=== PATIENT | male | born 1940 | race Caucasian/White ===

== ENCOUNTER 2018-01-21 10:01 | Emergency (ER) | payer MEDICARE, BC, SELFPAY ==
[2018-01-21 10:08] VITALS: BP 155/83; PULSE 79; RESP 18; TEMP 36.8
[2018-01-21 10:26] VITALS: O2SAT 96
--- NOTE | 2018-01-21 10:30 | ED.GENADUL_ITS ---
Discharge Plan Disposition Patient Disposition: HOME Condition: Stable Discharge Details Chief Complaint: Orthopedic Clinical Impression: Chronic wound of extremity Primary Care Provider: Erik Carrasquillo ED Provider: Alize Hernández Home Meds and New Rx's Prescriptions: New cephalexin [Keflex] 500 mg capsule 500 mg PO QID Qty: 39 RF: 0 Continue dutasteride-tamsulosin [Marian] 1 EACH capsule, ER multiphase 24 hr 1 ea PO DAILY Qty: 90 RF: 3 multivitamin [Daily Multi-Vitamin] 1 EACH tablet 1 ea PO DAILY RF: 0 aspirin 325 MG tablet 325 mg PO DAILY RF: 0 pravastatin 20 MG tablet 20 mg PO HS Qty: 90 RF: 3 omeprazole 20 MG capsule,delayed release(DR/EC) 40 mg PO DAILY RF: 0 albuterol sulfate [ProAir HFA] 1 PUFF HFA aerosol inhaler 2 puff Inhalation PRN (Reason: Wheezing) RF: 0 diltiazem HCl [Cardizem] 120 MG tablet 240 mg PO DAILY RF: 0 Discharge Instructions Instructions: Cephalexin (By mouth), Cellulitis (ED) Additional Instructions: Please return immediately to the emergency department if you develop any new or worsening symptoms or if you become otherwise concerned. It is extremely important that you make an appointment to be seen by your primary care doctor within the next 1-2 weeks in follow-up this visit. Referrals: Erik Carrasquillo [Primary Care Provider] - Medical Decision Making Geoff Camacho is a 77 y/o man with h/o COPD presenting to the emergency department with would to the right hand one month ago that has developed into a milldy tender nodule, with redness over the past few days. On exam mildly tender nodule with central ulceration with granulation tissue, no drainage, mild erythema radial aspect of nodule. Exam/hx not consistent with abscess, anthrax, tularemia, other atypical skin infection, disseminated infection, sepsis. Concern for likely granuloma, possible cellulitic component. Plan for antibiotics given erythema and recent puncture at home with needle. Patient reports last tetanus shot was over 10 years ago, will administer Boostrix. Lengthy discussion with regarding return to emergency department precautions and importance of outpatient follow-up with his PCP in 1-2 weeks for follow-up and wound check. Patient is amenable to the plan. Medical Records Medical records reviewed: Yes I reviewed the patient's medical records. HPI General Mode of arrival: ambulatory . Date/Time Provider Initiated Documentation: 01/21/18 10:11 . Limitations to Documentation: no limitations . Information obtained by: patient . HPI Narrative: Geoff Camacho is a 77 y/o man with history of COPD presenting to the emergency department with painful bump to the right hand. Patient reports that approximate 1 month ago he hit the top of his right hand on the underneath of the table, sustaining a cut to the top of his right hand. Patient reports that the wound healed poorly, and became a raised bump. He reports that in the past week it seems to be becoming somewhat more red. He reports that he was waiting for the bump to develop head that would pop, but it never has. He reports that he stuck a needle into the center of it to see if it would drain, and it did not. She reports that it is mildly tender when he touches it, but otherwise does not hurt. He reports that he hit the top of his left hand on the underneath of a table and sustained a cut also around a month ago, and he does have a small bump on the top of his left hand as well since the time of the injury that has not been red or painful. Patient reports that he has chronic left-sided shoulder pain for which she receives injections from his primary care doctor approximately every year, and feels that he is again due for steroid injection of the shoulder. Shoulder pain is unchanged from its chronic baseline. No other pain, no fevers, no other rash, no nausea/vomiting/ diarrhea, no shortness of breath, no cough. Patient reports that he had a dog that recently but has no other pets and does not work with livestock. No travel since onset of symptoms. Patient is retired, no unusual occupational exposures. Related Data Home Medications Medication Instructions Recorded Confirmed albuterol sulfate [ProAir HFA] 2 puff INHALATION PRN 07/01/12 07/06/13 omeprazole 40 mg PO DAILY 07/01/12 10/17/16 diltiazem HCl [Cardizem] 240 mg PO DAILY 07/06/13 10/17/16 dutasteride-tamsulosin [Marian] 1 ea PO DAILY #90 cap 12/26/13 aspirin 325 mg PO DAILY tab-cap 10/23/16 multivitamin [Daily Multi-Vitamin] 1 ea PO DAILY 10/23/16 pravastatin 20 mg PO HS #90 tab-cap 10/23/16 cephalexin [Keflex] 500 mg PO QID #39 cap 01/21/18 Previous Rx's Medication Instructions Recorded cephalexin [Keflex] 500 mg PO QID #39 cap 01/21/18 Allergies Allergy/AdvReac Type Severity Reaction Status Date / Time No Known Allergies Allergy Unverified 11/21/16 12:11 General Stated Complaint: Orthopedic JOSH: 4 Review of Systems Review of Systems Constitutional: denies fevers Eyes: denies eye pain ENT: denies facial pain, dental pain, sore throat Cardiovascular: denies chest pain, edema Respiratory: denies SOB, cough GI: denies abdominal pain, vomiting, diarrhea : denies flank pain MSK: denies back pain, neck pain, myalgias, reports chronic shoulder pain Skin: reports rash as per HPI Neuro: denies headaches, lightheadedness, weakness PFSH Medical History COPD (chronic obstructive pulmonary disease) (Chronic) Social History Smoking/Tobacco Use Status: Never Exam Narrative Exam Narrative: Constitutional: well and qff-[id number]-[id number], pleasant, conversing normally HENT: head atraumatic, normocephalic normal inspection, mucous membranes moist Eyes: conjunctiva normal, sclera normal, pupils 3mm b/l Neck: no stridor, normal ROM, trachea midline Chest: normal inspection Resp: normal work of breathing, LCTAB Cardio: normal rate, normal rhythm, no murmur appreciated Back: normal inspection, no rash Skin: warm, dry, normal color, no rash. <1 cm raised nodule with central granulation tissue to dorsal right hand with mild erythema radial aspect of nodule. not fluctuant, no drainage, no edema. <1cm barely palpable nodule dorsal left hand with overlying skin intact, no overlying skin changes. Neuro: alert, not altered, grossly non-focal, normal tone Ext: no edema Psych: normal mood, normal affect, normal behavior Course Vital Signs Temperature 36.8 C 01/21/18 10:08 Pulse 79 01/21/18 10:08 Respiratory Rate 18 01/21/18 10:08 Blood Pressure 155/83 H 01/21/18 10:08 Temperature 36.8 C 01/21/18 10:08 Temperature Source Tympanic 01/21/18 10:08 Pulse 79 01/21/18 10:08 Respiratory Rate 18 01/21/18 10:08 Respiratory Effort 01/21/18 10:10 Blood Pressure 155/83 H 01/21/18 10:08 Blood Pressure Position Supine 01/21/18 10:08 Pulse Oximetry 96 01/21/18 10:26 Oxygen Delivery Method Room Air 01/21/18 10:26 Oxygen Flow Rate 0 01/21/18 10:26 Pain Level 0 01/21/18 10:08
[2018-01-21] MEDS: Cephalexin 500 MG CAP PO (10:39)
[2018-01-21 11:00] VITALS: BP 110/60; PULSE 80; RESP 18; TEMP 36.8; O2SAT 99
== END 2018-01-21 11:01 | disposition home or self-care (01) ==
PROVIDERS: Emergency Provider Student in an Organized Health Care Education/Training Program; PCP Internal Medicine
DX: L98.491 Non-pressure chronic ulcer of skin of other sites limited to breakdown of skin (principal); J44.9 Chronic obstructive pulmonary disease, unspecified
CPT/HCPCS: 90471; 99284

== ENCOUNTER 2018-02-25 09:10 | Outpatient (CLI) | payer MEDICARE, BC, SELFPAY ==
--- NOTE | 2018-02-25 09:04 | DI.RAD_ITS ---
SYMPTOM/DIAGNOSIS: LEFT SHOULDER PAIN LEFT SHOULDER: No fracture or dislocation is seen. There are degenerative changes of the AC joint. There is mild spurring at the margin of the glenoid. The glenohumeral joint space is well maintained. The humeral head is normally positioned. IMPRESSION: Moderate degenerative changes of the A-C joint. Mild degenerative changes of the glenohumeral joint.
== END 2018-02-25 09:30 ==
PROVIDERS: PCP Internal Medicine; Referring Provider Internal Medicine; Visit Provider Student in an Organized Health Care Education/Training Program
DX: M25.512 Pain in left shoulder (principal); M19.012 Primary osteoarthritis, left shoulder; J44.9 Chronic obstructive pulmonary disease, unspecified
CPT/HCPCS: 20610; 99204; 99214; 73030; J1040

== ENCOUNTER 2018-03-28 11:48 | Outpatient (REF) | payer MEDICARE, BC, SELFPAY ==
[2018-03-28 19:52] LABS: ALT 27 U/L (12-78); Anion Gap 6.8 mmol/L (3-11); BUN 15 mg/dL (7-18); CO2 30.2 mmol/L (21.0-32.0); CREATININE 1.02 mg/dL (0.70-1.30); Calcium 8.8 mg/dL (8.5-10.1); Chloride 106 mmol/L (98-107); Glucose 117 mg/dL (70-100); LDL CHOLESTEROL 107 mg/dL (<100); Potassium 4.1 mmol/L (3.5-5.1); Sodium 143 mmol/L (136-145)
== END 2018-03-28 12:08 ==
LOC: NCHCN 11:48
PROVIDERS: PCP Internal Medicine; Visit Provider Internal Medicine
DX: E78.5 Hyperlipidemia, unspecified (principal); R60.9 Edema, unspecified
CPT/HCPCS: 80048; 83721; 84460

== ENCOUNTER 2018-08-28 09:22 | Outpatient (CLI) | payer MEDICARE, BC, SELFPAY ==
--- NOTE | 2018-08-28 09:20 | DI.RAD_ITS ---
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 In addition, moderate degenerative changes involving the second metacarpal phalangeal joint is demonstrated with milder degenerative abnormalities involving the interphalangeal joints. 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
== END 2018-08-28 09:42 ==
PROVIDERS: PCP Internal Medicine; Referring Provider Internal Medicine; Visit Provider Student in an Organized Health Care Education/Training Program
DX: M79.641 Pain in right hand (principal); M79.642 Pain in left hand; M18.0 Bilateral primary osteoarthritis of first carpometacarpal joints; M19.041 Primary osteoarthritis, right hand; M19.042 Primary osteoarthritis, left hand
CPT/HCPCS: 99212; 99213; 73130

== ENCOUNTER → 2018-09-30 09:31 | Outpatient (BNVA) | payer MEDICARE, BC, SELFPAY | PROVIDERS: PCP Internal Medicine; Referring Provider Internal Medicine; Visit Provider Student in an Organized Health Care Education/Training Program | DX: S43.004A Unspecified dislocation of right shoulder joint, initial encounter (principal); S46.011A Strain of muscle(s) and tendon(s) of the rotator cuff of right shoulder, initial encounter; W10.8XXA Fall (on) (from) other stairs and steps, initial encounter; J44.9 Chronic obstructive pulmonary disease, unspecified | CPT/HCPCS: 99214 ==

== ENCOUNTER 2018-10-07 01:15 | Outpatient (CLI) | payer MEDICARE, BC, SELFPAY ==
--- NOTE | 2018-10-07 14:55 | DI.MRI_ITS ---
SYMPTOM/DIAGNOSIS: RT SHOULDER DISLOCATION, S49.90XA, INJURY, S/P FALL, WEAKNESS, DECREASED RANGE OF MOTION RIGHT SHOULDER MRI: The patient reportedly has a history of recent shoulder dislocation. There is a shoulder joint effusion with some debris. There is an apparent mildly displaced fracture of the humeral head, predominantly involving the greater tuberosity. Rotator cuff is thinned but not grossly disrupted. The glenoid labrum is effaced posteriorly and inferiorly and may be torn posteriorly. No definite anterior tear is seen. No bony Bankart lesion identified. Marked degenerative changes of the AC joint with very prominent hypertrophic changes and cystic changes of the distal clavicle noted. Biceps tendon appears grossly normally positioned and no biceps tear is seen. CONCLUSION: Marked degenerative changes, nondisplaced fracture greater tuberosity of the humerus, question labral injury. No gross rotator cuff tear is seen but rotator cuff is markedly thinned, presumably on a chronic basis.
== END 2018-10-07 01:35 ==
PROVIDERS: PCP Internal Medicine; Visit Provider Student in an Organized Health Care Education/Training Program
DX: S43.004D Unspecified dislocation of right shoulder joint, subsequent encounter (principal); M25.811 Other specified joint disorders, right shoulder; M19.011 Primary osteoarthritis, right shoulder; M25.411 Effusion, right shoulder; S42.254A Nondisplaced fracture of greater tuberosity of right humerus, initial encounter for closed fracture
CPT/HCPCS: 73221

== ENCOUNTER → 2018-10-11 10:46 | Outpatient (BNVA) | payer MEDICARE, BC, SELFPAY | PROVIDERS: Referring Provider Internal Medicine; Visit Provider Student in an Organized Health Care Education/Training Program | DX: S42.294A Other nondisplaced fracture of upper end of right humerus, initial encounter for closed fracture (principal); W19.XXXA Unspecified fall, initial encounter | CPT/HCPCS: 99213 ==

== ENCOUNTER → 2018-11-08 10:51 | Outpatient (BNVA) | payer MEDICARE, BC, SELFPAY | PROVIDERS: Visit Provider Student in an Organized Health Care Education/Training Program | DX: S43.004A Unspecified dislocation of right shoulder joint, initial encounter (principal); X58.XXXA Exposure to other specified factors, initial encounter | CPT/HCPCS: 99213 ==

== ENCOUNTER → 2018-12-13 10:23 | Outpatient (BNVA) | payer MEDICARE, BC, SELFPAY | PROVIDERS: Visit Provider Student in an Organized Health Care Education/Training Program | DX: S43.004A Unspecified dislocation of right shoulder joint, initial encounter (principal); S46.011A Strain of muscle(s) and tendon(s) of the rotator cuff of right shoulder, initial encounter; X58.XXXA Exposure to other specified factors, initial encounter | CPT/HCPCS: 99212; 99213 ==

== ENCOUNTER → 2019-01-20 10:26 | Outpatient (BNVA) | payer MEDICARE, BC, SELFPAY | PROVIDERS: Referring Provider Internal Medicine; Visit Provider Student in an Organized Health Care Education/Training Program | DX: S43.004A Unspecified dislocation of right shoulder joint, initial encounter (principal); X58.XXXA Exposure to other specified factors, initial encounter | CPT/HCPCS: 99213 ==

== ENCOUNTER 2019-04-11 15:21 | Outpatient (REF) | payer MEDICARE, BC, SELFPAY ==
[2019-04-11 19:41] LABS: ALT 22 U/L (16-63); Anion Gap 8.1 mmol/L (3-11); BUN 22 mg/dL (7-18); CO2 27.9 mmol/L (21.0-32.0); CREATININE 0.93 mg/dL (0.70-1.30); Chloride 106 mmol/L (98-107); Glucose 94 mg/dL (74-106); LDL CHOLESTEROL 101 mg/dL (<100); Potassium 4.4 mmol/L (3.5-5.1); Sodium 142 mmol/L (136-145)
== END 2019-04-11 15:41 ==
LOC: NCHCN 15:21
PROVIDERS: PCP Internal Medicine; Visit Provider Internal Medicine
DX: E78.5 Hyperlipidemia, unspecified (principal); M17.9 Osteoarthritis of knee, unspecified
CPT/HCPCS: 80048; 83721; 84460

== ENCOUNTER 2019-10-20 10:01 | Emergency (ER) | payer MEDICARE, BC, SELFPAY ==
[2019-10-20 10:08] VITALS: BP 159/77; PULSE 88; RESP 18; TEMP 36.6; O2SAT 94
--- NOTE | 2019-10-20 10:28 | W.ED.GENAD ---
Discharge Plan Disposition Patient Disposition: HOME Condition: Stable Discharge Details Chief Complaint: Orthopedic Clinical Impression: Knee pain Primary Care Provider: Erik Carrasquillo ED Provider: Juan Stout Home Meds and New Rx's Prescriptions: Continued dutasteride-tamsulosin [Marian] 1 EACH capsule, ER multiphase 24 hr 1 ea PO DAILY Qty: 90 RF: 3 multivitamin [Daily Multi-Vitamin] 1 EACH tablet 1 ea PO DAILY RF: 0 pravastatin 20 MG tablet 20 mg PO HS Qty: 90 RF: 3 omeprazole 20 MG capsule,delayed release(DR/EC) 40 mg PO DAILY RF: 0 albuterol sulfate [ProAir HFA] 1 PUFF HFA aerosol inhaler 2 puff Inhalation PRN (Reason: Wheezing) RF: 0 diltiazem HCl [Cardizem] 120 MG tablet 240 mg PO DAILY RF: 0 aspirin [Aspir-81] 81 mg Tablet,Delayed Release (Dr/Ec) 81 mg PO DAILY RF: 0 Discharge Instructions Instructions: Knee Pain (ED) Additional Instructions: Unfortunately we cannot obtain nonemergent MRIs out of the ER routinely. As we discussed in the ER, x-ray likely a little value. Continue using ocij-cuz-iahdejh medication as directed, wearing your brace, using a cane, advancing activity as tolerated. Rest, elevate, cool compresses every 2 hours for 20 minutes. Please watch for new or worsening symptoms and return to the ER for any concerns. I would reach out to either your primary care provider and/or orthopedic doctor you have seen in the past later today or tomorrow for reevaluation in the next week or so. If symptoms persist, outpatient MRI and/or physical therapy likely indicated Medical Decision Making 79-year-old gentleman who reports knee pain after getting out of the chair yesterday and feeling a pop. Already using a cane and wearing a brace. He has been taking xarn-grr-[id number] medication with moderate relief. We discussed our options, he does not feel as though an x-ray is indicated as he does not believe that he has a bony abnormality. He would like an MRI. He appears well, nontoxic, neuro, vascular, tendon intact. I explained to the patient that we would not be routinely ordering a MRI from the ER for a nonemergent process. My recommendations would be to continue conservative therapy and reach out to his primary care provider or previous orthopedic provider for further evaluation. If conservative therapy cure versus discomfort are likely no further intervention needed. If he continues to have discomfort then outpatient physical therapy and/or MRI may be required. Patient is comfortable with this plan and has no additional questions or concerns. Medical Records Medical records reviewed: Yes I reviewed the patient's medical records. HPI General Mode of arrival: ambulatory. Date/Time Provider Initiated Documentation: 10/20/19 10:01. Limitations to Documentation: no limitations. Information obtained by: patient. HPI Narrative: This is a 79-year-old gentleman with a history of COPD, hyperlipidemia, GERD, presenting to the ER for left knee pain. He reports that yesterday he was attempting to get out of a chair and felt a popping sensation on the lateral aspect of his knee. Initially the pain was severe and he was unable to walk very well unless he had his knee completely straight. He reports at rest now he has no pain whatsoever but with attempting to move his knee or bear weight he has mild to moderate pain. He denies any other injury. He does not fall to the ground. Denies pain or swelling in his calf. Denies pain in his hip or ankle. He has no numbness tingling or weakness. Patient already is wearing a knee brace and has a cane. He has been taking pfjg-nfe-[id number] medication with moderate relief Related Data Home Medications Medication Instructions Recorded Confirmed albuterol sulfate [ProAir HFA] 2 puff INHALATION PRN 07/01/12 01/20/19 omeprazole 40 mg PO DAILY 07/01/12 10/20/19 diltiazem HCl [Cardizem] 240 mg PO DAILY 07/06/13 10/20/19 dutasteride-tamsulosin [Marian] 1 ea PO DAILY #90 cap 12/26/13 10/20/19 multivitamin [Daily Multi-Vitamin] 1 ea PO DAILY 10/23/16 10/20/19 pravastatin 20 mg PO HS #90 tab-cap 10/23/16 10/20/19 aspirin [Aspir-81] 81 mg PO DAILY 10/20/19 10/20/19 Allergies Allergy/AdvReac Type Severity Reaction Status Date / Time No Known Allergies Allergy Unverified 10/20/19 10:13 General Stated Complaint: Orthopedic JOSH: 4 Review of Systems Constitutional Constitutional: Denies fever(s) and Denies weakness Cardiovascular Cardiovascular: Denies chest pain and Denies dyspnea Respiratory Respiratory: Denies dyspnea Musculoskeletal Musculoskeletal: Reports arthralgias, Denies numbness and Denies tingling Integumentary/Breasts Skin/Breast: Denies rash Neurologic Neurologic: Denies numbness, Denies tingling and Denies weakness [facility] Medical History COPD (chronic obstructive pulmonary disease) (Chronic) Social History Smoking/Tobacco Use Status: Never Drug use: Never Current gender identity: male Do you feel safe at home: Yes Do you feel safe in your relationship?: Yes Exam Const General: cooperative, healthy appearing, comfortable and no acute distress Orientation: alert and awake HENMT Head: normal to inspection, normocephalic and atraumatic Mouth: moist mucous membranes Eyes Conjunctivae: conjunctivae normal Neck Neck: normal visual inspection, trachea midline and supple Resp Effort & Inspection: normal respiratory effort and able to speak in complete sentences Auscultation: clear to auscultation bilaterally Cardio Rate: regular rate Rhythm: regular rhythm Skin General skin exam: no rashes or lesions noted Neuro General: patient alert, patient awake, moves all extremities and no focal motor deficits Speech: speech normal Gait: normal gait (Using a cane) Sensory Exam: no sensory deficits noted Extrem General: normal to inspection, full ROM, capillary refill normal, no pedal edema and no calf tenderness Left lower extremity: normal to inspection, full ROM, normal capillary refill and knee Details: normal to inspection, normal ROM and knee ligament exam normal; no tenderness and no swelling Psych Appearance: grossly normal Mental Status: mental status grossly normal Course Vital Signs Vital signs: Vital Signs Temperature 36.6 C 10/20/19 10:08 Pulse 88 10/20/19 10:08 Respiratory Rate 18 10/20/19 10:08 Blood Pressure 159/77 H 10/20/19 10:08 Pulse Oximetry 94 L 10/20/19 10:08 Temperature 36.6 C 10/20/19 10:08 Pulse 88 10/20/19 10:08 Respiratory Rate 18 10/20/19 10:08 Respiratory Effort Non-Labored 10/20/19 10:12 Blood Pressure 159/77 H 10/20/19 10:08 Blood Pressure Position Sitting 10/20/19 10:08 Pulse Oximetry 94 L 10/20/19 10:08 Oxygen Delivery Method Room Air 10/20/19 10:08 Oxygen Flow Rate 0 10/20/19 10:08 Pain Level 7 10/20/19 10:15
== END 2019-10-20 10:34 | disposition home or self-care (01) ==
PROVIDERS: Emergency Provider Physician Assistant; PCP Internal Medicine
DX: M25.562 Pain in left knee (principal); J44.9 Chronic obstructive pulmonary disease, unspecified
CPT/HCPCS: 99282

== ENCOUNTER 2019-11-24 08:14 | Outpatient (CLI) | payer MEDICARE, BC, SELFPAY ==
--- NOTE | 2019-11-24 08:00 | DI.RAD_ITS ---
EXAM: XR KNEE LT 3V AP,LAT,CHRISTINE CLINICAL HISTORY: KNEE PAIN TECHNIQUE: COMPARISON: No exams were available for comparison FINDINGS: Three views were obtained. There is severe narrowing of the medial tibiofemoral cartilaginous joint space medial subluxation of the femur on the tibia. There are very prominent marginal osteophytes in volving all 3 joints of the knee. There are possible loose joint bodies posteriorly. IMPRESSION: Severe DJD predominantly involving medial tibiofemoral joint RADIATION DOSE DELIVERED: Total DLP
== END 2019-11-24 08:34 ==
PROVIDERS: PCP Internal Medicine; Referring Provider Internal Medicine; Visit Provider Student in an Organized Health Care Education/Training Program
DX: M17.12 Unilateral primary osteoarthritis, left knee (principal); M25.762 Osteophyte, left knee; M25.562 Pain in left knee; J44.9 Chronic obstructive pulmonary disease, unspecified
CPT/HCPCS: 73562; 99203; 99214

== ENCOUNTER 2019-12-09 14:35 | Outpatient (REF) | payer MEDICARE, BC, SELFPAY ==
[2019-12-09 19:27] LABS: ALT 21 U/L (16-63); Anion Gap 5.8 mmol/L (3-11); BUN 10 mg/dL (7-18); CO2 27.2 mmol/L (21.0-32.0); CREATININE 0.83 mg/dL (0.70-1.30); Calcium 8.5 mg/dL (8.5-10.1); Chloride 104 mmol/L (98-107); Glucose 99 mg/dL (74-106); LDL CHOLESTEROL 98 mg/dL (<100); Potassium 4.4 mmol/L (3.5-5.1); Sodium 137 mmol/L (136-145)
== END 2019-12-09 14:55 ==
LOC: NCHCN 14:35
PROVIDERS: PCP Internal Medicine; Visit Provider Internal Medicine
DX: E78.5 Hyperlipidemia, unspecified (principal)
CPT/HCPCS: 80048; 83721; 84460

== ENCOUNTER 2020-12-02 15:46 | Outpatient (REF) | payer MEDICARE, BC, SELFPAY ==
--- OUTSIDE RECORDS SUMMARY | 2020-12-02 15:49 | XMS_ITS | Continuity of Care Document ---
:1940 Author Organization [facility] Address [address] [place] [address] Care Team Providers Name Role Phone [place] Primary Care Physician Unavailable Allergies, Adverse Reactions, Alerts Allergen Type Severity Reaction Last Updated Verified Status ibuprofen Allergy Moderate vomiting September 24, 2018 Y Active Medications Active Medications Medication Dose Units Route Sig Qty Start Date Status Aspirin [Aspirin Low MG September 24 19 Active Dose] Diltiazem Hcl MG ORAL September 24, 2018 Acti ve Pravastatin MG September 24, 2018 Active Mometasone [Asmanex INHALATION September 24, 2018 Active Twisthaler] Dutasteride-Tamsulosin CAP ORAL September 24, 2018 Active Hydrocodone-Acetaminoph 1 TAB ORAL Q6H PRN For 7 September 25, 2018 Active en [Achille] pain Problem List Active Problems Medical Problem Onset Date Status Anterior dislocation of right shoulder A ctive Procedures Procedure Date Status Shoulder 2 vw Min RT September 24, 2018 completed Shoulder 1 vw RT September 24, 2018 completed Relevant Diagnostic Tests and/or Laboratory Data No known relevant diagnostic tests, laboratory data, and/or discharge summary. Chief Complaint and Reason for Visit Encounter Admit Date Chief Complaint Reason for Visit Departed Emergency September 24, 2018 5:30pm fall, weakness Hospital Discharge Instructions No known hospital discharge instructions. Hospital Discharge Medications Medication Dose Units Route Sig Qty Days Order Status Instru ctions Date Aspirin MG September 242018 Diltiazem Hcl MG ORAL September 242018 Pravastatin MG September 242018 Mometasone INHALATION September 242018 Dutasteride-Tams CAP ORAL September 24, e ulosin 2019 Hydrocodone-Acet 1 TAB ORAL Q6H PRN 7 September 25, Acti ve aminophen For pain 2019 Encounters Encounter Facility Location Admit/Visit Discharge/Departure Atte nding Date Date Provider Departed [facility] Emergency September 24, 2018 September 25, 2018 10:05a [facility] 5:30pm Functional Status Query Response Date Recorded Comment Living Situation Home September 25, 2018 10:04am Immunizations No known immunizations. Payers Payer Name Policy Type Covered Covered Relationship Subscriber Sub scriber Alliance Party Alliance Party Id Id JUSTYN LEGGETT Commercial ERICH [id number] Self/Same as ERICH SOLIS [id number] [facility] Patient EMPLOYEES MEDICARE Medicare ERICH [id number] Self/Same as ERICH SOLIS [id number] PART A AND B Primary WORTH 3 Patient COVERAGE SELF PAY Personal Plan of Care Instructions Shoulder Dislocation (DC) Social History No known social history. Vital Signs Vital Reading Result Reference Range Collection Date/ Time Height n/a Weight 84.368 kg September 24, 2018 5: 38pm Temperature 98.8 F 97.6 F-99.6 F September 24, 2018 5: 38pm Pulse 71 BPM 60-100 September 24, 2018 11 :00pm Respiration 16 RPM 12-24 September 24, 2018 11 :00pm Pulse Oximetry 95 % 95-100 September 24, 2018 11 :00pm Blood Pressure Systolic 118 100-140 September 24, 2018 11:00pm Blood Pressure Diastolic 67 50-85 August 11:00pm Body Mass Index n/a
[2020-12-02 18:57] LABS: ALT 26 U/L (16-63); Anion Gap 10.9 mmol/L (3-11); BUN 15 mg/dL (7-18); CO2 26.1 mmol/L (21.0-32.0); CREATININE 0.9 mg/dL (0.70-1.30); Calcium 8.8 mg/dL (8.5-10.1); Chloride 105 mmol/L (98-107); Glucose 91 mg/dL (74-106); LDL CHOLESTEROL 103 mg/dL (<100); Potassium 4.4 mmol/L (3.5-5.1); Sodium 142 mmol/L (136-145)
== END 2020-12-02 15:47 | disposition home or self-care (01) ==
LOC: NCHCN 15:46
PROVIDERS: PCP Internal Medicine; Visit Provider Internal Medicine
DX: D12.6 Benign neoplasm of colon, unspecified (principal); E78.5 Hyperlipidemia, unspecified; K21.9 Gastro-esophageal reflux disease without esophagitis; I47.1 Supraventricular tachycardia
CPT/HCPCS: 80048; 83721; 84460

== ENCOUNTER 2021-03-29 11:31 | Outpatient (REF) | payer MEDICARE, BC, SELFPAY ==
[2021-03-29 20:28] LABS: Bilirubin Negative (Negative); Blood Small (Negative); Clarity Cloudy (Clear); Glucose Negative (Negative); Ketones Negative (Negative); Leukocyte Esterase Large (Negative); Nitrite Negative (Negative); Specific Gravity 1.025 (1.005-1.025); Urobilinogen 0.2 EU/dL (Up TO 0.2)
[2021-03-29 20:42] LABS: Bacteria Packed HPF (Negative); Epithelial Cells Negative HPF (Negative); WBC >50 HPF (0-5)
[2021-03-29 20:43] LABS: C & S Indicated? C&S Done As Ordered
== END 2021-03-29 11:32 | disposition home or self-care (01) ==
LOC: NCHCN 11:31
PROVIDERS: PCP Internal Medicine; Visit Provider Nurse Practitioner Family
DX: R30.0 Dysuria (principal)
CPT/HCPCS: 87077; 81003; 81015; 87086; 87186

== ENCOUNTER 2021-09-23 12:47 | Emergency (ER) | payer MEDICARE, BC, SELFPAY ==
[2021-09-23 12:49] VITALS: BP 133/69; PULSE 84; RESP 16; TEMP 36.5; O2SAT 96
--- OUTSIDE RECORDS SUMMARY | 2021-09-23 12:52 | XMS_ITS | Encounter Summary ---
:1940 Author Organization [facility] [place] [address] Care Team Providers Name Role Phone Erik Carrasquillo MD Primary Care Provider Encounter Details Date Type Department Care Team Description 12/25/2019 Anesthesia Event Outpatient Surgery Loy Soares MD [facility] [place] [address] [place] [address] [phone] Anesthesia Record Procedure Summary Procedure Name Responsible Anesthesia Start Anesthesia Stop Time Anesthesiologist Time CATARACT EXTRACTION, EXTRACAPSULAR, WITH LENS INSERTION, COMPLEX (WRVU 11.08) (Right Eye) Events No events on file. No medications on file. Agents No agents on file. Blood No blood administrations on file. Lines, Drains, and Airways Type Details Placement Removal Incision 10/02/11; nostril (bilateral 10/02/11 0000 by Destiney Pate, sinus) RN Incision 12/25/19; 1309; eye 12/25/19 1309 by Najma Velazquez, PATTI documented in this encounter Social History Tobacco Use Types Packs/Day Years Used Date Former Smoker Cigars, Cigarettes 1 11 Quit: Smokeless Tobacco: Never Used Comments: pt reports smoking an occasion al cigar ~2 monthly Alcohol Use Standard Drinks/Week Comments Yes 0 (1 standard drink = 0.6 oz pure 1 glas s of wine and one can of beer alcohol) per month Alcohol Habits Answer Date Recorded How often do you have a drink Not asked containing alcohol? How many drinks containing alcohol do Not asked you have on a typical day when you are drinking? How often do you have six or more Not asked drinks on one occasion? Comment: 1 glass of wine and one can of 2 beer per month Sex Assigned at Date Recorded Not on file documented as of this encounter Plan of Treatment Not on filedocumented as of this encounter Visit Diagnoses Not on filedocumented in this encounter Care Teams Service Tester Relationship Specialty Start Date End Date Erik Carrasquillo MD PCP - General 02/22/[address] [place] [id number] documented as of this encounter
--- OUTSIDE RECORDS SUMMARY | 2021-09-23 12:52 | XMS_ITS | Encounter Summary ---
:1940 Author Organization [facility] [place] [address] Care Team Providers Name Role Phone Erik Carrasquillo MD Primary Care Provider Reason for Visit Audiology Exam (Routine) - Closed Specialty Diagnoses / Procedures Referred By Contact Refer red To Contact Audiology Diagnoses barton series Fitting Erik Carrasquillo MD McHugh, Maria Stella, MS Procedures HEARING AID FITTING [address] [place], [place] [address] [place] [address] Phone: Fax: Referral ID Status Reason Start Date Expiration Date Visits Requ ested Visits Authorized [id number] Closed 02/16/2020 02/15/2021 1 1 Encounter Details Date Type Department Care Team Description 02/16/2020 Office Visit Audiology at [facility] Luisa Warren Sensorineural hearing loss, bilateral; [facility] MS Leona Tinnitus, bilateral; [facility] MEDICAL Fitting and adjustment of he aring aid [place], [place] CENTER [address] AUDIOLOGY DEPT [phone] [place], [place] [address] Social History Tobacco Use Types Packs/Day Years [...] on file documented as of this encounter Progress Notes Luisa Warren, MS - 02/16/2020 10:15 AM EST 02/16/2020 AUDIOLOGY - Hearing Aid Fitting Binaural hearing aids were dispensed today to Geoff Camacho for management of his bilateral sensorineural hearing loss. He was accompanied by his . Verification of hearing aid fit was completed via [id number] (REM) using the Desired Sensation Level 5 (DSL 5a) prescriptive fitting method. The aided response approximated targets for speech. Loudness discomfort was denied at maximum power output levels. SREM and d-darlene measures were also completed for future comparison purposes. Pairing to [employer] was declined at this time. Mr. Camacho reported good initial physical comfort and sound quality. He was instructed on the aids' use, care, maintenance, warranty coverage, and 30-day trial period. A review of expectations and the hearing aid adjustment process was also discussed. He was able to insert and manipulate the instruments with relative ease. Mr. Camacho will be seen for a follow-up hearing aid check and orientation withinthe 30-day trial. Amanuel Warren, , [facility] Clinical Coordinator, [place] [address] (fax) AMPLIFICATION EQUIPMENT LIST: HEARING AID RIGHT LEFT Make/Model/Style Phonak Audeo P30R Phonak Audeo P30R Casing Color P1: sand beige P1: sand beige Serial Number [id number] Battery Size rechargeable rechargeable Invoice number/date [id number] 01/31/2020 [id number] 01/31/2020 Other Comments PROGRAM/SETTINGS Fitting Algorithm DSL 5a DSL 5a Verification Method REM, SREM, and d-darlene REM, SREM, and d-darlene SII (w/65 dBSLP) unaided/aided 54 // 70 66 // 76 Programs Autosense OS Autosense OS Other Comments R = BT ear Fixed bandwidth BARTON WARRANTY Original Fit Date 02/16/2020 02/16/2020 Current Status 04/29/2022 04/29/2022 EARMOLD (if BTE BARTON) Lab Earmold / Slim tube / ELVIRA / Dome specifics #2 length, M artist and repertoire manager, large open dome #2 length, M artist and repertoire manager, large open dome Impression Date Invoice number/date Other Comments ACCESSORIES Make/Model (color) Serial Number Warranty date Invoice number/date Settings Other Comments documented in this encounter Plan of Treatment Not on filedocumented as of this encounter Visit Diagnoses Diagnosis Sensorineural hearing loss, bilateral Tinnitus, bilateral Unspecified tinnitus Fitting and adjustment of hearing aid documented in this encounter Care Teams Trimming Press Operator Relationship Specialty Start Date End Date Erik Carrasquillo MD PCP - General 02/22/[address] [place] [id number] documented as of this encounter
--- OUTSIDE RECORDS SUMMARY | 2021-09-23 12:52 | XMS_ITS | Encounter Summary ---
:1940 Author Organization [facility] [place] [address] Care Team Providers Name Role Phone Erik Carrasquillo MD Primary Care Provider Reason for Visit Reason Comments Establish Care R Shouler fx DOI 09/24/18 Consultation (Routine) - Closed Specialty Diagnoses / Procedures Referred By Contact Refer red To Contact Orthopaedics Diagnoses right shoulder fx 2nd opinion Self [facility] Orthopaedics [address] [place], [place] [phone] Phone: Fax: Referral ID Status Reason Start Date Expiration Date Visits V isits Requested Authorized [id number] Closed Consult, 10/14/2018 10/14/2019 1 1 Test & Treat Encounter Details Date Type Department Care Team Description 11/06/2018 Office Visit Orthopaedics at [facility] Onofre Ramsay F, Recurrent shoulder [facility] dislocation, [place] [address] CENTER [phone] ORTHOPAEDIC SURGERY [place] [address] Social History Tobacco Use Types Packs/Day Years [...] on file documented as of this encounter Last Filed Vital Signs Vital Sign Reading Time Taken Comments Blood Pressure 132/67 11/06/2018 3:27 PM EDT Pulse 95 11/06/2018 3:27 PM EDT Temperature - - Respiratory Rate - - Oxygen Saturation - - Inhaled Oxygen Concentration - - Weight 86.4 kg (190 lb 8 oz) 11/06/2018 3:27 PM EDT Height 167.3 cm (5' 5.87) 11/06/2018 3:27 PM EDT Body Mass Index 30.87 11/06/2018 3:27 PM EDT documented in this encounter Progress Notes Jeni Charles MD - 11/06/2018 3:00 PM EDT Chief complaint: R shoulder pain Problem List Items Addressed This Visit None History of present illness: Geoff Camacho is a 78 y.o. year-old male who fell down 2 steps which hedid not appreciate while walking. He fell onto his right shoulder and sustained an anterior shoulderdislocation. He was evaluated in the emergency department where 4-5 reduction attempts were attempted At [facility] with recurrent instability as the shoulder recurrently dislocated. He was eventually able to be reduced and held located with a swath. He was initially placed in a sling however he weaned out of this over the first 3 to 4 days. He has been followed by Dr. Higinio Torres and has beenlimiting any overhead, behind the back, or side to side activities. He has not been doing any heavy l ifting. He has not been involved with formal physical therapy though he has been doing pendulum exercises and range of motion at the elbow independently. He does endorse some numbness over his lateral shoulder and axillary nerve distribution. He has not had any recurrent instability episodes and no previous instability episodes. Past medical history: Patient Active Problem List Diagnosis Date Noted ??? H/O SVT (supraventricular tachycardia) 02/25/2013 Priority: High ??? Cataract 02/01/2018 ??? Fuchs' corneal dystrophy 02/01/2018 ??? History of basal cell carcinoma 10/16/2017 ??? Basal cell carcinoma, forehead 09/27/2016 ??? AK (actinic keratosis) 09/27/2016 ??? Spinal stenosis of lumbar region 09/17/2012 ??? Chronic back pain greater than 3 months duration 08/28/2012 ??? Aortic insufficiency 08/28/2012 ??? Reflux 12/17/2011 ??? Nasal polyposis 12/17/2011 ??? Chronic sinusitis 12/17/2011 ??? Asthma 10/02/2011 ??? Sinusitis, chronic 10/02/2011 ??? GERD (gastroesophageal reflux disease) 10/02/2011 ??? Actinic keratosis 06/01/2011 Past Surgical History: Past Surgical History: Procedure Laterality Date ??? LIPOMA RESECTION ??? PRG UNLISTED MRI PROCEDURE 08/28/2012 MRI WITH ANESTHESIA performed by Emilia, Anesthesia-Johnna at [facility] ??? PRO COLONOSCOPY, REMV LESN, SNARE N/A 03/03/2015 COLONOSCOPY, POLYPECTOMY, REMOVAL LESION BY SNARE performed by Jeni Valdez MD at [facility] ENDOSCOPY ??? PRO NASAL SCOPE, BX/RMV POLYP/DEBRID 10/02/2011 NASAL, SINUS ENDOSCOPY, WITH BX, POLYPECTOMY performed by KURTIS GUZMAN at [facility] OR ??? PRO NASAL SCOPY, REMV TOTL ETHMOID 10/02/2011 NASAL, SINUS ENDOSCOPY, TOTAL ETHMOIDECTOMY-MARGARET performed by KURTIS GUZMAN at [facility] OR ??? PRO NASAL SCOPY, RMV TISS MAXILL SINUS 10/02/2011 NASAL, SINUS ENDOSCOPY, REMOVE TISSUE MAXILLARY SINUS, MARGARET performed by KURTIS GUZMAN at [facility] OR ??? PRO STEREOTACTIC CPTR ASSTD PX CRANIAL, EXTRADURAL 10/02/2011 STEREOTACTIC COMPUTER-ASSTD NAVIGATIONAL CRANIAL EXTRADURAL performed by KURTIS GUZMAN at [facility] OR ??? TESTICLE REMOVAL Medications: ??? aspirin 81 mg Tablet, Delayed Release (E.C.) ??? HYDROcodone-acetaminophen (NORCO) 5-325 mg Tablet ??? dilTIAZem (TIAZAC) 240 mg Capsule,Sustained Action 24 hr ??? ASMANEX TWISTHALER 220 mcg (120 doses) Aerosol Powdr Breath Activated ??? omeprazole (PRILOSEC) 20 mg Capsule, Delayed Release(E.C.) ??? pravastatin (PRAVACHOL) 20 mg Tablet ??? ASMANEX TWISTHALER 220 mcg (60 doses) Aerosol Powdr Breath Activated ??? Dutasteride-Tamsulosin (RIK) 0.5-0.4 mg CM24 ??? DAILY MULTI-VITAMIN ORAL ??? albuterol (PROVENTIL HFA;VENTOLIN HFA) 90 mcg/Actuation inhaler ??? propofol (DIPRIVAN) infusion Allergies: No Known Allergies Social history: Social History Tobacco Use ??? Smoking status: Former Smoker Packs/day: 1.00 Years: 11.00 Pack years: 11.00 Types: Cigars, Cigarettes Last attempt to quit: 03/15/1967 Years since quittin.6 ??? Smokeless tobacco: Never Used ??? Tobacco comment: pt reports smoking an occasional cigar ~2 monthly Substance Use Topics ??? Alcohol use: Yes Comment: 1 glass of wine and one can of beer per month Review of systems: Patient denies fever, chills, chest pain, shortness of breath, nausea, vomiting Vital signs: Most Recent Vitals: 11/06/18 1527 BP: 132/67 Pulse: 95 Physical Exam: Patient is in no apparent distress Examination of the right shoulder: Tenderness palpation along the anterior and posterior shoulder joint. Tenderness to palpation along the posterior greater tuberosity. He has limited range of motion secondary to pain and stiffness thathis right shoulder with active elevation to approximately 90 degrees with very little passive elevation past the secondary stiffness. He does have external rotation approximately 50 degrees which is symmetric to the contralateral side. He has internal rotation to the level of the lower lumbar spine.Hehas full strength external rotation and belly press. Empty cantesting was deferred at this time. He does have diminished sensation over the axillary nerve distribution however he has full sensation in a radial, ulnar, median distribution. Imaging: Personal review of the patient's imaging reveals: X-ray right shoulder: There is a dislocation x-ray demonstrating an anterior inferior dislocation ofthe humeral head in relation to the glenoid. There is also postreduction x-rays demonstrating a bonyBankart lesion with question greater tuberosity fracture which is nondisplaced. MRI right shoulder: Rotator cuff tendinopathy but rotator cuff tendon is intact. Again demonstrated the greater tuberosity fracture although incompletely evaluated is the anterior Bankart fracture. Posterior labral tear likely. X-ray right shoulder taken today: There is maintained reduction of the right shoulder with no displacement of the greater tuberosity fracture which on MRI appears to be more of an impaction fracture than avulsion fracture. Assessment/Plan: 78 y.o. year-old male who presents status post right shoulder dislocation with improving pain but stiffness in his right shoulder. At this point we discussed that it is time to start with physical therapy working on range of motion for the next 4 to 6 weeks and then he may begin strengthening at that point. He should not be lifting any heavy weights at this time until after he beginsstrengthening exercise with physical therapy. We did discuss his risk for redislocation which is likely significantly lower than a younger counterpart. He will continue to follow with Dr. Torres in the future who will place physical therapy orders. If he needs physical therapy orders he is always welcome to call here for these. This plan was discussed with the patient and they are in agreement. All of the patient's questions were answered. JENI CHARLES MD Attending Note See Dr. Charles's note for details. I saw and evaluated the patient and agree with the resident's findings and plans as written. The patient's diagnosis and treatment options were reviewed with the patient. 78 yo gentleman 6 weeks s/p 2 part fx/dislocation of glenohumeral joint with nondisplaced GT fx.Here for 2nd opinion. Has been out of sling for 1 month and not experiencing any pain. Radiographs showed maintenance of reduction of GT. A/P: Begin formal PT working on ROM passive and passive/assisted x 4 weeks then begin strengthening.Patient will f/u with primary orthopedic surgeon, Dr. Torres in the next several days. Onofre Ramsay MD Global Marketing Specialist Orthopaedic Surgery Dept. of Orthopaedic Surgery [facility] documented in this encounter Plan of Treatment Not on filedocumented as of this encounter Visit Diagnoses Diagnosis Recurrent shoulder dislocation, right documented in this encounter Care Teams Deputy Sheriff Relationship Specialty Start Date End Date Erik Carrasquillo MD PCP - General 02/22/[address] [place] [address] documented as of this encounter
--- OUTSIDE RECORDS SUMMARY | 2021-09-23 12:52 | XMS_ITS | Encounter Summary ---
:1940 Author Organization [facility] [place] [address] Care Team Providers Name Role Phone Erik Carrasquillo MD Primary Care Provider Reason for Visit Reason Comments Blurred Vision Encounter Details Date Type Department Care Team Description 09/01/2020 Office Visit Ophthalmology at [facility] C Maximo Dorman Cataract, unspecified catara ct type, unspecified laterality; [facility] MD Coni Pseudophakia OD complex (hooks/trypan); [facility] [place] [address] CENTER [phone] OPHTHALMOLOGY DEPT. [place], [place] [address] Social History Tobacco Use Types [...] on file documented as of this encounter Patient Instructions Patient InstructionsMaximo Dorman MD - 09/01/2020 12:45 PM EDT Medications: Use eye medications as instructed by Dr. Dorman during your appointment. For non eye medications not prescribed by the Ophthalmology (Eye) Clinic, please follow up with yourPCP (primary care provider) for instructions. Dilation: Your eyes may have been dilated during your visit. Patients response to dilation varies and the duration of dilation can range from 4 to 24 hours. Be careful with visually demanding tasks until these effects have worn off. Driving: Wait until your vision has returned to normal baseline after your eye visit before driving. Changes in vision or eyes: Please call the eye clinic, , for any significant changes in vision, new flashes or floaters or eye pain Eye safety is important: please use eye protection during any activities in which you could injury your eyes. documented in this encounter Progress Notes Maximo Dorman MD - 09/01/2020 12:45 PM EDT Encounter Diagnoses Name Primary? Cataract, unspecified cataract type, unspecified laterality ??? Pseudophakia OD complex (hooks/trypan) ??? Fuchs' corneal dystrophy Geoff Jose Alejandro Camacho is a 79 y.o. with the following ophthalmic problems: S/p CEIOL OD in Fuchs pt. Improved but not resolved corneal edema BCVA OD up to 20/40, long discussion of pros and cons of EK (DMEK v DSAEK) For now would like to tryglasses which he will confirm with optom OS Cataract/Fuchs, follow for now Plan: - as above - Follow up 4 months or as needed - Findings and concerns discussed with Geoff and he expressed understanding. -Upon Return IOP MR Cpachy OU documented in this encounter Plan of Treatment Not on filedocumented as of this encounter Procedures Procedure Name Priority Date/Time Associated Comments Diagnosis PACHYMETRY - OU - Routine 09/01/2020 1:53 PM Fuchs' corneal Re sults for this BOTH EYES EDT dystrophy procedure are i n the results section. documented in this encounter Results Pachymetry - OU - Both Eyes (09/01/2020 1:53 PM EDT) Anatomical Region Laterality Modality Other Specimen (Source) Anatomical Location Collection Method / Collectio n Time Received Time / Laterality Volume Narrative 09/01/2020 1:53 PM EDT Recent Pachymetry Date Noted Right Eye Left Eye 09/01/2020 690 [id number] 12/10/2019 553 540 01/03/2019 560 552 Maximo Dorman MD OPHTHALMOLOGY SERVICES ORDER ALE documented in this encounter Visit Diagnoses Diagnosis Cataract, unspecified cataract type, uns pecified laterality Pseudophakia OD complex (hooks/trypan) Lens replaced by other means Fuchs' corneal dystrophy Endothelial corneal dystrophy documented in this encounter Care Teams Attacher Relationship Specialty Start Date End Date Erik Carrasquillo MD PCP - General 02/22/[address] [place] [address] documented as of this encounter
--- OUTSIDE RECORDS SUMMARY | 2021-09-23 12:52 | XMS_ITS | Encounter Summary ---
:1940 Author Organization [facility] [place] [address] Care Team Providers Name Role Phone Erik Carrasquillo MD Primary Care Provider Encounter Details Date Type Department Care Team Description 11/06/2018 Hospital Encounter XRay at [facility] Onofre Ramsay, Right shoulder pain, [address] [place] unspecified [place], [place] [facility] chronicity [id number] [place] [phone] [place] [address] Social History Tobacco Use Types Packs/Day Years [...] on file documented as of this encounter Medications at Time of Discharge Medication Sig Dispensed Refills Start Date End Date aspirin 81 mg Tablet, Take 81 mg by mouth 0 Delayed Release (E.C.) daily. HYDROcodone-acetaminophe take 1 tablet by 0 09/25 n (NORCO) 5-325 mg mouth every 6 hours Tablet if needed for pain dilTIAZem (TIAZAC) 240 take 1 capsule by 0 2018 mg Capsule,Sustained mouth once daily Action 24 hr ASMANEX TWISTHALER 220 0 07/01/2017 mcg (120 doses) Aerosol Powdr Breath Activated pravastatin (PRAVACHOL) Take 20 mg by mouth 0 20 mg Tablet daily. ASMANEX TWISTHALER 220 0 06/21/2016 mcg (60 doses) Aerosol Powdr Breath Activated Dutasteride-Tamsulosin Take by mouth daily. 0 (RIK) 0.5-0.4 mg CM24 DAILY MULTI-VITAMIN ORAL Take by mouth daily. 0 Reported on 08/30/2016 albuterol (PROVENTIL Inhale 2 puffs into 0 HFA;VENTOLIN HFA) 90 the lungs every 4 mcg/Actuation inhaler hours as needed. Use with spacer omeprazole (PRILOSEC) 20 Take 20 mg by mouth 0 12/31/2020 mg Capsule, Delayed daily. Release(E.C.) documented as of this encounter Plan of Treatment Not on filedocumented as of this encounter Procedures Procedure Name Priority Date/Time Associated Diagnosis Comme nts XR SHOULDER RIGHT Routine 11/06/2018 2:50 PM Right shoulder pa in, Results for this EDT unspecified procedure are i n chronicity the results section. documented in this encounter Results XR Shoulder Right (Generic) (11/06/2018 2:50 PM EDT) Anatomical Region Laterality Modality Shoulder Right Digital Radiography Specimen (Source) Anatomical Location Collection Method / Collectio n Time Received Time / Laterality Volume Impressions 11/06/2018 5:05 PM EDT Nondisplaced greater tuberosity fracture. Previously seen dislocation has been red uced. Acromioclavicular joint arthropathy. Thank you for letting us participate in the care of this patient. For questions regarding this report, please contact e number below. ? Electronically signed by: Almas velazquez [facility] ([phone]), at 11/06/2018 5:05 PM Narrative 11/06/2018 5:05 PM EDT EXAMINATION: XR SHOULDER RIGHT (GENERIC) CLINICAL HISTORY: greater tuberosity fx of humerus TECHNIQUE: 4 views RIGHT shoulder COMPARISON: 09/24/2018 FINDINGS: The previously seen anterior inferior gl enohumeral dislocation has been reduced. Small bone fragments project above the h ead done AP and scapular Y views. There is deformity of the tuberosity consisten t with an impacted nondisplaced fracture. At the glenohumeral joint oumar inal osteophytes are present but there is no joint space narrowing. Severe acro mioclavicular joint arthropathy is present. Procedure Note Almas Hodges MD - 11/06/2018Forma tting of this note might be different from the original. EXAMINATION: XR SHOULDER RIGHT (GENERIC) CLINICAL HISTORY: greater tuberosity fx of humerus TECHNIQUE: 4 views RIGHT shoulder COMPARISON: 09/24/2018 FINDINGS: The previously seen anterior inferior gl enohumeral dislocation has been reduced. Small bone fragments project above the h ead done AP and scapular Y views. There is deformity of the tuberosity consisten t with an impacted nondisplaced fracture. At the glenohumeral joint oumar inal osteophytes are present but there is no joint space narrowing. Severe acro mioclavicular joint arthropathy is present. IMPRESSION Nondisplaced greater tuberosity fracture . Previously seen dislocation has been red uced. Acromioclavicular joint arthropathy. Thank you for letting us participate in the care of this patient. For questions regarding this report, please contact e number below. Electronically signed by: Almas velazquez [facility] ([phone]), at 11/06/2018 5:05 PM Onofre Ramsay MD IMG DX ORDERABLES documented in this encounter Visit Diagnoses Diagnosis Right shoulder pain, unspecified chronic ity documented in this encounter Care Teams Oil Extractor Relationship Specialty Start Date End Date Erik Carrasquillo MD PCP - General 02/22/[address] [place] [id number] documented as of this encounter
--- OUTSIDE RECORDS SUMMARY | 2021-09-23 12:52 | XMS_ITS | Encounter Summary ---
:1940 Author Organization [facility] [place] [address] Care Team Providers Name Role Phone Erik Carrasquillo MD Primary Care Provider Reason for Referral Diagnostic Test (Routine) - Closed Specialty Diagnoses / Procedures Referred By Contact Refer red To Contact Radiology Diagnoses Ascending aorta dilation Ulises Borrego PA [facility] Rad Ct Scan Procedures CT Angiogram Chest (Non-Coronary) w Contrast CT Angiogram Chest (Non-Coronary) [facility] Contrast [facility] [place] [address] [place] [address] Referral ID Status Reason Start Date Expiration Date Visits V isits Requested Authorized [id number] Closed Specialty 12/09/2018 12/09/2019 1 1 Service Requested Reason for Visit Diagnostic Test (Routine) - Closed Specialty Diagnoses / Procedures Referred By Contact Refer red To Contact Radiology Diagnoses Ascending aorta dilation Ulises Borrego PA [facility] Rad Ct Scan Procedures CT Angiogram Chest (Non-Coronary) w Contrast CT Angiogram Chest (Non-Coronary) [facility] Contrast [facility] [place] [address] [place] [address] Referral ID Status Reason Start Date Expiration Date Visits V isits Requested Authorized [id number] Closed Specialty 12/09/2018 12/09/2019 1 1 Service Requested Encounter Details Date Type Department Care Team Description 02/17/[address] Scan at [facility] Discipio, Ascending aorta [facility] Rolo Leone MD dilation Drive [facility] [address] CARDIOTHORACIC [phone] [place] [address] Social History Tobacco Use Types Packs/Day Years [...] Name Priority Date/Time Associated Diagnosis Comme nts CT ANGIOGRAM OF Routine 02/17/2019 2:00 PM Ascending aorta Res ults for this CHEST EST dilation procedure are i n (NON-CORONARY) W the results CONTRAST section. documented in this encounter Results CT Angiogram Chest (Non-Coronary) w Contrast (02/17/2019 2:00 PM EST) Anatomical Region Laterality Modality Chest Computed Tomography Specimen (Source) Anatomical Location Collection Method / Collectio n Time Received Time / Laterality Volume Impressions 02/17/2019 3:48 PM EST Stable ectasia of ascending aorta Thank you for letting us participate in the care of this patient. For questions regarding this report, please contact e number below. ? Narrative 02/17/2019 3:48 PM EST EXAMINATION: CT ANGIOGRAM CHEST (NON-CORONARY)W CONTRAST CLINICAL HISTORY: follow up for dilated ascending aorta TECHNIQUE: Helical CT angiogram of the c hest was performed following the intravenous administration of contrast. Administered 63.0 ml of OMNIPAQUE 350.00 mg/ml. 3D images were generated on an in dependent workstation. COMPARISON: 12/08/2016 FINDINGS: VASCULAR Heart: Mild ventriculomegaly cardiomegal y Aorta: Stable mild ectasia of ascending aorta, measuring 3.7 x 3.9 cm in diameter, as measured from center line r eformatted images. The aorta tapers at the level of the aortic arch. The intrat horacic descending aorta is of normal caliber. Great vessels: No stenosis or aneurysm. Celiac/SMA: No stenosis or aneurysm. NON-VASCULAR Lungs and large airways: Within normal l imits. Pleura: Within normal limits. Mediastinum and king: Within normal limi ts. Limited views of the upper abdomen: No s ignificant findings. Osseous structures: Within normal limits . Procedure Note Maximo Mccall MD - 02/17/2019Form atting of this note might be different from the original. EXAMINATION: CT ANGIOGRAM CHEST (NON-COR ONARY)W CONTRAST CLINICAL HISTORY: follow up for dilated ascending aorta TECHNIQUE: Helical CT angiogram of the c hest was performed following the intravenous administration of contrast. Administered 63.0 ml of OMNIPAQUE 350.00 mg/ml. 3D images were generated on an in dependent workstation. COMPARISON: 12/08/2016 FINDINGS: VASCULAR Heart: Mild ventriculomegaly cardiomegal y Aorta: Stable mild ectasia of ascending aorta, measuring 3.7 x 3.9 cm in diameter, as measured from center line r eformatted images. The aorta tapers at the level of the aortic arch. The intrat horacic descending aorta is of normal caliber. Great vessels: No stenosis or aneurysm. Celiac/SMA: No stenosis or aneurysm. NON-VASCULAR Lungs and large airways: Within normal l imits. Pleura: Within normal limits. Mediastinum and king: Within normal limi ts. Limited views of the upper abdomen: No s ignificant findings. Osseous structures: Within normal limits . IMPRESSION Stable ectasia of ascending aorta Thank you for letting us participate in the care of this patient. For questions regarding this report, please contact e number below. Rolo Bailey MD IMG CT ORDERABLES documented in this encounter Visit Diagnoses Diagnosis Ascending aorta dilation Thoracic aortic ectasia documented in this encounter Administered Medications Inactive Administered Medications - up to 3 most recent administrations Medication Order MAR Action Action Date Dose Rate Site iohexol (OMNIPAQUE) 350 mg/mL Given 02/17/2019 1:58 PM EST 63 mL s solution 0-200 mL 0-200 mL, Intravenous, ONCE PRN, 1 dose, Starting on Mon 19 at 1358, Until Sun02/17/19 at 1358, Per Protocol, Warning Vesicant/Irritant Medication , Radiology Contrast, Routine documented in this encounter Care Teams Pharmacometrician Relationship Specialty Start Date End Date Erik Carrasquillo MD PCP - General 02/22/[address] [place] [id number] documented as of this encounter
--- OUTSIDE RECORDS SUMMARY | 2021-09-23 12:52 | XMS_ITS | Encounter Summary ---
:1940 Author Organization [facility] [place] [address] Care Team Providers Name Role Phone Erik Carrasquillo MD Primary Care Provider Reason for Visit Reason Comments Post Op Encounter Details Date Type Department Care Team Description 01/20/2020 Office Visit Ophthalmology at [facility] Maximo Stock Pseudophakia OD complex (mari ks/trypan); [facility] MD Coni [place] [address] CENTER [phone] O[address] [place] [address] Social History Tobacco Use Types Packs/Day Years [...] Patient Instructions Patient InstructionsMaximo Dorman MD - 01/20/2020 10:45 AM EDT Medications: Use eye medications as instructed [...] encounter Progress Notes Maximo Dorman MD - 01/20/2020 10:45 AM EDT Assessment: Encounter Diagnoses Name Primary? Pseudophakia OD complex (hooks/trypan) ??? Fuchs' corneal dystrophy Geoff Camacho with Cataract surgery:~ 4 weeks ago in Fuchs patient with dense cataract requiring hooks and trypan Improved vision and reduced edema but central edema is still present Discussed that will follow for a few months to see if he will need a K transplant. He expressed understanding Plan: - Stop all post operative drops but continue with Jenae 128 - dude wrangler post op risks included retinal detachment and posterior capsular opacification reviewed. Follow up: - March or as needed. 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
--- OUTSIDE RECORDS SUMMARY | 2021-09-23 12:52 | XMS_ITS | Encounter Summary ---
:1939 Author Organization [facility] [address] Care Team Providers Name Role Phone Erik Carrasquillo MD Primary Care Provider Reason for Visit Reason Onset Date Comments Bumped Appointment 06/12/2019 Encounter Details Date Type Department Care Team Description 06/12/2019 Telephone Ophthalmology at [facility] Maximo Stock, Bumped Appointment [facility] [place] [address] [facility] [phone] OPHTHALMOLOGY [facility] [place], [place] [address] (Wo rk) Social History Tobacco Use Types Packs/Day Years [...] on file documented as of this encounter Miscellaneous Notes Telephone Encounter - Krystal Monet Byrne - 06/19/2019 8:53 AM EDT LMOAM x 2 to let patient know that his appt on 08/19/[address] Dorman has been cancelled. Please offer next available and put on waitlist. Letter Sent Telephone Encounter - Monet Rice - 06/12/2019 4:54 PM EDT LMOAM x 1 to let patient know that his appt on 08/19/[address] Dorman has been cancelled. Please offer next available and put on waitlist. documented in this encounter Plan of Treatment Not on filedocumented as of this encounter Visit Diagnoses Not on filedocumented in this encounter Care Teams Geothermal Powerplant Mechanic Relationship Specialty Start Date End Date Erik Carrasquillo MD PCP - General 02/22/[address] [place] [address] documented as of this encounter
--- OUTSIDE RECORDS SUMMARY | 2021-09-23 12:52 | XMS_ITS | Encounter Summary ---
:1939 Author Organization [facility] [place] [address] Care Team Providers Name Role Phone Erik Carrasquillo MD Primary Care Provider Encounter Details Date Type Department Care Team Description 03/01/2020 Office Visit Audiology at [facility] Luisa Warren Sensorineural hearing [facility] MS Leona loss, bilateral [address] [place], [place] CENTER [address] AUDIOLOGY DEPT [phone] [place], [place] [address] Social History Tobacco Use Types [...] as of this encounter Progress Notes Luisa Warren Leona, - 03/01/2020 9:30 AM EST 03/01/2020 AUDIOLOGY Geoff Camacho was seen today for a follow-up to the recent fitting of the hearing aids described inthe chart below. The aids are used for management of his bilateral sensorineural hearing loss. He was accompanied by his . Summary of Visit: ?? Although he is aware of aided improvement, he finds the sound to have too much high frequency emphasis. Sounds are too tinny and some sounds reach the point of almost making him cringe. ?? The degree and nature of his hearing loss was reviewed, along with realistic expectations and thereadjustment process. ?? Gain and MPO at 2104-6843 Hz was reduced by 2dB in both aids. He will let me know if concerns continue. Adjustment of Sound Recover may also be an option to experiment with, if needed. ?? He has occasionally been getting a squelching type sound from the right aid, but finds it improved when pulling the aid a bit from his ear. ?? Given the nature of his ear canal, it is suspected that the squelching may be a result of soundbeing directed to his canal wall, rather than to his TM. Proper placement of the aid, deeper into his ear, was reviewed and practiced. No squelching sounds were noted at the time of our visit. ?? The retention tail on the left aid was replaced, as it had incorrectly bent and was impacting proper placement of the aid in his ear. ?? Wind noise has been quite distracting to him. He questioned if there was anything to be done to solve this. ?? Although the option of different technology with Wind Block technology was discussed, given the rodriguez point difference, it would not be justified for him at this time, given the minimal times that wind has been an issue. ?? Per Mr. Camacho's request, we discussed the pros/cons of the [employer] crystal. ?? Mr. Camacho will be seen again in one year for audiologic evaluation and hearing aid check-up. He knows to contact the clinic sooner with any interim concerns. Amanuel Warren MS, [facility] Clinical Coordinator, [place] [address] [phone] (fax) AMPLIFICATION EQUIPMENT LIST: HEARING AID RIGHT LEFT Make/Model/Style Phonak Audeo P30R Phonak Audeo P30R Casing Color P1: sand beige P1: sand beige Serial Number [id number] Battery Size rechargeable rechargeable Invoice number/date [id number] 01/31/2020 [id number] 01/31/2020 Other Comments PROGRAM/SETTINGS Fitting Algorithm DSL [...] ELVIRA / Dome specifics #2 length, M business continuity planner, large open dome #2 length, M business continuity planner, large open dome Impression Date Invoice number/date Other Comments ACCESSORIES Make/Model (color) Serial Number Warranty date Invoice number/date Settings Other Comments documented in this encounter Plan of Treatment Not on filedocumented as of this encounter Visit Diagnoses Diagnosis Sensorineural hearing loss, bilateral documented in this encounter Care Teams Cigarette Packing Machine Operator Relationship Specialty Start Date End Date Erik Carrasquillo MD PCP - General 02/22/[address] [address] documented as of this encounter
--- OUTSIDE RECORDS SUMMARY | 2021-09-23 12:52 | XMS_ITS | Encounter Summary ---
:1939 Author Organization [facility] [place] [address] Care Team Providers Name Role Phone Erik Carrasquillo MD Primary Care Provider Reason for Visit Diagnostic Test (Routine) - Authorized Specialty Diagnoses / Procedures Referred By Contact Refer red To Contact Radiology Diagnoses Aortic dilatation Josselyn Bauer APRN [facility] Rad Ct Scan Procedures CT Angiogram Chest (Non-Coronary) w Contrast [facility] [place] [address] [place] [address] Referral ID Status Reason Start Expiration Visits Visits Date Date Requested Authorized [id number] Authorized Specialty 12/29/2020 06/28/2022 1 1 Service Requested Encounter Details Date Type Department Care Team Description 03/18/[address] Scan at [facility] Lizette, Canceled (D-ARRIVED [facility] ZORAIDA Arcos LATE/NOT SEEN) [facility] [address] CARDIAC SURGERY [phone] [place] [address] Social History Tobacco Use Types Packs/Day Years [...] Sig Dispensed Refills Start Date End Date clindamycin (CLEOCIN) clindamycin HCl 300 mg 0 300 mg Capsule capsule budesonide (PULMICORT Pulmicort Flexhaler 180 0 FLEXHALER) 180 mcg/actuation breath mcg/actuation Aerosol activated Powdr Breath Activated aspirin 81 mg Tablet, Take 81 mg by mouth 0 Delayed Release (E.C.) daily. HYDROcodone-acetaminophe take 1 tablet by mouth 0 09/25/2018 n (NORCO) 5-325 mg every 6 hours if needed Tablet for pain dilTIAZem (TIAZAC) 240 take 1 capsule by mouth 0 05/07/2018 mg Capsule,Sustained once daily Action 24 hr ASMANEX TWISTHALER [...] 08/30/2016 albuterol (PROVENTIL Inhale 2 puffs into the 0 HFA;VENTOLIN HFA) 90 lungs every 4 hours as mcg/Actuation inhaler needed. Use with spacer documented as of this encounter Plan of Treatment Not on filedocumented as of this encounter Visit Diagnoses Not on filedocumented in this encounter Care Teams Field Foreman Relationship Specialty Start Date End Date Erik Carrasquillo MD PCP - General 02/22/[address] [place] [id number] documented as of this encounter
--- OUTSIDE RECORDS SUMMARY | 2021-09-23 12:52 | XMS_ITS | Encounter Summary ---
:1939 Author Organization [facility] [place] [address] Care Team Providers Name Role Phone Erik Carrasquillo MD Primary Care Provider Encounter Details Date Type Department Care Team Description 02/17/2019 [facility] [place] Vasu [facility] [address] [place] CARDIOTHORACIC [address] SURGERY [phone] [place], [place] [address] Social History Tobacco Use Types [...] Sign Reading Time Taken Comments Blood Pressure 138/65 02/17/2019 3:11 PM EST Pulse 71 02/17/2019 3:11 PM EST Temperature - - Respiratory Rate - - Oxygen Saturation 96% 02/17/2019 3:11 PM EST Inhaled Oxygen Concentration - - Weight 88.6 kg (195 lb 6.4 oz) 02/17/2019 3:11 PM EST Height 172.7 cm (5' 8) 02/17/2019 3:11 PM EST Body Mass Index 29.71 02/17/2019 3:11 PM EST documented in this encounter Progress Notes Rolo Bailey MD - 02/17/2019 3:30 PM EST I am seeing Mr. Camacho in followup. HE has been doing fine. No chest pain or shortness of breath. CT scan shows an aorta less than 4.0 cm in diameter. Outpatient Medications Marked as Taking for the 02/17/19 encounter (Office Visit) with Rolo Bailey MD Medication Sig Dispense Refill ??? aspirin 81 mg Tablet, Delayed Release (E.C.) Take 81 mg by mouth daily. ??? HYDROcodone-acetaminophen (NORCO) 5-325 mg Tablet take 1 tablet by mouth every 6 hours if neededfor pain 0 ??? dilTIAZem (TIAZAC) 240 mg Capsule,Sustained Action 24 hr take 1 capsule by mouth once daily 0 ??? ASMANEX TWISTHALER 220 mcg (120 doses) Aerosol Powdr Breath Activated ??? omeprazole (PRILOSEC) 20 mg Capsule, Delayed Release(E.C.) Take 20 mg by mouth daily. ??? pravastatin (PRAVACHOL) 20 mg Tablet Take 20 mg by mouth daily. ??? ASMANEX TWISTHALER 220 mcg (60 doses) Aerosol Powdr Breath Activated ??? Dutasteride-Tamsulosin (RIK) 0.5-0.4 mg CM24 Take by mouth daily. ??? DAILY MULTI-VITAMIN ORAL Take by mouth daily. Reported on 08/30/2016 ??? albuterol (PROVENTIL HFA;VENTOLIN HFA) 90 mcg/Actuation inhaler Inhale 2 puffs into the lungs every 4 hours as needed. Use with spacer Current Facility-Administered Medications for the 02/17/19 encounter (Office Visit) with Rolo Bailey MD Medication Dose Route Frequency Provider Last Rate Last Dose ??? propofol (DIPRIVAN) infusion Continuous PRN Mayur Robles CRNA Stopped at 08/28/12 1610 Physical Exam: BP 138/65 Pulse 71 Ht 172.7 cm (5' 8) Wt 88.6 kg (195 lb 6.4 oz) SpO2 96% BMI 29.71 kg/m?? Lung; CTA CV: RRR, no murmur A/P: Stable ascending aorta, well below any threshold for surgery. IT is unlikely that this would develop into an aneurysm in his lifetime. Given his family history we will look one more time. I would plan to see him in two years with repeat CT scan of the chest. documented in this encounter Plan of Treatment Not on filedocumented as of this encounter Visit Diagnoses Diagnosis Ascending aorta dilatation Thoracic aortic ectasia documented in this encounter Care Teams Insulation Manager Relationship Specialty Start Date End Date Erik Carrasquillo MD PCP - General 02/22/[address] [place] [id number] documented as of this encounter
--- OUTSIDE RECORDS SUMMARY | 2021-09-23 12:52 | XMS_ITS | Encounter Summary ---
:1939 Author Organization [facility] [place] [address] Care Team Providers Name Role Phone Erik Carrasquillo MD Primary Care Provider Reason for Visit Reason Onset Date Comments Post Op Post Op 12/26/2019 Encounter Details Date Type Department Care Team Description 12/26/2019 Office Visit Ophthalmology at [facility] Maximo Stock Pseudophakia OD [facility] MD Coni [facility] (hooks/trypan) [place] [address] CENTER [phone] OPHTHALMOLOGY DEPT. [place], [place] [address] Social History Tobacco Use Types [...] Patient Instructions Patient InstructionsMaximo Dorman MD - 12/26/2019 2:30 PM EDT Instruction following eye surgery Section of Ophthalmology [facility] 1) AVOID EYE INJURIES: Following eye surgery your eye is more susceptible to injuries. Therefore, special attention has to be given to preventing an accidental injury - Do not rub the operative eye - Wear eye protection at all times - glasses or a shield during the day - Shield at night for the first 7 days after surgery. - Do not engage in any activities that could result in a blow to the eye. - Do not engage in any heavy physical activities that cause you to strain. 2) AVOID EYE CONTAMINATION: Following eye surgery your eye is more susceptible to ocular infections. - Wash hands before touching the eye. - Do not swim or bathe in contaminated water such as a pond or hot tub. - Wash hands after any contamination such as working in the garden. 3) CALL THE EYE CLINIC WITH ANY WORSENING PAIN, REDNESS, NEW FLASHES NEW FLOATERS OR DECREASING VISION: There is always a doctor systems security consultant at the eye clinic if you develop a problem as described above, especially in the first 14 days following surgery: 4) USE THE PRESCRIBED EYE DROPs AND BRING THEM TO YOUR FOLLOW UP APPOINTMENTS - Prednisolone acetate (Pred Forte) (pink or white cap) 1 drop operative eye 4 times a day (Shake before using) - Moxifloxacin (Vigamox) (ocampo cap) 1 drop operative eye 4 times a day (when you run out, it is OK tostop) - Ketorolac (Acular) (jarrett cap) 1 drop operative eye 4 times a day (this drop may burn or sting) 5) DRIVING: PLEASE BE CAUTIOUS WITH RETURNING TO DRIVING YOU RECOVER FROM EYE SURGERY documented in this encounter Progress Notes Maximo Dorman MD - 12/26/2019 2:30 PM EDT Assessment: Encounter Diagnosis Name Primary? Pseudophakia OD complex (hooks/trypan) Geoff Camacho is POD#1 cataract surgery in his right eye Doing well with a normal post operative appearance given complex surgery, hooks/trypan and Fuchs Time will be needed to assess if K edema will resolve Plan: - Prednisolone acetate 1% qid in operative eye - Moxifloxicin qid in operative eye - Ketorolac qid in operative eye - Post op precaution sheet reviewed and given to patient Follow up: - 1 week or as needed. Upon return IOP OU MR operative eye documented in this encounter Plan of Treatment Not on filedocumented as of this encounter Visit Diagnoses Diagnosis Pseudophakia OD complex (hooks/trypan) Lens replaced by other means documented in this encounter Care Teams Laborer Ammunition Assembly Relationship Specialty Start Date End Date Erik Carrasquillo MD PCP - General 02/22/[address] [place] [id number] documented as of this encounter
--- OUTSIDE RECORDS SUMMARY | 2021-09-23 12:52 | XMS_ITS | Encounter Summary ---
:1940 Author Organization [facility] [place] [address] Care Team Providers Name Role Phone Erik Carrasquillo MD Primary Care Provider Encounter Details Date Type Department Care Team Description 02/17/2019 Laboratory Appointment Lab 3L [facility] Ascending aorta [facility] [place] [id number] Social History Tobacco Use Types Packs/Day Years [...] Procedure Name Priority Date/Time Associated Diagnosis Comme [facility] VENIPUNCTURE Routine 02/17/2019 12:28 PM Ascending aorta Re sults for this EST dilation procedure are i n the results section. documented in this encounter Results Creatinine (02/17/2019 12:28 PM EST) P athologist Signature Creatinine 0.88 0.80 - AKI [place]AY 1.50 mg/dL [facility] Estimated GFR 82 >=60 [facility] mL/min/1.7 [facility] m[facility] Comment: The eGFR was calculated using the CKD-EP I equation. As with all creatinine based estimates of kidney function, eGFR values calculated with the CKD-EPI equation are not accurate in patients wi th acute kidney failure, extremes of body mass or the acutely ill. [email or web address] eGFR 95 >=60 mL/min/1.73 m?? [facility] Comment: The eGFR was calculated using the CKD-EP I equation. As with all creatinine based estimates of kidney function, eGFR values calculated with the CKD-EPI equation are not accurate in patients wi th acute kidney failure, extremes of body mass or the acutely ill. [email or web address] Specimen Anatomical Collection Method Collection Time Receive d Time (Source) Location / / Volume Laterality Blood specimen 02/17/2019 12:28 9 (specimen) PM EST 12:41 PM EST Resulting Agency Comment Spec In Lab Rolo Bailey MD CHEMISTRY ORDERABLES Performing Organization Address City/State/ZIP [place] [address] documented in this encounter Visit Diagnoses Diagnosis Ascending aorta dilation Thoracic aortic ectasia documented in this encounter Care Teams Watch Repair Person Relationship Specialty Start Date End Date Erik Carrasquillo MD PCP - General 02/22/[address] [place] [id number] documented as of this encounter
--- OUTSIDE RECORDS SUMMARY | 2021-09-23 12:52 | XMS_ITS | Encounter Summary ---
:1940 Author Organization [facility] [place] [address] Care Team Providers Name Role Phone Erik Carrasquillo MD Primary Care Provider Encounter Details Date Type Department Care Team Description 12/25/2019 Hospital Encounter Outpatient Surgery Benoit Dorman, [facility] [place] [address] [place] [address] [phone] (Wo rk) Social History Tobacco Use Types [...] Sign Reading Time Taken Comments Blood Pressure 128/65 12/25/2019 1:53 PM EDT Pulse 70 12/25/2019 1:53 PM EDT Temperature 36 ??C (96.8 ??F) 12/25/2019 1:53 PM EDT Respiratory Rate 14 12/25/2019 1:53 PM EDT Oxygen Saturation 96% 12/25/2019 1:53 PM EDT Inhaled Oxygen Concentration - - Weight 78.9 kg (174 lb) 12/25/2019 11:59 AM EDT Height 175.3 cm (5' 9) 12/25/2019 11:59 AM EDT Body Mass Index 25.7 12/25/2019 11:59 AM EDT documented in this encounter Discharge Instructions Discharge InstructionsNoEffie fairbanks RN - 12/25/2019 11:44 AM EDT Instructions for the first day following eye surgery Benoit Dorman MD Section of ophthalmology [facility] [phone] - Keep your eye patched, shielded, clean and dry overnight. The patch will be removed during your follow up visit with Dr. Dorman tomorrow. - The surgery center nurses should confirm time of your follow up appointment for tomorrow with Dr. Dorman. This appointment will be at the Eye Clinic in the main building at [facility]. - Mild discomfort is normal, but if you have any severe eye pain or bleeding call [phone] and ask to speak to the eye doctor television announcer. - Call your Primary Care Doctor or the Emergency Room for any non eye related medical issues. - Your eye will be red tomorrow - this is normal. - You will go home with drops but you will not start them until after your visit with Dr. Dorman tomorrow. Additional instructions about your eyedrops, care of the eye and timing of visual recovery will be provided at that appointment. You may have received medication before and/or during your procedure, which affect your judgement and reaction time therefore for the next 24 hours: You may be unsteady on your feet, be careful on stairs. Do not smoke if you are alone. Do not drink alcoholic beverages. Do not drive or operate any type of machinery. Do not make important legal decisions. documented in this encounter Medications at Time of Discharge [...] daily. Release(E.C.) documented as of this encounter Progress Notes Ana M Bah RN - 12/25/2019 2:04 PM EDT Sign out prior to sedation was done with Anali PERAZA and this RN, however computer rebooted prior to capturing information. Ana M Bah RN - 12/25/2019 1:39 PM EDT Date/Procedure: Meds Given Comments 12/24 Versed 2mg Tolerated well Fentanyl 50mcg Tolerated well Ana M Bah RN - 12/25/2019 1:13 PM EDT Discharge instructions and medications reviewed with patient and . All questions answered and written copy sent home with patient. Patient ambulated to car for discharge accompanied by [facility] staff member. Ana M Bah RN - 12/25/2019 1:00 PM EDT Pt instructed to squeeze RN's hand if having pain, need to cough, etc. Pt instructed not to talk during procedure. Pain assessment unable to verbalize (non-verbal) but will indicate pain with hand squeeze, ask surgeon to pause and verbally assess pt. Keyonna Alejandro RN - 12/24/2019 12:48 PM EDT During this call the patient was questioned regarding travel outside of the [place] states, fever, cough, SOB or other illness in the last 14 days. Patient also questioned regarding any exposure toa COVID positive person, a person awaiting results from testing or a person in quarantine. Patient denies any positive responses to the above questions for themselves or their escort for the day of procedure. Patient informed of procedure to be followed upon arrival to the [facility]. 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 COVID test completed: Not ordered or required by surgeon. Result of test: NA Action taken: None Paige Gutierrez RN - 12/18/2019 3:43 PM EDT During this call the patient was questioned regarding travel outside of [place] states, fever, cough, SOB or other illness in the last 14 days. Patient also questioned regarding any exposure to a COVID positive person, a person awaiting results from testing or a person in quarantine.Patient deniesany positive responses to the above questions for themselves or their escort for the day of procedure. Patient informed of procedure to be followed upon arrival to the [facility]. 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 documented in this encounter H&P Notes Benoit Dorman MD - 12/25/2019 11:51 AM EDT Images from the original note were not included. Seen in pre-operative area. Geoff Camacho reports that he is in his usual state of health and has had no new problems with his eyes or general health since his pre op physical examination and he feelsfit for surgery today. Geoff was in no distress; specifically no respiratory distress. Pre op physical examination reviewed. Heart: RRR Chest: CTA his Mallampati score is class3(see below) and ASA III and his eyes were non inflamed. Operative, refractive, code status and post op plans reviewed: Diagnosis and surgical plan: Cataract causing impaired vision with plan for cataract extraction and intraocular lens placement right eye Risk related to Fuchs and Flomax reviewed again Sedation plan: Moderate sedation with anesthesia back up and full code for eye surgery ASA PHYSICAL STATUS CLASSIFICATION SYSTEM I. Patient is a completely healthy fit patient. II. Patient has mild systemic disease. III. Patient has severe systemic disease that is not incapacitating. IV. Patient has incapacitating disease that is a constant threat to life. V. A moribund patient who is not expected to live 24 hour with or without surgery documented in this encounter Miscellaneous Notes Op Note - Benoit Dorman MD - 12/25/2019 1:53 PM EDT [facility] Operative Note Patient Name: Geoff Camacho : [id number] MR#: [id number] Case Date: 12/25/2019 Surgeon: Surgeon(s) and Role: * Benoit Dorman MD - Primary Preoperative diagnosis: Cataract Postoperative diagnosis: Cataract Procedure(s) (LRB): CATARACT EXTRACTION, EXTRACAPSULAR, WITH LENS INSERTION, COMPLEX (WRVU 11.08) (Right) Preoperative Diagnoses 1. Cataract, RIGHT eye. 2. Flomax use 3. Fuchs corneal dystrophy Postoperative Diagnoses 1. Same Procedure: Complex Phacoemulsification operative eye as above (Krishna SN60WF, 22.5 D). Anesthesia: IV Conscious sedation with local (Subtenon's block, 1:1 2% lidocaine + 0.75% bupivacaine). Surgeon: Benoit Dorman MD Specimens: None. Estimated blood loss: Minimal ( less than 1ml) Complications: None. Brief History: Geoff Camacho is a 79 y.o. with painless symptomatic visual impairment due to Fuchs and cataracts causing difficulty with visual activities, not correctable with a tolerable change in lens prescription. There is no evidence that other diseases are the primary cause of vision loss. The risks, benefits and alternatives to the surgery were discussed pre operatively and Geoff expressed understanding and elected surgery. Procedure: After informed consent was reviewed with the patient in the preoperative area and the operative site was marked, the patient was taken to the operating room and placed on the operating tablein the supine position and with some reverse Trendelenburg. A drop of alcaine and then 5% betadine was placed in the operative eye x 2 beginning 10 minutes prior to the surgerical incision. After adequate intravenous sedation was given the operative eye was then prepped and draped in the usual sterileophthalmic manner with containment of the eyelashes. A lid speculum was placed into the operative eye. Conjunctiva and Tenon's were opened in the inferior nasal quadrant and a SubTenon's block was placedwith a retrobulbar cannula. A conjunctival incision was made at ~11 o'clock using Kim scissors. Conjunctiva and Tenon's membrane were opened to allow a 2.4 mm incision site approximately 1 mm posterior to the limbus. Hemostasis was obtained with eraser- tip cautery. The incision was begun with a Super-sharp blade and then shelved using the pocket blade. A paracentesis was then made a 2 o'clock. Because of the poor red reflex the decision was made to stain the anterior capsule; the eye was filled filtered air, then trypan blue capsular dye, then BSS and then with viscoelastic. Because the pupil was not adequately dilated for surgery, paracenteses were made in each quadrant and 4 iris hooks were placed to open the pupillary aperture. The hooks were removed at the end of the case following the IA. Omidria/BSS was used due to flomax but there was still iris billowing. The eye was then entered through the incision using the keratome. The cystotome and Utrata forceps was used to create the capsulorhexis. [place] Dissection and delineation were performed. The phacoemulsification instrument was placed in the eye, and a phacoemulsification of the lens was performed. The lens was dense. Copious viscot and BSS plus was used. Residual cortex was removed using the irrigationand aspiration device. The IOL (see above) was placed into the capsular bag after the eye had been filled with viscoelastic. Viscoelastic was removed using the I-A device. The pupil remained round throughout the case. The lens was well centered and stable in the capsular bag. The eye was found to be at an appropriate tactile tension, and the wound was watertight but secured with 10.0 vicryl due to floppy iris The conjunctiva was closed using 10.0 vicry. Subconjunctival dexamethasone and cefazolin and ceftazidime were given. The eye was patched over Co-sopt and bacitracin ointment. Geoff tolerated the procedure well and was given instructions to keep the eye patched, shielded, clean and dry and follow up tomorrow in the eye clinic. Geoff is to call p.r.n. any problems. I performed this procedure without the involvement of a resident. BENOIT DORMAN MD Attestation: Case Date: 12/25/2019 I performed this procedure without the involvement of a resident. BENOIT DORMAN MD 12/25/2019 documented in this encounter Plan of Treatment Not on filedocumented as of this encounter Procedures Procedure Name Priority Date/Time Associated Diagnosis Comme nts CATARACT EXTRACTION, 12/25/2019 1:00 PM EDT Cataract EXTRACAPSULAR, WITH LENS INSERTION, COMPLEX (WRVU 11.08) CATARACT EXTRACTION, Routine 12/25/2019 11:44 AM EDT EXTRACAPSULAR, W/ LENS INSERTION, COMPLEX documented in this encounter Visit Diagnoses Not on filedocumented in this encounter Administered Medications Inactive Administered Medications - up to 3 most recent administrations Medication Order MAR Action Action Date Dose Rate Site atropine injection 0.4 mg 0.4 mg, Intravenous, EVERY 5 MIN PRN, 2 doses, Startin g on Joanna 12/25/19 at 1146, Until Joanna 12/25/19 at 1605, Other, for he art rate less than 40 beats per minute., For 2 doses, Intra-Operative (Intra-Procedure), Routin e cyclopentolate (CYCLODRYL) 1 % ophthalmic Given 12/25/2019 12:09 PM EDT 1 drop solution 1 drop 1 drop, Right Eye, EVERY 5 MIN, 3 doses, First dose on Joanna 12/25/19 at 1215, Last dose on Joanna 12/25/19 at 1225, 1 drop to the operative eye every 5 minutes times 3. Start day of surgery. Do NOT place dilating drops in post-op kit!, Day of Surgery (Day of Procedure), Routine Given 12/25/2019 12:00 PM EDT 1 drop Given 12/25/2019 11:57 AM EDT 1 drop fentaNYL 50 mcg/mL multi-dose injection Given 12/25/2019 1:15 PM EDT 25 mcg 25 mcg, Intravenous, EVERY 5 MIN PRN, Starting on Joanna 12/25/19 at 1146, Until Joanna 12/25/19 at 1605, Pain, For use in the Operating Room (OR), [facility] ([facility])C, or Special Procedure Room only under direct provider supervision and verbal order. Hold for respiratory rate less than 8 breaths per minute. (maximum dose 100 mcg), Intra-Operative (Intra-Procedure), Routine Given 12/25/2019 1:06 PM EDT 25 mcg flumazeniL (Romazicon) injection 0.2 mg 0.2 mg, Intravenous, EVERY 2 MIN PRN, St arting on Joanna 12/25/19 at 1146, Until Joanna 12/25/19 at 1605, Benzodiazepine reversal , 0.2 mg intravenous, every 2 minutes PRN for total of 5 doses for respiratory rat e less than 8 or SpO2 less than 90% despite supplement O2., Intra-Operative (Intra-Procedure), Rou montez ketorolac tromethamine (ACULAR) 0.5 % Given 12/25/2019 11:58 AM EDT 1 drop ophthalmic solution 1 drop 1 drop, Right Eye, ONCE, 1 dose, On Joanna 12/25/19 at 1215, 1 drop to the operative eye once, start on day of surgery, Day of Surgery (Day of Procedure), Routine labetaloL (Normodyne,Trandate) injection 2.5 mg 2.5 mg, Intravenous, EVERY 5 MIN PRN, 4 doses, Startin g on Joanna 12/25/19 at 1146, Until Joanna 12/25/19 at 1605, High Blood Pressure, systol ic blood pressure greater than 180 mmHg, Hold for heart rate less than 55 beats per minute. Call MD if ineffective after 4 doses., Intra-Operative (Intra-Pro cedure), Routine lactated ringers infusion 1,000 mL, at 100 mL/hr, Intravenous, CON TINUOUS, Starting on Joanna 12/25/19 at 1215, Until Joanna 12/25/19 at 1605, Day of Surgery (Day of Proc edure) lidocaine (XYLOCAINE) 10 mg/mL (1 %) inj ection 3 mg 3 mg (0.3 mL), Subcutaneous, ONCE PRN, 1 dose, Startin g on Joanna 12/25/19 at 1146, Until Joanna 12/25/19 at 1605, for discomfor t with PIV insertion, Day of Surgery (Day of Procedure), Routine midazolam (PF) (VERSED) multi-dose injection Given 12/25/2019 1: 16 PM EDT 1 mg 0.25-1 mg 0.25-1 mg, Intravenous, EVERY 5 MIN PRN, Starting on Joanna 12/25/19 at 1146, Until Joanna 12/25/19 at 1605, Anxiety, For use in the Operating Room (OR), [facility] ([facility]) or Special Procedure room only with direct provider supervision and verbal order. Hold for delirium/agitation. (Maximum dose 4 mg), Intra-Operative (Intra-Procedure), Routine Given 12/25/2019 1:06 PM EDT 1 mg moxifloxacin (VIGAMOX) 0.5 % ophthalmic Given 12/25/2019 12:09 P M EDT 1 drop solution 1 drop 1 drop, Right Eye, EVERY 5 MIN, 3 doses, First dose on Joanna 12/25/19 at 1215, Last dose on Joanna 12/25/19 at 1225, 1 drop to the operative eye every 5 minutes times 3. Start on the day of surgery. , Day of Surgery (Day of Procedure), Routine Given 12/25/2019 12:01 PM EDT 1 drop Given 12/25/2019 11:58 AM EDT 1 drop naloxone (NARCAN) injection 0.1 mg 0.1 mg, Intravenous, EVERY 2 MIN PRN, St arting on Joanna 12/25/19 at 1146, Until Joanna 12/25/19 at 1605, Opioid Reversal, For op iate induced oversedation or respiratory depression. (maximum dose of 0.8 mg), In tra-Operative (Intra-Procedure), Routine PHENYLephrine (MYDFRIN) 2.5 % ophthalmic Given 12/25/2019 12:09 PM EDT 1 drop solution 1 drop 1 drop, Right Eye, EVERY 5 MIN, 3 doses, First dose on Joanna 12/25/19 at 1215, Last dose on Joanna 12/25/19 at 1225, 1 drop to the operative eye every 5 minutes times 3. Start on the day of surgery. Do NOT place dilating drops in post-op kit!, Day of Surgery (Day of Procedure), Routine Given 12/25/2019 12:00 PM EDT 1 drop Given 12/25/2019 11:57 AM EDT 1 drop prednisoLONE acetate (PRED FORTE) 1 % Given 12/25/2019 11:57 AM EDT 1 drop ophthalmic suspension 1 drop 1 drop, Right Eye, ONCE, 1 dose, On Joanna 12/25/19 at 1215, 1 drop to the operative eye once, start on day of surgery, Day of Surgery (Day of Procedure), Routine sodium chloride 0.9 % (flush) flush 5 mL 5 mL, Intravenous, 2 TIMES DAILY, First dose on Joanna at 1215, Until Discontinued, Day of Surgery (Day of Procedure), Routi ne sodium chloride 0.9 % (flush) flush 5-20 mL 5-20 mL, Intravenous, EVERY 1 MIN PRN, S tarting on Joanna 12/25/19 at 1146, Until Joanna 12/25/19 at 1605, flush, Flush pertains t o all indwelling lines. Flush per protocol found in the job aid using the link provided on this m edication record., Day of Surgery (Day of Procedure), Routine documented in this encounter Active and Recently Administered Medications Times are shown in EDT. Scheduled Medication Order 12/23/2019 12/24/201912/2412/25/2019 cyclopentolate (CYCLODRYL) 1 % ophthalmic solution 1 drop (COMPL ETED) 1157 (Given - Provider: Ana M Bah RN)1200 (Given - Provider: Ana M Bah RN)1209 (Given - Provider: Ana M Bah RN) 1 drop, Right Eye, EVERY 5 MIN, 3 doses, First dose on Joanna 9/24/20 at 1215, Last dose on Joanna 9/24/20 at 1225, 1 drop to the operative eye every 5 minutes times 3. Start day of surgery. Do NOT place dila ting drops in post-op kit!, Day of Surgery (Day of Procedure), R outine ketorolac tromethamine (ACULAR) 0.5 % ophthalmic solution 1 drop (COMPLETED) 1158 (Given - Provider: Ana M Bah RN) 1 drop, Right Eye, ONCE, 1 dose, Joanna 9/2 4/20 at 1215, 1 drop to the operative eye once, start on day of surgery, Day of Surgery (Day of Procedure), Routine moxifloxacin (VIGAMOX) 0.5 % ophthalmic solution 1 drop (COMPLET ED) 1158 (Given - Provider: Ana M Bah RN)1201 (Given - Provider: Ana M Bah RN)1209 (Given - Provider: Ana M Bah RN) 1 drop, Right Eye, EVERY 5 MIN, 3 doses, First dose on Joanna 9/24/20 at 1215, Last dose on Joanna 9/24/20 at 1225, 1 drop to the operative eye every 5 minutes times 3. Start on the day of surgery. , Day of Surgery (Day of Procedure), Routine PHENYLephrine (MYDFRIN) 2.5 % ophthalmic solution 1 drop (COMPLE ANIYA) 1157 (Given - Provider: Ana M Bah RN)1200 (Given - Provider: Ana M Bah RN)1209 (Given - Provider: Ana M Bah RN) 1 drop, Right Eye, EVERY 5 MIN, 3 doses, First dose on Joanna 9/24/20 at 1215, Last dose on Joanna 9/24/20 at 1225, 1 drop to the operative eye every 5 minutes times 3. Start on the day of surgery. Do NOT vrainder ce dilating drops in post-op kit!, Day of Surgery (Day of Proced ure), Routine prednisoLONE acetate (PRED FORTE) 1 % ophthalmic suspension 1 drop (COMPLETED) 1157 (Given - Provider: Ana M Bah RN ) 1 drop, Right Eye, ONCE, 1 dose, Joanna 9/ 4/20 at 1215, 1 drop to the operative eye once, start on day of surgery, Day of Surgery (Day of Procedure), Routine sodium chloride 0.9 % (flush) flush 5 mL 1215 (Due) 5 mL, Intravenous, 2 TIMES DAILY, First dose on Joanna 12/25/19 at 1215, Until Discontinued, Day of Surgery (Day of Procedure), Routine Continuous Medication Order 12/23/2019 12/24/2019 12/25/2019 lactated ringers infusion 1215 ( Due) 1,000 mL, at 100 mL/hr, Intravenous, CON TINUOUS, Starting Joanna 12/25/19 at 1215, Until Joanna 12/25/19 at 1605, Day of Surgery (Day of Procedure) PRN Medication Order 12/23/2019 12/24/2019 12/25/2019 atropine injection 0.4 mg 0.4 mg, Intravenous, EVERY 5 MIN PRN, 2 doses, Starting Joanna 12/25/19 at 1146, Until Joanna 12/25/19 at 1605, Other, for heart rate less than 40 beats per minute., For 2 doses, Intra-Operative (Intra-Procedure), Routine fentaNYL 50 mcg/mL multi-dose injection 1306 (Given - Provider: Ana M Bah RN)1315 (Given - Provider: Ana M Bah RN) 25 mcg, Intravenous, EVERY 5 MIN PRN, St arting Joanna 12/25/19 at 1146, Until Joanna 920 at 1605, Pain, For use in the Operating Room (OR), [facility] ([facility])C, or Special Procedure Room onl y under direct provider supervision and verbal order. Hold for respiratory rate less than 8 breaths per minute. (maximum dose 100 mcg), Intra-Operative (Intra- Procedure), Routine flumazeniL (Romazicon) injection 0.2 mg 0.2 mg, Intravenous, EVERY 2 MIN PRN, St arting Joanna 9/24/20 at 1146, Until Joanna 920 at 1605, Benzodiazepine reversal, 0.2 mg intravenous, every 2 minutes PRN for total of 5 doses for respiratory rate less than 8 or SpO2 less than 90% despit e supplement O2., Intra-Operative (Intra-Procedure), Routine labetaloL (Normodyne,Trandate) injection 2.5 mg 2.5 mg, Intravenous, EVERY 5 MIN PRN, 4 doses, Starting Joanna 924/20 at 1146, Until Joanna 9/20 at 1605, High Blood Pressure, systolic blood pressure greater than 180 mmHg, Hold for heart rate less than 55 beats per minute. Call MD if ineffect marcos after 4 doses., Intra-Operative (Intra-Procedure), Routine lidocaine (XYLOCAINE) 10 mg/mL (1 %) injection 3 mg 3 mg (0.3 mL), Subcutaneous, ONCE PRN, 1 dose, Starting Joanna 9/20 at 1146, Until Joanna 920 at 1605, for discomfort with PIV insertion, Day of Surgery (Day of Procedure), Routine midazolam (PF) (VERSED) multi-dose injection 0.25-1 mg 1306 (Given - Provider: Ana M Bah RN)1316 (Given - Provider: Ana M Bah RN) 0.25-1 mg, Intravenous, EVERY 5 MIN PRN, Starting Joanna 920 at 1146, Until Joanna 924/20 at 1605, Anxiety, For use in the Operating Room (OR), [facility] ([facility]) or Special Procedure room o y with direct provider supervision and verbal order. Hold for delirium/agitation. (Maximum dose 4 mg), Intra-Operative (Intra-Procedure), Routine naloxone (NARCAN) injection 0.1 mg 0.1 mg, Intravenous, EVERY 2 MIN PRN, St arting Joanna 924/20 at 1146, Until Joanna 924/20 at 1605, Opioid Reversal, For opiate induced oversedation or respiratory depression. (maximum dose of 0.8 mg), Intra-Operative (Intra-Procedure), Routine PHENYLephrine 1%-ketorolac 0.3% (Omidria) intraocular solution ( CANCELED) 1300 (Given - Provider: Benoit Dorman MD - Comment: mixed in 500 ml BSS) ONCE PRN, Starting Joanna 12/25/19 at 1300, Until Joanna 12/25/19 at 1605, Intra- Operative (Intra-Procedure) sodium chloride 0.9 % (flush) flush 5-20 mL 5-20 mL, Intravenous, EVERY 1 MIN PRN, S tarting Joanna 12/25/19 at 1146, Until Joanna 12/25/19 at 1605, flush, Flush pertains to all indwelling lines. Flush per protocol found in the job aid using the link prov ided on this medication record., Day of Surgery (Day of Procedur e), Routine documented in this encounter Care Teams Blood Typer Relationship Specialty Start Date End Date Erik Carrasquillo MD PCP - General 02/22/[address] [place] [id number] documented as of this encounter
--- OUTSIDE RECORDS SUMMARY | 2021-09-23 12:52 | XMS_ITS | Encounter Summary ---
:1940 Author Organization [facility] [place] [address] Care Team Providers Name Role Phone Erik Carrasquillo MD Primary Care Provider Reason for Visit Reason Comments Cataract Encounter Details Date Type Department Care Team Description 01/03/2019 Office Visit Ophthalmology at [facility] Maximo Stock Cataract, unspecified catara ct type, unspecified laterality; [facility] MD Coni [place] [address] CENTER [phone] OPH[address]ALM[address]PT. [place] [address] Social History Tobacco Use Types Packs/Day Years [...] Patient Instructions Patient InstructionsMaximo Dorman MD - 01/03/2019 3:45 PM EDT Medications: Use eye medications as [...] encounter Progress Notes Maximo Dorman MD - 01/03/2019 3:45 PM EDT pom done Assessment: Encounter Diagnoses Name Primary? Cataract, unspecified cataract type, unspecified laterality ??? Fuchs' corneal dystrophy Geoff Camacho is a 78 y.o. male with Fuchs corneal dystrophy and cataract. Relatively nl Cpachy OU with very central guttata. Likely would tolerate CEIOL \ Declines CE for now, but likely will proceed in spring. On Tamsulosin with poor dilation: at risk for floppy iris syndrome during cataract surgery and will need iris hooks Prism in glasses Plan: For now Geoff elects to differ CEIOL Follow Up: 6 months or as needed. Upon Return Cee AND cpachy documented in this encounter Plan of Treatment Not on filedocumented as of this encounter Procedures Procedure Name Priority Date/Time Associated Comments Diagnosis PACHYMETRY - OU - Routine 01/03/2019 4:32 PM Fuchs' corneal Re sults for this BOTH EYES EDT dystrophy procedure are i n the results section. documented in this encounter Results PACHYMETRY - OU - BOTH EYES (01/03/2019 4:32 PM EDT) Anatomical Region Laterality Modality Other Specimen (Source) Anatomical Location Collection Method / Collectio n Time Received Time / Laterality Volume Narrative 01/03/2019 4:32 PM EDT Recent Pachymetry Date Noted Right Eye Left Eye 01/03/[phone] Maximo Dorman MD OPHTHALMOLOGY SERVICES ORDER ALE documented in this encounter Visit Diagnoses Diagnosis Cataract, unspecified cataract type, uns pecified laterality Fuchs' corneal dystrophy Endothelial corneal dystrophy documented in this encounter Care Teams Combat Engineer Relationship Specialty Start Date End Date Erik Carrasquillo MD PCP - General 02/22/[address] [place] [id number] documented as of this encounter
--- OUTSIDE RECORDS SUMMARY | 2021-09-23 12:52 | XMS_ITS | Encounter Summary ---
:1940 Author Organization [facility] [place] [address] Care Team Providers Name Role Phone Erik Carrasquillo MD Primary Care Provider Reason for Visit Reason Comments Follow-up Skin Check Encounter Details Date Type Department Care Team Description 10/22/2018 Office Visit Dermatology at [facility], History of SCC (squamous cell carcinoma) of skin; Mikel TAMEZ History of basal cell carcinoma; [address] [facility] Hypertrophic scar Kraig B DERMATOLOGY [place], [place] [id number] [phone] Social History Tobacco Use Types Packs/Day Years [...] documented as of this encounter Progress Notes Onofre Jacome MD - 10/22/2018 10:00 AM EDT Assessment and plan: 1. ??Repeat annual skin checkup 2. ??History BCC right forehead 07/2016 3. 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 ??History of actinic keratoses, status post 2 week course of 5-FU therapy 06/2011 5. New lesion left elbow. SCCA right dorsal hand well-healed from last visit January 2018 Don follows up today for a 6-month check. He had an SCCA removed from his left elbow in May andhas healed with a hypertrophic scar. It surprises him a little bit. He is here for regular skin checkup unfortunately he had a fall and dislocated his right shoulder 3 weeks ago he is recovering from that. He states that at times it is more prominent than others seems to wax and wane through a cycle. I reassured him that this should mature and flatten down over time. Physical examination reveals a pleasant 78-year-old gentleman who has a benign examination of the balding parietal scalp the face the neck the chest the back the hands the arms the forearms the thighs and the calves. He has a slightly hypertrophic scar on the left lateral elbow at the site of the C&D treatment from May 2018. He has well-healed scars of the prior treatment sites as noted above. Most apparent is the larger scar is from his infiltrative BCCA of the left anterior parietal scalpin September 2016. There is no evidence of recurrent tumor there however. Assessment plan: History of multiple nonmelanoma cutaneous malignancies. 1. No evidence of recurrence or new lesions of concern seen today 2. Recommend return to clinic in another 6 months for recheck 3. If doing well at that time, will then be able to space out to once yearly visits, resume annual visits again. Hypertrophic scar left elbow 1. Patient reassured 2. We will continue to monitor. CC: Erik Carrasquillo MD documented in this encounter Plan of Treatment Not on filedocumented as of this encounter Visit Diagnoses Diagnosis History of SCC (squamous cell carcinoma) of skin Personal history of other malignant neop lasm of skin History of basal cell carcinoma Personal history of other malignant neop lasm of skin Hypertrophic scar Keloid scar documented in this encounter Care Teams Clinical Orthoptist Relationship Specialty Start Date End Date Erik Carrasquillo MD PCP - General 02/22/[address] [address] documented as of this encounter
--- OUTSIDE RECORDS SUMMARY | 2021-09-23 12:52 | XMS_ITS | Encounter Summary ---
:1940 Author Organization [facility] [place] [place] [address] Care Team Providers Name Role Phone Erik Carrasquillo MD Primary Care Provider Reason for Visit Reason Onset Date Comments Appointment 01/21/2020 Encounter Details Date Type Department Care Team Description 01/21/2020 Telephone Ophthalmology at [facility] Maximo Stock MD Appointment [facility] [place] [address] OPHTHALMOLOGY DEPT. [phone] [place], [place] [address] (Wo rk) Social History Tobacco [...] this encounter Miscellaneous Notes Telephone Encounter - Ysabel Herring - 02/09/2020 3:05 PM EST Scheduled Telephone Encounter - Monet Rice - 01/21/2020 5:44 PM EDT LMOAM x 1 schedule Return for Jimmy MORALES in Mid to late March documented in this encounter Plan of Treatment Not on filedocumented as of this encounter Visit Diagnoses Not on filedocumented in this encounter Care Teams Field Attendant Relationship Specialty Start Date End Date Erik Carrasquillo MD PCP - General 02/22/[address] [place] [id number] documented as of this encounter
--- OUTSIDE RECORDS SUMMARY | 2021-09-23 12:52 | XMS_ITS | Encounter Summary ---
:1940 Author Organization [facility] [place] [address] Care Team Providers Name Role Phone Erik Carrasquillo MD Primary Care Provider Encounter Details Date Type Department Care Team Description 01/22/2020 Office [place] [facility] [place] Luisa Warren Sensorineural hearing [facility] MS Leona loss, bilateral [address] [place], [place] CENTER [address] AUDIOLOGY DEPT [phone] [place], [place] [address] Social History Tobacco Use Types [...] of this encounter Progress Notes Luisa Warren, - 01/22/2020 9:30 AM EDT 01/22/2020 AUDIOLOGY - Geoff Camacho was seen today for a hearing aid discussion and selection appointment for management of his bilateral sensorineural hearing loss. He was accompanied by his . His communication needs were discussed and his hearing evaluation results reviewed. Various available hearing aid technologies and styles appropriate for his loss, as well as realistic expectations and the adjustment process to amplification were also discussed. A binaural Phonak Audeo P30R ELVIRA system was selected in a sand beige color. Warranty coverage, cost, payment terms and the 30-day trial periodwere reviewed. Otoscopic inspection was unremarkable. He is scheduled to return for the fitting appointment in approximately 3 - 4 weeks. Amanuel Warren MS, [facility] Clinical Coordinator, Adult [place] [address] [phone] (fax) documented in this encounter Plan of Treatment Not on filedocumented as of this encounter Visit Diagnoses Diagnosis Sensorineural hearing loss, bilateral documented in this encounter Care Teams Botany Teacher Relationship Specialty Start Date End Date Erik Carrasquillo MD PCP - General 02/22/[address] [place] [id number] documented as of this encounter
--- OUTSIDE RECORDS SUMMARY | 2021-09-23 12:52 | XMS_ITS | Encounter Summary ---
:1940 [address] [facility] [place] [address] Care Team Providers Name Role Phone Erik Carrasquillo MD Primary Care Provider Reason for Visit Consultation (Routine) - Closed Specialty Diagnoses / Procedures Referred By Contact Refer red To Contact Audiology Diagnoses Unspecified hearing loss, right ear Erik Carrasquillo MD [facility] Audiology 4f [address] [facility] [place] [place] [address] [place] [address] Fax: Referral ID Status Reason Start Date Expiration Date Visits V isits Requested Authorized [id number] Closed Consult, Test 07/28/2019 07/27/2020 [facility] PCP Updated and/or Approved Encounter Details Date Type Department Care Team Description 09/19/2019 [place] [facility] [place]eline Barros Sensorineural hearing loss, bilateral; [facility] K, AUD Tinnitus, bilateral Drive [place], [place] C[place] [address] AUDIOLOGY DEPT [phone] [place], [place] [address] Social History Tobacco Use Types [...] documented as of this encounter Progress Notes Joseline Barros AUD - 09/19/2019 10:15 AM EDT AUDIOLOGIC EVALUATION Geoff Camacho was seen on 09/19/2019 for an audiologic evaluation. Please refer to the audiogram located under the Procedures tab in the medical record for findings, impressions, and recommendations. Lakhwinder Mars, [facility] [place] [employer] Certified [place] [phone] documented in this encounter Plan of Treatment Not on filedocumented as of this encounter Procedures Procedure Name Priority Date/Time Associated Comments Diagnosis COMPREHENSIVE HEARING Routine 09/19/2019 10:24 Re sults for this TEST AM EDT procedure are i n the results section. documented in this encounter Results Comprehensive hearing test (09/19/2019 10:24 AM EDT) Specimen (Source) Anatomical Collection Method Collection Time Re ceived Time Location / / Volume Laterality 09/19/2019 10:24 AM EDT Narrative [facility] - 09/19/2019 10:24 AM EDT - Re-evaluation of hearing in one year or sooner if new concerns arise. - Consider trial of amplification. Provi ded materials re: [facility] [place]. - Use of communication strategies (e.g. reducing background noise and speaking [id number]) in adverse listening conditions. - Use of hearing protection whenever exp osed to potentially hazardous sound levels. Procedure Note Unknown - 09/19/2019Formatting of this n ote might be different from the original. - Re-evaluation of hearing in one year o r sooner if new concerns arise. - Consider trial of amplification. Provi ded materials re: [facility] [place]. - Use of communication strategies (e.g. reducing background noise and speaking [id number]) in adverse listening conditions. - Use of hearing protection whenever exp osed to potentially hazardous sound levels. Unknown AUDIOLOGY SERVICES ORDERABLE S Performing Organization Address City/State/ZIP Code Phon e Number [facility]UD[facility] COMP documented in this encounter Visit Diagnoses Diagnosis Sensorineural hearing loss, bilateral Tinnitus, bilateral Unspecified tinnitus documented in this encounter Care Teams Art Critic Relationship Specialty Start Date End Date Erik Carrasquillo MD PCP - General 02/22/[address] [place] [id number] documented as of this encounter
--- OUTSIDE RECORDS SUMMARY | 2021-09-23 12:52 | XMS_ITS | Clinical Summary ---
:1940 Author Organization [facility] [place] [address] Care Team Providers Name Role Phone Erik Carrasquillo MD Primary Care Provider Allergies No known active allergies Medications Medication Sig Dispensed Refills Start Date End Date Status albuterol (PROVENTIL Inhale 2 puffs into 0 Active HFA;VENTOLIN HFA) 90 the lungs every 4 mcg/Actuation hours as needed. Use inhaler with spacer DAILY MULTI-VITAMIN Take by mouth daily. 0 Active ORAL Reported on 08/30/2016 Dutasteride-Tamsulos Take by mouth daily. 0 Active in (RIK) 0.5-0.4 mg CM24 ASMANEX TWISTHALER 0 06/21/2016 Active 220 mcg (60 doses) Aerosol Powdr Breath Activated pravastatin Take 20 mg by mouth 0 Active (PRAVACHOL) 20 mg daily. Tablet ASMANEX TWISTHALER 0 07/01/2017 Active 220 mcg (120 doses) Aerosol Powdr Breath Activated dilTIAZem (TIAZAC) take 1 capsule by 0 05/07/2018 Active 240 mg mouth once daily Capsule,Sustained Action 24 hr HYDROcodone-acetamin take 1 tablet by 0 09/25/2018 Active ophen (NORCO) 5-325 mouth every 6 hours mg Tablet if needed for pain aspirin 81 mg Take 81 mg by mouth 0 Active Tablet, Delayed daily. Release (E.C.) clindamycin clindamycin HCl 300 0 Active (CLEOCIN) 300 mg mg capsule Capsule budesonide Pulmicort Flexhaler 0 Active (PULMICORT 180 mcg/actuation FLEXHALER) 180 breath activated mcg/actuation Aerosol Powdr Breath Activated Hospital, Clinic, or Ordered Dose Route Frequency Start Date End D ate Status Other Facility Administered Medication propofol (DIPRIVAN) CONTINUOUS PRN 08/28/2012 Active infusion Active Problems Problem Noted Date Pseudophakia OD complex (hooks/trypan) 12/26/2019 Cataract 02/01/2018 Fuchs' corneal dystrophy 02/01/2018 History of basal cell carcinoma 10/16/2017 Basal cell carcinoma, forehead 09/27/2016 AK (actinic keratosis) 09/27/2016 H/O SVT (supraventricular tachycardia) 02/25/2013 Spinal stenosis of lumbar region 09/17/2012 Chronic back pain greater than 3 months duration 08/28 Aortic insufficiency 08/28/2012 Overview: Reported as mild Reflux 12/17/2011 Nasal polyposis 12/17/2011 Chronic sinusitis 12/17/2011 Asthma 10/02/2011 Sinusitis, chronic 10/02/2011 GERD (gastroesophageal reflux disease) 10/02/2011 Actinic keratosis 06/01/2011 Family History Medical History Relation Comments Asthma Father Cataracts Father Glaucoma Father Allergic Rhinitis Mother Cataracts Mother Migraines Other Hearing Loss Sister 1 Cancer Sister 2 lung Amblyopia Neg Hx Diabetes Neg Hx Heart Disease Neg Hx Hypertension Neg Hx Macular Degeneration Neg Hx Retinal Detachment Neg Hx Strabismus Neg Hx Thyroid Disease Neg Hx Relation Status Comments Father Mother Other Sister 1 Sister 2 Social History Tobacco Use Types Packs/Day Years [...] Assigned at Date Recorded Not on file Last Filed Vital Signs Vital Sign Reading [...] Mass Index 25.7 12/25/2019 11:59 AM EDT Plan of Treatment Health Maintenance Due Date Last Done Comments Covid-19 Vaccine (#1) 09/06/1945 Tdap adult 09/06/1958 Tetanus vaccine 09/06/1958 Zoster vaccine (1 of 2) 09/06/1989 Advance Directive 09/06/1994 Pneumoccocal Vaccine: 65+ (1 of 1 - 09/06/2004 PPSV23) Colonoscopy 03/03/2020 03/03/2015, 03/03/2015 Influenza (Flu) vaccine (1 of - 12/01/2020 Influenza standard series) Medical Devices Implanted Type Area Bow Maker Device Shelf Model / Identifier Expiration Serial / Date Lot Iol,[id number],22.5 ([id number]) (Autoreq) - [id number] IMPLANTS Right: NOVARTIS - 07/12/2024 [id number] / Implanted: Qty: 1 on 12/25/2019 by Maximo Dorman MD at [facility] NOVARTIS [id number] / Insurance Payer Benefit Plan / Subscriber ID Effective Dates Phone Addre ss Type Group MEDICARE MEDICARE PART [id number] 2004-Presen [phone] [place] [phone] [facility] [id number] 2010-Presen [address] [facility] [place] [address] Advance Directives Latest Code Status on File Code Status Date Activated Date Inactivated Comments Attempt Cardiopulmonary Resuscitation - 12/25/2019 11:53 AM 9/24/ 2020 4:05 PM Inpatient Code Status decision made by: Patient Care Teams Recreation Leader Relationship Specialty Start Date End Date Erik Carrasquillo MD PCP - General 02/22/[address] [place] [phone]
--- OUTSIDE RECORDS SUMMARY | 2021-09-23 12:52 | XMS_ITS | Encounter Summary ---
:1939 Author Organization [place] [address] Care Team Providers Name Role Phone Erik Carrasquillo MD Primary Care Provider Encounter Details Date Type Department Care Team Description 03/04/2020 Hospital Encounter G[place]ology at [facility] [place] Pa Valdez MD [facility] [place] [address] [place] [address] GASTROENTEROLOGY DEPT. [place], [place] [address] Social History Tobacco Use Types [...] on filedocumented in this encounter Care Teams Manager Change Relationship Specialty Start Date End Date Erik Carrasquillo MD PCP - General 02/22/10 [address] [place] [address] documented as of this encounter
--- OUTSIDE RECORDS SUMMARY | 2021-09-23 12:52 | XMS_ITS | Encounter Summary ---
:1939 Author Organization [facility] [place] [address] Care Team Providers Name Role Phone Erik Carrasquillo MD Primary Care Provider Reason for Visit Reason Onset Date Comments Appointment 01/14/2020 Encounter Details Date Type Department Care Team Description 01/14/2020 Telephone Ophthalmology at [facility] Maximo Stock MD Appointment [facility] [place] [address] [place] [address] OPHTHALMOLOGY DEPT. [phone] [place], [place] [address] (Wo rk) Social History Tobacco [...] this encounter Miscellaneous Notes Telephone Encounter - KrystalMonet de anda Caty - 01/14/2020 10:08 AM EDT LMOAM x 1 to let patient know of time change of appointment on 01/19. documented in this encounter Plan of Treatment Not on filedocumented as of this encounter Visit Diagnoses Not on filedocumented in this encounter Care Teams Collar Sewer Relationship Specialty Start Date End Date Erik Carrasquillo MD PCP - General 02/22/[address] [place] [phone] documented as of this encounter
--- OUTSIDE RECORDS SUMMARY | 2021-09-23 12:52 | XMS_ITS | Encounter Summary ---
:1939 Author Organization [facility] [place] [address] Care Team Providers Name Role Phone Erik Carrasquillo MD Primary Care Provider Reason for Referral Diagnostic Test (Routine) - Authorized Specialty Diagnoses / Procedures Referred By Contact Refer red To Contact Radiology Diagnoses Aortic dilatation Josselyn Bauer APRN [facility] Rad Ct Scan Procedures CT Angiogram Chest (Non-Coronary) w Contrast [facility] [place] [address] [place] [address] Referral ID Status Reason Start Expiration Visits Visits Date Date Requested Authorized [id number] Authorized Specialty 12/29/2020 06/28/2022 1 1 Service Requested Encounter Details Date Type Department Care Team Description 12/29/2020 Orders Only Cardiac Surgery Josselyn Bauer, Aortic dilatation [facility] [place] [address] [facility] [phone] CARDIAC SURGERY [place], [place] [address] (Wo rk) Social History Tobacco [...] as of this encounter Plan of Treatment Scheduled Orders Name Type Priority Associated Diagnoses Order S chedule Creatinine Lab Routine Aortic dilatation Expected: 12/29/2020, Expires: 2021 CT Angiogram Chest Imaging Routine Aortic dilatation Expe cted: 12/30/2020, (Non-Coronary) w Contrast Ex ilene: 12/29/2021 documented as of this encounter Visit Diagnoses Diagnosis Aortic dilatation Aortic ectasia, unspecified site documented in this encounter Care Teams Former Hand Relationship Specialty Start Date End Date Erik Carrasquillo MD PCP - General 02/22/[address] [place] [phone] documented as of this encounter
--- OUTSIDE RECORDS SUMMARY | 2021-09-23 12:52 | XMS_ITS | Encounter Summary ---
:1939 Author Organization [facility] [place] [address] Care Team Providers Name Role Phone Erik Carrasquillo MD Primary Care Provider Encounter Details Date Type Department Care Team Description 01/30/2019 Orders Only Cardiac Surgery at [facility] [place] [address] Social History Tobacco Use Types Packs/Day Years [...] on filedocumented in this encounter Care Teams Box Repairer Relationship Specialty Start Date End Date Erik Carrasquillo MD PCP - General 02/22/10 [address] [place], [place] [address] documented as of this encounter
--- OUTSIDE RECORDS SUMMARY | 2021-09-23 12:52 | XMS_ITS | Encounter Summary ---
:1939 Author Organization [facility] [place] [address] Care Team Providers Name Role Phone Erik Carrasquillo MD Primary Care Provider Reason for Visit Reason Comments Fuch's Dystrophy Encounter Details Date Type Department Care Team Description 12/10/2019 Office Visit Ophthalmology at [facility] C Maximo Dorman Cataract, unspecified catara ct type, unspecified laterality; [facility] MD Coni Fuchs' [place] [address] CENTER [phone] OPH[address]ALM[address] DEPT. [place] [id number] Social History Tobacco Use Types Packs/Day Years [...] documented as of this encounter Progress Notes Maximo Dorman MD - 12/10/2019 12:45 PM EDT Assessment: Encounter Diagnoses Name Primary? Cataract, unspecified cataract type, unspecified laterality ??? Fuchs' corneal dystrophy Plan: Geoff Camacho has visually significant cataract interfering with visual tasks. Cataract seems to besubstantially contributing to their visual loss and I did not identify other ocular conditions such as macular disease to explain their symptoms and findings. We discussed the risks, benefits and alternatives to cataract surgery. IOL alternatives were also reviewed. Geoff expressed understanding and elected cataract surgery in his RIGHT eye with a monofocalIOL. - Target Refraction: [place] to -0.5D -Discussed that this is an estimate and that there would likely be a post operative need for glasses to achieve best vision. - Special surgical issues: Flomax and Mild fuchs, He is aware of the increased risk of complications, offered MR but wants to proceed with surgery. - Dilation: poor WILL NEED HOOKS - Code status: full code for eye surgery - Allergies: No Known Allergies - Surgical orders entered - Surgical consent signed - AAO cataract handouts given - Surgical coordination initiated - Call prn any problems or questions. - Cautioned about driving in the perioperative period Upon Return documented in this encounter Plan of Treatment Not on filedocumented as of this encounter Procedures Procedure Name Priority Date/Time Associated Comments Diagnosis PACHYMETRY - OU - Routine 12/10/2019 1:28 PM Fuchs' corneal Re sults for this BOTH EYES EDT dystrophy procedure are i n the results section. documented in this encounter Results Pachymetry - OU - Both Eyes (12/10/2019 1:28 PM EDT) Anatomical Region Laterality Modality Other Specimen (Source) Anatomical Location Collection Method / Collectio n Time Received Time / Laterality Volume Narrative 12/10/2019 1:28 PM EDT Recent Pachymetry Date Noted Right Eye Left Eye 12/10/2019 553 540 01/03/[phone] Maximo Dorman MD OPHTHALMOLOGY SERVICES ORDER ALE documented in this encounter Visit Diagnoses Diagnosis Cataract, unspecified cataract type, uns pecified laterality Fuchs' corneal dystrophy Endothelial corneal dystrophy documented in this encounter Care Teams Product Test Engineer Relationship Specialty Start Date End Date Erik Carrasquillo MD PCP - General 02/22/[address] [place] [address] documented as of this encounter
--- OUTSIDE RECORDS SUMMARY | 2021-09-23 12:52 | XMS_ITS | Encounter Summary ---
:1939 Author Organization [facility] [place] [address] Care Team Providers Name Role Phone Erik Carrasquillo MD Primary Care Provider Reason for Referral Diagnostic Test (Routine) - Closed Specialty Diagnoses / Procedures Referred By Contact Refer red To Contact Radiology Diagnoses Ascending aorta dilation Ulises Borrego PA [facility] Rad Ct Scan Procedures CT Angiogram Chest (Non-Coronary) w Contrast CT Angiogram Chest (Non-Coronary) wwo Contrast [facility] [place] [address] [place] [address] Referral ID Status Reason Start Date Expiration Date Visits V isits Requested Authorized [id number] Closed Specialty 12/09/2018 12/09/2019 1 1 Service Requested Encounter Details Date Type Department Care Team Description 12/09/2018 Orders Only Cardiac Surgery Ulises Borrego PA Ascending aorta [facility] [place] [address] CARDIAC SURGERY [phone] [place], [place] [address] Social History Tobacco Use Types [...] Not on filedocumented as of this encounter Results CT Angiogram Chest (Non-Coronary) [...] e number below. ? Electronically signed by: Maximo healy, [facility] ([phone]), at 02/17/2019 3:48 PM Narrative 02/17/2019 3:48 PM EST EXAMINATION: CT [...] below. Rolo Bailey MD IMG CT ORDERABLES Creatinine (02/17/2019 12:28 PM EST) P athologist Signature Creatinine 0.88 0.80 - AKI G[place]AY 1.50 mg/dL [facility] Estimated GFR 82 >=60 AKI [place] mL/min/1.7 [facility] 3 ?? [facility] Comment: The eGFR was calculated using the CKD-EP I equation. As with all creatinine based estimates of kidney function, eGFR values calculated with the CKD-EPI equation are not accurate in patients wi th acute kidney failure, extremes of body mass or the acutely ill. http://[employer] eGFR 95 >=60 mL/min/1.73 m?? [facility] Comment: The eGFR was calculated using the CKD-EP I equation. As with all creatinine based estimates of kidney function, eGFR values calculated with the CKD-EPI equation are not accurate in patients wi th acute kidney failure, extremes of body mass or the acutely ill. http://[employer] Specimen Anatomical Collection Method Collection Time Receive d Time (Source) Location / / Volume Laterality Blood specimen 02/17/2019 12:28 9 (specimen) PM EST 12:41 PM EST Resulting Agency Comment Spec In Lab Rolo Bailey MD CHEMISTRY ORDERABLES Performing Organization Address City/State/[place] [address] documented in this encounter Visit Diagnoses Diagnosis Ascending aorta dilation Thoracic aortic ectasia Ascending aorta dilation Thoracic aortic ectasia documented in this encounter Care Teams Warp Hand Relationship Specialty Start Date End Date Erik Carrasquillo MD PCP - General 02/22/[address] [place] [phone] documented as of this encounter
--- OUTSIDE RECORDS SUMMARY | 2021-09-23 12:52 | XMS_ITS | Encounter Summary ---
:1939 Author Organization [facility] [place] [address] Care Team Providers Name Role Phone Erik Carrasquillo MD Primary Care Provider Reason for Visit Reason Comments Post Op Encounter Details Date Type Department Care Team Description 01/02/2020 Office Visit Ophthalmology at [facility] Maximo Stock Pseudophakia OD complex (mari ks/trypan); [facility] MD Coni [place] [address] CENTER [phone] O[address]PT. [place] [address] Social History Tobacco Use Types Packs/Day Years [...] Patient Instructions Patient InstructionsMaximo Dorman MD - 01/02/2020 2:00 PM EDT 1 week post cataract instruction sheet for Maximo Dorman MD - Stop Moxifloxacin eye drop (ocampo cap) - Continue prednisolone acetate (pink or white cap) and ketorolac (jarrett) three times a day in the operative eye until follow up appointment or until they run out. - Can stop wearing eye shield at night - Can generally resume normal activity, but still avoid any activities which could result in an injury to the eye - Call the eye clinic ([phone]) for any eye problems (increasing pain, decreasing vision, new flashes or new floaters) - Caution with driving as your eye recovers from cataract surgery documented in this encounter Progress Notes Maximo Dorman MD - 01/02/2020 2:00 PM EDT Assessment: Encounter Diagnoses Name Primary? Pseudophakia OD complex (hooks/trypan) ??? Fuchs' corneal dystrophy Geoff Camacho is status post cataract surgery last week Complex surgery in flomax pt with Fuchs. Edema is improving but still signficant Plan: - Prednisolone acetate 1% tid in operative eye for 3 weeks - Stop Moxifloxicin - Ketorolac tid in operative eye for 3 weeks Follow up: - ~3 weeks or as needed. Upon Return IOP OU MR OU Dilate operative eye documented in this encounter Plan of Treatment Not on filedocumented as of this encounter Visit Diagnoses Diagnosis Pseudophakia OD complex (hooks/trypan) Lens replaced by other means Fuchs' corneal dystrophy Endothelial corneal dystrophy documented in this encounter Care Teams Manager Laboratory Relationship Specialty Start Date End Date Erik Carrasquillo MD PCP - General 02/22/[address] [place] [address] documented as of this encounter
--- OUTSIDE RECORDS SUMMARY | 2021-09-23 12:52 | XMS_ITS | Encounter Summary ---
:1939 Author Organization [facility] [place] [address] Care Team Providers Name Role Phone Erik Carrasquillo MD Primary Care Provider Encounter Details Date Type Department Care Team Description 12/25/2019 Surgery Outpatient Surgery Benoit Dorman, CAT ARACT EXTRACTION, Center Beryl Azevedo MD EXTRACAPSULAR, WITH [facility] LENS INSERTION, COMPLEX [facility] (WRVU [id number]) [facility] [place] [address] [place] [address] [phone] (Wo rk) Social History Tobacco Use Types [...] Sign Reading Time Taken Comments Blood Pressure 127/61 12/25/2019 1:49 PM EDT Pulse 55 12/25/2019 1:49 PM EDT Temperature 36.6 ??C (97.9 ??F) 12/25/2019 11:59 AM EDT Respiratory Rate 15 12/25/2019 1:49 PM EDT Oxygen Saturation 100% 12/25/2019 1:49 PM EDT Inhaled Oxygen Concentration - - Weight 78.9 kg (174 lb) 12/25/2019 11:59 AM EDT Height 175.3 cm (5' 9) 12/25/2019 11:59 AM EDT Body Mass Index 25.7 12/25/2019 11:59 AM EDT documented in this encounter Discharge Instructions Discharge InstructionsNoEffie fairbanks RN - 12/25/2019 11:44 AM EDT Instructions for the first day following eye surgery Benoit Dorman MD Section of ophthalmology [facility] [phone] - Keep your eye patched, shielded, clean and dry overnight. The patch will be removed during your follow up visit with Dr. Dorman tomorrow. - The surgery center nurses should confirm time of your follow up appointment for tomorrow with Dr. Dorman. This appointment will be at the Eye Clinic in the main building at [facility]. - Mild discomfort is normal, but if you have any severe eye pain or bleeding call [phone] and ask to speak to the eye doctor production planning supervisor. - Call your Primary Care Doctor or [...] was questioned regarding travel outside of the [place], fever, cough, SOB or other illness [...] again, temperature will be taken, patient and caregiver/lifter/driver will be given a mask to wear the entire time they are in the [facility] building. COVID test completed: Not ordered or required by surgeon. Result of test: NA Action taken: None Paige Gutierrez RN - 12/18/2019 3:43 PM EDT During this call the patient was questioned regarding travel outside of [place], fever, cough, SOB or other illness [...] again, temperature will be taken, patient and caregiver/lifter/driver will be given a mask to wear [...] Dorman MD - 12/25/2019 1:53 PM EDT [facility] Operative Note Patient Name: Geoff Camacho : [id number] MR#: [id number] Case Date: 12/25/2019 Surgeon: Surgeon(s) and Role: [...] forceps was used to create the capsulorhexis. [place] Dissection and delineation were performed. The phacoemulsification [...] on Joanna 12/25/19 at 1146, Until Joanna 9 at 1605, Benzodiazepine reversal , 0.2 mg [...] 2 MIN PRN, St arting on Joanna 20 at 1146, Until Joanna 920 at 1605, Opioid Reversal, For op iate induced oversedation or respiratory depression. (maximum dose of 0.8 mg), In tra-Operative (Intra-Procedure), Routine PHENYLephrine (MYDFRIN) 2.5 % ophthalmic Given 12/25/2019 12:09 PM EDT 1 drop solution 1 drop 1 drop, Right Eye, EVERY 5 MIN, 3 doses, First dose on Joanna 20 at 1215, Last dose on Joanna 20 at 1225, 1 drop to the operative eye every 5 minutes times 3. Start on the day of surgery. Do NOT place dilating drops in post-op kit!, Day of Surgery (Day of Procedure), Routine Given 12/25/2019 12:00 PM EDT 1 drop Given 12/25/2019 11:57 AM EDT 1 drop PHENYLephrine 1%-ketorolac Given 12/25/2019 1:00 PM EDT 4 mLs 19- Surgical Site 0.3% (Omidria) intraocular solution ONCE PRN, Starting on Joanna 12/25/19 at 1300, Until Joanna 920 at 1605, Intra-Operative (Intra-Procedure) prednisoLONE acetate (PRED FORTE) 1 % Given 12/25/2019 11:57 AM EDT 1 drop ophthalmic suspension 1 drop 1 drop, Right Eye, ONCE, 1 dose, On Joanna 20 at 1215, 1 drop to the operative eye once, start on day of surgery, Day of Surgery (Day of Procedure), Routine sodium chloride 0.9 % (flush) flush 5 mL 5 mL, Intravenous, 2 TIMES DAILY, First dose on Joanna 920 at 1215, Until Discontinued, Day of Surgery (Day of Procedure), Routi ne sodium chloride 0.9 % (flush) flush 5-20 mL 5-20 mL, Intravenous, EVERY 1 MIN PRN, S tarting on Joanna 9/24/20 at 1146, Until Joanna 9 at 1605, flush, Flush pertains t o all indwelling lines. Flush per protocol found in the job aid using the link provided on this m edication record., Day of Surgery (Day of Procedure), Routine documented in this encounter Active and Recently Administered Medications Times are shown in EDT. Scheduled Medication Order 12/23/2019 12/24/2019 12/25/2019 cyclopentolate (CYCLODRYL) 1 % ophthalmic solution 1 drop (COMPL ETED) 1157 (Given - Provider: Ana M Bah RN)1200 (Given - Provider: Ana M Bah, PATTI)1209 (Given - Provider: Ana M Bah RN) 1 drop, Right Eye, EVERY 5 MIN, 3 doses, First dose on Joanna 20 at 1215, Last dose on Joanna 12/25/19 [...] drop, Right Eye, ONCE, 1 dose, Joanna 9/07/20 at 1215, 1 drop to the operative eye once, start on day of surgery, Day of Surgery (Day of Procedure), Routine moxifloxacin (VIGAMOX) 0.5 % ophthalmic solution 1 drop (COMPLET ED) 1158 (Given - Provider: Ana M Bah RN)1201 (Given - Provider: Ana M Bah, PATTI)1209 (Given - Provider: Ana M Bah, PATTI) 1 drop, Right Eye, EVERY 5 MIN, 3 doses, First dose on Joanna 12/24/20 at 1215, Last dose on Joanna 9/20 at 1225, 1 drop to the operative [...] MIN, 3 doses, First dose on Joanna 20 at 1215, Last dose on Joanna 12/25/19 at 1225, 1 drop to the operative eye every 5 minutes times 3. Start on the day of surgery. Do NOT varinder ce dilating drops in post-op kit!, Day of Surgery (Day of Proced ure), Routine prednisoLONE acetate (PRED FORTE) 1 % ophthalmic suspension 1 drop (COMPLETED) 1157 (Given - Provider: Ana M Bah RN ) 1 drop, Right Eye, ONCE, 1 dose, Joanan 9/07/20 at 1215, 1 drop to the operative [...] Starting Joanna 12/25/19 at 1146, Until Joanna 9 at 1605, Other, for heart rate less than 40 beats per minute., For 2 doses, Intra-Operative (Intra-Procedure), Routine fentaNYL 50 mcg/mL multi-dose injection 1306 (Given - Provider: Ana M Bah RN)1315 (Given - Provider: Ana M Bah RN) 25 mcg, Intravenous, EVERY 5 MIN PRN, St arting Joanna 12/25/19 at 1146, Until Joanna 12/25/19 [...] arting Joanna 9/24/20 at 1146, Until Joanna 924/20 at 1605, Benzodiazepine reversal, 0.2 mg intravenous, every 2 minutes PRN for total of 5 doses for respiratory rate less than 8 or SpO2 less than 90% despit e supplement O2., Intra-Operative (Intra-Procedure), Routine labetaloL (Normodyne,Trandate) injection 2.5 mg 2.5 mg, Intravenous, EVERY 5 MIN PRN, 4 doses, Starting Joanna 924/20 at 1146, Until Joanna 924/20 at 1605, High Blood Pressure, systolic blood pressure greater than 180 mmHg, Hold for heart rate less than 55 beats per minute. Call MD if ineffect marcos after 4 doses., Intra-Operative (Intra-Procedure), Routine lidocaine (XYLOCAINE) 10 mg/mL (1 %) injection 3 mg 3 mg (0.3 mL), Subcutaneous, ONCE PRN, 1 dose, Starting Joanna 924/20 at 1146, Until Joanna 9/24/20 at 1605, for discomfort with PIV insertion, Day of Surgery (Day of Procedure), Routine midazolam (PF) (VERSED) multi-dose injection 0.25-1 mg 1306 (Given - Provider: Ana M Bah RN)1316 (Given - Provider: Ana M Bah RN) 0.25-1 mg, Intravenous, EVERY 5 MIN PRN, Starting Joanna 924/20 at 1146, Until Joanna 9/24/20 at 1605, Anxiety, For use in the Operating Room (OR), Outpatient Surgery Center (OSC) or Special Procedure room o nly with direct provider supervision and verbal order. Hold for delirium/agitation. (Maximum dose 4 mg), Intra-Operative (Intra-Procedure), Routine naloxone (NARCAN) injection 0.1 mg 0.1 mg, Intravenous, EVERY 2 MIN PRN, St arting Joanna 12/25/19 at 1146, Until Joanna 20 at 1605, Opioid Reversal, For opiate induced oversedation or respiratory depression. (maximum dose of 0.8 mg), Intra-Operative (Intra-Procedure), Routine PHENYLephrine 1%-ketorolac 0.3% (Omidria) intraocular solution ( CANCELED) 1300 (Given - Provider: Benoit Dorman MD - Comment: mixed in 500 ml BSS) ONCE PRN, Starting Joanna 12/25/19 at 1300, Until Joanna 920 at 1605, Intra- Operative (Intra-Procedure) sodium chloride [...] Routine documented in this encounter Care Teams Carbon Blocks Press Operator Relationship Specialty Start Date End Date Erik Carrasquillo MD PCP - General 02/22/[address] [place] [address] documented as of this encounter
--- OUTSIDE RECORDS SUMMARY | 2021-09-23 12:52 | XMS_ITS | Encounter Summary ---
:1939 Author Organization [facility] [place] [address] Care Team Providers Name Role Phone Erik Carrasquillo MD Primary Care Provider Reason for Visit Reason Onset Date Comments Appointment 11/06/2018 Encounter Details Date Type Department Care Team Description 11/06/2018 Telephone Orthopaedics at [facility] Onofre Ramsay MD Appointment [facility] [place] [address] [place] [address] ORTHOPAEDIC SURGERY [phone] [place], [place] [address] (Wo rk) Social History Tobacco [...] this encounter Miscellaneous Notes Telephone Encounter - Jyoti Hidalgo Jolie - 11/06/2018 8:17 AM EDT LM: to see if he was able to get an XR done of his shoulder before his appt with Dr. Ramsay today. documented in this encounter Plan of Treatment Not on filedocumented as of this encounter Results XR Shoulder Right (Generic) [...] below. ? Electronically signed by: Almas velazquez [facility] ([phone]), at 11/06/2018 5:05 PM Narrative 11/06/2018 5:05 [...] For questions regarding this report, please contact [facility] number below. Electronically signed by: Almas velazquez [facility] ([phone]), at 11/06/2018 5:05 PM Onofre Ramsay MD IMG DX ORDERABLES documented in this encounter Visit Diagnoses Diagnosis Right shoulder pain, unspecified chronic ity Right shoulder pain, unspecified chronic ity documented in this encounter Care Teams Geographical Historian Relationship Specialty Start Date End Date Erik Carrasquillo MD PCP - General 02/22/[address] [place] [phone] documented as of this encounter
--- OUTSIDE RECORDS SUMMARY | 2021-09-23 12:53 | XMS_ITS | Encounter Summary ---
:1940 Author Organization [facility] [place] [address] Care Team Providers Name Role Phone Erik Carrasquillo MD Primary Care Provider Reason for Referral Surgical (Routine) - Closed Specialty Diagnoses / Procedures Referred By Contact Refer red To Contact Orthopaedics Diagnoses Compression fracture of L1 lumbar vertebra Erik Valera MD [facility]ine [address] [place] [address] [place] [address] [place] [address] Referral ID Status Reason Start Date Expiration Date Visits V isits Requested Authorized [id number] Closed Assume 08/17/2012 02/13/2013 1 1 Subset of Care Reason for Visit Reason Comments Back Pain Encounter Details Date Type Department Care Team Description 08/17/2012 Emergency Emergency Department Dariel Garcia PA [address] [place] [address] Compression fracture of Pato Evans MD [facility] [place] [address] L1 lumbar vertebra [facility] Erik Valera MD [facility] [place] [address] (Primary Dx) [place] [address] Social History Tobacco Use Types Packs/Day Years [...] Sign Reading Time Taken Comments Blood Pressure 164/86 08/17/2012 1:08 PM EDT Pulse 99 08/17/2012 1:08 PM EDT Temperature 36.8 ??C (98.2 ??F) 08/17/2012 1:08 PM EDT Respiratory Rate 20 08/17/2012 1:08 PM EDT Oxygen Saturation 96% 08/17/2012 1:08 PM EDT Inhaled Oxygen Concentration - - Weight - - Height - - Body Mass Index - - documented in this encounter Discharge Instructions AttachmentsThe following attachments cannot be sent through Care Everywhere. COMPRESSION FRACTURE OF THE SPINE: AFTER YOUR VISIT (ESTONIAN)documented in this encounter Medications at Time of Discharge Medication Sig Dispensed Refills Start Date End Date albuterol (PROVENTIL Inhale 2 puffs into 0 HFA;VENTOLIN HFA) 90 the lungs every 4 mcg/Actuation inhaler hours as needed. Use with spacer OXYcodone (OXYCONTIN) 10 Take 45 mg by mouth 0 12/23/2012 mg CR tablet every 12 hours. DULoxetine (CYMBALTA) 60 Take 60 mg by mouth 0 12/23/2012 mg capsule daily. OXYcodone (ROXICODONE) 5 Take 10 mg by mouth 0 09/17/2012 mg immediate release every 8 hours as tablet needed. calcitonin, salmon, 1 spray by Nasal 3.7 mL 1 08/17/2012 12/23/2012 (MIACALCIN) 200 route daily. unit/actuation nasal spray Dutasteride-Tamsulosin Take by mouth. 0 08/29/2012 0.5-0.4 mg CM24 omeprazole (PRILOSEC) 20 Take 20 mg by mouth 0 08/30/2016 mg capsule daily. metoprolol succinate Take 25 mg by mouth 0 08/29/2012 (TOPROL-XL) 25 mg 24 hr daily. tablet PHYTONADIONE (VITAMIN K Take 45 mcg by 0 08/29/2012 ORAL) mouth daily. OMEGA-3 FATTY ACIDS (FISH Take 1,000 mg by 0 08/30/2016 OIL CONCENTRATE ORAL) mouth daily. PYGEUM AFRICANUM ORAL Take by mouth. 0 08/29/2012 Triamcinolone Acetonide 2 sprays by Nasal 0 12/23/2012 (NASACORT-AQ) 50 mcg [place] route 2 times daily. GLUCOSAMINE HCL/CHONDR CLAROS 0 08/28/2008 08/29/2012 A NA (GLUCOSAMINE-CHONDROITIN) 750-600 mg Tab CALCIUM ORAL 0 08/28/2008 08/29/[address] [facility] 160 mg 0 08/28/200808/29 capsule multivitamin (THERAGRAN) 0 08/28/2008 08/29/2012 tablet documented as of this encounter ED Notes Erik Valera MD - 08/17/2012 3:10 PM EDT Chief Complaint Patient presents with ??? Back Pain HPI Comments: 71-year-old male presents emergency department complaining of back pain and an aura ofdoom. Patient reports he developed back pain for months ago. He has been seen by his family doctor in [facility]. He reports that he had plain film imaging performed of his spine which demonstrated degenerative changes only. Since that time, he has been prescribed increasing dosages of oral narcotic analgesia. This morning, he awoke with a sense that he was dying. He thought that his liver was failing. He reports having depression and hopelessness this morning. He denies bowel or bladder incontinence. He has back pain only when he attempts to move but has been unable to lie flat or in bed. The onlyposition which he is comfortable in is when he sits. Currently denies low back pain unless he attempt s to move. He reports ambulation is difficult and abnormal, requiring a cane. He's had no fever or chills and denies other recent illness. The history is provided by the patient and the spouse. No Known Allergies Review of Systems Constitutional: Positive for activity change and unexpected weight change. Negative for fever, chills and fatigue. HENT: Negative. Eyes: Negative. Respiratory: Negative for chest tightness and shortness of breath. Cardiovascular: Negative for chest pain. Gastrointestinal: Negative for nausea, vomiting, abdominal pain, diarrhea and constipation. Genitourinary: Negative for dysuria, urgency, frequency, hematuria, flank pain, scrotal swelling andpenile pain. Musculoskeletal: Positive for back pain and gait problem. Skin: Negative for rash and wound. Neurological: Positive for numbness. Negative for syncope, weakness and headaches. Hematological: Negative. Psychiatric/Behavioral: Positive for dysphoric mood. Physical Exam Nursing note and vitals reviewed. Constitutional: He is oriented to person, place, and time. He appears well- developed and well-nourished. HENT: Head: Normocephalic and atraumatic. Right Ear: External ear normal. Left Ear: External ear normal. Nose: Nose normal. Mouth/Throat: Oropharynx is clear and moist. Eyes: Conjunctivae and EOM are normal. Pupils are equal, round, and reactive to light. Neck: Normal range of motion. Neck supple. Cardiovascular: Normal rate. Pulmonary/Chest: Effort normal and breath sounds normal. No respiratory distress. Abdominal: Soft. He exhibits no distension and no mass. There is no tenderness. Musculoskeletal: Normal range of motion. Neurological: He is alert and oriented to person, place, and time. No cranial nerve deficit or sensory deficit. He exhibits normal muscle tone. Gait abnormal. Coordination normal. Antalgic gait, uses a cane. Skin: Skin is warm and dry. Psychiatric: He has a normal mood and affect. His behavior is normal. Procedures MDM ED Course: In the Emergency Department, the patient remained afebrile and hemodynamically stable. He was given IV fluids, morphine and Ativan for symptomatic management. This achieved enough pain control that the patient was able to undergo CT imaging of the spine. Notable for no one compression fracture with 25% loss of height. I will recommend that he continue with his current pain medications, and will add nasal salmon calcitonin, followup with his primary care physician and/or make an appointment to the spine clinic for further evaluation and management. Indications for return to the Emergency Department were discussed with the patient and/or guardian, who expressed an understanding. All questions were answered. Erik Valera MD 08/17/12 1822 Kelley Carlisle, RN - 08/17/2012 1:35 PM EDT Pt. Ambulated to room 11 without difficulty using cane, states nothing is different with his back pain today from the last 6 months he is just sick of it. documented in this encounter Miscellaneous Notes Discharge Summary - Provider, Scanning - 08/19/2012 10:11 AM EDT Miscellaneous - Provider, Scanning - 08/17/2012 4:14 PM EDT ED Triage - Devora Reed RN - 08/17/2012 1:11 PM EDT L sided low back pain since Apr. Occasional tingling in hip and knee. Followed by PCP but not improving. No known trauma. On MS and Oxycodone. Unable to have an MRI because he can't lie flat. Walked inwith a cane. documented in this encounter Plan of Treatment Scheduled Referrals Name Type Priority Associated Diagnoses Order S chedule Referral to Spine Outpatient Referral Routine Compression frac ture Ordered: Center of L1 lumbar vertebra 2012 documented as of this encounter Procedures Procedure Name Priority Date/Time Associated Comments Diagnosis CT LUMBAR SPINE WWO STAT 08/17/2012 4:30 PM Re sults for this CONTRAST EDT procedure are i n the results section. EKG 12-LEAD Routine 08/17/2012 3:41 PM Results f or this EDT procedure are i n the results section. EKG 12-LEAD STAT 08/17/2012 3:30 PM Results f or this EDT procedure are i n the results section. PROTHROMBIN TIME STAT 08/17/2012 3:10 PM Resul ts for this EDT procedure are i n the results section. URINALYSIS WITH STAT 08/17/2012 2:57 PM Result s for this REFLEX CULTURE EDT procedure are in the results section. DIFFERENTIAL, STAT 08/17/2012 2:05 PM Results for this AUTOMATED EDT procedure are i n the results section. CREATININE Routine 08/17/2012 2:05 PM Results f or this EDT procedure are i n the results section. CBC (WITH DIFF) STAT 08/17/2012 2:05 PM Result s for this EDT procedure are i n the results section. BUN STAT 08/17/2012 2:05 PM Results f or this EDT procedure are i n the results section. TROPONIN STAT 08/17/2012 2:05 PM Results f or this EDT procedure are i n the results section. TSH STAT 08/17/2012 2:05 PM Results f or this EDT procedure are i n the results section. MAGNESIUM STAT 08/17/2012 2:05 PM Results f or this EDT procedure are i n the results section. GLUCOSE, RANDOM STAT 08/17/2012 2:05 PM Result s for this EDT procedure are i n the results section. HEPATIC FUNCTION STAT 08/17/2012 2:05 PM Resul ts for this PANEL EDT procedure are i n the results section. ELECTROLYTES PANEL STAT 08/17/2012 2:05 PM Res ults for this EDT procedure are i n the results section. POCT URINE DIPSTICK STAT 08/17/2012 1:36 PM Re sults for this EDT procedure are i n the results section. documented in this encounter Results CT lumbar spine WO contrast (08/17/2012 4:30 PM EDT) Anatomical Region Laterality Modality L-spine Computed Tomography Specimen (Source) Anatomical Collection Method Collection Time Re ceived Time Location / / Volume Laterality 08/17/2012 4:30 PM EDT Narrative 08/19/2012 4:[address] Lumbar Spine Without Contrast Clinical History pain Comparison Radiograph 05/28/2000. Technique Helical acquired images through the lowe r thoracic and lumbar spine were obtained without the use of contrast. Findings A dextro convex scoliosis is noted with straightening of the normal lordotic curve. There is a grade 1 retrolisthesis of L4 on L5. ?? There is an age-indeterminate wedge compression defo rmity of the L1 vertebral body with approximately 25 percent loss in height, new from the prior radiograph 2006. Multilevel disc degenerative changes are noted with disc space narrowing most notable at L2-L3, L4-L5, and L5-S1. ??Th ere is multilevel facet arthropathy most severe at L3-L4, L4-L5, and L5-S1. ? Large anterior osteophytosis is at L2-L3 level. Diffuse narrowing of the central canal, most severe at the L2 -L3 level. ?? Incidentally noted are dense vascular ca lcifications. Impression 1. Age indeterminate L1 compression defo rmity, with approximately 25 percent loss in height. This is new since prior radiograph 2006. 2. Multilevel disc degenerative changes and facet arthropathy, with diffuse narrowing of the central canal, most sev ere at the L2-3 level. ?? Film and interpretation reviewed by the attending Procedure Note Kamille Reyes MD - 08/19/2012Formattin g of this note might be different from the original. Examination CT Lumbar Spine Without Contrast Clinical History pain Comparison Radiograph 05/28/2000. Technique Helical acquired images through the lowe r thoracic and lumbar spine were obtained without the use of contrast. Findings A dextro convex scoliosis is noted with straightening of the normal lordotic curve. There is a grade 1 retrolisthesis of L4 on L5. There is an age-indeterminate wedge compression defo rmity of the L1 vertebral body with approximately 25 percent loss in height, new from the prior radiograph 2006. Multilevel disc degenerative changes are noted with disc space narrowing most notable at L2-L3, L4-L5, and L5-S1. Ther e is multilevel facet arthropathy most severe at L3-L4, L4-L5, and L5-S1. Large anterior osteophytosis is at L2-L3 level. Diffuse narrowing of the central canal, most severe at the L2 -L3 level. Incidentally noted are dense vascular ca lcifications. Impression 1. Age indeterminate L1 compression defo rmity, with approximately 25 percent loss in height. This is new since prior radiograph 2006. 2. Multilevel disc degenerative changes and facet arthropathy, with diffuse narrowing of the central canal, most sev ere at the L2-3 level. Film and interpretation reviewed by the attending Erik Valera MD IMG CT ORDERABLES EKG 12 Lead (08/17/2012 3:41 PM EDT) Component Value Ref Range Test Analysis Performed Pathologis t Method Time At Signature Ventricular rate 81 BPM MUSE SYSTEM Atrial Rate 81 BPM MUSE SYSTEM P-R Interval 176 ms MUSE SYSTEM QRS Duration 90 ms MUSE SYSTEM Q-T Interval 394 ms MUSE SYSTEM QTC Calculated 457 ms MUSE SYSTEM (Bezet) Calculated P [place] 88 degrees MUSE SYSTEM Calculated R [place] -19 degrees MUSE SYSTEM Calculated T [place] 28 degrees MUSE SYSTEM INTERPRETATION Sinus rhythm with frequent Premature ventricular compl exes MUSE SYSTEM When compared with ECG of 17-AUG-2012 15:30, (unconfirmed) Previous ECG has undetermined rhythm, needs review ST less depressed in Inferior leads Confirmed by MD Rand, Renard Pedro ([id number]) on 08/18/2012 10:40:00 AM Specimen Anatomical Collection Method Collection Time Receive d Time (Source) Location / / Volume Laterality 08/17/2012 3:41 PM 3 EDT 10:40 AM EDT Unknown ECG ORDERABLES Performing Organization Address City/[facility]/ZIP Code Phon e Number MUSE SYSTEM EKG 12 Lead (08/17/2012 3:30 PM EDT) Component Value Ref Range Test Analysis Performed Pathologis t Method Time At Signature Ventricular rate 83 BPM MUSE SYSTEM Atrial Rate 83 BPM MUSE SYSTEM P-R Interval 160 ms MUSE SYSTEM QRS Duration 76 ms MUSE SYSTEM Q-T Interval 376 ms MUSE SYSTEM QTC Calculated 441 ms MUSE SYSTEM (Bezet) Calculated P [place] 124 degrees MUSE SYSTEM Calculated R [place] -25 degrees MUSE SYSTEM Calculated T [place] -4 degrees MUSE SYSTEM INTERPRETATION Sinus rhythm with ventricular trigeminy MUSE SYSTEM ST & T wave abnormality, consider inferior ischemia Abnormal ECG No previous ECGs available Confirmed by MD Gordillo Paul R ([id number]) on 08/18/2012 10:39:11 AM Specimen Anatomical Collection Method Collection Time Receive d Time (Source) Location / / Volume Laterality 08/17/2012 3:30 PM 3 EDT 10:39 AM EDT Pato Javier MD ECG ORDERABLES Performing Organization Address City/[facility]/ZIP Code Phon e Number MUSE SYSTEM Prothrombin Time (08/17/2012 3:10 PM EDT) P athologist Signature PT 13.1 12.0 - 15.0 CERNER sec MILLENNIUM Comment: [facility] Transfusion Committee Guidelines: I NR less than 2.0, PTT less than OR equal to 43.5 seconds, or Fibrinogen gre ater than or equal to 100 mg/dl indicate adequate procoagulant activity for hemostasis in patients without underlying bleeding disorders. INR 1.0 0.9 - 1.1 [facility] MILLENNIUM Specimen Anatomical Collection Method Collection Time Receive d Time (Source) Location / / Volume Laterality Blood specimen 08/17/2012 3:10 PM 013 3:17 (specimen) EDT PM EDT Resulting Agency Comment Spec In Lab Erik Valera MD HEMATOLOGY ORDERABLES Performing Organization Address City/[facility]/[place] [address] [facility] MILLENNIUM (ABNORMAL) Urinalysis with microscopic (08/17/2012 2:57 PM EDT) [facility] Method Time Signature Glucose UA Negative Negative CERNER mg/dL MILLENNIUM Protein UA 30 (A) Neg mg/dL CERNER MILLENNIUM Bilirubin UA Negative Negative CERNER mg/dL MILLENNIUM Urobilinogen UA Normal mg/dL [facility] M[facility] pH UA 7.0 5.0 - 8.0 CERNER MILLENNIUM Blood UA Negative mg/dL CERNER MILLENNIUM Ketones UA Negative mg/dL CERNER MILLENNIUM Nitrite UA Negative CERNER MILLENNIUM Leukocytes UA Negative mcL [facility] MILLENNIUM Appearance UA Clear Clear [facility] MILLENNIUM Spec Neville UA 1.015 1.002 - CERNER 1.030 MILLENNIUM Color UA Yellow Yellow [facility] MILLENNIUM RBC UA <1 0 - 3 /HPF CERNER MILLENNIUM WBC UA <1 0 - 3 /HPF CERNER MILLENNIUM Renal Epith UA <1 (H) <=0 /HPF [facility] MILLENNIUM Specimen Anatomical Collection Method Collection Time Receive d Time (Source) Location / / Volume Laterality Urine specimen 08/17/2012 2:57 PM 013 3:05 (specimen) EDT PM EDT Resulting Agency Comment Spec In Lab Erik Valera MD URINE ORDERABLES Performing Organization Address City/[facility]/[place] [address] CERNER MILLENNIUM Magnesium (08/17/2012 2:05 PM EDT) athologist Signature Magnesium 0.70 0.69 - 1.07 CERNER mmol/L MILLENNIUM Specimen Anatomical Collection Method Collection Time Receive d Time (Source) Location / / Volume Laterality Blood specimen 08/17/2012 2:05 PM 013 2:17 (specimen) EDT PM EDT Resulting Agency Comment Spec In Lab Pato Javier MD CHEMISTRY ORDERABLES Performing Organization Address City/State/ZIP Code Phon e Number [address] CERNER MILLENNIUM TSH (08/17/2012 2:05 PM EDT) athologist Signature TSH 3.62 0.27 - 4.20 CERNER mcIU/mL MILLENNIUM Specimen Anatomical Collection Method Collection Time Receive d Time (Source) Location / / Volume Laterality Blood specimen 08/17/2012 2:05 PM 013 2:17 (specimen) EDT PM EDT Resulting Agency Comment Spec In Lab Pato Javier MD CHEMISTRY ORDERABLES Performing Organization Address City/State/ZIP Code Phon e Number [address] CERNER MILLENNIUM Differential, Automated (08/17/2012 2:05 PM EDT) athologist Signature Neutrophils % 68.5 34.0 - CERNER 71.0 % MILLENNIUM Neutr Abs (ANC) 4.10 1.50 - CERNER 6.30 MILLENNIUM x10(3)/mcL Lymphocytes % 23.7 19.0 - CERNER 53.0 % MILLENNIUM Lymphocytes Abs 1.4 1.0 - 3.6 CERNER x10(3)/mcL MILLENNIUM Monocytes % 6.3 4.0 - 13.0 CERNER % MILLENNIUM Monocyte Abs 0.4 0.2 - 1.0 CERNER x10(3)/mcL MILLENNIUM Eosinophils % 1.0 0.0 - 7.0 CERNER % MILLENNIUM Eosinophils Abs 0.1 0.0 - 0.5 CERNER x10(3)/mcL MILLENNIUM Basophils % 0.3 0.0 - 2.0 CERNER % MILLENNIUM Basophils Abs 0.0 0.0 - 0.2 CERNER x10(3)/mcL MILLENNIUM Immature Gran % 0.20 0.00 - CERNER 0.66 % MILLENNIUM Comment: Immature granulocytes(IG's)percentage an d absolute count will include metamyelocytes, myelocytes, and promyelo cytes. Blood smears from CBCs yielding IG's will be scanned manually for concor dance. If this scan disagrees with the automated IG or if promyelocytes are not ed, a manual differential will be performed. Eliane Gran Abs 0.01 0.00 - 0.05 x10(3)/mcL CER NER MILLENNIUM Specimen Anatomical Collection Method Collection Time Receive d Time (Source) Location / / Volume Laterality Blood specimen 08/17/2012 2:05 PM 013 2:10 (specimen) EDT PM EDT Pato Javier MD HEMATOLOGY ORDERABLES Performing Organization Address City/State/ZIP Code Phon e Number [place] [phone] CERNER MILLENNIUM Troponin T (08/17/2012 2:05 PM EDT) athologist Signature Troponin-T <0.03 <=0.03 CERNER ng/mL MILLENNIUM Comment: 0.03 ng/mL: Represents the 99th percenti le upper reference limit for normals. >0.03 ng/mL: Elevated cardiac troponin T level indicative of myocardial damage. Diagnosis of acute, evolving or recent M I requires a typical rise and gradual fall of cTnT with at least ONE of the fo llowing: a) Ischemic symptoms b) Development of pathologic Q waves on the ECG c) ECG changes indicative of eschemia (S -T segment elevation/depression) d) Coronary artery intervention Serial bloods should be obtained for avtar ting on admission, at 6 to 9 hrs and again at 12 to 24 hrs if earlier samples are negative and the clinical index of suspicion is high. Reference: [Myocardial infarction redefined a consensus document of the Joint [place] an Society of Cardiology/Canadian College of Cardiology Committee for the redefinition of myocardial infarction. Journal of the [place] College of Cardi ology 2000; 36: 959-969] Specimen Anatomical Collection Method Collection Time Receive d Time (Source) Location / / Volume Laterality Blood specimen 08/17/2012 2:05 PM 013 2:10 (specimen) EDT PM EDT Resulting Agency Comment Spec In Lab Pato Javier MD CHEMISTRY ORDERABLES Performing Organization Address City/[facility]/ZIP Code Phon e Number [address] CERNER MILLENNIUM Hepatic Function Panel (08/17/2012 2:05 PM EDT) P athologist Signature Total Protein 6.6 6.4 - 8.3 CERNER gm/dL MILLENNIUM Albumin 3.8 3.2 - 5.2 CERNER gm/dL MILLENNIUM AST 19 0 - 39 CERNER unit/L MILLENNIUM ALT 15 0 - 55 CERNER unit/L MILLENNIUM Alk Phos 85 40 - 120 CERNER unit/L MILLENNIUM Total 0.2 0.2 - 1.3 CERNER Bilirubin mg/dL MILLENNIUM Bili, Direct <0.1 0.0 - 0.3 CERNER mg/dL MILLENNIUM Specimen Anatomical Collection Method Collection Time Receive d Time (Source) Location / / Volume Laterality Blood specimen 08/17/2012 2:05 PM 013 2:10 (specimen) EDT PM EDT Resulting Agency Comment Spec In Lab Pato Javier MD CHEMISTRY ORDERABLES Performing Organization Address City/[facility]/ZIP Code [place] [address] CERNER MILLENNIUM Glucose, random (08/17/2012 2:05 PM EDT) athologist Signature Glucose Lvl 109 60 - 199 CERNER mg/dL MILLENNIUM Comment: Diabetes: >=200 mg/dL plus symp toms Specimen Anatomical Collection Method Collection Time Receive d Time (Source) Location / / Volume Laterality Blood specimen 08/17/2012 2:05 PM 013 2:10 (specimen) EDT PM EDT Resulting Agency Comment Spec In Lab Pato Javier MD CHEMISTRY ORDERABLES Performing Organization Address City/[facility]/[place] [address] CERNER MILLENNIUM (ABNORMAL) Creatinine (08/17/2012 2:05 PM EDT) athologist Signature Creatinine 0.68 (L) 0.80 - CERNER 1.50 mg/dL MILLENNIUM Comment: Please note that the pediatric reference intervals supplied above were not validated at [facility]. Results from pediatri c patients should be interpreted in conjunction to the patient's age, height and muscle mass. Estimated GFR >60 >=60 CERNER KATEU M Comment: This estimated GFR (eGFR) value was calc ulated using the MDRD equation which has been validated on patients between t he ages of 18 and 70. The MDRD should not be used to assess kidney function in patients < 18 years of age or in patients with extremes of body mass, or in patients with acute kidney failure. This value should be multiplied by 1.2 f or patients. For further information please copy and past e the following links into your internet browser. http://www.nkdep.nih.gov/lab-evaluation. shtml http://www.kidney.org/professionals/ Specimen Anatomical Collection Method Collection Time Receive d Time (Source) Location / / Volume Laterality Blood specimen 08/17/2012 2:05 PM 013 2:10 (specimen) EDT PM EDT Resulting Agency Comment Spec In Lab Pato Javier MD CHEMISTRY ORDERABLES Performing Organization Address City/[facility]/ZIP Code Phon e Number [address] CERNER MILLENNIUM BUN (08/17/2012 2:05 PM EDT) athologist Signature BUN 14 10 - 20 CERNER mg/dL MILLENNIUM Specimen Anatomical Collection Method Collection Time Receive d Time (Source) Location / / Volume Laterality Blood specimen 08/17/2012 2:05 PM 013 2:10 (specimen) EDT PM EDT Resulting Agency Comment Spec In Lab Pato Javier MD CHEMISTRY ORDERABLES Performing Organization Address City/[facility]/ZIP Code Phon e Number [address] CERNER MILLENNIUM (ABNORMAL) Electrolytes panel (08/17/2012 2:05 PM EDT) athologist Signature Sodium 139 135 - 145 CERNER mmol/L MILLENNIUM Potassium 3.9 3.5 - 5.0 CERNER mmol/L MILLENNIUM Comment: Please note: ??Patients with WBC >100,00 0 may have falsely elevated Potassium levels. ??For accurate Potassium quantif ication in these patients send serum separator tube (gold top) for subsequent determinations. ??Contact the Clinical Chemistry Laboratory if there are any qu estions. Chloride 101 98 - 107 mmol/L CERNER MILLENN IUM CO2 32 (H) 22 - 31 mmol/L CERNER MILLENNI UM Anion Gap 6 5 - 15 mmol/L CERNER MILLENNIU M Specimen Anatomical Collection Method Collection Time Receive d Time (Source) Location / / Volume Laterality Blood specimen 08/17/2012 2:05 PM 013 2:10 (specimen) EDT PM EDT Resulting Agency Comment Spec In Lab Pato Javier MD CHEMISTRY ORDERABLES Performing Organization Address City/State/ZIP Code Phon e Number [address] CERNER MILLENNIUM CBC (with Diff) (08/17/2012 2:05 PM EDT) athologist Signature WBC 6.0 4.0 - 10.0 CERNER x10(3)/mcL MILLENNIUM RBC 4.65 4.63 - 6.08 CERNER x10(6)/mcL MILLENNIUM Hemoglobin 14.2 13.7 - 17.5 CERNER gm/dL MILLENNIUM Hematocrit 42.7 40.0 - 51.0 CERNER % MILLENNIUM MCV 91.8 79.0 - 92.0 CERNER fL MILLENNIUM MCH 30.5 25.6 - 32.2 CERNER pg MILLENNIUM MCHC 33.3 32.0 - 36.5 CERNER gm/dL MILLENNIUM Platelets 251 145 - 370 CERNER x10(3)/mcL MILLENNIUM RDWSD 43.6 35.0 - 46.0 CERNER fL MILLENNIUM RDWCV 13.1 10.9 - 14.4 CERNER % MILLENNIUM MPV 10.5 9.0 - 12.0 [facility] fL [facility] Specimen Anatomical Collection Method Collection Time Receive d Time (Source) Location / / Volume Laterality Blood specimen 08/17/2012 2:05 PM 013 2:10 (specimen) EDT PM EDT Resulting Agency Comment Spec In Lab Pato Javier MD HEMATOLOGY ORDERABLES Performing Organization Address City/State/[place] [address] [facility] [employer] POCT urine dipstick (08/17/2012 1:36 PM EDT) P athologist Signature POC Sp [place] 1.010 1.002 - 1.030 POC pH, UA 7 5.0 - 8.5 POC Leuk, UA neg Negative - Negative POC Nitrite, neg Negative - UA Negative POC Protein, trace Negative - UA Negative mg/dL POC Glucose, neg Normal - UA Normal mg/dL POC Ketone, UA neg Negative - Negative POC Urobil, UA neg 0.2 - 1.0 mg/dL POC Bili, UA neg Negative - Negative POC Blood, UA neg Negative - Negative rafaela/uL Pato Javier MD POINT OF CARE TEST ORDERABLE S documented in this encounter Visit Diagnoses Diagnosis Compression fracture of L1 lumbar verteb ra - Primary Closed fracture of lumbar vertebra witho ut mention of spinal cord injury documented in this encounter Administered Medications Inactive Administered Medications - up to 3 most recent administrations Medication Order MAR Action Action Date Dose Rate Site ketorolac (TORADOL) injection 30 mg Given 08/17/2012 3:20 PM EDT 30 mg 30 mg, Intravenous, ONCE, 1 dose, On 08/17/12 at 1515, STAT LORazepam (ATIVAN) injection 1 mg Given 08/17/2012 3:22 PM EDT 1 mg 1 mg, Intravenous, ONCE, 1 dose, On 08/17/12 at 1515, STAT morphine injection 5 mg Given 08/17/2012 3:25 PM EDT 5 mg 5 mg, Intravenous, ONCE, On 08/17/12 at 1515, 1 dose sodium chloride 0.9% 1,000 mL IV bolus Given 08/17/2012 3:20 PM EDT Intravenous, ONCE, 1 dose, On 08/17/12 at 1515 documented in this encounter Active and Recently Administered Medications Times are shown in EDT. Scheduled Medication Order 08/15/2012 08/16/2012 08/17/2012 ketorolac (TORADOL) injection 30 mg (COMPLETED) 1520 (Given - Provider: Patria Fong RN) 30 mg, Intravenous, ONCE, 1 dose, 08/17/12 at 1515, STAT LORazepam (ATIVAN) injection 1 mg (COMPLETED) 1522 (Given - Provider: Patria Fong RN) 1 mg, Intravenous, ONCE, 1 dose, 08/17/12 at 1515, STAT morphine injection 5 mg (COMPLETED) 1525 (Given - Provider: Patria Fong RN) 5 mg, Intravenous, ONCE, 1 dose, 08/17/12 at 1515, STAT sodium chloride 0.9% 1,000 mL IV bolus (COMPLETED) 1520 (Given - Provider: Patria Fong RN) Intravenous, ONCE, 1 dose, 08/17/12 at 1515 documented in this encounter Care Teams Pearl Digger Relationship Specialty Start Date End Date Erik Carrasquillo MD PCP - General 02/22/[address] [place] [id number] documented as of this encounter
--- OUTSIDE RECORDS SUMMARY | 2021-09-23 12:53 | XMS_ITS | Encounter Summary ---
:1940 Author Organization [facility] [place] [address] Care Team Providers Name Role Phone Erik Carrasquillo MD Primary Care Provider Encounter Details Date Type Department Care Team Description 08/28/2012 Hospital Encounter Same Day Program at [facility], ANESTHESIA-ADI None [facility] Adán Palm MD [facility] [address] ANESTHESIOLOGY DEPT. [place] [phone] [facility] Beryl Carlin MD [facility] [address] ANESTHESIOLOGY DEPT. [place] [phone] [facility] Renard Arora MD [address] [place] [address] [place] [address] Social History Tobacco Use Types Packs/Day [...] Sign Reading Time Taken Comments Blood Pressure 109/65 08/28/2012 4:31 PM EDT Pulse 84 08/28/2012 4:31 PM EDT Temperature 36.1 ??C (97 ??F) 08/28/2012 4:21 PM EDT Respiratory Rate 18 08/28/2012 4:31 PM EDT Oxygen Saturation 96% 08/28/2012 4:31 PM EDT Inhaled Oxygen Concentration - - Weight - - Height - - Body Mass Index - - documented in this encounter Discharge Instructions Discharge InstructionsClarke Sosa RN - 08/28/2012 4:30 PM EDT POST ANESTHESIA INSTRUCTIONS Go home, rest, use caution on stairs. Change positions slowly. Do not smoke if you are alone. Diet light to regular as tolerated today. If nausea occurs start with clear liquids and progress slowly. No driving, operating machinery, alcoholic beverages and no important decisions for 24 hours. Monitor IV site for signs and symptoms of infection: increasing redness, swelling, foul drainage, ifoccurs contact M.D. Patients who have had endotrachial tubes (this tube, used by anesthesia department, is passed down your throat after you are asleep, to ensure safe air passage during your operation). A sore throat is normal due to the tube. Cold liquids or soothing lozenges will help ease the discomfort. The generalized muscle aches are due to the medication given to you just before the tube is inserted. As the medication wears off, you may develop muscle soreness, which usually goes away in 12-24 hours. documented in this encounter Medications at Time [...] by Nasal 0 12/23/2012 (NASACORT-AQ) 50 mcg [place] route 2 times daily. GLUCOSAMINE HCL/CHONDR CLAROS 0 08/28/2008 08/29/2012 A NA (GLUCOSAMINE-CHONDROITIN) 750-600 mg Tab CALCIUM ORAL 0 08/28/2008 08/29/2012 [place] 160 mg 0 08/28/200808/29 capsule multivitamin (THERAGRAN) 0 08/28/2008 08/29/2012 tablet documented as of this encounter Miscellaneous Notes Miscellaneous - Provider, Scanning - 09/10/2012 9:04 AM EDT Miscellaneous - Provider, Scanning - 08/28/2012 10:47 PM EDT Miscellaneous - Provider, Scanning - 08/28/2012 2:35 PM EDT documented in this encounter Plan of Treatment Not on filedocumented as of this encounter Procedures Procedure Name Priority Date/Time Associated Comments Diagnosis MRI LUMBAR SPINE Routine 08/28/2012 4:18 PM Resul ts for this WITHOUT CONTRAST EDT procedure a re in the results section. MRI WITH ANESTHESIA 08/28/2012 3:10 PM Severe disablin g (WRVU *) EDT lumbago x 3 mos. documented in this encounter Results MRI lumbar spine without contrast (08/28/2012 4:18 PM EDT) Anatomical Region Laterality Modality L-spine Magnetic Resonance Specimen (Source) Anatomical Collection Method Collection Time Re ceived Time Location / / Volume Laterality 08/28/2012 4:18 PM EDT Narrative 08/28/2012 5:07 PM EDT Examination MR Lumbar Spine WO/ANES Clinical History SEVERE DISABLING LUMBAGO X [address] scan lumbar spine 08/17/2012. Technique MRI of the lumbar spine without contrast . Findings There is a chronic superior endplate def ormity involving L1. ??Multilevel disc degenerative changes are present with lo ss of normal disc signal and disc space narrowing most severe at L2-L3, L4-L5 an d L5-S1. ??There is grade 1 L2 on L3 anterolisthesis. ??Several mm of L4 on L 5 retrolisthesis identified. ??The conus terminates at the T12-L1 level. No aggressive marrow lesions. ??Fatty ma rrow endplate changes are present within the L2-L3 levels. The following disc levels are outlined b elow: ?? At T11 - T12 is severe canal narrowing b ecause of a disc bulge and facet arthropathy with a left-sided synovial c yst. ??There is questionable cord signal alteration at this level, but this level is incompletely evaluated on the current study. ??Foraminal narrowing is mild on the right and severe on the left. At T12-L1 minimal degrees of canal and n eural foraminal narrowing. At L1-L2 is a disc bulge and facet arthr opathy resulting in mild left-sided foraminal narrowing. L2-L3 is severe canal narrowing because of facet arthropathy and a disc bulge. ?? Foraminal narrowing is moderate bilatera lly. At L3-L4 is moderate canal narrowing bec ause of a disc bulge and facet arthropathy. ??Foraminal narrowing is mi ld on the left and moderate on the right. At L4-L5 is severe canal narrowing becau se of a disc bulge and facet arthropathy. ??Foraminal narrowing is mo derate bilaterally. At L5-S1 is a disc bulge and facet arthr opathy resulting in severe left and moderate right-sided neural foraminal na rrowing. The above-described degenerative changes are seen in conjunction with a lumbar dextroscoliosis centered at the L2-L3 le raul. ??There is several mm of right lateral subluxation of L2 on L3. Impression Multilevel degenerative changes with sev ere degrees of canal narrowing at several levels. ??Consider further evalu ation of the thoracic spine given the severe canal narrowing at T11-T12 with q uestionable cord signal alteration. ?? Left-sided synovial cyst at T11-T12 that contributes to the severe canal narrowing. Given the possible cord signa l alteration at this level and the horizontal orientation of the facet join ts, percutaneous ruptureis not recommended. Procedure Note Mayur Mullins MD - 08/28/2012Formatti ng of this note might be different from the original. Examination MR Lumbar Spine WO/ANES Clinical History SEVERE DISABLING LUMBAGO X [address] scan lumbar spine 08/17/2012. Technique MRI of the lumbar spine without contrast . Findings There is a chronic superior endplate def ormity involving L1. Multilevel disc degenerative changes are present with lo ss of normal disc signal and disc space narrowing most severe at L2-L3, L4-L5 an d L5-S1. There is grade 1 L2 on L3 anterolisthesis. Several mm of L4 on L5 retrolisthesis identified. The conus terminates at the T12-L1 level. No aggressive marrow lesions. Fatty josé ow endplate changes are present within the L2-L3 levels. The following disc levels are outlined b elow: At T11 - T12 is severe canal narrowing b ecause of a disc bulge and facet arthropathy with a left-sided synovial c yst. There is questionable cord signal alteration at this level, but this level is incompletely evaluated on the current study. Foraminal narrowing is mi ld on the right and severe on the left. At T12-L1 minimal degrees of canal and n eural foraminal narrowing. At L1-L2 is a disc bulge and facet arthr opathy resulting in mild left-sided foraminal narrowing. L2-L3 is severe canal narrowing because of facet arthropathy and a disc bulge. Foraminal narrowing is moderate bilatera lly. At L3-L4 is moderate canal narrowing bec ause of a disc bulge and facet arthropathy. Foraminal narrowing is mild on the left and moderate on the right. At L4-L5 is severe canal narrowing becau se of a disc bulge and facet arthropathy. Foraminal narrowing is mode rate bilaterally. At L5-S1 is a disc bulge and facet arthr opathy resulting in severe left and moderate right-sided neural foraminal na rrowing. The above-described degenerative changes are seen in conjunction with a lumbar dextroscoliosis centered at the L2-L3 le raul. There is several mm of right lateral subluxation of L2 on L3. Impression Multilevel degenerative changes with sev ere degrees of canal narrowing at several levels. Consider further evaluat ion of the thoracic spine given the severe canal narrowing at T11-T12 with q uestionable cord signal alteration. Left-sided synovial cyst at T11-T12 that contributes to the severe canal narrowing. Given the possible cord signa l alteration at this level and the horizontal orientation of the facet join ts, percutaneous ruptureis not recommended. Erik Carrasquillo MD IMG MRI ORDERABLES documented in this encounter Visit Diagnoses Not on filedocumented in this encounter Active and Recently Administered Medications Times are shown in EDT. Continuous Medication Order 08/26/2012 08/27/2012 08/28/2012 lactated ringers infusion 1,000 mL (CANCELED) 1527 (New Bag - Provider: Mayur Robles CRNA)1530 (Due)1556 (Anesthesia Volume Adjustment - Provider: Mayur Robles CRNA) 1,000 mL, at 100 mL/hr, Intravenous, CON TINUOUS, Starting Sun08/28/12 at 1530, Until Sun08/28/12 at 1910, Day of Surgery (Day of Procedure) documented in this encounter Care Teams Stem Lead Former Relationship Specialty Start Date End Date Erik Carrasquillo MD PCP - General 02/22/[address] [place] [phone] documented as of this encounter
--- OUTSIDE RECORDS SUMMARY | 2021-09-23 12:53 | XMS_ITS | Encounter Summary ---
:1940 Author Organization [facility] Address [address] [place] [address] Care Team Providers Name Role Phone Erik Carrasquillo MD Primary Care Provider Reason for Referral Diagnostic Test (Routine) - Closed Specialty Diagnoses / Procedures Referred By Contact Refer red To Contact Radiology Diagnoses Thoracic aortic aneurysm without rupture Josselyn Bauer APRN [facility] Rad Ct Scan Procedures CT Angiogram Of Chest (Non-Coronary) w Contrast CT Angiogram Of Chest (Non-Coronary) wwo Contrast [facility] [address] [place] [address] [place] [address] Referral ID Status Reason Start Date Expiration Date Visits V isits Requested Authorized [id number] Closed Specialty 12/05/2016 12/05/2017 1 1 Service Requested Encounter Details Date Type Department Care Team Description 12/05/2016 Orders Only Cardiac Surgery at [facility] Bauer Tho racic aortic [facility] [place] aneurysm without [facility] [place] [address] CARDIAC SURGERY [phone] [place], [place] [address] Social History Tobacco Use Types [...] as of this encounter Results CT Angiogram Of Chest (Non-Coronary) w Contrast (12/08/2016 9:57 AM EDT) Anatomical Region Laterality Modality Chest Computed Tomography Specimen (Source) Anatomical Location Collection Method / Collectio n Time Received Time / Laterality Volume Impressions 12/08/2016 11:21 AM EDT 1. ??Stable ectasia of ascending aorta. 2. ??New intraluminal endobronchial dens ity seen in a segmental bronchus to the RIGHT lower lobe. Possible mucous pluggi ng, however, cannot exclude neoplasm. Direct visualization may be helpful for further evaluation. Narrative 12/08/2016 11:21 AM EDT EXAMINATION: CT ANGIOGRAM OF CHEST (NON-CORONARY) W CONTRAST CLINICAL HISTORY: Asc. aortic aneurysm e valuation TECHNIQUE: Helical CT angiogram?of the c hest was performed following intravenous administration of 60ml of Omnipaque 350. ? 3D images were generated on an independent workstation. COMPARISON: Unenhanced CT from 3 FINDINGS: VASCULAR Heart: Normal size. Aorta: Mild ectasia of ascending aorta i s noted, measuring approximately 3.4 x 3.6 cm, as measured from center line ref ormatted images. The aorta tapers at the level of the aortic arch. The intrathora cic descending aorta is of normal caliber. Overall, the dimensions of the aorta are stable when compared to the previous study Great vessels: No stenosis or aneurysm. Celiac/SMA: No stenosis or aneurysm. NON-VASCULAR Lungs and large airways: New intralumina l endobronchial density is seen in a segmental bronchus to the RIGHT lower lo be (series 12, images 61 through 69). Pleura: Within normal limits. Mediastinum and king: Within normal limi ts. Limited views of the upper abdomen: No s ignificant findings. Osseous structures: Within normal limits . Procedure Note Maximo Mccall MD - 12/08/2016Form atting of this note might be different from the original. EXAMINATION: CT ANGIOGRAM OF CHEST (NON- CORONARY) W CONTRAST CLINICAL HISTORY: Asc. aortic aneurysm e valuation TECHNIQUE: Helical CT angiogram?of the c hest was performed following intravenous administration of 60ml of Omnipaque 350. ? 3D images were generated on an independent workstation. COMPARISON: Unenhanced CT from 3 FINDINGS: VASCULAR Heart: Normal size. Aorta: Mild ectasia of ascending aorta i s noted, measuring approximately 3.4 x 3.6 cm, as measured from center line ref ormatted images. The aorta tapers at the level of the aortic arch. The intrathora cic descending aorta is of normal caliber. Overall, the dimensions of the aorta are stable when compared to the previous study Great vessels: No stenosis or aneurysm. Celiac/SMA: No stenosis or aneurysm. NON-VASCULAR Lungs and large airways: New intralumina l endobronchial density is seen in a segmental bronchus to the RIGHT lower lo be (series 12, images 61 through 69). Pleura: Within normal limits. Mediastinum and king: Within normal limi ts. Limited views of the upper abdomen: No s ignificant findings. Osseous structures: Within normal limits . IMPRESSION 1. Stable ectasia of ascending aorta. 2. New intraluminal endobronchial densit y seen in a segmental bronchus to the RIGHT lower lobe. Possible mucous pluggi ng, however, cannot exclude neoplasm. Direct visualization may be helpful for further evaluation. [facility]LES Creatinine (12/08/2016 8:33 AM EDT) athologist Signature Creatinine 0.86 0.80 - 1.50 [facility] mg/dL [facility] Comment: Please note that the pediatric reference intervals supplied above were not validated at [facility]. Results from pediatri c patients should be interpreted in conjunction to the patient's age, height and muscle mass. Estimated GFR >60 >=60 [facility] Comment: This estimated GFR (eGFR) value was [...] the following links into your internet browser. [email or web address] Specimen Anatomical Collection Method Collection Time Receive d Time (Source) Location / / Volume Laterality Blood specimen 12/08/2016 8:33 AM 017 8:40 (specimen) EDT AM EDT Resulting Agency Comment Spec In Lab Josselyn Lizette [place] CHEMISTR[facility] ORDERABLES Performing Organization Address City/State/ZIP Code Phon e Number [place] [phone] documented in this encounter Visit Diagnoses Diagnosis Thoracic aortic aneurysm without rupture Thoracic aneurysm without mention of rup ture Thoracic aortic aneurysm without rupture Thoracic aneurysm without mention of rup ture documented in this encounter Care Teams Performance Improvement Manager Relationship Specialty Start Date End Date Erik Carrasquillo MD PCP - General 02/22/[address] [place] [phone] documented as of this encounter
--- OUTSIDE RECORDS SUMMARY | 2021-09-23 12:53 | XMS_ITS | Encounter Summary ---
:1940 Author Organization [facility] [place] [address] Care Team Providers Name Role Phone Erik Carrasquillo MD Primary Care Provider Encounter Details Date Type Department Care Team Description 11/15/2016 [facility] [place] [facility] [address] [place] [phone] (Wo rk) Social History Tobacco Use Types [...] Sig Dispensed Refills Start Date End Date ASMANEX TWISTHALER 220 0 06/21/2016 mcg (60 doses) Aerosol Powdr Breath Activated Dutasteride-Tamsulosin Take by mouth daily. 0 (RIK) 0.5-0.4 mg CM24 DAILY MULTI-VITAMIN ORAL Take by mouth daily. 0 Reported on 08/30/2016 albuterol (PROVENTIL Inhale 2 puffs into 0 HFA;VENTOLIN HFA) 90 the lungs every 4 mcg/Actuation inhaler hours as needed. Use with spacer DILTiazem (CARDIZEM CD) take 1 capsule by 0 07/0805/17/2018 240 mg Capsule, Sust. mouth once daily Release 24 hr GLUC CLAROS/CHONDRO CLAROS A/VIT Take by mouth daily. 0 12/08/2016 C/MN (GLUCOSAMINE 1500 Reported on 08/30/2016 COMPLEX ORAL) documented as of this encounter Plan of Treatment Not on filedocumented as of this encounter Procedures Procedure Name Priority Date/Time Associated Diagnosis Comme nts FILM LIBRARY Routine 11/15/2016 12:00 AM Pain Results for this STORAGE ONLY MR EDT procedure ar e in HEAD the results section. documented in this encounter Results Film Library- Storage Only MR Head (11/15/2016 12:00 AM EDT) Specimen (Source) Anatomical Location Collection Method / Collectio n Time Received Time / Laterality Volume Narrative HELENA CERRATO - 11/17/2016 4:14 PM EDT This exam is for storage only and is aut o-finalizing. Erik Carrasquillo MD IMG FILM LIBRARY ORDERABLES Performing Organization Address City/State/ZIP Code Phon e Number [facility] [place], [place] documented in this encounter Visit Diagnoses Diagnosis Pain Generalized pain documented in this encounter Care Teams Package Sealer Relationship Specialty Start Date End Date Erik Carrasquillo MD PCP - General 02/22/[address] [place] [phone] documented as of this encounter
--- OUTSIDE RECORDS SUMMARY | 2021-09-23 12:53 | XMS_ITS | Encounter Summary ---
:1940 Author Organization [facility] [place] [address] Care Team Providers Name Role Phone Erik Carrasquillo MD Primary Care Provider Encounter Details Date Type Department Care Team Description 02/01/2018 Procedure visit Ophthalmology [facility] [place] [facility] Maximo Dorman Age-related nuclear [facility] MD Coni cataract, bilateral Drive [facility] (Primary Dx) [place] [address] [place] [address] [place] [address] Social History Tobacco Use Types Packs/Day Years [...] Patient Instructions Patient InstructionsMaximo Dorman MD - 02/01/2018 4:00 PM EDT Medications: Use eye medications as instructed by Dr. Dorman during your appointment. For non eye medications not prescribed by the Ophthalmology (Eye) Clinic, please follow up with yourPCP (primary care provider) for instructions. Driving: Wait until your vision has returned [...] encounter Progress Notes Maximo Dorman MD - 02/01/2018 4:00 PM EDT pom done documented in this encounter Plan of Treatment Not on filedocumented as of this encounter Procedures Procedure Name Priority Date/Time Associated Comments Diagnosis [id number] CALC Routine 02/07/2018 9:58 AM Age-related Results for this BY LASER INTERFEROMETRY EST nuclear cataract, procedure are in - OU - BOTH EYES bilateral the results section. documented in this encounter Results [id number] CALC BY LASER [id number] EYES (02/07/2018 9:58 AM EST) Anatomical Region Laterality Modality Other Specimen (Source) Anatomical Location Collection Method / Collectio n Time Received Time / Laterality Volume Narrative 02/07/2018 9:58 AM EST Patient Hx Past Medical Hx ??Pt. ??has a past medi nneka history of Arthritis, Asthma, Cancer, Cataract, COPD (chronic obstruct marcos pulmonary disease), GERD (gastroesophageal reflux disease), Hyper tension, Sinusitis, and Skin disease. Past Ophth Surg Hx ??No relevant surgic al history has been documented for this patient. Eye Meds ??Dutasteride-Tamsulosin, Mome tasone, albuterol, aspirin, dilTIAZem, mometasone, multivitamin, ome prazole, and pravastatin IOL Biometry - Initial (source: LENSTAR) OD OS Date Performed 02/01/2018 ??4:34 PM 2017 ??4:34 PM ?? Target Refraction No Value exists for th e CHISEL MORTISER OPERATOR: DHOPH#016 No Value exists for the CHISEL MORTISER OPERATOR: DHOPH#017 ?? Axial Length 23.06 (mm) 23.32 (mm) ?? Anterior Chamber Depth 2.52 (mm) 2.62 (m m) ?? Horizontal White to White 11.56 (mm) 11. 67 (mm) ?? Formula Used ? K's 43.19@109 / 43.82@019 42.41@102 / 42 .96@012 ? Add'l Comments/Discrepancies/Concerns: Results reviewed and measurements are re asonable and consistent between eyes. Maximo Dorman MD OPHTHALMOLOGY SERVICES ORDER ALE documented in this encounter Visit Diagnoses Diagnosis Age-related nuclear cataract, bilateral - Primary Senile nuclear sclerosis documented in this encounter Care Teams Director Of Search Engine Marketing Relationship Specialty Start Date End Date Erik Carrasquillo MD PCP - General 02/22/[address] [address] documented as of this encounter
--- OUTSIDE RECORDS SUMMARY | 2021-09-23 12:53 | XMS_ITS | Encounter Summary ---
:1939 Author Organization [facility] Address [facility] [place] [address] Care Team Providers Name Role Phone Erik Carrasquillo MD Primary Care Provider Reason for Referral Surgical (Routine) - Closed Specialty Diagnoses / Procedures Referred By Contact Refer red To Contact Orthopaedics Diagnoses Spinal stenosis of lumbar region Des [facility]za MD Abdu, Boni Byrne MD [facility] D R [facility] [place] [address] Fax: Referral ID Status Reason Start Date Expiration Date Visits V isits Requested Authorized [id number] Closed Consult, 10/01/2012 03/30/2013 1 1 Test & Treat Reason for Visit Reason Comments Back Pain Encounter Details Date Type Department Care Team Description 10/01/2012 Office Visit [facility] Spinal stenosis of Real MD lumbar region (Primary [facility] Dx) Drive [place] [facility] [address] [place] [address] [phone] Social History Tobacco Use Types Packs/Day Years [...] documented as of this encounter Progress Notes Des Reza MD - 10/01/2012 10:54 AM EDT Chief complaint: Back and left leg pain, lumbar stenosis Subjective: He returns in followup 3 weeks after a lumbar epidural steroid injection. He noted that for the first week is walking is much improved and he was independent of his cane for a mile or more.Thereafter is pain returned somewhat at the same time he was reducing his pain medication. He is referred to his previous dose of pain medication on using his cane again. He has reviewed the shared medical decision-making video on lumbar stenosis and he and his decided to pursue surgery with the information they have so far. Objective: His affect is relatively bright. His physical examination was not repeated. Assessment: This is a partial and temporary response to his lumbar epidural steroid injection. We reviewed the options of temporizing, repeating the injection, surgical considerations for 15 minutes and we've mutually decided to proceed as follows as he has requested. Plan: Spine surgical consultation for more specific information on surgical approaches to this problem. He also notes that he had a recent brief spell of lightheadedness and vision changes and I've advised him to review this with his primary care provider documented in this encounter Plan of Treatment Scheduled Referrals Name Type Priority Associated Diagnoses Order S chedule Referral to Spine Outpatient Referral Routine Spinal stenosis of Ordered: Center lumbar region 10/01/2012 documented as of this encounter Visit Diagnoses Diagnosis Spinal stenosis of lumbar region - Prima ry Spinal stenosis, lumbar region, without neurogenic claudication documented in this encounter Care Teams Hospital Carrier Relationship Specialty Start Date End Date Erik Carrasquillo MD PCP - General 02/22/[address] [place] [address] documented as of this encounter
--- OUTSIDE RECORDS SUMMARY | 2021-09-23 12:53 | XMS_ITS | Encounter Summary ---
:1940 Author Organization [facility] [place] [address] Care Team Providers Name Role Phone Erik Carrasquillo MD Primary Care Provider Encounter Details Date Type Department Care Team Description 02/11/[address] Scan [place] [facility] [place] [address] Social History Tobacco Use Types Packs/Day [...] Sig Dispensed Refills Start Date End Date Dutasteride-Tamsulosin Take by mouth daily. 0 (RIK) 0.5-0.4 mg CM24 DAILY MULTI-VITAMIN ORAL Take by mouth daily. 0 Reported on 08/30/2016 albuterol (PROVENTIL Inhale 2 puffs into 0 HFA;VENTOLIN HFA) 90 the lungs every 4 mcg/Actuation inhaler hours as needed. Use with spacer DILTiazem (CARDIZEM CD) Take 180 mg by mouth 0 08/30/2016 180 mg 24 hr capsule daily. GLUC CLAROS/CHONDRO CLAROS A/VIT Take by mouth daily. 0 12/08/2016 C/MN (GLUCOSAMINE 1500 Reported on 08/30/2016 COMPLEX ORAL) omeprazole (PRILOSEC) 20 Take 20 mg by mouth 0 08/30/2016 mg capsule daily. OMEGA-3 FATTY ACIDS Take 1,000 mg by 0 08/30/2016 (FISH OIL CONCENTRATE mouth daily. ORAL) documented as of this encounter Plan of Treatment Not on filedocumented as of this encounter Procedures Procedure Name Priority Date/Time Associated Diagnosis Comme nts CT CHEST WO Routine 02/11/2013 11:36 AM Results for this CONTRAST (GENERIC) EST procedure are in the results section. documented in this encounter Results CT chest WO contrast (02/11/2013 11:36 AM EST) Anatomical Region Laterality Modality Chest Computed Tomography Specimen (Source) Anatomical Collection Method Collection Time Re ceived Time Location / / Volume Laterality 02/11/2013 11:36 AM EST Narrative 02/11/2013 12:[address] Chest Without Contrast Clinical History F/U BASILAR PNEUMONITIS Comparison May 2012. Technique Unenhanced CT of chest. Findings Mild new, nonspecific increased lung mar kings are seen in the left lower lobe, which may be focal early pneumonia or ch ronic pneumonitis. ?Linear scarring is seen in the right lung base. ??The ri ght lung base is otherwise unremarkable. Stable areas of scarring are seen in the lingula. No adenopathy. ??No pericardial effusion . The osseous structures remarkable scatte red degenerative changes. Impression ? 1. Nonspecific mild increased sandirne g markings seen in the left lower lobe which have increased in prominence since the previous study; possible early pneumonia versus nonspecific pneumonitis . ? 2. Stable scarring seen in the ri ght lower lobe and lingula. Procedure Note Maximo Mccall MD - 02/11/2013Form atting of this note might be different from the original. Examination CT Chest Without Contrast Clinical History F/U BASILAR PNEUMONITIS Comparison May 2012. Technique Unenhanced CT of chest. Findings Mild new, nonspecific increased lung mar kings are seen in the left lower lobe, which may be focal early pneumonia or ch ronic pneumonitis. Linear scarring is seen in the right lung base. The righ t lung base is otherwise unremarkable. Stable areas of scarring are seen in the lingula. No adenopathy. No pericardial effusion. The osseous structures remarkable scatte red degenerative changes. Impression 1. Nonspecific mild increased lung chato ings seen in the left lower lobe which have increased in prominence since the previous study; possible early pneumonia versus nonspecific pneumonitis . 2. Stable scarring seen in the right lo wer lobe and lingula. Shaji Valderrama Jr., MD IMG CT ORDERABLES documented in this encounter Visit Diagnoses Not on filedocumented in this encounter Care Teams Activity Director Relationship Specialty Start Date End Date Erik Carrasquillo MD PCP - General 02/22/[address] [place] [address] documented as of this encounter
--- OUTSIDE RECORDS SUMMARY | 2021-09-23 12:53 | XMS_ITS | Encounter Summary ---
:1939 Author Organization [facility] Address [place] [id number] Care Team Providers Name Role Phone Erik Carrasquillo MD Primary Care Provider Reason for Referral Consultation (Routine) - Closed Specialty Diagnoses / Procedures Referred By Contact Refer red To Contact Pain Management Diagnoses Chronic back pain greater than 3 months duration [facility] MD [facility] [address] [place] [address] [address] [address] Fax: Referral ID Status Reason Start Date Expiration Date Visits V isits Requested Authorized [id number] Closed Consult, 08/29/2012 02/25/2013 1 1 Test & Treat Reason for Visit Reason Comments Back Pain Left Leg Pain Encounter Details Date Type Department Care Team Description 08/29/2012 Office Visit [facility] Chroni c back pain Ismael TAMEZ greater than 3 months [facility] (Primary Dx) Drive [place], [place] [facility] [address] [place] [address] [phone] Social History Tobacco Use Types Packs/Day Years [...] Sign Reading Time Taken Comments Blood Pressure - - Pulse - - Temperature - - Respiratory Rate - - Oxygen Saturation - - Inhaled Oxygen Concentration - - Weight 79.4 kg (175 lb) 08/29/2012 9:53 AM EDT Height 175.3 cm (5' 9) 08/29/2012 9:53 AM EDT Body Mass Index 25.84 08/29/2012 9:53 AM EDT documented in this encounter Patient Instructions Patient InstructionsNya Baker LPN - 08/29/2012 10:01 AM EDT Welcome to [employer], your secure online access to your electronic medical record at [facility]. Using [employer] you will be able to send messages to your providers, view your test results, renew prescriptions, schedule appointments, and much more. Follow these instructions to enter your personal [employer] account for the first time: 1. Start your internet browser and type [email or web address] into the address bar. 2. In the New User box on the right-hand side of the Welcome page click the link that states, ???I have an activation code.?? 3. On the Identification page, follow these steps: a) Enter your [employer] activation code: [email or web address] b) Expires: 10/13/2012 10:01 AM IMPORTANT: This Activation Code will on the above mentioned date. If you do not sign up for [employer] by this date, you will need to request another activation code. c) Enter your date of , using the calendar tool provided. d) Enter your Zip code. e) Select ???submit?? to go to the next page. 4. On the Create Account page, follow these steps: a) Create a [employer] username. This can???t be changed, so choose one you won???t forget. b) Create a password that???s at least six characters long, and that contains at least two numbers. Your password can be changed at any time. Confirm your password by entering it once more. c) Enter your email address. This will be used to alert you to new information. Confirm your email address by entering it once more. d) Enter your security question. This will be used if you forget your password. e) Enter your security answer. Confirm your security answer by entering it once more. f) Select ???submit?? to view your electronic medical record. If you have any questions about [employer] or your Access Code, please call for [place], for [place] or for [place]. If you need technical support, please e-mail [email or web address] Remember, [employer] is NOT for urgent needs! Always dial 911 for medical emergencies. documented in this encounter Progress Notes Des Reza MD - 08/29/2012 11:03 AM EDT Chief complaint: Left lumbosacral pain with radiation paresthesias to the left posterior thigh with weightbearing Subjective: This problem began without specific injury or incident 04/15/12 when essentially woke up with lower back pain intermittently radiating to the left posterior thigh with paresthesias but only with weightbearing. This continues to be a problem for her with gradual progression such that he really can only walk 100 yards cane assisted and without a cane only 10 feet. He does not have pain on reclining or sitting. No fixed lower extremity pain power or sensory loss. He initially was treated with morphine sulfate and physical therapy none of which were effective for him so he is currently taking a combination of OxyContin 90 mg per day and oxycodone up to 60 mg per day. His also taking Cymbalta. Objective: His affect is bright. Stands with an evident thoracolumbar scoliosis which she notes has been present for a long time. He is able to reproduce his back discomfort and to some extent abnormalsensation in his left posterior thigh with left side flexion and extension where as he is comfortable with 90?? forward flexion. His touch sensation power screen are intact in the lower extremities. His left knee jerk is a point down compared to the right but his ankle jerks are preserved. There is nounusual tone in the lower extremity and his gait does not reflect any degree of ataxia. His MRI was reviewed with him, showing: <HTML><META HTTP-EQUIV=content-type CONTENT=text/html;charset=utf-8>There is a chronic superior endplate deformity involving L1. Multilevel disc degenerative changes are present with loss of normal disc signal and disc space narrowing most severe at L2-L3, L4-L5 and L5-S1. There is grade 1 L2 on L3 anterolisthesis. Several mm of L4 on L5 retrolisthesis identified. The conus terminatesat the T12-L1 level.
No aggressive marrow lesions. Fatty marrow endplate changes are present within the L2-L3 levels.

The following disc levels are outlined below:

At T11 - T12 is severe canal narrowing because of a disc bulge and facet arthropathy with a left-sided synovial cyst. There is questionable cord signal alteration at this level, but this level is incompletely evaluated on the current study. Foraminal narrowing is mild on the right and severe on the left.
At T12-L1 minimal degrees of canal and neural foraminal narrowing.
At L1-L2 is a disc bulge and facet arthropathy resulting in mild left-sided foraminal narrowing.
L2-L3 is severe canal narrowing because of facet arthropathy and a disc bulge. Foraminal narrowing is moderate bilaterally.
At L3-L4 is moderate canal narrowing because of a disc bulge and facet arthropathy. Foraminal narrowing is mild on the left and moderate on the right.
At L4-L5 is severe canal narrowing because of a disc bulge and facet arthropathy. Foraminal narrowing is moderate bilaterally.
At L5-S1 is a disc bulge and facet arthropathy resulting in severe left and moderate right-sided neural foraminal narrowing.

The above-described degenerative changes are seen in conjunction with a lumbar dextroscoliosis centered at the L2-L3 level. There is several mm of right lateral subluxation of L2 on L3. Assessment: This a matter of weightbearing back and left posterior thigh symptoms consistent with a pseudo-claudication pattern and occurring in the context of these multilevel degenerative disc and facet changes with stenosis through the thoracolumbar spine. This was a counseling base visit for 25 ofthe 45 minute encounter talking about this condition and the options including temporizing with current medications, epidural steroid injection, multilevel decompression with or without fusion. He and his have many very good questions and we after discussing all this we've mutually decided to proceed as follows. Plan: He is going to review the shared medical decision-making video on lumbar stenosis. He'll return for lumbar epidural steroid injection and then return here for followup 3 weeks thereafter with treatment options as above depending on his progress. documented in this encounter Plan of Treatment Scheduled Referrals Name Type Priority Associated Diagnoses [facility] to [facility] Outpatient Referral Routine Chronic back pain Ordered: Clinic greater than 3 08/29/2012 months duration documented as of this encounter Visit Diagnoses Diagnosis Chronic back pain greater than 3 months duration - Primary Backache, unspecified documented in this encounter Care Teams Warehouse Assembly Worker Relationship Specialty Start Date End Date Erik Carrasquillo MD PCP - General 02/22/[address] [place] [address] documented as of this encounter
--- OUTSIDE RECORDS SUMMARY | 2021-09-23 12:53 | XMS_ITS | Encounter Summary ---
:1939 Author Organization [facility] [place] [address] Care Team Providers Name Role Phone Erik Carrasquillo MD Primary Care Provider Encounter Details Date Type Department Care Team Description 12/08/2016 Laboratory Appointment Lab 3L [facility] aortic [facility] aneurysm without [facility] [place] [id number] Social History Tobacco Use Types Packs/Day Years [...] Name Priority Date/Time Associated Diagnosis Comme nts CREATININE Routine 12/08/2016 8:33 AM Thoracic aortic Result s for this EDT aneurysm without procedure a re in the rupture results section . documented in this encounter Results Creatinine (12/08/2016 8:33 AM EDT) P athologist Signature Creatinine 0.86 0.80 - 1.50 [facility] mg/dL [facility] Comment: Please note that the pediatric reference intervals supplied above were not validated at [facility]. Results from pediatri c patients should be interpreted in conjunction to the patient's age, height and muscle mass. Estimated GFR >60 >=60 AKI Kinney [facility] Comment: This estimated GFR (eGFR) [...] the following links into your internet browser. [email or web address] [email or web address] Specimen Anatomical Collection Method Collection Time Receive d Time (Source) Location / / Volume Laterality Blood specimen 12/08/2016 8:33 AM 017 8:40 (specimen) EDT AM EDT Resulting Agency Comment Spec In Lab Josselyn [place] CASH PROCESSOR CHEMISTRY ORDERABLES Performing Organization Address City/State/ZIP Code Phon e Number [place] [phone] documented in this encounter Visit Diagnoses Diagnosis Thoracic aortic aneurysm without rupture Thoracic aneurysm without mention of rup ture documented in this encounter Care Teams Termination Clerk Relationship Specialty Start Date End Date Erik Carrasquillo MD PCP - General 02/22/[address] [place] [address] documented as of this encounter
--- OUTSIDE RECORDS SUMMARY | 2021-09-23 12:53 | XMS_ITS | Encounter Summary ---
:1939 Author Organization [facility] [place] [address] Care Team Providers Name Role Phone Erik Carrasquillo MD Primary Care Provider Reason for Visit Reason Onset Date Comments Bumped Appointment 10/01/2018 Encounter Details Date Type Department Care Team Description 10/01/2018 Telephone Ophthalmology at [facility] Maximo Stock, Bumped Appointment [facility] [place] [address] [facility] [phone] OPHTHALMOLOGY [facility] [place], [place] [address] (Wo rk) Social History Tobacco [...] this encounter Miscellaneous Notes Telephone Encounter - Tia Mauricio - 10/31/2018 8:08 AM EDT Patient called to confirm his appointment for tomorrow. Stated he never got any messages or letters letting him know the appointment was canceled. Rescheduled patient to next available. Telephone Encounter - Monet Rice - 10/01/2018 11:08 AM EDT LMOAM x 1 to reschedule the 11/01/[address] Dorman. Please schedule to next available. documented in this encounter Plan of Treatment Not on filedocumented as of this encounter Visit Diagnoses Not on filedocumented in this encounter Care Teams On Air Announcer Relationship Specialty Start Date End Date Erik Carrasquillo MD PCP - General 02/22/[address] [place] [address] documented as of this encounter
--- OUTSIDE RECORDS SUMMARY | 2021-09-23 12:53 | XMS_ITS | Encounter Summary ---
:1939 Author Organization [facility] [place] [address] Care Team Providers Name Role Phone Erik Carrasquillo MD Primary Care Provider Encounter Details Date Type Department Care Team Description 08/28/2012 Anesthesia Event [facility] Amalia Neri MD [facility] [place] [address] [facility] Mauyr Huizar CRNA [facility] [place] [address] [place] [address] Anesthesia Record Procedure Summary Procedure Name Responsible Anesthesia Start Anesthesia Stop Anesthesiologist Time Time MRI WITH ANESTHESIA Amalia Tan MD 08/28/12 1528 08/28/12 1625 (WRVU *) (N/A Spine Lumbar) Events Date Time Event Comment 08/28/2012 1514 1528 Start 1529 AN Verify 1531 An Start Data 1536 Anesthesia Ready 1541 Procedure Start 1610 Procedure Stop 1611 an stop data 1625 Stop Name Total IV Lidocaine 50 mg Propofol 50 mg Propofol INF 524.38 mg lactated ringers infusion 1,000 mL 0 mL Agents Name O2 Auxiliary Flowmeter 1 Blood No blood administrations on file. Lines, Drains, and Airways Type Details Placement Removal Incision 10/02/11; nostril 10/02/11 0000 by Elayne, (bilateral sinus) Destiney Blount RN PIV 08/28/12; 1439; 08/28/12; 08/28/12 1439 by Radames, 08/28/12 1703 by Ian, 1703 PATTI Marin RN documented in this encounter Social History Tobacco [...] on file documented as of this encounter H&P Notes Amalia Tan - 08/28/2012 3:10 PM EDT See anesthesiology consult note documented in this encounter OR Notes Anesthesia Postprocedure Evaluation - Amalia Tan - 08/28/2012 4:36 PM EDT Patient: Geoff Camacho Procedure(s) Performed: Procedure(s): MRI WITH ANESTHESIA Actual Anesthetic: MAC Patient location: PACU Post-op pain: Having pain (baseline chronic) -- taking his usual PO med with IV backup Post-op nausea: no nausea or vomiting Last Vitals: Filed Vitals: 08/28/12 1631 BP: 109/65 Pulse: 84 Temp: Resp: 18 Post-op cardiovascular and respiratory status: is stable Level of consciousness: awake, alert and oriented Complications: no apparent complications and tolerated the procedure well Fluid Status: normal Anesthesia Preprocedure Evaluation - Amalia Tan - 08/28/2012 3:10 PM EDT Pre-Anesthesia Evaluation for: Geoff Camacho a 71 y.o. male. Procedure(s): MRI WITH ANESTHESIA Patient Active Problem List Diagnoses ??? Chronic back pain greater than 3 months duration ??? Aortic insufficiency Reported as mild ??? Reflux ??? Nasal polyposis ??? Chronic sinusitis ??? Asthma ??? Sinusitis, chronic ??? GERD (gastroesophageal reflux disease) ??? Actinic keratosis Past Medical History Diagnosis Date ??? Asthma ??? GERD (gastroesophageal reflux disease) ??? Sinusitis Past Surgical History Procedure Date ??? Nasal scopy, rmv tiss maxill sinus 10/02/2011 NASAL, SINUS ENDOSCOPY, REMOVE TISSUE MAXILLARY SINUS, MARGARET performed by KURTIS GUZMAN at [facility] OR ??? Nasal scope, bx/rmv polyp/debrid 10/02/2011 NASAL, SINUS ENDOSCOPY, WITH BX, POLYPECTOMY performed by KURTIS GUZMAN at [facility] OR ??? Nasal scopy, remv totl ethmoid 10/02/2011 NASAL, SINUS ENDOSCOPY, TOTAL ETHMOIDECTOMY-MARGARET performed by KURTIS GUZMAN at [facility] OR ??? Stereotactic cptr asstd px cranial, extradural 10/02/2011 STEREOTACTIC COMPUTER-ASSTD NAVIGATIONAL CRANIAL EXTRADURAL performed by KURTIS GUZMAN at [facility] OR ??? Testicle removal ??? Lipoma resection History Substance Use Topics ??? Smoking status: Former Smoker -- 1.0 packs/day for 11 years Types: Cigars, Cigarettes Quit date: 03/15/1967 ??? Smokeless tobacco: Never Used Comment: pt reports smoking an occasional cigar ~2 monthly ??? Alcohol Use: Yes 1 glass of wine and one can of beer per month No Known Allergies Medications: MAR and/or home medications have been reviewed. Physical Exam: There were no vitals filed for this visit. There is no height or weight on file to calculate BMI. Airway Assessment: Mallampati: II TM distance: >3 FB Neck ROM: full Cardiovascular Assessment: Rhythm: regular Rate: normal Pulmonary Assessment: (+) decreased breath sounds Dental Assessment: - normal exam Misc Assessment: IV access: Peripheral line Anesthesia Plan: ASA 2 MAC, with a(n) intravenous induction Chronic pain with need to lay flat for spine MRI. Oxycontin 45 plus oxycodone taken today. Currently in normal pain state where he is OK sitting or onhis side but not OK supine. GERD controlled. Plan propofol sedation. May need further narcotic upon emergence. Region - Other Informed Consent: Anesthetic plan and risks discussed with patient. Plan discussed with LUZ. Jazmine. Assessment: documented in this encounter Plan of Treatment Not on filedocumented as of this encounter Visit Diagnoses Not on filedocumented in this encounter Administered Medications Active Administered Medications - up to 3 most recent administrations Medication Order MAR Action Action Date Dose Rate Site propofol (DIPRIVAN) Rate/Dose Change 08/28/2012 3:51 150 mcg/kg/min 7 5.5 mL/hr infusion PM EDT CONTINUOUS PRN, Starting on Sun08/28/12 at 1534, Until Discontinued, Anesthesia Intra-op, Routine New Bag 08/28/2012 3:34 PM EDT 200 mcg/kg/min 100.7 mL/hr Inactive Administered Medications - up to 3 most recent administrations Medication Order MAR Action Action Date Dose Rate Site lactated ringers infusion 1,000 mL New Bag 08/28/2012 3:27 PM EDT mL 1,000 mL, at 100 mL/hr, Intravenous, CONTINUOUS, Starting on Sun08/28/12 at 1530, Until Sun08/28/12 at 1910, Day of Surgery (Day of Procedure) lidocaine (PF) (XYLOCAINE) 100 mg/5 mL (2 %) Given 3 3:34 PM EDT 50 mg injection PRN, Starting on Sun08/28/12 at 1534, Until Sun02/24/13 at 1301, Anesthesia Intra-op, Routine propofol (DIPRIVAN) 10 mg/mL bolus injection Given 3 3:34 PM EDT 50 mg (Anesthesia) PRN, Starting on Sun08/28/12 at 1534, Until Sun02/24/13 at 1259, Anesthesia Intra-op documented in this encounter Care Teams Production Operations Manager Relationship Specialty Start Date End Date Erik Carrasquillo MD PCP - General 02/22/10 [address] [place] [address] documented as of this encounter
--- OUTSIDE RECORDS SUMMARY | 2021-09-23 12:53 | XMS_ITS | Encounter Summary ---
:1939 Author Organization [facility] [place] [address] Care Team Providers Name Role Phone Erik Carrasquillo MD Primary Care Provider Encounter Details Date Type Department Care Team Description 05/10/2012 Orders Only [place] [facility] [place] Shaji Valderrama Jr., [facility] [place] [address] [facility] [phone] [facility] [place], [place] [address] (Wo rk) Social History Tobacco [...] Associated Diagnosis Comme nts FILM LIBRARY Routine 05/10/2012 7:40 AM Results f or this STORAGE ONLY CT EST procedure ar e in CHEST the results section. documented in this encounter Results Film Library- Storage only CT Chest (05/10/2012 7:40 AM EST) Specimen (Source) Anatomical Collection Method Collection Time Re ceived Time Location / / Volume Laterality 05/10/2012 7:40 AM EST Narrative [facility] [place] 09/26/2013 1:56 AM EDT This is a non-reportable exam. Procedure Note Gokul Oscar - 09/26/2013Formatting of t his note might be different from the original. This is a non-reportable exam. Shaji Valderrama Jr., MD IMG FILM LIBRARY ORDERABLES Performing Organization Address City/State/ZIP Code Phon e Number [facility] [address] [facility] [place] [address] documented in this encounter Visit Diagnoses Not on filedocumented in this encounter Care Teams Plastic Bubble Packer Relationship Specialty Start Date End Date Erik Carrasquillo MD PCP - General 02/22/[address] [place] [id number] documented as of this encounter
--- OUTSIDE RECORDS SUMMARY | 2021-09-23 12:53 | XMS_ITS | Encounter Summary ---
:1939 Author Organization [place] [address] Care Team Providers Name Role Phone Erik Carrasquillo MD Primary Care Provider Encounter Details Date Type Department Care Team Description 06/03/2013 Follow-Up [place] [facility] [place] Charles العلي, Canceled (Patient [facility] Cancelled) [place] [address] [address] [phone] PULMONARY MEDIC[facility] [place], [place] [address] (Wo rk) Social History Tobacco [...] documented as of this encounter Progress Notes Charles العلي MD - 06/03/2013 7:58 AM EST [facility] Follow-Up Visit Date of Encounter: 06/03/2013 Location: Office Referring Provider: Erik Carrasquillo Md [address] [place] [id number] C/C: Chronic cough HPI: 71-year-old male who returns for follow-up of probable adult-onset asthma and pneumonitis. His last office visit was on 02/11/13. He was last seen in clinic on 05/07/12. At that time, CT of the thorax demonstrated bilateral basilar opacities that appear most consistent with pneumonitis. He was the following options: swallow study, bronchoscopy, or a course of prednisone and amoxicillin- clavulanate. He chose the third and felt better with this intervention but not back to his prior baseline. He was also seen by ENT in 09/2011 and was noted to have bilateral nasal polyposis, left greater than right, with obstruction on the left. He was started on prednisone and underwent resection of maxillary sinus tissue bilaterally with polypectomy and total ethmoidectomy in 10/2011, which improved his symptoms somewhat. He continues to use mometasone after several failed inhaled steroids including nebulized budesonide and fluticasone. He has also tried using Advair for about a month with no benefit. He does not think that the mometasone is actually all that helpful, but he is using is only in the mornings. When seen today he complains of cough for 3 weeks, it did go away during the summer. It is productive of white to light yellow colored phlegm. He denies any fever, he stopped using Asmanex about 3 weeks ago while has been using albuterol 2-3/day. Prior to stopping Asmanex he was rarely using Albuterol. He stopped Asmanex thinking it is making him cough after using it for about 10 months. He is wheezing less and coughing less off Asmanex. He denies nasal congestion, no post nasal drip, no sore throat, no ear pain/pressure. He denies any choking on food. He does clear his throat on and off. 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 He does have a dog and is doing well. No sick contacts and no recent travel. Past Medical History: # COPD vs. adult-onset asthma -PFTs 12/2010: FEV1 2.73(89%); FVC 4.14(107%); FEV1/FVC 66(<85%); no change with BD; TLC 7.39(108%); RV 3.42(>132%); RV/TLC 43(120%); DLCO 35.63(115%) -PFTs 05/2012: FEV1 2.45(87%); FVC 3.67(95%); FEV/FVC 67(91%); DLCO 25.48(106%); room air saturation 92%, increased to 93% on room air after walk. -Echocardiogram 04/2008: LVEF65%, no wall motion abnormalities. Mild AR, mild TR. No valve disease. PASP 28 [address] - CT thorax 01/2013: - CT thorax 05/2012: Parenchymal findings in lingula and both lower lobes (martir broncho vascular thickening). Mild ground glass in lower lobes right greater than left. Non specific tiny non calcified nodules in left lower lobe. -CXR 05/2011: Lung volumes are lower, particularly on the lateral view; similar appearance of atelectasis versus scarring at the lung bases; no patchy or consolidative type opacities; subcentimeter nodular opacity projecting partially over the anterolateral left seventh rib likely corresponds to a leftlower lobe nodule seen on the CT; above the bases, the lungs are clear; cardiomediastinal silhouette, king, and vasculature appear within normal limits and unchanged. -CT thorax 05/2011: Focal airspace opacities in the lower lung zones bilaterally; 3 mm subpleural pulmonary nodule is present in the left lower lobe and consistent with an intrapulmonary lymph node; wedge-shaped opacity within the left upper lobe lingula consistent with atelectasis; no axillary, mediastinal, or hilar lymphadenopathy; mild facet hypertrophy in the lower thoracic spine. -CXR 12/2010: ?Left lower lobe infilrate / pneumonitis. -Allergy testing 09/2011: Negative skin tests to aeroallergens. -Pneumovax 2011; influenza 2011. # GERD -pH Impedence study 04/2011: Moderate pathologic acid reflux into the distal esophagus on day one, and mild pathologic acid reflux into the distal esophagus on day two. # Nasal polyposis bilaterally, L > R -s/p Resection of maxillary sinus tissue bilaterally with polypectomy and total ethmoidectomy 10/2011 # Hx angina, with negative workup # s/p Left orchiectomy 1953 # s/p Left great toe amputation # s/p Appendectomy 1960 # s/p Lipoma excision 1974 Past Medical History: Past Medical History Diagnosis Date ??? Asthma ??? GERD (gastroesophageal reflux disease) ??? Sinusitis Past Surgical History: Past Surgical History Procedure Date ??? Nasal scopy, rmv tiss maxill sinus 10/02/2011 NASAL, SINUS ENDOSCOPY, REMOVE TISSUE MAXILLARY SINUS, MARGARET performed by KURTIS GUZMAN at [facility] MA[facility] OR ??? Nasal scope, bx/rmv polyp/debrid 10/02/2011 NASAL, SINUS ENDOSCOPY, WITH BX, POLYPECTOMY performed by KURTIS GUZMAN at [facility] MA[facility] OR ??? Nasal scopy, remv totl ethmoid 10/02/2011 NASAL, SINUS ENDOSCOPY, TOTAL ETHMOIDECTOMY-MARGARET performed by KURTIS GUZMAN at [facility] MA[facility] OR ??? Stereotactic cptr asstd px cranial, extradural 10/02/2011 STEREOTACTIC COMPUTER-ASSTD NAVIGATIONAL CRANIAL EXTRADURAL performed by KURTIS GUZMAN at [facility] MA[facility] OR ??? Testicle removal ??? Lipoma resection ??? Unlisted mr procedure 08/28/2012 MRI WITH ANESTHESIA performed by Trent Nieto at [facility] Social History: History Social History ??? Marital Status: Spouse Name: N/A Number of Children: N/A ??? Years of Education: N/A Occupational History ??? Not on file. Social History Main Topics ??? Smoking status: Former Smoker -- 1.0 packs/day for 11 years Types: Cigars, Cigarettes Quit date: 03/15/1967 ??? Smokeless tobacco: Never Used Comment: pt reports smoking an occasional cigar ~2 monthly ??? Alcohol Use: Yes Comment: 1 glass of wine and one can of beer per month ??? Drug Use: No ??? Sexually Active: Other Topics Concern ??? Not on file Social History Narrative ??? No narrative on file Current Medications: Outpatient Prescriptions Prior to Visit Medication Sig Dispense Refill ??? DILTiazem (CARDIZEM CD) 180 mg 24 hr capsule Take 180 mg by mouth daily. ??? montelukast (SINGULAIR) 10 mg tablet Take 1 tablet by mouth nightly. 30 tablet 12 ??? Dutasteride-Tamsulosin (RIK) 0.5-0.4 mg CM24 Take by mouth daily. ??? GLUC CLAROS/CHONDRO CLAROS A/VIT C/MN (GLUCOSAMINE 1500 COMPLEX ORAL) Take by mouth daily. ??? DAILY MULTI-VITAMIN ORAL Take by mouth daily. ??? omeprazole (PRILOSEC) 20 mg capsule Take 20 mg by mouth daily. ??? OMEGA-3 FATTY ACIDS (FISH OIL CONCENTRATE ORAL) Take 1,000 mg by mouth daily. ??? albuterol (PROVENTIL HFA;VENTOLIN HFA) 90 mcg/Actuation inhaler Inhale 2 puffs into the lungs every 4 hours as needed. Use with spacer Facility-Administered Medications Prior to Visit Medication Dose Route Frequency Provider Last Rate Last Dose ??? propofol (DIPRIVAN) infusion Continuous PRN Mayur Robels CRNA 150 mcg/kg/min at 08/28/12 1551 Last reviewed on 02/24/2013 1:57 PM by Gaston Busch II, MD Adverse Drug Reactions: No Known Allergies Review of Systems: As in HPI. Physical Examination: There were no vitals taken for this visit. GEN: sitting in chair comfortably, able to talk in full sentence HEENT: NC & AT, EOM wnl, nasal erythema b/l, ear/nose symmetrical, no oropharyngeal exudyates BENCH MECHANIC: A and OX3, no focal motor deficits CVS: S1 S2 +, RRR, no m/r/g, trace edema l/e b/l RESP: occasional mild wheezing rest CTA b/l GI/ABD: soft, non tender, BS+ MUSCULO: normal ROM, no joint swelling SKIN: no rash, warm, dry Impression / Plan of Care: 1. Cough: multifactorial, most likely causes would be post nasal drip vs asthma vs GERD. He does have runny nose with nasal erythema along with post nasal drip which does point towards it being a causefor his cough. He does have a history of GERD and ?asthma/pneumonitis. The recent symptoms seem fairly recent with changing seasons which does point towards allergic component. He most likely will benefit from addition of nasal spray to help with runny nose. He might also be helped with addition of Singulair especially with features suggestive of allergic rhinitis in the setting of ?asthma as dicussed in #2. He is to continue his PPi therapy with recommendation being to reevaluate for reflux while being on PPi. For now will increase it to BID from once/day. His CT from today was reviewed as well and is consistent with non specific findings which could be related to silent aspiration. We will consider evaluation for aspiration at future visit. 2. COPD/Asthma: per PFT does have mild obstructive lung disease with air trapping and normal diffusion. Also per PFT from 2010 he was not responsive to bronchodilator. He did have FENO done which was not noted to be high. However, with seasonal variation he could possibly have superimposed RAD. He hastried various steroid inhalers in past with not much improvement. Recently he stopped using Asmanex and has been using Albuterol which has helped. I do not think any incremental value of adding anotherinhaled steroid at this time. Will add Singulair at this time to see if it helps. He is to continue with Albuterol as needed. Patient seen and examined along with . documented in this encounter Plan of Treatment Not on filedocumented as of this encounter Visit Diagnoses Not on filedocumented in this encounter Care Teams Machine Ii Engraver Relationship Specialty Start Date End Date Erik Carrasquillo MD PCP - General 02/22/[address] [place] [phone] documented as of this encounter
--- OUTSIDE RECORDS SUMMARY | 2021-09-23 12:53 | XMS_ITS | Encounter Summary ---
:1939 Author Organization [facility] [place] [address] Care Team Providers Name Role Phone Erik Carrasquillo MD Primary Care Provider Encounter Details Date Type Department Care Team Description 04/04/2013 External Results Cardiology at [facility] [place] Gaston Busch II [facility] [place] [address] CARDIOLOGY DEPT. [phone] [place] [id number] (Wo rk) Social History Tobacco Use Types [...] on filedocumented in this encounter Care Teams Production Analyst Relationship Specialty Start Date End Date Erik Carrasquillo MD PCP - General 02/22/10 [address] [place] [address] documented as of this encounter
--- OUTSIDE RECORDS SUMMARY | 2021-09-23 12:53 | XMS_ITS | Encounter Summary ---
:1939 Author Organization [facility] [place] [address] Care Team Providers Name Role Phone Erik Carrasquillo MD Primary Care Provider Reason for Visit Reason Comments Follow-up Skin Check Encounter Details Date Type Department Care Team Description 10/16/2017 Office Visit Dermatology at [facility], History of basal cell carcinoma; Mikel TAMEZ [place] (actinic keratosis) [address] [facility] Kraig B DERMATOLOGY [place], [place] [id number] [phone] Social History Tobacco Use Types Packs/Day Years [...] encounter Progress Notes [facility] MD - 10/16/2017 10:00 AM EDT Assessment and plan: 1. Repeat annual skin checkup 2. History BCC right forehead 07/2016 3. Status post Mohs surgery for infiltrative BCCA left lateral anterior parietal scalp September 2016 4. History of actinic keratoses, status post 2 week course of 5-FU therapy 06/2011 Don follows today with his Lilly. He has been doing well following his Mohs surgery last summer and is here for yearly check. He has not noted any new lesions of concern. Physical examination reveals a pleasant 77-year-old gentleman who has well- healed surgical scars at the above noted treatment sites. He has 3 actinic keratoses on the left lateral cheek. Otherwise examination of the sun exposed skin of his face his neck hands is benign. There is no evidence of any new malignant lesions. Assessment plan: History of basal cell carcinomas 1. No evidence recurrence 2. Patient reassured 3. Return to clinic in a year for recheck 4. If doing well at that time may be able to space visits out to every 2 years. Actinic keratoses 1. After obtaining informed patient consent, 3 sites were treated with LN 2 x [address] 2 x 2 injections given return to clinic 1 year Cc: Erik Carrasquillo MD documented in this encounter Plan of Treatment Not on filedocumented as of this encounter Visit Diagnoses Diagnosis History of basal cell carcinoma Personal history of other malignant neop lasm of skin [place] (actinic keratosis) Actinic keratosis documented in this encounter Care Teams Ditching Machine Operating Engineer Relationship Specialty Start Date End Date Erik Carrasquillo MD PCP - General 02/22/[address] [place] [id number] documented as of this encounter
--- OUTSIDE RECORDS SUMMARY | 2021-09-23 12:53 | XMS_ITS | Encounter Summary ---
:1939 Author Organization [facility] [place] [address] Care Team Providers Name Role Phone Erik Carrasquillo MD Primary Care Provider Encounter Details Date Type Department Care Team Description 03/04/2013 Telephone Cardiology at [facility] [place] Gaston Busch II, MD [facility] [place] [address] CARDIOLOGY DEPT. [phone] [place], [place] [address] (Wo rk) Social History Tobacco [...] this encounter Miscellaneous Notes Telephone Encounter - Gaston Busch II, MD - 03/04/2013 6:22 PM EST Received event monitor strip (~4 seconds) from February 02 showing sinus tachycardia, atrial ectopyleading to regular, narrow complex SVT at rate of ~170. This does not appear to be AF. Called patient, discussed rhythm strip and reviewed his interval sxs - no further episodes. Also discussed issue of daily Albuterol lowering threshold for SVT. Reviewed recent pulmonary note. He has recently had Omeprazole dose doubled to mitigate possibility of aspiration triggering RAD. I recommended that he alsoraise the head of his bed, restart Asmanex and use Albuterol only for rescue. For now will continue Diltiazem. Gaston Busch MD documented in this encounter Plan of Treatment Not on filedocumented as of this encounter Visit Diagnoses Not on filedocumented in this encounter Care Teams Dried Yeast Supervisor Relationship Specialty Start Date End Date Erik Carrasquillo MD PCP - General 02/22/[address] [place] [phone] documented as of this encounter
--- OUTSIDE RECORDS SUMMARY | 2021-09-23 12:53 | XMS_ITS | Encounter Summary ---
:1940 Author Organization [place] [address] Care Team Providers Name Role Phone Erik Carrasquillo MD Primary Care Provider Reason for Referral Consultation (Routine) - Closed Specialty Diagnoses / Procedures Referred By Contact Refer red To Contact Pain Management Diagnoses Spinal stenosis of lumbar region Boni Ortiz MD [facility] [address] [place] [address] D [facility] [place] [phone] Fax: Referral ID Status Reason Start Date Expiration Date Visits V isits Requested Authorized [id number] Closed Consult Only 10/25/2012 04/23/2013 1 1 Reason for Visit Reason Comments Back Pain Encounter Details Date Type Department Care Team Description 10/25/2012 Office Visit Sp[facility] Center at Boni Ortiz, Spinal s tenosis of [place] lumbar region (Primary [facility] Dx) Drive [place], [place] [facility] [id number] [place] [address] [phone] Social History Tobacco Use Types Packs/Day Years [...] - Inhaled Oxygen Concentration - - Weight 77.1 kg (170 lb) 10/25/2012 9:42 AM EDT Height 175.3 cm (5' 9) 10/25/2012 9:42 AM EDT Body Mass Index 25.1 10/25/2012 9:42 AM EDT documented in this encounter Progress Notes Boni Ortiz MD - 10/25/2012 11:14 AM EDT Geoff Camacho is a 72-year-old gentleman seen today in the spine center consultation with Dr. Reza. The patient is seen and evaluated for left-sided low back pain. He reports that his legs are essentially asymptomatic. Previous notes suggest that he had left leg symptoms. He does note perhaps some sense of weakness on the leg, but no pain, numbness, or tingling. He is using a cane to ambulate. He is on OxyContin 60 mg b.i.d. for his pain. He has had an epidural steroid injection without relief. He is better with sitting, worse with any standing or walking. REVIEW OF SYSTEMS: Review of systems is negative for GI, , or constitutional symptoms. He was seen in the emergency department recently, where a CT scan was obtained suggesting an L1 fracture. This appears to be remote. He has a known scoliosis. Present symptoms have been bothersome since April. This gentleman is accompanied by his . PHYSICAL EXAMINATION: This is a pleasant gentleman. He moves slowly about the office. His gait is normal. He could toe walk bilaterally. He is unable to heel walk. On inspection, he has a depressed right hemipelvis. He has apex, right thoracolumbar scoliosis with a rib prominence on the right. He localizes his pain to the left side of the lumbosacral junction in the paraspinal region. His lower extremity motor exam is normal. His sensory function is intact. His reflexes are absent at the left knee, 1 at the right knee, 2 at the ankles. Hip range of motion is pain-free. Distal pulses are palpable. Babinski is negative. He has no edema or atrophy. DIAGNOSTIC DATA: Imaging confirms a scoliosis. He has multilevel lumbar spinal stenosis and significant disk degeneration. He also has a suggestion of stenosis at T11 and T12 on the sagittal views, but the axial views do not go up to this level. In any event, he is asymptomatic with regards to any cord symptoms and asymptomatic with regards to leg symptoms referable to his lumbar stenosis. He has lost his lumbar lordosis, likely related to his scoliosis. The specific anatomic etiology of this gentleman's symptoms remains unclear. I do not think it is his thoracic stenosis or lumbar stenosis given the absence of leg symptoms. It may be related to multilevel disk degeneration or facet arthropathy. The epidural steroid injection was not helpful. He may be a candidate for radiofrequency ablation. I have referred him back to the pain clinic and I have talked to Dr. Mallory and reviewed the imaging in regards to this referral back to him. In the absence of any clinical changes and neurological symptoms, I will recheck as needed and further medical followup would be with Dr. Reza in the spine center. documented in this encounter Plan of Treatment Scheduled Referrals Name Type Priority Associated Diagnoses Order S chedule Referral to Pain Outpatient Referral Routine Spinal stenosis o f Ordered: Clinic lumbar region 10/25/2012 documented as of this encounter Visit Diagnoses Diagnosis Spinal stenosis of lumbar region - Prima ry Spinal stenosis, lumbar region, without neurogenic claudication documented in this encounter Care Teams Inspector Quality Assurance Relationship Specialty Start Date End Date Erik Carrasquillo MD PCP - General 02/22/[address] [place] [phone] documented as of this encounter
--- OUTSIDE RECORDS SUMMARY | 2021-09-23 12:53 | XMS_ITS | Encounter Summary ---
:1940 Author Organization [facility] [place] [address] Care Team Providers Name Role Phone Erik Carrasquillo MD Primary Care Provider Encounter Details Date Type Department Care Team Description 09/01/2016 Telephone Dermatology at [facility] Ry Coats MD [address] [place] [address] [place] [address]DERMATOLOGY [phone] [place], [place] [address] (Wo rk) Social History Tobacco [...] this encounter Miscellaneous Notes Telephone Encounter - Paige Santos LPN - 09/01/2016 2:57 PM EDT Called patient and reviewed biopsy results with him. Th area on the right forehead was a BCC that was adequately treated. The area on the left lateral scalp is an infiltrative BCC and will need MOHS. Patient is aware and will schedule with Bianka when she calls to confirm schedule. documented in this encounter Plan of Treatment Not on filedocumented as of this encounter Visit Diagnoses Not on filedocumented in this encounter Care Teams Outdoor Studies Professor Relationship Specialty Start Date End Date Erik Carrasquillo MD PCP - General 02/22/[address] [place] [phone] documented as of this encounter
--- OUTSIDE RECORDS SUMMARY | 2021-09-23 12:53 | XMS_ITS | Encounter Summary ---
:1940 Author Organization [facility] [place] [address] Care Team Providers Name Role Phone Erik Carrasquillo MD Primary Care Provider Encounter Details Date Type Department Care Team Description 08/28/2012 Surgery [facility] Johnna RESOURCE, MRI WITH ANESTHESIA [facility] ton ANESTHESIA-JOHNNA (WRVU *) [place] [address] None [phone] Social History Tobacco Use Types Packs/Day Years [...] by Nasal 0 12/23/2012 (NASACORT-AQ) 50 mcg [place] route 2 times daily. GLUCOSAMINE HCL/CHONDR CLAROS 0 08/28/2008 08/29/2012 A NA (GLUCOSAMINE-CHONDROITIN) 750-600 mg Tab CALCIUM ORAL 0 08/28/2008 08/29/2012 Saw [place] 160 mg 0 08/28/200808/29 capsule multivitamin (THERAGRAN) [...] Procedure) documented in this encounter Care Teams Overedger Relationship Specialty Start Date End Date Erik Carrasquillo MD PCP - General 02/22/[address] [place] [phone] documented as of this encounter
--- OUTSIDE RECORDS SUMMARY | 2021-09-23 12:53 | XMS_ITS | Encounter Summary ---
:1939 Author Organization [facility] [place] [address] Care Team Providers Name Role Phone Erik Carrasquillo MD Primary Care Provider Reason for Visit Reason Comments Referral Encounter Details Date Type Department Care Team Description 02/11/2013 Follow-Up Pulmonology at [facility], DR ALMONTE COPD (chronic obstructive pu lmonary disease); [facility] Charles العلي MD [facility] [place] [address] [place] [address] Social History Tobacco Use Types Packs/Day [...] Sign Reading Time Taken Comments Blood Pressure 143/83 02/11/2013 1:14 PM EST Pulse 81 02/11/2013 1:14 PM EST Temperature - - Respiratory Rate 20 02/11/2013 1:14 PM EST Oxygen Saturation 94% 02/11/2013 1:14 PM EST Inhaled Oxygen Concentration - - Weight 77.1 kg (170 lb) 02/11/2013 1:14 PM EST Height 175.3 cm (5' 9) 02/11/2013 1:14 PM EST Body Mass Index 25.1 02/11/2013 1:14 PM EST documented in this encounter Progress Notes Charles العلي MD - 02/10/2013 2:45 PM EST [facility] Section of Pulmonary and Critical Care Medicine Follow-Up Visit Date of Encounter: 02/11/2013 Location: Office Referring Provider: Erik Carrasquillo Md [address] [address] C/C: Chronic cough HPI: 71-year-old male who returns for follow-up of probable adult-onset asthma and pneumonitis. He was last seen in clinic on 05/07/12. At that time, CT of the thorax demonstrated bilateral basilar opacities that appear most consistent with pneumonitis. He was the following options: swallow study, bronchoscopy, or a course of prednisone and amoxicillin-clavulanate. He chose the third and felt better [...] nebulized budesonide and fluticasone. He has also triedusing Advair for about a month with no [...] throat on and off. 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 Asthma ??? GERD (gastroesophageal reflux disease) ??? Sinusitis Past Surgical History: Past Surgical History Procedure Date ??? Nasal scopy, rmv tiss maxill sinus 10/02/2011 NASAL, SINUS ENDOSCOPY, REMOVE TISSUE MAXILLARY SINUS, MARGARET performed by KURTIS GUZMAN at [facility] MAIN OR ??? Nasal scope, bx/rmv polyp/debrid 10/02/2011 NASAL, SINUS ENDOSCOPY, WITH BX, POLYPECTOMY performed by KURTIS GUZMAN at [facility] MAIN OR ??? Nasal scopy, remv totl ethmoid 10/02/2011 NASAL, SINUS ENDOSCOPY, TOTAL ETHMOIDECTOMY-MARGARET performed by KURTIS GUZMAN at [facility] MAIN OR ??? Stereotactic cptr asstd px cranial, extradural 10/02/2011 STEREOTACTIC COMPUTER-ASSTD NAVIGATIONAL CRANIAL EXTRADURAL performed by KURTIS GUZMAN at [facility] MAIN OR ??? Testicle removal ??? Lipoma resection ??? Unlisted mr procedure 08/28/2012 MRI WITH ANESTHESIA performed by Emilia Anesthesia-Johnna at [facility] JOHNNA Social History: History Social History ??? Marital [...] to Visit Medication Sig Dispense Refill ??? Dutasteride-Tamsulosin (RIK) 0.5-0.4 mg CM24 Take by mouth daily. ??? GLUC CLAROS/CHONDRO CLAROS A/VIT C/MN (GLUCOSAMINE 1500 COMPLEX ORAL) Take by mouth daily. ??? CHONDROITIN SULFATE A ORAL Take 1,200 mg by mouth daily. ??? DAILY MULTI-VITAMIN ORAL Take by mouth daily. ??? omeprazole (PRILOSEC) 20 mg capsule Take 20 mg by mouth daily. ??? OMEGA-3 FATTY ACIDS (FISH OIL CONCENTRATE ORAL) Take 1,000 mg by mouth daily. ??? albuterol (PROVENTIL HFA;VENTOLIN HFA) 90 mcg/Actuation inhaler Inhale 2 puffs into the lungs every 4 hours as needed. Use with spacer ??? Mometasone (ASMANEX TWISTHALER) 220 mcg (120 doses) AePB Inhale 1 puff into the lungs 2 times daily. 3 Device 11 Facility-Administered Medications Prior to Visit Medication Dose Route Frequency Provider Last Rate Last Dose ??? propofol (DIPRIVAN) infusion Continuous PRN Mayur Robles COLD STORAGE SUPERINTENDENT 150 mcg/kg/min at 08/28/12 1551 ??? propofol (DIPRIVAN) 10 mg/mL bolus injection (Anesthesia) PRN Mayur Robles COLD STORAGE SUPERINTENDENT 50 mg at 08/28/12 1534 ??? lidocaine (PF) (XYLOCAINE) 100 mg/5 mL (2 %) injection PRN Mayur Robles COLD STORAGE SUPERINTENDENT 50 mg at 08/28/12 1534 Last reviewed on 02/11/2013 1:16 PM by Kesha Oates LPN Adverse Drug Reactions: No Known Allergies Review of Systems GENERAL HEENT CV PULM x All negative All negative x All negative All negative Weight loss Headache Angina Non-productive cough Weight gain Vision change Palpitations Productive cough Fevers Sinus congestion Presyncope Wheezing Chills Rhinorrhea Syncope Hemoptysis Diaphoresis Epistaxis LE edema Pleuritic pain Poor sleep Post-nasal drip Claudication Orthopnea Fatigue Throat clearing Paroxysmal dyspnea Dry eyes/mouth x As in HPI x As in HPI MSK RENAL ENDO GI/NUTRITION All negative x All negative x All negative x All negative x Arthralgias mary kate right hip Polyuria Heat intolerance GERD Myalgias Oliguria Cold intolerance Dysphagia Deformity Hematuria Polydipsia Odynophagia Stiffness Flank pain Polyphagia Abdominal discomfort Wasting Dysuria Cushingoid Constipation Diarrhea Steatorrhea LYMPH SKIN NEURO PSYCH x All negative x All negative x All negative x All negative Swollen nodes Rash Seizures Depressed affect Tender nodes Ulcers Tremors Occupational stress Diffuse nodes Purpura Spasticity Troubled relationship(s) Local nodes Pigmented lesion Focal weakness Insomnia Telangiectasias Diplopia Anxiety Angiomata Paresthesias Absenteeism Tanned skin Physical Examination: BP 143/83 Pulse 81 Resp 20 Ht 175.3 cm (5' 9) Wt 77.111 kg (170 lb) BMI 25.10 kg/m2 SpO2 94% GEN: sitting in chair comfortably, able to talk in full sentence HEENT: NC & AT, EOM wnl, nasal erythema b/l, ear/nose symmetrical, no oropharyngeal exudyates RN CHRONIC: A and OX3, no focal motor deficits [...] and normal diffusion. Also per PFT from 2011 he was not responsive to bronchodilator. He [...] needed. Patient seen and examined along with Dr Ferreira. Pulmonary/CCM Attending I evaluated the patient in clinic with the fellow, Dr. العلي. I agree with his documented findingsand make the following additions and/or revisions: Mr. Camacho is a 72-year-old former smoker with chronic airflow obstruction attributed to asthma, sinusitis and polyposis treated with surgery last year, gastroesophageal reflux suggested by impedance study in 2011, and nasal drip Who presents for follow-up of chronic cough. He also has a history of nonspecific, right greater than left,, patchy airspace opacities of unclear etiology. These have been attributed to occult aspiration, although this has not been recently appraised. Presently, he endorses rhinorrhea but does not have sinus pressure. He does not have overt brash on a daily dose of omeprazole. He has not experienced significant improvementin cough with several inhaled corticosteroid preparations. Exhaled nitric oxide testing revealed a level of 9 ppb, arguing against eosinophilic airway inflammation. I personally reviewed a noncontrast CT scan of the chest obtained today in follow-up of pulmonary infiltrates. Comparison was made to a study done last year. There is a small degree of scarring in the lingula and right lower lobe. There is mild bronchial thickening in a right lower lobe bronchus. Small nodules in the superior segment of the right lower lobe and left upper lobe have the appearance of intrapulmonary lymph nodes. In the left lower lobe, there are nonspecific, patchy airspace opacities without evidence of fibrosis. The opacities are not extensive. No pleural effusions. In discussing his case today, I feel that we need to pursue focused treatment of rhinitis and postnasal drip and GERD. We talked about the possibility of repeating pH probe and impedance while on a PPI. He certainly could have nonacid reflux. He may benefit from leukotriene antagonist given a history of nasal polyps. The nature of the pulmonary infiltrates is unclear. He does not have a compelling history for connective tissue disease. There are no changes suggestive of IPF. The basilar distributionfavors aspiration pneumonitis. Cryptogenic organizing pneumonia is also a possibility, although lesslikely. I have a low threshold for working up reflux and aspiration more thoroughly. documented in this encounter Miscellaneous Notes Addendum Note - Maliha Ferreira MD - 02/11/2013 8:40 PM EST Addended by: MALIHA FERREIRA on: 02/11/2013 08:40 PM Modules accepted: Level of Service documented in this encounter Plan of Treatment Not on filedocumented as of this encounter Results Pulmonary Function Testing (02/11/2013 3:37 PM EST) Narrative Shaji Valderrama Jr., MD - 02/11/2013 3: 37 PM EST Shaji Valderrama Jr., MD ? 02/11/2013 ??3:37 PM Exhaled Nitric Oxide Level (FeNO) Testin g FeNO is 9 ppb, which is low. --Nata Valderrama MD Range: Adult Children Low < 25 ppb < 20 ppb Intermediate 25 - 50 ppb 20 - 35 ppb High > 50 ppb > 35 ppb Reference: Am J Respir Crit Care Med 184 : 602-15, 2010. Procedure Note Shaji Valderrama Jr., MD - 02/11/2013 3: 37 PM EST Exhaled Nitric Oxide Level (FeNO) Testin g FeNO is 9 ppb, which is low. --Nata Valderrama MD Range: Adult Children Low < 25 ppb < 20 ppb Intermediate 25 - 50 ppb 20 - 35 ppb High > 50 ppb > 35 ppb Reference: Am J Respir Crit Care Med 184 : 602-15, 2010. Maliha Ferreira MD PFT ORDERABLES documented in this encounter Visit Diagnoses Diagnosis COPD (chronic obstructive pulmonary dise ase) Chronic airway obstruction, not elsewher e classified Rhinitis Chronic rhinitis COPD (chronic obstructive pulmonary dise ase) Chronic airway obstruction, not elsewher e classified Rhinitis Chronic rhinitis documented in this encounter Care Teams Fire Patroller Relationship Specialty Start Date End Date Erik Carrasquillo MD PCP - General 02/22/[address] [place] [phone] documented as of this encounter
--- OUTSIDE RECORDS SUMMARY | 2021-09-23 12:53 | XMS_ITS | Encounter Summary ---
:1940 Author Organization [facility] [place] [address] Care Team Providers Name Role Phone Erik Carrasquillo MD Primary Care Provider Encounter Details Date Type Department Care Team Description 03/03/2015 Anesthesia Event Gastroenterology at [facility] Natalio Neely MD [facility] [place] [address] [facility] Arben Sanchez MD [facility] [place] [address] [place] [address] Anesthesia Record Procedure Summary Procedure Name Responsible Anesthesia Start Anesthesia Stop Time Anesthesiologist Time COLONOSCOPY, Natalio Neely MD 03/03/15 0920 03/03/15 09 50 POLYPECTOMY, REMOVAL LESION BY SNARE (WRVU 4.67) (N/A Trunk) Events Date Time Event Comment 03/03/2015 0920 0920 AN Verify 0920 Start 0922 An Start Data 0924 An Induction 0925 Anesthesia Ready 0943 an stop data 0950 Recovery or ICU Handoff Patient care was transferred to the destination unit staff after review of the patient's medica l history, current anesthetic/surgi nneka status and plan, according to the Provider Handoff Checklist. 0950 Stop Name Total IV Lidocaine 20 mg Propofol 150 mg Propofol INF 194.53 mg lactated ringers infusion 450 mL Agents Name O2 Auxiliary Flowmeter 1 Blood No blood administrations on file. Lines, Drains, and Airways Type Details Placement Removal Incision 10/02/11; nostril 10/02/11 0000 by Elayne, (bilateral sinus) Destiney Blount RN PIV 03/03/15; 0910; basilic 03/03/15 0910 by Fatemeh , 03/03/15 1011 by Bhavesh, vein right (medial side of PATTI Jeter RN arm); [id number] catheter system; 20 gauge; Petr Weldon RN; distraction, tolerated well, appears comfortable; 0; 03/03/15; 1011 documented in this encounter Social History Tobacco [...] on file documented as of this encounter OR Notes Anesthesia Postprocedure Evaluation - Arben Mercado - 03/03/2015 9:52 AM EST [facility] Department of Anesthesiology Post-procedure Note Patient: Geoff Camacho Procedure Summary Date Anesthesia Start Anesthesia Stop Room / Location 03/03/15 0920 0950 [facility] 6 / [facility] Procedure Diagnosis Surgeon Responsible Provider COLONOSCOPY, POLYPECTOMY, REMOVAL LESION BY SNARE (N/A Trunk) No diagnosis on file. Pa Valdez MD Bertrand, Natalio Birch MD (10 yr surv; consult) Last (1hr) Vitals: BP 109/65 mmHg (03/03/1548) Temp Pulse 78 (03/03/1548) Resp 16 (03/03/15947) SpO2 98 % (03/03/15947) Patient Location: PACU/SDP Level of Consciousness: Awake and Alert Pain Management: Satisfactory Analgesia PONV: None Cardiovascular Status: At Baseline and Hemodynamically Stable Respiratory Status: At Baseline and Room Air Postoperative Fluid Status: Intravascular EUvolemia Possible Anesthetic Complications: NONE apparent at time of evaluation Final Primary Anesthesia Type: MAC (The anesthetic type performed was the same as planned.) Comments: ARBEN MERCADO MD Anesthesia Preprocedure Evaluation - Natalio Neely MD - 03/02/2015 1:45 PM EST Pre-Anesthesia Evaluation for: Geoff Camacho a 74 y.o. male. Procedure(s): COLONOSCOPY, DIAGNOSTIC Patient Active Problem List Diagnosis ??? H/O SVT (supraventricular tachycardia) ??? Spinal stenosis of lumbar region ??? Chronic back pain greater than 3 months duration ??? Aortic insufficiency Reported as mild ??? Reflux ??? Nasal polyposis ??? Chronic sinusitis ??? Asthma ??? Sinusitis, chronic ??? GERD (gastroesophageal reflux disease) ??? Actinic keratosis Past Medical History Diagnosis Date ??? Asthma ??? GERD (gastroesophageal reflux disease) ??? Sinusitis Past Surgical History Procedure Laterality Date ??? Pro nasal scopy, rmv tiss maxill sinus 10/02/2011 NASAL, SINUS ENDOSCOPY, REMOVE TISSUE MAXILLARY SINUS, MARGARET performed by KURTIS GUZMAN at [facility] MAIN OR ??? Pro nasal scope, bx/rmv polyp/debrid 10/02/2011 NASAL, SINUS ENDOSCOPY, WITH BX, POLYPECTOMY performed by KURTIS GUZMAN at [facility] MA[facility] OR ??? Pro nasal scopy, remv totl ethmoid 10/02/2011 NASAL, SINUS ENDOSCOPY, TOTAL ETHMOIDECTOMY-MARGARET performed by KURTIS GUZMAN at [facility] MA[facility] OR ??? Pro stereotactic cptr asstd px cranial, extradural 10/02/2011 STEREOTACTIC COMPUTER-ASSTD NAVIGATIONAL CRANIAL EXTRADURAL performed by KURTIS GUZMAN at [facility] OR ??? Testicle removal ??? Lipoma resection ??? Unlisted mr procedure 08/28/2012 MRI WITH ANESTHESIA performed by Emilia [facility] at [facility] History Substance Use Topics ??? Smoking status: Former Smoker -- 1.00 packs/day for 11 years Types: Cigars, Cigarettes Quit date: 03/15/1967 ??? Smokeless tobacco: Never Used Comment: pt reports smoking an occasional cigar ~2 monthly ??? Alcohol Use: Yes Comment: 1 glass of wine and one can of beer per month History Drug Use No No Known Allergies Medications: MAR and/or home medications have been reviewed. Physical Exam: There were no vitals filed for this visit. There is no weight on file to calculate BMI. Airway Assessment: Mallampati: II TM distance: >3 FB Neck ROM: full Cardiovascular Assessment: Rhythm: regular Pulmonary Assessment: breath sounds clear to auscultation Dental Assessment: Misc Assessment: IV access: Peripheral line Other exam findings: 20 g IV in situ right arm. Runs well w/o complaint. Anesthesia Plan: ASA 3 MAC, with a(n) intravenous induction 74yo male w/ hx of chronic pain, regular narcotic use, presenting for surveillance colonoscopy. No recent changes in health. No prior issues with anesthesia but does state that he required increased doses of propofol for adequate sedation. Breathing stable and no hx significant cardiac history. Good activity tolerance. NPO ststus verified. Plan for propofol gtt, MAC Region - Other Informed Consent: Anesthetic plan and risks discussed with patient. Plan discussed with LAY UPS ASSEMBLER. PAT Staff Note documented in this encounter Miscellaneous Notes Addendum Note - Natalio Neely MD - 03/03/2015 10:23 AM EST Addendum created 03/03/15 1023 by Natalio Neely MD Modules edited: Notes Section Notes Section: Cosign: [id number] documented in this encounter Plan of Treatment Not on filedocumented as of this encounter Visit Diagnoses Not on filedocumented in this encounter Administered Medications Inactive Administered Medications - up to 3 most recent administrations Medication Order MAR Action Action Date Dose Rate Site lactated ringers infusion New Bag 03/03/2015 9:45 AM EST 50 mL/hr 50 mL/hr 50 mL/hr, Intravenous, CONTINUOUS, Starting on Sun03/03/15 at 0945, Until Sun03/03/15 at 1011, Endoscopy (Day of Procedure) New Bag 03/03/2015 9:20 AM EST lidocaine (PF) (XYLOCAINE) 100 mg/5 mL (2 %) Given 5 9:24 AM EST 20 mg injection PRN, Starting on Sun03/03/15 at 0924, Until Sun03/03/15 at 0950, Anesthesia Intra-op, Routine propofol (DIPRIVAN) 10 mg/mL bolus injection Given 05/2014 9:24 AM EST 150 mg (Anesthesia) PRN, Starting on Sun03/03/15 at 0924, Until Sun03/03/15 at 0950, Anesthesia Intra-op propofol (DIPRIVAN) infusion New Bag 03/03/2015 9:24 AM 175 mcg/kg/min 83.4 mL/hr CONTINUOUS PRN, Starting on EST Sun03/03/15 at 0924, Until Sun03/03/15 at 0950, Anesthesia Intra-op, Routine documented in this encounter Care Teams Slot Shift Supervisor Relationship Specialty Start Date End Date Erik Carrasquillo MD PCP - General 02/22/[address] [place] [id number] documented as of this encounter
--- OUTSIDE RECORDS SUMMARY | 2021-09-23 12:53 | XMS_ITS | Encounter Summary ---
:1940 Author Organization [facility] [place] [address] Care Team Providers Name Role Phone Erik Carrasquillo MD Primary Care Provider Encounter Details Date Type Department Care Team Description 04/04/2013 Notes Only Cardiology at [facility] Gaston Busch II, MD [facility] [address] CARDIOLOGY DEPT. [phone] [place], [place] [address] (Wo rk) Social History Tobacco [...] documented as of this encounter Progress Notes Gaston Busch II, MD - 04/04/2013 1:09 PM EST Received records from Dr. Carrasquillo's office including event monitor strip from 02-04-2013 which shows regular SVT at rate of ~ 190 bpm. 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 Gaston Busch MD documented in this encounter Plan of Treatment Not on filedocumented as of this encounter Visit Diagnoses Not on filedocumented in this encounter Care Teams Portrait Studio Photographer Relationship Specialty Start Date End Date Erik Carrasquillo MD PCP - General 02/22/[address] [place] [id number] documented as of this encounter
--- OUTSIDE RECORDS SUMMARY | 2021-09-23 12:53 | XMS_ITS | Encounter Summary ---
:1939 Author Organization [facility] [place] [address] Care Team Providers Name Role Phone Erik Carrasquillo MD Primary Care Provider Reason for Visit Reason Comments Cataract Pt sent by Dr. Horn for cat aract evaluation Consultation (Routine) - Closed Specialty Diagnoses / Procedures Referred By Contact Refer red To Contact Ophthalmology Diagnoses cat charleyal Jose Ramon Kirk OD Zegans, Michael E, MD [address] [place] [address] [address] [facility] [place]PT. [address] [place] [address] Fax: Referral ID Status Reason Start Date Expiration Date Visits V isits Requested Authorized [id number] Closed Consult, 09/06/2017 09/06/2018 1 1 Test & Treat Encounter Details Date Type Department Care Team Description 02/01/2018 Office Visit Ophthalmology at [facility] Maximo Stock Cataract; [facility] MD Coni [place]uchs' [place] [address] CENTER [phone] OPHTHALMOLOGY DEPT. [place], [place] [address] Social History Tobacco Use Types [...] Instructions Patient InstructionsMaximo Dorman MD - 02/01/2018 3:15 PM EDT Medications: Use eye medications as [...] Progress Notes Maximo Dorman MD - 02/01/2018 3:15 PM EDT Assessment: Encounter Diagnoses Name Primary? Cataract ??? Fuchs' corneal dystrophy Geoff Camacho is a 77 y.o. male with Fuchs corneal dystrophy and cataract. I explained the pathophysiology and clinical course of a patient with Fuchs corneal dystrophy and cataracts including the risk of pseudophakic bullous keratopathy necessitating a corneal transplant. I discussed corneal transplantation options and the related risks, benefits and alternative to these procedures Geoff expressed understanding. On Tamsulosin with poor dilation: at risk for floppy iris syndrome during cataract surgery and will need iris hooks Prism in glasses Plan: For now our plan is to have Geoff see Dr. Kirk and try glasses change. He knows that if he is unhappy with this he can proceed to CEIOL but would like to try glasses since his is at increased risk ofoperative complications Follow Up: 6 months or as needed. Upon Return IOP MR if vision down by 2 lines Cpachy documented in this encounter Plan of Treatment Not on filedocumented as of this encounter Visit Diagnoses Diagnosis Cataract Fuchs' corneal dystrophy Endothelial corneal dystrophy documented in this encounter Care Teams Medicare Sales Executive Relationship Specialty Start Date End Date Erik Carrasquillo MD PCP - General 02/22/[address] [place] [address] documented as of this encounter
--- OUTSIDE RECORDS SUMMARY | 2021-09-23 12:53 | XMS_ITS | Encounter Summary ---
:1939 Author Organization [facility] [place] [address] Care Team Providers Name Role Phone Erik Carrasquillo MD Primary Care Provider Reason for Visit Reason Onset Date Comments Questions 12/21/2016 Encounter Details Date Type Department Care Team Description 12/21/2016 [facility]phone [facility] [address] [place] [address] Social History Tobacco Use Types Packs/Day Years [...] this encounter Miscellaneous Notes Telephone Encounter - Leobardo Mills MD - 12/21/2016 12:57 PM EDT Agree with the advice - if it's tender, bothersome, or continues to spit out further - we can have him follow up for a wound check and remove the spitting suture. Telephone Encounter - Juanita Duron RN - 12/21/2016 9:48 AM EDT Patient called with concerns of a dissolvable suture that is sticking through his incision. States that there is slight erythema around this but has not spread, no tenderness to touch or odor. I encouraged him to continue to clean his incision with warm, soapy water and apply vaseline. If the suture that is sticking up is bothersome, he can trim it but should not cut it out. He can also get this evaluated closer to home should he choose. If he has increased pain or more redness, he should contact the office. Patient verbalized his understanding and is amenable to this plan. To call with any further questions/concerns. Telephone Encounter - Bianka Henao - 12/21/2016 8:36 AM EDT Pt left message - thinks he has sutures sticking out. Had MOHS 11/23 and suture removal 12/14. Please give him a call. documented in this encounter Plan of Treatment Not on filedocumented as of this encounter Visit Diagnoses Not on filedocumented in this encounter Care Teams Floor Covering Installer Relationship Specialty Start Date End Date Erik Carrasquillo MD PCP - General 02/22/[address] [place] [phone] documented as of this encounter
--- OUTSIDE RECORDS SUMMARY | 2021-09-23 12:53 | XMS_ITS | Encounter Summary ---
:1940 Author Organization [facility] [place] [address] Care Team Providers Name Role Phone Erik Carrasquillo MD Primary Care Provider Reason for Visit Reason Comments Basal Cell Carcinoma left lateral frontal scalp Encounter Details Date Type Department Care Team Description 11/23/2016 Procedure visit Dermatology at [facility], Basal cell carcinoma Road of scalp [address] [facility] [address] [place] [address] [phone] Social History Tobacco Use Types Packs/Day Years [...] Sign Reading Time Taken Comments Blood Pressure 127/64 11/23/2016 10:04 AM EDT Pulse 59 11/23/2016 10:04 AM EDT Temperature - - Respiratory Rate - - Oxygen Saturation - - Inhaled Oxygen Concentration - - Weight - - Height - - Body Mass Index - - documented in this encounter Patient Instructions Patient InstructionsJuanita Duron RN - 11/23/2016 10:00 AM EDT General Post-Operative Instructions Do not drink alcohol or take any medications containing aspirin, ibuprofen, or Vitamin E for the first two days after surgery unless it has been prescribed by a physician. These may increase the changeof bleeding. Do not smoke for a minimum of 5 days after surgery. Do not get your bandage wet. Avoid public pools and hot tubs As a rule, no exercise is permitted for 7 days. Avoid heavy lifting or any activity that will pull or strain the wound for 3 weeks minimum. Certain surgeries will require longer periods off from exercise as instructed by your doctor. Potential Complications Pain: Most patients have little or no pain. If your wound hurts, apply an ice pack for 15 minutes out of every hour until bedtime. Ice compresses should be done OVER the pressure bandage. Do not apply ice directly on the skin. Ice should be placed in a plastic bag, then wrapped in a towel and applied to the bandaged wound. A bag of frozen peas wrapped in a towel also works well. If your wound still hurts, you can take Tylenol 500 mg every 4-6 hours. Increasing pain, or pain notrelieved by Tylenol, should be reported to our office. Infection: Infection is not common when the wound is well cared for. [place] drainage or slight yellow film on your bandage or open wound is normal and is not an infection. It is also normal for the edgesof the wound to be pink or red, but redness should not spread out beyond the wound edges. If you notice any of these signs of infections, please call the clinic. ??? Increased pain or swelling around the wound ??? Redness spreading out from the wound ??? Green, thick, or foul smelling wound drainage ??? Fever or chills Bleeding: It is normal to see a small amount of blood on the pressure bandage when you remove it. Ifblood leaks out of the bandage within the first 48 hours, hold firm pressure directly over the top of the bandage without removing it for 15 minutes. If bleeding does not stop, hold pressure for another 15 minutes. If bleeding continues, call our office immediately or go to your local urgent care or emergency room. If blood accumulates under the sutured area, this is called a hematoma. Your wound will become swollen and very hard to the touch. You may experience increasing amounts of pain. This requires attention, and our office should be notified. Swelling and Bruising: These side effects are fairly common, but usually resolve in 2-3 weeks. Areasof the mouth and eye can last longer. Swelling and bruising can be reduced by applying an ice pack over the dressing for 15 minutes out of every hour for the rest of the day of surgery. Swelling around the eyes and neck are normal if you have had surgery to the forehead, eye area, nose, or cheeks. In fact, one or both eyes may swell shut. Swelling will be worse in the morning and improve during the day. If your wound is on your face, head or neck: ??? Sleep with your head raised on 2 pillows to reduce swelling ??? Do no bend over with your head lower then the level of your heart. Bend at the knees and not thewaist. If your wound is on your arm or leg: ??? Keep your arm or leg raised above your heart as much as you can, such as putting your leg on a pillow then lying down, particularly for the first 48 hours. This will help prevent swelling and promote healing. Wounds on the arm or leg may heal more slowly than other areas. ??? Use compression stocking or keegan wrap if instructed to do so. Scarring: There is always some scarring from any wound. Some people may have thickened scars, but these often flatten out in 3-6 months. Occasionally injections are used to help flatten thick scars. Time improves most scars. Wound healing actually takes 1-2 years before it is completely finished. Cover-up makeup may be used after the wound is healed. Other questions or concerns? Please do not hesitate to contact us. During regular business hours youcan call the clinic at . After 5PM and on weekends, please call the hospital number and ask for the [employer] classroom instructional aide. Wound Care for Sutured Wounds You should start wound care on Sunday. Keep your dressing clean and dry until then. Clean your wound once a day until the sutures are removed. Supplies you will need: ??? Clean cotton swabs (Q-tips) ??? Vaseline or white petrolatum ??? Non-stick gauze (telfa pads) or band aids ??? Tape Care of the Wound 1. Assemble all supplies prior to dressing change 2. Wash your hands well with soap and water 3. Take off the old dressing. If it sticks, wet the edges of the dressing with water, or remove it in the shower. 4. Re-wash hands 5. Shower once a day with the bandage off, or clean the area under running tap water. Lather gently with soap and water, then rinse and blot dry. 6. Apply Vaseline (white petrolatum) or Aquaphor in a thin layer over the suture line. You may use aclean cotton swab to apply the ointment, rolling the swab gently over the wound. 7. Cover with a non-stick gauze thick enough to absorb any drainage and protect the wound. Skin near the surgery site may appear and feel tight. This relaxes in time. A scar is strong at 30 days, but not mature for 12 or more months. Stitches below the skin will be absorbed by the body within 2-3 months. Sometimes a stitch works itsway up through the skin. This is not necessarily a problem. If you have any questions about this, please call. If you need any help or have any questions, please call our clinic at . After 5PM and on weekends, please call the hospital number and ask for the [employer] classroom instructional aide. documented in this encounter Progress Notes Leobardo Mills MD - 11/23/2016 10:00 AM EDT Mohs consultation/preoperative note Patient Name: Geoff Camacho Age: 76 y.o. Date of : 1940 REFERRING PROVIDER: Ry Nair CC: Mohs micrographic surgery for treatment of a cutaneous tumor HPI: Geoff Camacho is a 76 y.o. male presenting for biopsy-proven basal cell carcinoma nodular and infiltrative location on the left lateral frontal scalp. The dermatologic preoperative information sheet was reviewed with pertinent positive and negative as below. DERMATOLOGIC PRE-OPERATIVE EVALUATION AND REVIEW OF SYSTEMS (Check those that apply) Yes No Yes No [] [x] Prior skin cancer(s)? [] [x] Organ transplant (type/year)? [] [x] History of melanoma? [] [x] History of radiation to head/neck areas for skin cancer [] [x] Heart disease? [] [x] Cardiac stents? [] [x] Valve replacement (which valves and year)? [] [x] Pacemaker? [] [x] Defibrillator? [] [x] Joint replacement or scheduled for one soon? [] [x] Hearing aids? [] [x] Cochlear, cosmetic, or other implants? [] [x] Hypertension (controlled/not controlled)? [x] [] COPD, ASTHMA Lung Disease/COPD/asthma? And If yes, do you have difficulty lying flat due to breathing? [] [x] Dementia/stroke? [] [x] Liver disease? [] [x] Other cancers? [] [x] Hepatitis or HIV? [] [x] Diabetes? [] [x] Bleeding disorder? [] [x] History of reaction to suture or glue [] [x] Fibromyalgia or extreme sensitivity to pain? [] [x] Personal history of addiction to alcohol, drugs, or prescription medications? [] [x] Basal cell nevus syndrome (ie genetic syndromes that predispose to skin cancer) [x] [] Other: aneurism on ascending aorta , TIA mid september BLOOD THINNERS: Yes Aspirin Yes No [] [x] NSAIDS [] [x] Fish oil/Multivitamin/Vit E/?? supplements?? (discontinue 1 week before and after surgery) [] [x]???natural?? 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 spouse, children, longterm/residential)? Relevant travel history or future plans: [place] for 4 months in the winter Prior bed tanning use None Does patient need any assistive devices: Cane. Sunscreen use: yes occ. Marital status: . PAST MEDICAL HISTORY Past Medical History: Diagnosis Date ??? Asthma ??? GERD (gastroesophageal reflux disease) ??? Sinusitis PAST SURGICAL HISTORY Past Surgical History: Procedure Laterality Date ??? LIPOMA RESECTION ??? PRG UNLISTED MRI PROCEDURE 08/28/2012 MRI WITH ANESTHESIA performed by Emilia Anesthesia-Johnna at [facility] ??? PRO COLONOSCOPY, REMV LESN, SNARE N/A 03/03/2015 COLONOSCOPY, POLYPECTOMY, REMOVAL LESION BY SNARE performed by Pa Valdez MD at [facility] ENDOSCOPY ??? PRO NASAL SCOPE, BX/RMV POLYP/DEBRID 10/02/2011 NASAL, SINUS ENDOSCOPY, WITH BX, POLYPECTOMY performed by KURTIS GUZMAN at [facility] MAIN OR ??? PRO NASAL SCOPY, REMV TOTL ETHMOID 10/02/2011 NASAL, SINUS ENDOSCOPY, TOTAL ETHMOIDECTOMY-MARGARET performed by KURTIS GUZMAN at [facility] MAIN OR ??? PRO NASAL SCOPY, RMV TISS MAXILL SINUS 10/02/2011 NASAL, SINUS ENDOSCOPY, REMOVE TISSUE MAXILLARY SINUS, MARGARET performed by KURTIS GUZMAN at [facility] MAIN OR ??? PRO STEREOTACTIC CPTR ASSTD PX CRANIAL, EXTRADURAL 10/02/2011 STEREOTACTIC COMPUTER-ASSTD NAVIGATIONAL CRANIAL EXTRADURAL performed by KURTIS GUZMAN at [facility] MAIN OR ??? TESTICLE REMOVAL ALLERGIES: No Known Allergies MEDICATIONS: Current Outpatient Prescriptions on File Prior to Visit Medication Sig Dispense Refill ??? DILTiazem (CARDIZEM CD) 240 mg Capsule, Sust. Release 24 hr take 1 capsule by mouth once daily 0 ??? ASMANEX TWISTHALER 220 mcg (60 doses) Aerosol Powdr Breath Activated ??? Dutasteride-Tamsulosin (RIK) 0.5-0.4 mg CM24 Take by mouth daily. ??? DAILY MULTI-VITAMIN ORAL Take by mouth daily. Reported on 08/30/2016 ??? albuterol (PROVENTIL HFA;VENTOLIN HFA) 90 mcg/Actuation inhaler Inhale 2 puffs into the lungs every 4 hours as needed. Use with spacer ??? GLUC CLAROS/CHONDRO CLAROS A/VIT C/MN (GLUCOSAMINE 1500 COMPLEX ORAL) Take by mouth daily. Reported on 08/30/2016 Current Facility-Administered Medications on File Prior to Visit Medication Dose Route Frequency Provider Last Rate Last Dose ??? propofol (DIPRIVAN) infusion Continuous PRN Mayur Robles CRNA Stopped at 08/28/12 1610 VITAL SIGNS: BP 127/64 Pulse 59 PHYSICAL EXAMINATION: General: patient is awake, alert, oriented and in no acute distress. Skin: Located on the left lateral frontal scalp is a shiny pink bumpy erythematous plaque measuring 1.7 x 0.8 cm and corresponding with recent biopsy site. PHYSICIAN REVIEW OF REPORTS, RECORDS, IMAGES: 1) Biopsy slides with accession # [id number] were reviewed today and I agree with diagnosis of nodular and infiltrative type basal cell carcinoma 2) The accompanying pathology report(s) associated with aforementioned biopsy slide(s) were/was alsoreviewed. Assessment: Geoff Camacho is a 76 y.o. male presenting for biopsy-proven basal cell carcinoma, nodular and infiltrative types, located on the left lateral frontal scalp. Plan: 1. Findings from the biopsy report, my independent review of the histopathology from his biopsy slides, today's clinical exam, and other pertinent details were reviewed with patient today. All questions were answered. 2. Discussed treatment options based on the above findings. We recommended Mohs micrographic surgeryfor treatment of this tumor. Mohs micrographic surgery was indicated due to: [] Anatomic location where tissue conservation is critical [] Immunocompromised (HIV, organ transplant, hematologic malignancy such as CLL, or pharmacologic Immunosuppression) [] Genetic syndromes (basal cell nevus syndrome, xeroderma pigmentosum, other) [] Aggressive histopathology (For BCC: morpheaform/fibrosing/sclerosing, Infiltrating, Perineural, metatypical/keratotic, Micronodular) (For SCC: Sclerosing, Basosquamous, Small cell, Poorly or undifferentiated, Perineural/perivascular, Spindle cell, Pagetoid, KA type on central face, Single cell, Clear cell, Lymphoepithelial, Sarcomatoid, or [place] depth 2 mm or more) [] Incomplete tumor extirpation from prior treatment (i.e. Positive margins) [] Tumor size > 2 cm [] Recurrence of tumor [] Ill-defined clinical borders [] History of radiation at the surgical site 3. We discussed risks, benefits, and alternative treatment options to the Mohs micrographic surgery procedure as below: ?? Risks include bleeding, infection, scar, recurrence, large wound, prolonged wound, pain, swelling, bruising, and more rarely damage to underlying structures such as nerves, cartilage, or muscle which could lead to temporary or permanent loss of sensation or motor function. ?? Benefit is precise tumor removal ?? If reconstruction is performed, it is specific to the patient and defect. ?? Discussed that the shape, size, depth of the wound is often not known until the tumor is cleared and thus the reconstruction options are sometimes not known until after tumor clearance. ?? Reviewed the pros and cons of common reconstructions used for this tumor type, size, and location, and that reconstruction may lead to change in appearance. ?? Reviewed that there are some aspects of cosmesis that are dependent on patient's characteristics such as age, skin laxity/texture factors, inflammatory skin diseases such as rosacea, prior surgery/radiation, degree of actinic damage, smoking status, strength of the patient's immune system, diligentwound care, medications, and genetics. 4. The nature of sun-induced photo-aging and skin cancers was discussed. Recommended sun avoidance when possible, especially peak hours of sun 10 am to 2pm, protective clothing such as wide-brimmed hats and long-sleeved clothing, and the use of SPF broad-spectrum sunscreen SPF 50 or higher. 5. Signs and symptoms of skin cancer reviewed. Patient to report any new, changing, or symptomatic lesions and follow up with his balling machine operator or other skin provider. Summary of Procedure: 1. Please see operative report for complete details. Briefly, the tumor cleared in 1 stage(s). The final defect was repaired by complex linear closure. Suture removal is not required (fast absorbing gut used for top stitches); however, did discuss with patient that the central aspect of his wound may slightly dehisce due to tension, and should this happen, he should continue Vaseline and wound care beyond the currently recommended 7 days, and continue the wound care until the central dehisced portion completely heals. Otherwise, without dehiscence, no suture removal is needed and wound care can stop at day 7. Leobardo Mills MD Mohs Micrographic Surgery and Dermatologic Oncology Section of Dermatology, Department of Surgery Leobardo Mills MD - 11/23/2016 10:00 AM EDT [facility] DERMATOLOGY AT [facility] [address] [place] [address] Dept: [phone] Dept Operative Report Patient name: Geoff Camacho : 1940 Date: 11/23/2016 Staff Surgeon: Leobardo Mills MD Clinic Nurse I: Lucy Billings, Juanita Duron, Savannah Escobar Scissors Sharpener: Effie Eaton Pre-operative diagnosis: basal cell carcinoma, nodular and infiltrative Post-operative diagnosis: basal cell carcinoma, nodular and infiltrative Location: left lateral frontal scalp Procedure: Mohs micrographic surgery Indication for Mohs micrographic surgery: critical anatomic location and more aggressive (infiltrative) histopathology Stages: 1 Final defect size: 2.1 x 1.3 cm Stage I The nature and purpose of the procedure, associated risks, possible consequences and complications,and alternative forms of treatment were explained in detail. Informed consent and permission to takephotographs were obtained. The site was confirmed with the patient/authorized strategic partnership representative/referring physician and a pre-operative time-out was conducted with no unresolved discrepancies noted. Localanesthesia was obtained with 1% lidocaine with 1:100,000 epinephrine. The surgical site was prepped and draped in the usual sterile manner. Clinically apparent tumor was removed by curettage. With all visible gross tumor completely excised, the borders of the tumor were excised as a complete layer 2-3mm in thickness. Hemostasis was achieved by electrocoagulation. The excised tissue was oriented and divided into 3 sections, chromacoded, and submitted for frozen sections. The patient tolerated the procedure well and without complications. On microscopic evaluation of the frozen sections, no residual tumor was identified on the deep or outer border of the sections. The final size of the defect after complete tumor removal was 2.1 x 1.3 cm, extending to subcutaneous fat. Leobardo Mills MD Mohs Micrographic Surgery and Dermatologic Oncology Section of Dermatology, Department of Surgery Repair Operative Report Patient name: Geoff Camacho : 1940 Date: 11/23/2016 Staff Surgeon: Leobardo Mills MD Clinic Nurse I: Lucy Billings, Fidelina Jay, Juanita Raines Clinical Diagnosis: 2.1 x 1.3 cm surgical defect secondary to Mohs microscopically controlled excision of basal cell carcinoma, nodular and infiltrative Location: left lateral frontal scalp Procedure: Complex linear closure of Mohs defect Due to the size and location of the defect resulting from the complete removal of the tumor, the postoperative risk of hemorrhage, infection, and the possibility of serious deformity from scarring, and in order to restore proper function and prevent loss of function, the defect was closed in the following manner. The nature and purpose of the procedure, associated risks, possible consequences, complications andalternative methods of treatment were explained to the patient in detail. An informed consent was obtained. The operative site was anesthetized with 1% lidocaine with 1:100,000 epinephrine. The site was prepped and draped in the usual sterile manner. The edges of the defect were widely undermined at the dermal subcutaneous layer in all directions. The edges could then be approximated without excess tension. Hemostasis was achieved with electrocoagulation. Redundant adjacent tissue was removed as needed. The deep tissues were apposed and sutured with 4-0 Vicryl sutures and the epidermal edges were approximated with 5-0 Fast Absorbing Gut sutures. The resulting complex linear closure measured 4.9 cm. The surgical site was cleaned and white petrolatum with a gauze pressure dressing applied. The patient tolerated the procedure well and without complications and was given both verbal and written instruction on postoperative wound care. Follow up as needed. The patient was discharged in good condition. Leobardo Mills MD Mohs Micrographic Surgery and Dermatologic Oncology Section of Dermatology, Department of Surgery documented in this encounter Plan of Treatment Not on filedocumented as of this encounter Visit Diagnoses Diagnosis Basal cell carcinoma of scalp Basal cell carcinoma of scalp and skin o f neck documented in this encounter Care Teams Doctor Of Nurse Anesthesia Practice Relationship Specialty Start Date End Date Erik Carrasquillo MD PCP - General 02/22/[address] [address] (work) documented as of this encounter
--- OUTSIDE RECORDS SUMMARY | 2021-09-23 12:53 | XMS_ITS | Encounter Summary ---
:1940 Author Organization [facility] [address] Care Team Providers Name Role Phone Erik Carrasquillo MD Primary Care Provider Encounter Details Date Type Department Care Team Description 05/31/2012 Telephone Pulmonology at [facility] Trevor Neumann MD [facility] [address] CRITICAL CARE-PULMONARY [phone] [place], [place] [address] (Wo rk) Social History Tobacco [...] this encounter Miscellaneous Notes Telephone Encounter - Trevor Neumann MD - 05/31/2012 5:57 PM EST PULMONARY TELEPHONE NOTE Called patient to review results of OSH CT. I think it is reasonable to exclude infection with BAL and potentially TBBx. I will schedule this per his preference for 07/2012 to coincide with an appointment with me. Trevor Neumann M.D. Fellow, Pulmonary & Critical Care Medicine documented in this encounter Plan of Treatment Not on filedocumented as of this encounter Visit Diagnoses Not on filedocumented in this encounter Care Teams Burglar Alarm Installer Relationship Specialty Start Date End Date Erik Carrasquillo MD PCP - General 02/22/[address] [place] [id number] documented as of this encounter
--- OUTSIDE RECORDS SUMMARY | 2021-09-23 12:53 | XMS_ITS | Encounter Summary ---
:1940 Author Organization [facility] [address] Care Team Providers Name Role Phone Erik Carrasquillo MD Primary Care Provider Reason for Visit Consultation (MILY) - Specialty Diagnoses / Procedures Referred By Contact Refer red To Contact Cardiac Surgery Diagnoses aortic root aneurysm, pt is very anxious to be seen Jennifer Arteaga MD [facility] [address] [address] [place], [place] [address] [place] [address] Phone: Fax: Referral ID Status Reason Start Date Expiration Date Visits V isits Requested Authorized [id number] Consult, 11/28/2016 11/28/2017 2 2 [facility] Encounter Details Date Type Department Care Team Description 12/08/2016 Office Visit Cardiac Surgery at [facility] MD Vas[facility] [address] DR Guevara [place] CARDIOTHORACIC [address] SURGERY [phone] [place], [place] [address] Social History Tobacco Use Types [...] Sign Reading Time Taken Comments Blood Pressure 134/70 12/08/2016 10:10 AM EDT Pulse 68 12/08/2016 10:10 AM EDT Temperature - - Respiratory Rate - - Oxygen Saturation 94% 12/08/2016 10:10 AM EDT Inhaled Oxygen Concentration - - Weight 81 kg (178 lb 9.6 oz) 12/08/2016 10:10 AM EDT Height 175.3 cm (5' 9) 12/08/2016 10:10 AM EDT Body Mass Index 26.37 12/08/2016 10:10 AM EDT documented in this encounter Progress Notes Rolo Bailey MD - 12/08/2016 10:10 AM EDT I am seeing Mr. Camacho at the request of Dr. Carrasquillo for dilated ascending aorta. 76 yo male who underwent a recent ECHO in workup for a TIA and the ascending aortic measured 4.0 cm.Previous ECHO here in 1999 were read as a mildly dilated ascending aorta. CT scan of the chest todayshows a 3.4 x 3.6 cm ascending aorta. He has a sister who I operated on for aortic aneurysm disease. No Known Allergies Outpatient Prescriptions Marked as Taking for the 12/08/16 encounter (Office Visit) with Rolo Bailey MD Medication Sig Dispense Refill ??? omeprazole (PRILOSEC) 20 mg Capsule, Delayed Release(E.C.) Take 20 mg by mouth daily. ??? pravastatin (PRAVACHOL) 20 mg Tablet Take 20 mg by mouth daily. ??? aspirin 325 mg Tablet Take 325 mg by mouth daily. ??? DILTiazem (CARDIZEM CD) 240 mg Capsule, [...] with spacer Current Facility-Administered Medications for the 12/08/16 encounter (Office Visit) with Rolo Bailey MD Medication Dose Route Frequency Provider Last Rate Last Dose ??? propofol (DIPRIVAN) infusion Continuous PRN Mayur Robles CRNA Stopped at 08/28/12 1610 Patient Active Problem List Diagnosis Code ??? Actinic keratosis L57.0 ??? Asthma J45.909 ??? Sinusitis, chronic J32.9 ??? GERD (gastroesophageal reflux disease) K21.9 ??? Reflux K21.9 ??? Nasal polyposis J33.9 ??? Chronic sinusitis J32.9 ??? Chronic back pain greater than 3 months duration M54.9, G89.29 ??? Aortic insufficiency I35.1 ??? Spinal stenosis of lumbar region M48.06 ??? H/O SVT (supraventricular tachycardia) I47.1 ??? Basal cell carcinoma, forehead C44.319 ??? AK (actinic keratosis) L57.0 Past Medical History: Diagnosis Date ??? Asthma ??? GERD (gastroesophageal reflux disease) ??? Sinusitis Past Surgical History: Procedure Laterality Date ??? LIPOMA RESECTION ??? PRG UNLISTED MRI PROCEDURE 08/28/2012 MRI WITH ANESTHESIA performed by Resource, Anesthesia-Johnna at [facility] JOHNNA ??? PRO COLONOSCOPY, REMV LESN, SNARE N/A 03/03/2015 COLONOSCOPY, POLYPECTOMY, REMOVAL LESION BY SNARE performed by Pa Valdez MD at [facility] ENDOSCOPY ??? PRO NASAL SCOPE, BX/RMV POLYP/DEBRID 10/02/2011 NASAL, SINUS ENDOSCOPY, WITH BX, POLYPECTOMY performed by KURTIS GUZMAN at [facility] MAIN OR ??? PRO NASAL SCOPY, REMV TOTL ETHMOID 10/02/2011 NASAL, SINUS ENDOSCOPY, TOTAL ETHMOIDECTOMY-MARGARET performed by KURTIS GUZMAN at [facility] MAIN OR ??? PRO NASAL SCOPY, RMV TISS MAXILL SINUS 10/02/2011 NASAL, SINUS ENDOSCOPY, REMOVE TISSUE MAXILLARY SINUS, MARGARET performed by KURTIS GUZMAN at [facility] MAIN OR ??? PRO STEREOTACTIC CPTR ASSTD PX CRANIAL, EXTRADURAL 10/02/2011 STEREOTACTIC COMPUTER-ASSTD NAVIGATIONAL CRANIAL EXTRADURAL performed by KURTIS GUZMAN at [facility] MAIN OR ??? 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 Formersmoker who quit many years ago ROS: no chest pain, syncope, or shortness of breath. Some dyspnea with activity Physical Exam: BP 134/70 Pulse 68 Ht 175.3 cm (5' 9) Wt 81 kg (178 lb 9.6 oz) SpO2 94% BMI 26.37 kg/m2 Deferred in favor of discussion A/P: 76 yo male with ECHO measurement of the ascending aorta of 4.[address] scan shows a fairly normal ascending aorta with the measurements within the normal range for his age. He has previous echos that have shown a mildly dilated ascending aorta. It is unlikely that he would develop significant aneurysmal disease. Since a sister had aneurysm disease, the safest approach would be reimage the aorta in two years. I would recommend at repeat CT scan of the chest in two years. This could be done locally through his PCP, I don't think he requires another appointment with me. I would be happy to see himin the future if there is a future concern. documented in this encounter Plan of Treatment Not on filedocumented as of this encounter Visit Diagnoses Diagnosis Ascending aorta enlargement Other specified disorders of arteries an d arterioles documented in this encounter Care Teams Spike Machine Operator Relationship Specialty Start Date End Date Erik Carrasquillo MD PCP - General 02/22/[address] [place] [id number] documented as of this encounter
--- OUTSIDE RECORDS SUMMARY | 2021-09-23 12:53 | XMS_ITS | Encounter Summary ---
:1940 Author Organization [facility] [place] [address] Care Team Providers Name Role Phone Erik Carrasquillo MD Primary Care Provider Reason for Referral Diagnostic Test (Routine) - Closed Specialty Diagnoses / Procedures Referred By Contact Refer red To Contact Radiology Diagnoses Thoracic aortic aneurysm without rupture Josselyn Bauer APRN [facility] Rad Ct Scan Procedures CT Angiogram Of Chest (Non-Coronary) w Contrast CT Angiogram Of Chest (Non-Coronary) [facility] Contrast [facility] [place] [address] [place] [address] Referral ID Status Reason Start Date Expiration Date Visits V isits Requested Authorized [id number] Closed Specialty 12/05/2016 12/05/2017 1 1 Service Requested Reason for Visit Diagnostic Test (Routine) - Closed Specialty Diagnoses / Procedures Referred By Contact Refer red To Contact Radiology Diagnoses Thoracic aortic aneurysm without rupture Josselyn Bauer APRN [facility] Rad Ct Scan Procedures CT Angiogram Of Chest (Non-Coronary) w Contrast CT Angiogram Of Chest (Non-Coronary) [facility] [place] [address] [place] [address] Referral ID Status Reason Start Date Expiration Date Visits V isits Requested Authorized [id number] Closed Specialty 12/05/2016 12/05/2017 1 1 Service Requested Encounter Details Date Type Department Care Team Description 12/08/[address] Scan at [facility] Lizette, Thoracic aortic [facility]AIDA Arcos aneurysm [address] [facility] [place] [facility] [address] CARDIAC SURGERY [phone] [place] [address] Social History Tobacco Use Types Packs/Day Years [...] Sig Dispensed Refills Start Date End Date pravastatin (PRAVACHOL) Take 20 mg by mouth [...] 0 12/31/2020 mg Capsule, Delayed daily. Release(E.C.) aspirin 325 mg Tablet Take 325 mg by mouth 0 11/06/2018 daily. DILTiazem (CARDIZEM CD) take 1 capsule by 0 07/0805/17/2018 240 mg Capsule, Sust. mouth once daily Release 24 hr documented as of this encounter Plan of Treatment Not on filedocumented as of this encounter Procedures Procedure Name Priority Date/Time Associated Diagnosis Comme nts CT ANGIOGRAM OF Routine 12/08/2016 9:57 AM Thoracic aortic Res ults for this CHEST EDT aneurysm without procedure a re in (NON-CORONARY) W rupture the results CONTRAST section. documented in this encounter Results CT Angiogram Of Chest [...] may be helpful for further evaluation. Josselyn Bauer APRN [facility] CT ORDERABLES documented in this encounter Visit Diagnoses Diagnosis Thoracic aortic aneurysm without rupture Thoracic aneurysm without mention of rup ture documented in this encounter Administered Medications Inactive Administered Medications - up to 3 most recent administrations Medication Order MAR Action Action Date Dose Rate Site iohexol (OMNIPAQUE) 350 mg/mL Given 12/08/2016 9:58 AM EDT 60 mL s solution 0-200 mL 0-200 mL, Intravenous, ONCE PRN, 1 dose, Starting on Sun12/08/16 at 0958, Until Sun12/08/16 at 0958, Per Protocol, Warning Vesicant/Irritant Medication , Radiology Contrast, Routine documented in this encounter Care Teams Washing Machine Repairer Relationship Specialty Start Date End Date Erik Carrasquillo MD PCP - General 02/22/[address] [place] [id number] documented as of this encounter
--- OUTSIDE RECORDS SUMMARY | 2021-09-23 12:53 | XMS_ITS | Encounter Summary ---
:1940 Author Organization [facility] [place] [address] Care Team Providers Name Role Phone Bernardo Carrasquillo MD Primary Care Provider Encounter Details Date Type Department Care Team Description 02/24/2013 Follow-Up Cardiology at [facility] Gaston Busch SVT (supraventricular tachyc ardia) (Primary Dx); [facility] MD [address] [place] [address] CARDIOLOGY DEPT. [phone] [place], [place] [address] (Wo rk) Social History Tobacco [...] Sign Reading Time Taken Comments Blood Pressure 138/80 02/24/2013 1:01 PM EST Pulse 80 02/24/2013 1:01 PM EST Temperature - - Respiratory Rate - - Oxygen Saturation 96% 02/24/2013 1:01 PM EST room ai r Inhaled Oxygen Concentration - - Weight 86.6 kg (191 lb) 02/24/2013 1:01 PM EST Height 175.3 cm (5' 9) 02/24/2013 1:01 PM EST Body Mass Index 28.21 02/24/2013 1:01 PM EST documented in this encounter Progress Notes Gaston Busch II, MD - 02/25/2013 2:30 PM EST Patient Name: Geoff Camacho : 1940 Age: 72 y.o. Date of Visit: 02-24-2013 Primary Care Physician: BERNARDO CARRASQUILLO MD Problem List: Patient Active Problem List Diagnosis ??? H/O SVT (supraventricular tachycardia) ??? Spinal stenosis of lumbar region ??? Chronic back pain greater than 3 months duration ??? Aortic insufficiency Reported as mild ??? Reflux ??? Nasal polyposis ??? Chronic sinusitis ??? Asthma ??? Sinusitis, chronic ??? GERD (gastroesophageal reflux disease) ??? Actinic keratosis Mr. Camacho is a 72-year-old gentleman who is referred for cardiac evaluation by his PCP, Dr. Bernardo Carrasquillo, for management of a supraventricular tachycardia and a history of chest pain. In fact, I haveseen Mr. Camacho in clinic before in 2007. He was referred for chest pain. He had a stress test and anecho, both of which were normal. The chest pain seemed to go away and his follow-up which was on a PRN basis ended. His most recent problems began about two years ago as episodes of a ???racing heart beat?? during which he felt lightheaded and nauseous. The duration was usually around 30 seconds or less and the frequency was perhaps once or twice per year. Because of the decreased frequency he never presented to a physician with this problem. However, recently, over the last few weeks, he had notedan increase in the duration and frequency of these episodes. An echocardiogram was performed on 01/03/13 which was normal and he wore a monitor (? Loop recorder) for about a week. On February 02 he wasnoted to have an arrhythmia which was diagnosed as a supraventricular tachycardia. It lasted about aminute. There was no chest discomfort but there was lightheadedness and nausea and a sense of palpitations. He was started on Diltiazem on Feb.06 (180 mg per day) and he has not had a recurrence since then. It should be noted that Mr. Camacho does have a chest pain syndrome which is quite infrequent occurring about once per year. He describes it as a ???pressure?? lasting one to fifteen minutes. He was evaluated back in 2008 with an echo and stress test, both of which were negative. There is no relationship between these episodes of chest pain and his more recent episode of rapid heartbeat. Mr. Camacho also has a history of asthma/COPD. He has been on PRN Albuterol as a rescue inhaler as well as a prophylactic inhaler. His use of Albuterol over the last couple of years has been ???rare?? . About a month or two ago he stopped the prophylactic inhaler and has been using Albuterol on a daily basis since then. He does not recognize any relationship between Albuterol inhalation and his episodes of arrhythmia described above. Cardiac risk factors are positive only for an eleven pack year history of smoking which ended in 1966. There is no history of hypercholesterolemia, hypertension, diabetes or family history of coronary disease. Past Medical History: 1. Chest pain syndrome as above. 2. Symptomatic SVT as above. 3. Asthma/COPD treated currently with a rescue inhaler (Albuterol). 4. GERD. 5. History of spinal stenosis with chronic back pain. 6. History of chronic sinusitis and nasal polyps s/p nasal surgery. Allergies: None. Family History: Sister with cancer and a father with aplastic anemia. Social History: for 55 years; lives in [place], [place]; has five children who are scattered all [place] well as [place]. He is a former [employer]. He still works part-time. He drinks less than 2 glasses of wine per week. He does not smoke. Current Medications: Current Outpatient Rx Name Route Sig Dispense Refill ??? DILTIAZEM CD 180 MG CAPSULE,EXTENDED RELEASE 24 HR Oral Take 180 mg by mouth daily. ??? MONTELUKAST 10 MG TABLET Oral Take 1 tablet by mouth nightly. 30 tablet 12 ??? DUTASTERIDE 0.5 MG-TAMSULOSIN ER 0.4 MG CAPSULE EXT.RELEASE 24HR MPHAS Oral Take by mouth daily. ??? GLUCOSAMINE 1500 COMPLEX ORAL Oral Take by mouth daily. ??? DAILY MULTI-VITAMIN ORAL Oral Take by mouth daily. ??? OMEPRAZOLE 20 MG CAPSULE,DELAYED RELEASE Oral Take 20 mg by mouth daily. ??? FISH OIL CONCENTRATE ORAL Oral Take 1,000 mg by mouth daily. ??? ALBUTEROL SULFATE HFA 90 MCG/ACTUATION AEROSOL INHALER Inhalation Inhale 2 puffs into the lungs every 4 hours as needed. Use with spacer On physical exam, heart rate is 80 and regular. Blood pressure is 138/80. Chest is clear on the left, there are rhonchi in the right base, no wheezing. Cardiac exam reveals normal S1, S2, no murmur, rub or gallop appreciated. Carotid upstrokes are brisk. There are no carotid bruits. Jugular venous pressure is not elevated. Abdominal exam is benign without organomegaly, masses or tenderness. Examination of the extremities reveals no edema. Pulses are intact in the posterior tibial and femoral areas bilaterally. Neurologic exam is grossly nonfocal. ECG reveals normal sinus rhythm, normal ECG. Assessment: 72-year-old gentleman with a history of a chest pain syndrome referred for evaluation ofsupraventricular tachycardia. He apparently has had this documented on some type of monitor; however, the strips have not been sent to me for confirmation. In any event he has been started on Vdnjdytrr280 mg per day and has not had a recurrence over the last 2-1/2 weeks. It???s unclear whether this represents a significant therapeutic effect as yet. He???s also had an echocardiogram which was normal. According to his history he has gone to daily use of Albuterol over approximately the same time period that he has developed a worsening of his SVT. In fact, is use of Albuterol dates back about two years which is the same duration of the SVT episodes. That said, he does not see any temporal relationsh ip between using the Albuterol inhaler and these episodes. Plan: 1. Request the tracings of the cardiac rn from Dr. Ellison??? office and [facility]. 2. Check electrolytes, BUN, creatinine, magnesium and calcium. 3. Continue current medications including Diltiazem. 4. Follow-up contact with Doug when I have more information. 5. Follow-up in this clinic in three months. CC: Bernardo Carrasquillo MD documented in this encounter Plan of Treatment Not on filedocumented as of this encounter Procedures Procedure Name Priority Date/Time Associated Diagnosis Comme nts EKG 12-LEAD Routine 02/24/2013 1:43 PM SVT (supraventricular Results for this EST tachycardia) procedure are i n the results section . documented in this encounter Results EKG 12 Lead (02/24/2013 1:43 PM EST) Component Value Ref Range Test Analysis Performed Pathologis t Method Time At Signature Ventricular rate 76 BPM MUSE SYSTEM Atrial Rate 76 BPM MUSE SYSTEM P-R Interval 186 ms MUSE SYSTEM QRS Duration 92 ms MUSE SYSTEM Q-T Interval 390 ms MUSE SYSTEM QTC Calculated 438 ms MUSE SYSTEM (Bezet) Calculated P [place] 35 degrees MUSE SYSTEM Calculated R [place] -21 degrees MUSE SYSTEM Calculated T [place] 49 degrees MUSE SYSTEM INTERPRETATION Normal sinus rhythm MUSE SYSTEM Normal ECG When compared with ECG of 17-AUG-2012 15:41, Premature ventricular complexes are no longer Present Confirmed by MD EDY, JUNIE ([id number]) on 02/26/2013 3:48:21 PM Specimen Anatomical Collection Method Collection Time Receive d Time (Source) Location / / Volume Laterality 02/24/2013 1:43 PM 3 3:48 EST PM EST Gaston Busch II, MD ECG ORDERABLES Performing Organization Address City/State/ZIP Code Phon e Number MUSE SYSTEM documented in this encounter Visit Diagnoses Diagnosis SVT (supraventricular tachycardia) - [facility] Other specified cardiac dysrhythmias Palpitations documented in this encounter Care Teams Electric Meter Reader Relationship Specialty Start Date End Date Bernardo Carrasquillo MD PCP - General 02/22/10 [address] [place] [address] documented as of this encounter
--- OUTSIDE RECORDS SUMMARY | 2021-09-23 12:53 | XMS_ITS | Encounter Summary ---
:1940 Author Organization [facility] [place] [address] Care Team Providers Name Role Phone Erik Carrasquillo MD Primary Care Provider Encounter Details Date Type Department Care Team Description 07/02/2012 Anesthesia Event [facility] at [facility] [place] [address] [facility] [phone] ANESTHESIOLOGY DEPT. [place], [place] [address] Anesthesia Record Procedure Summary Procedure Name Responsible Anesthesia Start Anesthesia Stop Anesthesiologist Time Time BRONCHOSCOPY (N/A Chest) Events No events on file. No medications [...] on filedocumented in this encounter Care Teams Member Service Representative Relationship Specialty Start Date End Date Erik Carrasquillo MD PCP - General 02/22/[address] [place] [id number] documented as of this encounter
--- OUTSIDE RECORDS SUMMARY | 2021-09-23 12:53 | XMS_ITS | Encounter Summary ---
:1940 Author Organization [facility] [place] [address] Care Team Providers Name Role Phone Erik Carrasquillo MD Primary Care Provider Reason for Visit Reason Comments Sacroilitis Encounter Details Date Type Department Care Team Description 09/17/2012 Procedure visit Pain Management at [facility], Sp inal stenosis of [facility] MD lumbar region [facility] (Primary Dx) [facility] [place] [facility] [id number] [place] [id number] [phone] Social History Tobacco Use Types Packs/Day Years [...] Sign Reading Time Taken Comments Blood Pressure 156/99 09/17/2012 9:03 AM EDT Pulse 99 09/17/2012 9:03 AM EDT Temperature - - Respiratory Rate 16 09/17/2012 9:03 AM EDT Oxygen Saturation 99% 09/17/2012 9:03 AM EDT Inhaled Oxygen Concentration - - Weight 77.1 kg (170 lb) 09/17/2012 8:38 AM EDT Height 175.3 cm (5' 9) 09/17/2012 8:38 AM EDT Body Mass Index 25.1 09/17/2012 8:38 AM EDT documented in this encounter Patient Instructions Patient InstructionsAloYudy bernard RN - 09/17/2012 9:01 AM EDT Pain Management Center Discharge Instructions: You were seen by Dr. Judson Mallory MD who performed lumbar epidural steroid injection. [x] You may resume your normal activities: tomorrow. You may shower today. DO NOT tub bathe, use whirlpools, hot tubs or pool therapy for 2 days. Remove Band-Aid(s) later today/tomorrow. Do not drive until tomorrow. Use caution walking/climbing stairs as you may be unsteady on your feet. You may use your usual medications, including pain medications, as directed, unless otherwise instructed. You may use an ice pack as needed for the first 24 hours, on for 20 minutes then off for 20 minutes.Do not apply heat today. Attempt to empty your bladder 4-6 hours after your procedure. You received the following medications: Depo-Medrol 80 mg, Lidocaine and Omnipaque (contrast dye). During regular business hours, please phone the Pain Management Center at for appointments or with any questions or if the following or other troubling symptoms develop: 1) Prolonged dizziness or weakness (more than 1 day). 2) Localized swelling, redness or drainage at the injection site(s). 3) Temperature of 101 degrees that lasts for more than 4 hours. After 5 PM or on weekends, call and ask for Pain Clinic provider on-call. If you are unable to reach the Pain Management Center and have a complication, please call your Primary Care Provider or proceed to your local emergency department. Yudy Falcon RN Special instructions documented in this encounter Progress Notes Yudy Falcon RN - 09/17/2012 8:41 AM EDT Pre-Procedure Screening Questions: 1. Status: No 2. 3. Patient states they have a team driver to transport after procedure? Yes 4. Patient taking antibiotics at present? No 5. NPO per Pain Management Center protocol? Yes 6. 7. Patient diabetic: No __ borderline (not treated with medications) __ managed with oral medications __ managed with injected medications 8. Patient routinely taking anticoagulants ? No Date stopped Current INR Patient Vital Signs documented in Doc Flowsheets associated with this encounter. Patient Discharge Instructions were reviewed with patient and copy provided to patient. documented in this encounter Procedure Notes [facility] MD - 09/17/2012 9:15 AM EDTAssociated Order(s): EPIDURAL STEROID INJECTION Procedure(s): EPIDURAL STEROID INJECTION Pre-Procedure Diagnose(s): Spinal stenosis of lumbar region EPIDURAL STERIOID INJECTION PROCEDURE NOTE COMMENTS: The patient is 72-year-old male with severe spinal stenosis at multiple levels. He has mostly back pain with some leg numbness and claudication. The plan today is proceed with an epidural steroid injection. Geoff Camacho has been referred to the Pain Management Center for lumbar epidural steroid injection. Geoff Camacho was greeted by the nurse who verified patients name and . Patient was then taken to the fluoroscopy suite. Geoff Camacho was interviewed and the medical record reviewed. There were no medical, pharmacologic, radiographic, or other structural contraindications to attempting fluoroscopically guided L5-S1 injection. Risks and expected side effects as well as potential benefits of the procedure were reviewed with Geoff Camacho and his voiced concerns addressed. The patient consent form was signed and witnessed. Standard time-out procedure was performed. Geoff Camacho was placed in the prone position on the fluoroscopy table and automated blood pressure cuff and pulse oximeter applied. The skin entry point for entering/approaching the epidural space by a mildine L5-S1 and marked. Following thorough chlorhexadine preparation of the skin and draping and 1% lidocaine infiltration of the skin entry point and subcutaneous tissues, a 18 gauge Touhy needlewas placed under fluoroscopic guidance and with loss of resistance technique into the epidural space. Needle tip placement and depth were aided and confirmed by fluoroscopy. There was no paresthesia orreturn of blood or CSF through the needle. 1 cc's of Omnipaque 240 was injected with clear epidural spread confirmed with fluoroscopy. 80mg depomedrol was injected. There was not any unusual discomfortexpressed by Geoff Camacho. Geoff Camacho's vital signs were stable throughout the procedure and were as recorded in nursing records. Follow up plans and appointments were discussed with Geoff Camacho. Post procedure instruction was given as documented in nursing records and having met discharge criteria he was discharged from the Pain Management Center. COMMENTS: He will followup with Dr. Reza. I suggested if he is not getting any relief from this one epidural probably doesn't make sense to repeat it. I would consider repeating an injection at the L. to 3 level. This would most likely need to be transforaminal because of his severe stenosis. We also discussed his stenosis that was noted at the T11-12 level that was causing some cord compression and I suggested that before he goes forward with any surgical evaluation he should have an MRI of his thoracic spine and possibly his cervical spine given the likelihood of stenosis at multiple levels.. documented in this encounter Plan of Treatment Not on filedocumented as of this encounter Procedures Procedure Name Priority Date/Time Associated Diagnosis Comme nts EPIDURAL STEROID Routine 09/17/2012 9:20 AM Spinal stenosis of Results for this INJECTION EDT lumbar region procedure are in the results section. documented in this encounter Results EPIDURAL STEROID INJECTION (09/17/2012 9:20 AM EDT) Narrative [facility] MD - 09/17/2012 9:20 AM EDT [facility]ory MD ? 09/17/2012 ??9:20 AM EPIDURAL STERIOID INJECTION PROCEDURE N OTE COMMENTS: The patient is 72-year-old mal e with severe spinal stenosis at multiple levels. He has most ly back pain with some leg numbness and claudication. The plan today is proceed with an epidural steroid injection. Geoff Camacho ??has been referred to [facility] for lumbar epidural steroid injection. Geoff Camacho was greeted by the nurse who verified patients name and . ??Patient was then taken t o the fluoroscopy suite. Geoff Camacho was interviewed and the m edical record reviewed. ?? There were no medical, pharmacologic, ra diographic, or other structural contraindications to attempti ng fluoroscopically guided L5-S1 injection. Risks and expect ed side effects as well as potential benefits of the procedure w ere reviewed with Geoff Camacho and his voiced concerns addresse d. ??The patient consent form was signed and witnessed. ??Standar d time-out procedure was performed. Geoff Camacho was placed in the prone p osition on the fluoroscopy table and automated blood pr essure cuff and pulse oximeter applied. ??The skin entry point for entering/approaching the epidural space by a mildine L5-S1 an d marked. ??Following thorough chlorhexadine preparation of th e skin and draping and 1% lidocaine infiltration of the skin entry point and subcutaneous tissues, a 18 gauge Touhy needle was varinder demetra under fluoroscopic guidance and with loss of resistance norma hnique into the epidural space. ??Needle tip placement and depth were aided and confirmed by fluoroscopy. There was no paresthesia or return of blood or CSF through the needle. 1 cc's of Omnipa que 240 was injected with clear epidural spread confirmed with flu oroscopy. 80mg depomedrol was injected. There was not any unusual discomfort expressed by Geoff Camacho. Geoff Camacho's vital signs were stable throughout the procedure and were as recorded in nursing records. ?? Follow up plans and appointments were di scussed with Geoff Camacho. Post procedure instruction was gi dilcia as documented in nursing records and having met discharge criteria he was discharged from the Pain Management Cent er. COMMENTS: He will followup with Dr. Sofia morgan. I suggested if he is not getting any relief from this one epi dural probably doesn't make sense to repeat it. I would conside r repeating an injection at the L. to 3 level. This would most jacquelyn hughes need to be transforaminal because of his severe álvaro nosis. We also discussed his stenosis that was noted at the T11-1 2 level that was causing some cord compression and I suggested th at before he goes forward with any surgical evaluation he should h ave an MRI of his thoracic spine and possibly his cervical spine given the likelihood of stenosis at multiple level s.. Procedure Note [facility] Mallory MD - 09/17/2012 9:15 AM EDT EPIDURAL STERIOID INJECTION PROCEDURE N OTE COMMENTS: The patient is 72-year-old mal e with severe spinal stenosis at multiple levels. He has mostly back pain with some leg numbness and claudication. The plan today is proceed with an epidural steroid injection. Geoff Camacho has been referred to the [facility] Management Center for lumbar epidural steroid injection. Geoff Camacho was greeted by the nurse who verified patients name and . Patient was then taken to the fluoroscopy suite. Geoff Camacho was interviewed and the m edical record reviewed. There were no medical, pharmacologic, radiographic, or other structural contraindications to attempting fluoroscopically guided L5-S1 injection. Risks and expected side effects as well as potential benefits of the procedure were reviewed with Geoff Camacho and his voiced concerns addressed. The patient consent form was signed and witnessed. Standard time-out procedure was performed. Geoff Camacho was placed in the prone p osition on the fluoroscopy table and automated blood pressure cuff and pulse oximeter applied. The skin entry point for entering/approaching the epidural space by a mildine L5-S1 and marked. Following thorough chlorhexa dine preparation of the skin and draping and 1% lidocaine infiltration of the skin entry point and subcutaneous tissues, a 18 gauge Touhy needle was placed under fluoroscopic guidance and with loss of r esistance technique into the epidural space. Needle tip placement and depth were aided and confirmed by fluoroscopy. There was no paresthesia or return of blood or CSF through the needle. 1 cc's of Omnipaque 240 was injected with clear epidural spread confirmed with fluoroscopy. 80mg depomedrol was injected. There was not any unusual discomfort expressed by Geoff Camacho. Geoff Camacho's vital signs were stable throughout the procedure and were as recorded in nursing records. Follow up plans and appointments were di scussed with Geoff Camacho. Post procedure instruction was given as documented in nursing records and having met discharge criteria he was discharged from the Pain Management Center. COMMENTS: He will followup with Dr. Sofia morgan. I suggested if he is not getting any relief from this one epidural probably doesn't make sense to repeat it. I would consider repeating an injection at the L. to 3 level. This would most likely need to be transf oraminal because of his severe stenosis. We also discussed his stenosis that was noted at the T11-12 level that was causing some cord compression and I suggested that before he goes forward with any surgical evalua tion he should have an MRI of his thoracic spine and possibly his cervical spine given the likelihood of stenosis at multiple levels.. uJdson Mallory MD NEUROLOGY ORDERABLES documented in this encounter Visit Diagnoses Diagnosis Spinal stenosis of lumbar region - Prima ry Spinal stenosis, lumbar region, without neurogenic claudication documented in this encounter Administered Medications Inactive Administered Medications - up to 3 most recent administrations Medication Order MAR Action Action Date Dose Rate Site iohexol (OMNIPAQUE) injection 1 mL Given 09/17/2012 9:45 AM EDT 1 mL 1 mL, Other, ONCE, 1 dose, On Sun09/17/12 at 0945, 49 ml wasted, Routine methylPREDNISolone acetate (depo-MEDROL) Given 09/17/2012 9:45 A M EDT 80 mg injection 80 mg 80 mg, Epidural, ONCE, 1 dose, On Sun09/17/12 at 0945, Routine documented in this encounter Care Teams Lead Welder Relationship Specialty Start Date End Date Erik Carrasquillo MD PCP - General 02/22/[address] [place] [id number] documented as of this encounter
--- OUTSIDE RECORDS SUMMARY | 2021-09-23 12:53 | XMS_ITS | Encounter Summary ---
:1940 Author Organization [facility] [place] [address] Care Team Providers Name Role Phone Erik Carrasquillo MD Primary Care Provider Reason for Visit Reason Comments Follow-up Skin Check Encounter Details Date Type Department Care Team Description 01/31/2018 Office Visit Dermatology at [facility], History of SCC Mikel TAMEZ (squamous cell [address] carcinoma) of skin [facility] DERMATOLOGY [place], [place] [id number] [phone] Social History Tobacco Use Types Packs/Day Years [...] encounter Progress Notes Onofre Jacome MD - 01/31/2018 3:30 PM EDT Problem: Right dorsal hand lesion Don follows up after last being seen in September. He has had the rapid growth of a hyperkeratotic noduleon the right dorsal hand between the first and second fingers. He is here today with his Lilly. Physical examination reveals a pleasant 77-year-old gentleman who has a 1.2 cm hyperkeratotic nodulewith central crater consistent with a SCCA . 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 After obtaining informed consent, site was anesthetized and removed with shave C&D 2. Triple antibiotic and bandage placement. After curettage site measured 1.3 cm 3. Wound care instructions and supplies were given 4. Keep appointment in September 2018 for his next visit. Will notify patient about today's biopsy results when these are available in 1 week. CC: Erik Carrasquillo MD documented in this encounter Plan of Treatment Not on filedocumented as of this encounter Visit Diagnoses Diagnosis History of SCC (squamous cell carcinoma) of skin Personal history of other malignant neop lasm of skin documented in this encounter Care Teams Cyber Reverse Engineer Relationship Specialty Start Date End Date Erik Carrasquillo MD PCP - General 02/22/[address] [place] [id number] documented as of this encounter
--- OUTSIDE RECORDS SUMMARY | 2021-09-23 12:53 | XMS_ITS | Encounter Summary ---
:1940 Author Organization [facility] [place] [address] Care Team Providers Name Role Phone Erik Carrasquillo MD Primary Care Provider Encounter Details Date Type Department Care Team Description 03/03/2015 [place] [facility] [place] COLONOSCOPY, [facility] D [facility]ve [facility] POLYPECTOMY, [place] [address] [address] [address] SN[address] ([facility] [phone] GASTROENTEROLOGY 4.67) DEPT. [place], [place] [address] Social History Tobacco Use Types [...] Reading Time Taken Comments Blood Pressure 109/65 03/03/2015 9:48 AM EST Pulse 78 03/03/2015 9:48 AM EST Temperature - - Respiratory Rate 16 03/03/2015 9:48 AM EST Oxygen Saturation 98% 03/03/2015 9:48 AM EST Inhaled Oxygen Concentration - - Weight 79.4 kg (175 lb) 03/03/2015 8:50 AM EST Height 175.3 cm (5' 9.02) 03/03/2015 8:50 AM EST Body Mass Index 25.83 03/03/2015 8:50 AM EST documented in this encounter Discharge Instructions Discharge InstructionsDamián Ospina RN - 03/03/2015 9:48 AM EST You may have received medication before and/or during your procedure which effects judgement and reaction time. Do not drive, operate machinery, drink alcoholic beverages, or make important decisions for 24 hours. Be careful on stairs, as you may be unsteady on your feet. You may eat a regular diet as tolerated. Do not smoke if you are alone. IV site -- slight redness or tenderness is normal. You may use a warm compress. If tenderness and redness increases or foul drainage occurs please contact your M.D. Please call [phone] before 5 pm with problems, questions or concerns. After 5pm call [phone] and ask to speak with the power chisel operator personnel director. Discharge instructions reviewed with patientwho expresses understanding. Patient InstructionsPa Valdez MD - 03/03/2015 9:45 AM EST Please see Recommendations in the Provation procedure report which is documented in the procedural note in E-DH. AttachmentsThe following attachments cannot be sent through Care Everywhere. COLONOSCOPY : POST-OP ([place])documented in this encounter Medications at Time of Discharge Medication Sig Dispensed Refills Start Date End Date Dutasteride-Tamsulosin Take by mouth daily. 0 (RIK) 0.5-0.4 mg CM24 DAILY MULTI-VITAMIN Take by mouth daily. 0 ORAL Reported on 08/30/2016 albuterol (PROVENTIL Inhale 2 puffs into 0 HFA;VENTOLIN HFA) 90 the lungs every 4 mcg/Actuation inhaler hours as needed. Use with spacer MOMETASONE FUROATE Inhale 1 each into the 0 08/30/2016 (ASMANEX HFA lungs daily. INHL)Indications: Indications: Asthma asthma prevention Prevention ipratropium (ATROVENT) instill 2 sprays into 30 mL 12 08/30/2016 0.03 % [place], each nostril every 12 Non-AerosolIndications: hours COAD (chronic obstructive airways disease) DILTiazem (CARDIZEM CD) Take 180 mg by mouth 0 08/30/2016 180 mg 24 hr capsule daily. GLUC CLAROS/CHONDRO CLAROS Take by mouth daily. 0 12/08/2016 A/VIT C/MN (GLUCOSAMINE Reported on 08/30/2016 1500 COMPLEX ORAL) omeprazole (PRILOSEC) Take 20 mg by mouth 0 08/30/2016 20 mg capsule daily. OMEGA-3 FATTY ACIDS Take 1,000 mg by mouth 0 08/30/2016 (FISH OIL CONCENTRATE daily. ORAL) documented as of this encounter H&P Notes Pa Valdez MD - 03/03/2015 9:08 AM EST See pcp notes; see pulmonary notes; screening colo; not anemic; stable weight; no family history of CRC; risks explained; consent signed; anesthesia assistance required due to severe pulmonary issues. documented in this encounter Plan of Treatment Not on filedocumented as of this encounter Procedures Procedure Name Priority Date/Time Associated Comments Diagnosis SURGICAL PATHOLOGY Routine 03/03/2015 9:45 AM Res ults for this REPORT EST procedure are i n the results section. SPECIMEN TO PATHOLOGY Routine 03/03/2015 9:45 AM Results for this EST procedure are i n the results section. SPECIMEN TO PATHOLOGY Routine 03/03/2015 9:45 AM Results for this EST procedure are i n the results section. SPECIMEN TO PATHOLOGY Routine 03/03/2015 9:45 AM Results for this EST procedure are i n the results section. COLONOSCOPY, 03/03/2015 9:21 AM 10 yr surv POLYPECTOMY, REMOVAL EST consult LESION BY SNARE (WRVU 4.67) COLONOSCOPY Routine 03/03/2015 9:12 AM Results f or this EST procedure are i n the results section. documented in this encounter Results Surgical Pathology Report (03/03/2015 9:45 AM EST) [facility] Method Time Signature Surgical The signing pathologist has (i) examined the relevant preparation(s) for the [facility] Pathology specimen(s) and (ii) rendered or confirmed the diagnosis(e s). [facility] Report Accession Number: [id number] ?Location: 4 T; EA10; A . ?Surgic al Pathology DIAGNOSIS A - Cecum, biopsy: Fragments of colonic mucosa with mild nonspecific inflammation, suggestive of inflammatory polyp(s). B - Ascending colon, biopsy: Tubular adenoma. C - Rectum, polypectomy: Tubular adenoma. CR-0, CR-PX 03/03/15 DNT 03/05/15 Verified by: ? Radha TAMEZ, Lloyd Pedro ?Pathologist ?(Electronic Signature ) The attending pathologist whose signature appears on this re port has reviewed all diagnostic slides and has edited the gross and/ or microscopic portion of the report in kiki dering the final pathologic diagnosis. CLINICAL INFORMATION Specimen Submitted: A - Cecum B - Ascending colon C - Rectum Clinical History: Screening colonoscopy Clinical Diagnosis: A - 2 small polyps; 2-3 mm each; flat;? ??TAs B - 4 mm sessile polyp;? ??TA C - 4 mm sessile polyp:? ??TA SPECIMEN PROCESSING A - Labeled/Fixative: Cecum, formalin. Quantity/Size: Three, 0.2-0.4 cm. Tissue Description: Soft, ocampo-pink tissue. Sections/Processing: (T1) B - Labeled/Fixative: Ascending colon, formalin. Quantity/Size: Single, 0.3 cm. Tissue Description: Soft, yellow-ocampo tissue. Sections/Processing: (T1) C - Labeled/Fixative: Rectum, formalin. Quantity/Size: Single, 0.4 cm. Tissue Description: Polypoid, pink-ocampo tissue. Sections/Processing: (T1) ??ejr Specimen (Source) Anatomical Collection Method Collection Time Re ceived Time Location / / Volume Laterality 03/03/2015 9:45 AM EST Pa Valdez MD PATHOLOGY/CYTOLOGY ORDERABLE S Performing Organization Address City/[facility]/[place] [address] CERNER MILLENNIUM Specimen to Pathology (surgical or derm) (03/03/2015 9:45 AM EST) Specimen Anatomical Collection Method Collection Time Receive d Time (Source) Location / / Volume Laterality AP Specimen 03/03/2015 9:45 AM 5 9:45 EST AM EST Narrative CERNER MILLENNIUM - 03/03/2015 9:[address] Specimen requisition ordered. ??Separate Pathology report to follow Pa Valdez MD PATHOLOGY/CYTOLOGY ORDERABLE S Performing Organization Address [facility] [place] [address] CERNER MILLENNIUM Specimen to Pathology (surgical or derm) (03/03/2015 9:45 AM EST) Specimen Anatomical Collection Method Collection Time Receive d Time (Source) Location / / Volume Laterality AP Specimen 03/03/2015 9:45 AM 5 9:45 EST AM EST Narrative CERNER MILLENNIUM - 03/03/2015 9:[address] Specimen requisition ordered. ??Separate Pathology report to follow Pa Valdez MD PATHOLOGY/CYTOLOGY ORDERABLE S Performing Organization Address City/[facility]/[place] [address] CERNER MILLENNIUM Specimen to Pathology (surgical or derm) (03/03/2015 9:45 AM EST) Specimen Anatomical Collection Method Collection Time Receive d Time (Source) Location / / Volume Laterality AP Specimen 03/03/2015 9:45 AM 5 9:45 EST AM EST Narrative CERNER MILLENNIUM - 03/03/2015 9:[address] Specimen requisition ordered. ??Separate Pathology report to follow Pa Valdez MD PATHOLOGY/CYTOLOGY ORDERABLE S Performing Organization Address City/[facility] Code [place] [address] BRIANNA MILLENNIUM COLONOSCOPY (03/03/2015 9:12 AM EST) [facility] Method Time Signature COLONOSCOPY [facility] PROVATION Endoscopy Patient Name: Geoff Camacho ? Procedure Date: 03/03/2015 9:12 AM ? Date of : 1940 ? Age: 74 ? Order #: [id number] ? Procedure: ? Colonoscopy Indications: ? Screening for colorectal malignant ? neoplasm Providers: ? Pa Valdez MD, Mireya Gay ? Kamlesh, PATTI, Manuel Purvis i, ? Fire Claims Adjuster Referring MD: ?Erik Carrasquillo MD Medicines: ? Monitored Anesthesia Care Complications: ? No immediate complications. Procedure: ? The procedure, indications, benefi ts, ? risks and alternatives were e xplained ? to the patient. Specifically ? discussed were potential ? complications including, but not ? limited to, bleeding, perfora tion, ? infection, missing a cancer, and ? adverse medication reactions. The ? patient was placed in the lef t ? lateral decubitus position, a nd a ? digital rectal exam was perfo rmed. ? The Colonoscope was inserted in the ? anus and under direct visuali zation, ? advanced to the terminal ileu m. ? Careful inspection was made a s the ? colonoscope was withdrawn. Th e ? colonoscopy was performed wit hout ? difficulty. The patient siri ated the ? procedure well. The quality o f the ? bowel preparation was good. ? Findings: ? The terminal ileum appeared normal. ? Two sessile polyps were found in the cecum. The ? polyps were 2 to 3 mm in size. These polyps were ? removed with a jumbo cold forceps. Resection and ? retrieval were complete (jar 1). ? A 4 mm polyp was found in the ascending colon. The ? polyp was sessile. The polyp was removed with a cold ? snare. Resection and retrieval were complete (jar 2). ? The transverse colon appeared normal. ? The descending colon appeared normal. ? Multiple small and large-mouthed diverticula were ? found in the sigmoid colon. ? A 4 mm polyp was found in the rectum. The polyp was ? sessile. The polyp was removed with a cold snare. ? Resection and retrieval were complete (jar 3). ? Non-bleeding external and internal hemorrhoids were ? found during retroflexion. ? Impression: ?- The examined portion of the ileu m ? was normal. ? - Two 2 to 3 mm polyps in the cecum. ? Resected and retrieved. ? - One 4 mm polyp in the ascen ding ? colon. Resected and retrieved . ? - The transverse colon is nor mal. ? - The descending colon is nor mal. ? - Diverticulosis in the sigmo id colon. ? - One 4 mm polyp in the rectu m. ? Resected and retrieved. ? - Non-bleeding external and i nternal ? hemorrhoids. Recommendation: ?- Repeat colonoscopy at appointment ? to be scheduled for surveilla nce ? based on pathology results. ? - Letter with pathology resul ts to be ? sent to patient and provider in 11-09 ? days. ? - Return to primary care phys ician as ? previously scheduled. ? Procedure Code(s): ?? --- Professional --- ? 54007, Colonoscopy, flexible; with ? removal of tumor(s), polyp(s) , or ? other lesion(s) by snare tech nique ? 03198, 59, Colonoscopy, flexi ble; ? with biopsy, single or multip le CPT copyright 2014 [employer]. All rights reserved. The codes documented in this report are preliminary and upon green promotions specialist review may be revised to meet current compliance requirements. Attending Participation: ? I personally performed the entire procedure. ? Pa Valdez MD 03/03/2015 9:54 AM This report has been signed electronically. Number of Addenda: 0 Note Initiated On: 03/03/2015 9:12 AM Specimen (Source) Anatomical Collection Method Collection Time Re ceived Time Location / / Volume Laterality 03/03/2015 9:12 AM EST Erik Carrasquillo MD GENERAL SURGICAL ORDERABLES Performing Organization Address City/State/ZIP Code Phon e Number PROVATION documented in this encounter Visit Diagnoses Not [...] Procedure) New Bag 03/03/2015 9:20 AM EST documented in this encounter Active and Recently Administered Medications Times are shown in EST. Continuous Medication Order 03/01/2015 03/02/2015 03/03/2015 lactated ringers infusion (CANCELED) 0920 (New Bag - Provider: Chau Cho)0938 (Anesthesia Volume Adjustment - Provider: Chau Cho)0945 (New Bag - Provider: Domonique Weldon RN) 50 mL/hr, at 50 mL/hr, Intravenous, CONT INUOUS, Starting Sun03/03/15 at 0945, Until Sun03/03/15 at 1011, Endo (Day of Procedure) documented in this encounter Care Teams Experimental Machinist Relationship Specialty Start Date End Date Erik Carrasquillo MD PCP - General 02/22/[address] [place] [id number] documented as of this encounter
--- OUTSIDE RECORDS SUMMARY | 2021-09-23 12:53 | XMS_ITS | Encounter Summary ---
:1940 Author Organization [facility] [place] [address] Care Team Providers Name Role Phone Erik Carrasquillo MD Primary Care Provider Reason for Visit Reason Comments Medication Refill Encounter Details Date Type Department Care Team Description 03/07/2014 Refill Pulmonology at [facility] [place] Andrea Ferreira MD [facility] [place] [address] PULMONARY MEDICINE [phone] [place] [phone] (Wo rk) Social History Tobacco Use Types [...] on filedocumented in this encounter Care Teams Border Machine Operator Relationship Specialty Start Date End Date Erik Carrasquillo MD PCP - General 02/22/10 [address] [place] [address] documented as of this encounter
--- OUTSIDE RECORDS SUMMARY | 2021-09-23 12:53 | XMS_ITS | Encounter Summary ---
:1940 Author Organization [facility] [address] Care Team Providers Name Role Phone Erik Carrasquillo MD Primary Care Provider Encounter Details Date Type Department Care Team Description 03/03/2015 Hospital Encounter Gastroenterology at [facility] [place] Pa Valdez MD [facility] [place] [address] [facility] Erickson Orellana MD [facility] [place] [address] [place] [address] Social History Tobacco Use Types Packs/Day [...] occurs please contact your M.D. Please call [phone] before 5 pm with problems, questions or concerns. After 5pm call [phone] and ask to speak with the power lineman data integration architect. Discharge instructions reviewed with patientwho expresses understanding. Patient InstructionsPa Valdez MD - 03/03/2015 9:45 AM EST Please see Recommendations in the Provation procedure report which is documented in the procedural note in E-DH. AttachmentsThe following attachments cannot be sent through Care Everywhere. COLONOSCOPY : POST-OP ([place])documented in this encounter Medications at Time of [...] into 30 mL 12 08/30/2016 0.03 % [place], each nostril every 12 Non-AerosolIndications: hours COAD [...] Surgical Pathology Report (03/03/2015 9:45 AM EST) [facility] Method Time Signature Surgical The signing pathologist has (i) examined the relevant preparation([facility]) [facility] specimen(s) and (ii) rendered or confirmed the diagnosis(e s). [facility] Report Accession Number: [id number] ?Location: 4 T; EA10; A . ?Surgic al Pathology DIAGNOSIS A - Cecum, biopsy: Fragments of colonic mucosa with mild nonspecific inflammation, suggestive of inflammatory polyp(s). B - Ascending colon, biopsy: Tubular adenoma. C - Rectum, polypectomy: Tubular adenoma. CR-0, CR-PX 03/03/15 DNT 03/05/15 Verified by: ? Lloyd Garcia MD ?Pathologist ?(Electronic Signature ) The attending pathologist [...] MD PATHOLOGY/CYTOLOGY ORDERABLE S Performing Organization Address City/[facility]/ZIP Code Phon e Number [address] CERNER MILLENNIUM Specimen to Pathology [...] MD PATHOLOGY/CYTOLOGY ORDERABLE S Performing Organization Address City/[facility]/ZIP Code Phon e Number [address] CERNER MILLENNIUM Specimen to Pathology [...] MD PATHOLOGY/CYTOLOGY ORDERABLE S Performing Organization Address City/[facility]/[place] [address] CERNER MILLENNIUM Specimen to [...] MD PATHOLOGY/CYTOLOGY ORDERABLE S Performing Organization Address City/[facility]/[place] [address] [facility] COL[facility] (03/03/2015 9:12 AM EST) [facility] Method Time Signature COLONOSCOPY [facility] PROVATION Endoscopy Patient Name: Geoff Camacho ? Procedure Date: 03/03/2015 9:12 AM ? N: [id number] ? Date of : 1940 ? Age: 74 ? Order #: [id number] ? Procedure: ? Colonoscopy Indications: ? Screening for colorectal malignant ? neoplasm Providers: ? Pa Valdez MD, Mireya Gay ? PATTI [place], Manuel Purvis i, ? Temper Mill Operator Referring MD: ?Erik Carrasquillo MD Medicines: ? [...] These polyps were ? removed with a Munchkinmbo cold forceps. Resection and ? retrieval were [...] Procedure Code(s): ?? --- Professional --- ? 82827, Colonoscopy, flexible; with ? removal of tumor(s), polyp(s) , or ? other lesion(s) by snare tech nique ? 85032, 59, Colonoscopy, flexi ble; ? with biopsy, single or multip le CPT copyright 2014 [employer]. All rights reserved. The codes documented in this report are preliminary and upon lieutenant ballistics review may be revised to meet current [...] Procedure) documented in this encounter Care Teams Preschool Adviser Relationship Specialty Start Date End Date Erik Carrasquillo MD PCP - General 02/22/[address] [place] [id number] documented as of this encounter
--- OUTSIDE RECORDS SUMMARY | 2021-09-23 12:53 | XMS_ITS | Encounter Summary ---
:1940 Author Organization [facility] [place] [address] Care Team Providers Name Role Phone Erik Carrasquillo MD Primary Care Provider Encounter Details Date Type Department Care Team Description 02/11/2013 Hospital Encounter Pulmonology [place] [facility] PFT ROOM 1 COPD (chronic obstructive pu lmonary disease); [facility] Shaji Valderrama Jr., MD [facility] [place] [address] [place] [address] Social History Tobacco Use Types Packs/Day Years [...] 08/30/2016 180 mg 24 hr capsule daily. montelukast (SINGULAIR) Take 1 tablet by 30 tablet 12 201203/03/2015 10 mg tabletIndications: mouth nightly. COPD (chronic obstructive pulmonary disease), Rhinitis GLUC CLAROS/CHONDRO CLAROS A/VIT Take by mouth daily. 0 12/08/2016 C/MN (GLUCOSAMINE 1500 Reported on 08/30/2016 COMPLEX ORAL) omeprazole (PRILOSEC) 20 Take 20 mg by mouth 0 08/30/2016 mg capsule daily. OMEGA-3 FATTY ACIDS Take 1,000 mg by 0 08/30/2016 (FISH OIL CONCENTRATE mouth daily. ORAL) documented as of this encounter Procedure Notes Shaji Valderrama Jr., MD - 02/11/2013 3:37 PM ESTAssociated Order(s): PULMONARY FUNCTION TEST Exhaled Nitric Oxide Level (FeNO) Testing FeNO is 9 ppb, which is low. --Nata Valderrama MD Range: Adult Children Low < 25 ppb < 20 ppb Intermediate 25 - 50 ppb 20 - 35 ppb High > 50 ppb > 35 ppb Reference: Am J Respir Crit Care Med 184: 602-15, 2011. documented in this encounter Plan of Treatment Not on filedocumented as of this encounter Procedures Procedure Name Priority Date/Time Associated Diagnosis Comme nts PULMONARY FUNCTION Routine 02/11/2013 3:37 PM COPD (chronic Re sults for this TEST EST obstructive procedure are i n pulmonary diseas e) the results Rhinitis section. documented in this encounter Results Pulmonary Function Testing (02/11/2013 [...] Respir Crit Care Med 184 : 602-15, 2011. Procedure Note Shaji Valderrama Jr., MD - [...] Respir Crit Care Med 184 : 602-15, 2011. Andrea Ferreira MD PFT ORDERABLES documented in this encounter Visit Diagnoses Diagnosis COPD (chronic obstructive pulmonary dise ase) Chronic airway obstruction, not elsewher e classified Rhinitis Chronic rhinitis documented in this encounter Care Teams Bronc Breaker Relationship Specialty Start Date End Date Erik Carrasquillo MD PCP - General 02/22/[address] [place] [id number] documented as of this encounter
--- OUTSIDE RECORDS SUMMARY | 2021-09-23 12:53 | XMS_ITS | Encounter Summary ---
:1940 Author Organization [facility] [place] [address] Care Team Providers Name Role Phone Erik Carrasquillo MD Primary Care Provider Reason for Visit Reason Comments Back Pain Encounter Details Date Type Department Care Team Description 12/23/2012 Office Visit Pain Management at Fracisco Mallory MD [facility] [place] [address] Low back pain (Primary [place] Amador Kinney MD [facility] [place] [address] Dx) [place] [id number] Social History Tobacco Use Types Packs/Day Years [...] Sign Reading Time Taken Comments Blood Pressure 155/96 12/23/2012 10:25 AM EDT Pulse 94 12/23/2012 10:25 AM EDT Temperature - - Respiratory Rate 18 12/23/2012 10:25 AM EDT Oxygen Saturation 98% 12/23/2012 10:25 AM EDT Inhaled Oxygen Concentration - - Weight 77.1 kg (170 lb) 12/23/2012 10:25 AM EDT Height 175.3 cm (5' 9) 12/23/2012 10:25 AM EDT Body Mass Index 25.1 12/23/2012 10:25 AM EDT documented in this encounter Progress Notes Amador Kinney MD - 12/23/2012 10:57 AM EDT PAIN CLINIC FOLLOW-UP Geoff Camacho [id number] Reason for follow-up: Received LESI in 08/2012, returned to Dr. Ortiz after 1 mo of no relief who thought RF might be an option to consider. Chief Complaint: Pt is pain free today. He is interested in discussing RF options should his pain return in the future. Identification: Mr. Camacho is a 72 y.o.-year-old male, who has a history of spinal stenosis from Tspine to Lspine, s/p LESI in 08/2012, initially with minimal benefit but gradually has become pain free since that time. History of Present Illness/Interval History Pain Location: Previously low-back pain Pain Relief: No pain today Side Effects: none Pain Quality: none Depression: none Anxiety: none Sleep: normal Smoking: former Alcohol: normal Functional Status: excellent Past Treatments Medications Opioid and NSAIDs Physical Therapy yes Procedures LESI Surgeries None, per Dr. Ortiz he is not a candidate Other Review of Systems Constitutional Denies weight loss or gain, fevers, chills, nightsweats Cardiovascular Denies chest pain, palpitations. Respiratory Denies cough, SOB, ANDERS. GI Denies constipation, diarrhea, nausea, vomiting, GERD Musculoskeletal Painless. Neurologic Denies fainting spells, seizures, memory loss. Sleep is satisfactory. Physical Exam Blood pressure 155/96, pulse 94, resp. rate 18, height 175.3 cm (5' 9), weight 77.111 kg (170 lb), SpO2 98.00%. Constitutional AxOx3, NAD Psychiatric Affect is appropriate. Goal directed thought process. Good eye contact. No pain behaviors. Lungs Clear to auscultation Cardiac Reg RR without murmur, rub Musculoskeletal Inspection of spine reveals normal posture, some scoliosis. Full range of motion of all joints of upper and lower extremities without tenderness, synovitis or effusions Neuro Motor: Deltoid, biceps, triceps, occ therapy asst 5/5 bilaterally. IP, quads, DF, EHL, PF 5/5 bilaterally. Pinprick-LT discrimination preserved throughout BUE and BLE. Proprioception preserved BUE and BLE. Reflexes: Biceps, triceps, BR 2+ bilaterally. Negative Quinn's bilaterally. Patellar and ankle jerks 2+ bilaterally. No clonus. Toes downgoing. Gait is normal Able to heel walk and able to toe walk. Assessment/Plan Mr. Camacho is a pleasant 72 yo gentleman from [facility] who has significant spinal stenosis previously symptomatic for which we performed a LESI back in August 2012. At that time he was reportedly taking 140 mg of oxycodone/day and was not considered a surgical candidate by Dr. Ortiz d/t no LE symptoms.He returns to clinic today with no pain, off all of pain meds and doing exceptionally well functionally. We discussed that should his pain return and especially if his symptoms are different from prior, then we would recommend new imaging (MRI). If his pain returns and is exactly the same as before I would recommend proceeding with LMBBs towards RF. He voiced understanding and agreement of this plan.He will call our clinic PRN in the future to discuss treatment arrangements if necessary. AMADOR KINNEY MD I have seen the patient and reviewed the resident's above history and I agree with the details as written. The assessment and plan were formulated in discussion with me and I agree with them as documented. FRACISCO MALLORY MD cc: MD Libia LAUGHLIN, Des Spencer MD documented in this encounter Plan of Treatment Not on filedocumented as of this encounter Visit Diagnoses Diagnosis Low back pain - Primary Lumbago documented in this encounter Care Teams Chief Resource Officer Relationship Specialty Start Date End Date Erik Carrasquillo MD PCP - General 02/22/[address] [address] documented as of this encounter
--- OUTSIDE RECORDS SUMMARY | 2021-09-23 12:53 | XMS_ITS | Encounter Summary ---
:1940 Author Organization [facility] [place] [address] Care Team Providers Name Role Phone Erik Carrasquillo MD Primary Care Provider Reason for Visit Reason Comments Skin Check Encounter Details Date Type Department Care Team Description 09/27/2016 Office Visit Dermatology at Onofre Jacome, Zakia c ell carcinoma, forehead; Mikel TAMEZ [place] (actinic keratosis) [address] [facility] B DERMATOLOGY [place], [place] [id number] [phone] Social History Tobacco Use Types Packs/Day Years [...] encounter Progress Notes Onofre Jacome MD - 09/27/2016 1:00 PM EDT PROBLEMS: 1. Repeat skin checkup. 2. 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 3. Left lateral scalp infiltrative BCCA Mohs surgery scheduled in 1 month at [facility]. 4. History of actinic keratoses, status post 2 week course of 5-FU therapy 06/2011. Don follows up after last being seen by me in 2011. In the meantime he was seen at [facility] on [address] Oliveira biopsied 2 sites on his right forehead and left lateral scalp anteriorly that proved to be BCCA. The latter was infiltrated BCCA and Mohs surgery is scheduled. He is here for some new lesions of concern. PHYSICAL EXAMINATION: Reveals actinics present on the upper forehead and the temples. A total of 4 sites are noted. Both biopsy sites from June 30 have healed well. He does not desire examination of the chest and back. ASSESSMENT AND PLAN: Actinic keratoses facial. a. LN2 x2 applied to each of 4 sites. b. Post LN2 instructions given. c. Recommend I see the patient again in another year for a repeat check. We will plan once yearly skin checkups. d. Answered the patient's questions regarding Mohs surgery, although he has already researched this quite thoroughly and had no questions for me about it. Return to clinic in one year. CC: Erik Carrasquillo MD documented in this encounter Plan of Treatment Not on filedocumented as of this encounter Visit Diagnoses Diagnosis Basal cell carcinoma, forehead [place] (actinic keratosis) Actinic keratosis documented in this encounter Care Teams Cane Flume Watcher Relationship Specialty Start Date End Date Erik Carrasquillo MD PCP - General 02/22/[address] [place] [id number] documented as of this encounter
--- OUTSIDE RECORDS SUMMARY | 2021-09-23 12:53 | XMS_ITS | Encounter Summary ---
:1940 Author Organization [facility] [place] [address] Care Team Providers Name Role Phone Erik Carrasquillo MD Primary Care Provider Encounter Details Date Type Department Care Team Description 09/17/2012 Orders Only Pain Management at Judson Mccloud MD [facility] [place] [address] PAIN CLINIC [phone] [place] [phone] (Wo rk) Social History Tobacco Use Types [...] Associated Diagnosis Comme nts FILM LIBRARY Routine 09/17/2012 8:50 AM Results f or this STORAGE ONLY PAIN EDT procedure are in CLINIC C ARM the results section. documented in this encounter Results Film Library-storage only pain clinic C-arm (09/17/2012 8:50 AM EDT) Specimen (Source) Anatomical Collection Method Collection Time Re ceived Time Location / / Volume Laterality 09/17/2012 8:50 AM EDT Narrative RAD - 11/24/2013 11:03 PM EDT This is a non-reportable exam. Procedure Note Aston Oscar - 11/24/2013Formatti ng of this note might be different from the original. This is a non-reportable exam. Judson Mallory MD IMG FILM LIBRARY ORDERABLES Performing Organization Address City/State/ZIP Code Phon e Number [facility] [address] [place] [address] documented in this encounter Visit Diagnoses Not on filedocumented in this encounter Care Teams Metallurgical Technician Relationship Specialty Start Date End Date Erik Carrasquillo MD PCP - General 02/22/[address] [place] [phone] documented as of this encounter
--- OUTSIDE RECORDS SUMMARY | 2021-09-23 12:53 | XMS_ITS | Encounter Summary ---
:1940 Author Organization [facility] [place] [address] Care Team Providers Name Role Phone Erik Carrasquillo MD Primary Care Provider Reason for Visit Reason Comments Follow-up Skin Check Encounter Details Date Type Department Care Team Description 05/17/2018 Office Visit Dermatology at Onofre Jacome, History of SCC (squamous cell carcinoma) of skin; Mikel TAMEZ History of basal cell carcinoma; [address] [place] (actinic keratosis) [facility] B DERMATOLOGY [place], [place] [id number] [phone] Social History Tobacco Use Types Packs/Day Years [...] encounter Progress Notes Onofre Jacome MD - 05/17/2018 2:30 PM EST Assessment and plan: 1. Repeat annual skin checkup 2. History BCC right forehead 07/2016 3. Status post Mohs surgery for infiltrative BCCA left lateral anterior parietal scalp September 2016 4. History of actinic keratoses, status post 2 week course of 5-FU therapy 06/2011 5. New lesion left elbow. SCCA right dorsal hand well-healed from last visit January 2018 Don follows today with his Lilly. He is noted a new lesion on left elbow for some time and growing rapidly over the last several weeks. He asks for a refill of his 5-FU cream but I informed him that that I do would not recommend its use at this time and we will I would want to see him clinicallybefore prescribing a fresh tube Physical examination reveals a pleasant 77-year-old gentleman who has a erythematous hyperkeratotic papule on the left lateral elbow concerning for SCCA of the KA type. The right dorsal hand treatment site from his last visit has healed well. 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 After obtaining consent site was anesthetized and removed shave C&D x3 2. Triple antibiotic and Band-Aid placed. After curettage site measured 9 mm in diameter 3. Wound care instructions and supplies given 4. Return to clinic in September for his regular annual visit. Will likely recommend every 6 month follow-ups in the future. CC: Erik Carrasquillo MD documented in this encounter Plan of Treatment Not on filedocumented as of this encounter Visit Diagnoses Diagnosis History of SCC (squamous cell carcinoma) of skin Personal history of other malignant neop lasm of skin History of basal cell carcinoma Personal history of other malignant neop lasm of skin [place] (actinic keratosis) Actinic keratosis documented in this encounter Care Teams Regulatory Specialist Relationship Specialty Start Date End Date Erik Carrasquillo MD PCP - General 02/22/[address] [place] [phone] documented as of this encounter
--- OUTSIDE RECORDS SUMMARY | 2021-09-23 12:53 | XMS_ITS | Encounter Summary ---
:1939 Author Organization [facility] [place] [address] Care Team Providers Name Role Phone Erik Carrasquillo MD Primary Care Provider Encounter Details Date Type Department Care Team Description 12/06/2016 Orders Only Cardiac Surgery at [facility] [place] [address] Social History Tobacco Use Types Packs/Day [...] on filedocumented in this encounter Care Teams Line Installer Trolley Relationship Specialty Start Date End Date Erik Carrasquillo MD PCP - General 02/22/10 [address] [place], [place] [address] documented as of this encounter
--- OUTSIDE RECORDS SUMMARY | 2021-09-23 12:53 | XMS_ITS | Encounter Summary ---
:1939 Author Organization [facility] [place] [address] Care Team Providers Name Role Phone Erik Carrasquillo MD Primary Care Provider Encounter Details Date Type Department Care Team Description 09/24/2018 Ancillary Procedure Radiology Library at Pedro Ramsay MD [facility] [place] [address] [place] [address] [phone] (Wo rk) Social History Tobacco Use Types [...] Associated Diagnosis Comme nts FILM LIBRARY Routine 09/24/2018 12:00 AM Results for this STORAGE ONLY DX EDT procedure ar e in SHOULDER the results section. documented in this encounter Results Film Library- Storage Only DX Shoulder (09/24/2018 12:00 AM EDT) Specimen (Source) Anatomical Location Collection Method / Collectio n Time Received Time / Laterality Volume Narrative SAQIB - 11/06/2018 2:51 PM EDT This exam is auto-finalizing. It's purpo se is for storage only. Onofre Ramsay MD IMG FILM LIBRARY ORDERABLES Performing Organization Address City/State/ZIP Code Phon e Number [place], [place] documented in this encounter Visit Diagnoses Not on filedocumented in this encounter Care Teams Hand Nailer Relationship Specialty Start Date End Date Erik Carrasquillo MD PCP - General 02/22/[address] [place] [phone] documented as of this encounter
--- OUTSIDE RECORDS SUMMARY | 2021-09-23 12:53 | XMS_ITS | Encounter Summary ---
:1939 Author Organization [facility] [address] Care Team Providers Name Role Phone Erik Carrasquillo MD Primary Care Provider Reason for Visit Reason Comments Medication Refill Encounter Details Date Type Department Care Team Description 03/17/2014 Refill Pul[place]ology at [facility] Andrea Ferreira MD COAD ([facility] [address] [address] disease) [phone] PULMONARY MEDICI [place] [phone] (Wo rk) Social History Tobacco Use Types [...] as of this encounter Visit Diagnoses Diagnosis COAD (chronic obstructive airways diseas e) Chronic airway obstruction, not elsewher e classified documented in this encounter Care Teams Molded Goods Operator Relationship Specialty Start Date End Date Erik Carrasquillo MD PCP - General 02/22/[address] [place] [phone] documented as of this encounter
--- OUTSIDE RECORDS SUMMARY | 2021-09-23 12:53 | XMS_ITS | Encounter Summary ---
:1939 Author Organization [facility] [place] [address] Care Team Providers Name Role Phone Erik Carrasquillo MD Primary Care Provider Reason for Visit Reason Comments Wound Check Encounter Details Date Type Department Care Team Description 12/14/2016 Clinical Support Dermatology at [facility] for wound check [address] [place] [address] Social History Tobacco Use Types Packs/Day Years [...] documented as of this encounter Progress Notes Klaus Ambrosio, WRAPPER STITCHER - 12/14/2016 1:00 PM EDT Images from the original note were not included. CC: Wound check HPI: Patient is a 76 y.o. male with history of basal cell carcinoma, left lateral frontal scalp, s/pMohs, repaired by complex linear 11/23/2016 who presents for wound check. Denies complications. ROS: Otherwise well. No other skin complaints. Exam: General: No acute distress Skin: Limited examination of left lateral frontal scalp shows a well-healed incision. Assessment and Plan 1. Basal cell carcinoma left lateral frontal scalp s/p Mohs with complex linear - Patient seen and evaluated in clinic by Dr. Mills. Follow up with Dr. Mills as needed. KLAUS AMBROSIO CMA Leobardo Mills MD - 12/14/2016 1:00 PM EDT Saw patient and wound is healing appropriately. Two focal areas where I instructed him to continue Vaseline for one week then stop. Bandage optional at this point. Follow up as needed. Leobardo Mills MD Mohs Micrographic Surgery and Dermatologic Oncology Section of Dermatology, Department of Surgery documented in this encounter Plan of Treatment Not on filedocumented as of this encounter Visit Diagnoses Diagnosis Visit for wound check Encounter for other specified aftercare documented in this encounter Care Teams Engineer Automated Equipment Relationship Specialty Start Date End Date Erik Carrasquillo MD PCP - General 02/22/[address] [place] [id number] documented as of this encounter
--- OUTSIDE RECORDS SUMMARY | 2021-09-23 12:53 | XMS_ITS | Encounter Summary ---
:1940 Author Organization [facility] [place] [address] Care Team Providers Name Role Phone Erik Carrasquillo MD Primary Care Provider Reason for Visit Reason Comments Skin Lesion Encounter Details Date Type Department Care Team Description 08/30/2016 Office Visit Dermatology at [facility] Philippe Nair MD Basal cell carcinoma, forehead; [facility] Basal cell carcinoma of scal p [address] [place] [address] [place] [address] RD-DERMATOLOGY [place] [address] Social History Tobacco Use Types Packs/Day Years [...] as of this encounter Patient Instructions Patient InstructionsPaige Santos LPN - 08/30/2016 10:15 AM EDT Treatment and Wound Care Instructions Your treatment today: You have had an Electrodessication and Curretage (ED&C) of your skin, which is a method to remove skin cancer. This wound will heal without stitches. Allow 3-6 weeks for the wound to heal. If bleeding occurs, hold firm pressure against the wound for 15 minutes. If bleeding continues, calls the office or go to your local emergency room. Wound Care Instructions: You will need to keep the dressing placed over the wound dry and intact for 24 hours. Afterwards, perform the following wound care daily: ?? Wash your hands before changing the dressing. ?? Remove the bandage and clean the area with mild soap and water, then gently pat the area dry. ?? Apply a small amount of Vaseline to the area, then cover the wound with a band-aid. Change your dressing daily until the wound is fully healed. ?? A small amount of yellow drainage is part of normal healing. The area might appear as a small depression with redness around the edge of the wound. This is normal. ?? Please contact the office you you notice any of the following signs of infection: increased tenderness, pain, drainage, or redness that becomes hot or hard around the wound. If you have further questions or concerns, please call the office at [phone]. If it is after 5PM, or a holiday or weekend, please call [phone] and ask for the Assembly Press Operator on-call. documented in this encounter Progress Notes Ry Nair MD - 08/30/2016 10:15 AM EDT Images from the original note were not included. DERMATOLOGY NEW PATIENT NOTE Date of service: 08/30/2016 Geoff Camacho : 1940 Provider: Ry Nair MD Chief Complaint Patient presents with ??? Skin Lesion SKIN HISTORY: None HPI Geoff Camacho is a 75 y.o. year old male, new to me and to dermatology. Here today for a non healing lesion on his left scalp. He reports that it has been there for several months perhaps close to a year. He has not treated it with anything. He declines a full skin exam and would like the focus of this visit to be the lesion on his scalp. MEDS: Current Outpatient Prescriptions Medication Sig Dispense Refill ??? ASMANEX TWISTHALER 220 mcg (60 doses) Aerosol Powdr Breath Activated ??? albuterol (PROVENTIL HFA;VENTOLIN HFA) 90 mcg/Actuation inhaler Inhale 2 puffs into the lungs every 4 hours as needed. Use with spacer ??? DILTiazem (CARDIZEM CD) 240 mg Capsule, Sust. Release 24 hr take 1 capsule by mouth once daily 0 ??? Dutasteride-Tamsulosin (RIK) 0.5-0.4 mg CM24 Take by mouth daily. ??? GLUC CLAROS/CHONDRO CLAROS A/VIT C/MN (GLUCOSAMINE 1500 COMPLEX ORAL) Take by mouth daily. Reported on 08/30/2016 ??? DAILY MULTI-VITAMIN ORAL Take by mouth daily. Reported on 08/30/2016 Current Facility-Administered Medications Medication Dose Route Frequency Provider Last Rate Last Dose ??? propofol (DIPRIVAN) infusion Continuous PRN Mayur Robles CRNA Stopped at 08/28/12 1610 ADR: Review of patient's allergies indicates no known allergies. MEDICAL HISTORY: Patient Active Problem List Diagnosis Code ??? Actinic keratosis L57.0 ??? Asthma J45.909 ??? Sinusitis, chronic J32.9 ??? GERD (gastroesophageal reflux disease) K21.9 ??? Reflux K21.9 ??? Nasal polyposis J33.9 ??? Chronic sinusitis J32.9 ??? Chronic back pain greater than 3 months duration M54.9, G89.29 ??? Aortic insufficiency I35.1 ??? Spinal stenosis of lumbar region M48.06 ??? H/O SVT (supraventricular tachycardia) I47.1 FAMILY HISTORY: None SOCIAL/OCCUPATIONAL HISTORY: Dog at home ROS General: feeling well Skin: denies other skin complaints EXAM General: NAD, pleasant, cooperative Skin: An exam of the skin from the neck up was performed. This includes examination of the skin of the face, ears, scalp, and neck. SIGNIFICANT SKIN FINDINGS: A. 1.5 x 1.0cm [place] pearly eroded plaque on the the left lateral frontal scalp B. Right lateral forehead: 5mm pink pearly papule Photo taken and charted with patient consent ASSESSMENT/PLAN: A. R/o BCC - Joint decision made to proceed with skin biopsy for further diagnostic information. - A time-out procedure was performed. Patient denies having a pacemaker or any recent artifical joints within the past 2 years. Patient does not take Abx prior to any dental procedures. Procedure: Destruction of lesion and submission of tissue. Site: left lateral frontal scalp Discussed indications and expectations including risks and benefits. Verbal consent obtained. Skin prep. Local anesthesia: 1% lidocaine with epinephrine. A portion of the lesion was removed sharply to the level of the dermis; submitted to Pathology. The entire lesion plus a small margin was then treated by curettage and electrodesiccation x 3. Post-curettage defect size: 1.7 x 1.2cm. No complications. Wound dressed. Expectations (including discomfort management) and wound care reviewed. Follow-up based on pathology results. B. R/o BCC - Joint decision made to proceed with skin biopsy for further diagnostic information. - A time-out procedure was performed. Patient denies having a pacemaker or any recent artifical joints within the past 2 years. Patient does not take Abx prior to any dental procedures. Procedure: Destruction of lesion and submission of tissue. Site: left lateral forehead Discussed indications and expectations including risks and benefits. Verbal consent obtained. Skin prep. Local anesthesia: 1% lidocaine with epinephrine. A portion of the lesion was removed sharply to the level of the dermis; submitted to Pathology. The entire lesion plus a small margin was then treated by curettage and electrodesiccation x 3. Post-curettage defect size: 7mm. No complications. Wound dressed. Expectations (including discomfort management) and wound care reviewed. Follow up pending pathology results, as well as in 1 year for a full skin exam, sooner if needed. Instructed to call for questions/concerns. I am documenting this encounter acting as the scribe for and in the presence of Dr. Nair.: Paige Santos LPN and Chantel Connor I performed the above scribed service and agree with the accuracy of the documentation in this encounter. Ry Nair MD Survey Research Teacher of Dermatology, Department of Surgery [facility] documented in this encounter Plan of Treatment Not on filedocumented as of this encounter Procedures Procedure Name Priority Date/Time Associated Diagnosis Comme nts SPECIMEN TO Routine 08/30/2016 11:21 AM Basal cell Results for this PATHOLOGY (NON-OR) EDT carcinoma, forehead pr ocedure are in the results section. SURGICAL PATHOLOGY Routine 08/30/2016 11:21 AM Re sults for this REPORT EDT procedure are i n the results section. documented in this encounter Results Surgical Pathology Report (08/30/2016 11:21 AM EDT) Component Value Ref Test Analysis Performed At [facility] Range Method Time Signature Surgical [id number] ?Location: [facility] Pathology [place] Report The signing pathologist has (i) examined the relevant preparation(s) for the [facility] specimen(s) and (ii) rendered or confirmed the diagnosis(es) . H[facility] . ?Surgic al Pathology DIAGNOSIS A. Skin, left lateral frontal scalp, shave biopsy ED ?? &C: - Basal cell carcinoma, nodu lar and infiltrative type, present at the peripheral edge and base of the specimen B. Skin, right lateral forehead, shave biopsy ED ?? &C: - Basal cell carcinoma, supe rficial and nodular type, present at the peripheral edge and base of the specimen Electronically signed by: ??Kiran TAMEZ, Erik Newberry Verified: ??09/01/2016 ?Dermatopathologist CLINICAL INFORMATION Specimen Submitted: A - Skin, left lateral frontal scalp, shave biopsy ED ?? &C (1) B - Skin, right lateral forehead, shave biopsy ED ?? &C (1) Clinical History: A - 1.5 x 1.0 cm pink pearly eroded plaque B - 5 mm pink pearly papule Clinical Diagnosis: ? BCC SPECIMEN PROCESSING A - Labeled/Fixative: Left lateral frontal scalp, formalin. Quantity/Size: Single, 0.8 x 0.7 x 0.1 cm. Tissue Description: Shave of granular ocampo-white skin. Sections/Processing: Inked and quadrisectioned. (T1) B - Labeled/Fixative: Right lateral forehead, formalin. Quantity/Size: Single, 1.0 x 0.5 x 0.1 cm. Tissue Description: Irregular, granular ocampo-white shave. Sections/Processing: Inked and quadrisectioned. (T1) ??pps Specimen (Source) Anatomical Collection Method Collection Time Re ceived Time Location / / Volume Laterality 08/30/2016 11:21 AM EDT Ry Nair MD PATHOLOGY/CYTOLOGY ORDERABLE S Performing Organization Address City/State/[place] [address] Specimen to Pathology (NON-OR) (08/30/2016 11:21 AM EDT) Specimen Anatomical Collection Method Collection Time Receive d Time (Source) Location / / Volume Laterality AP Specimen 08/30/2016 11:21 08/30/2016 3:39 AM EDT PM EDT N[facility]ative [facility] - 08/30/2016 3:39 PM EDT Specimen requisition ordered. ??Separate Pathology report to follow Resulting Agency Comment Spec In Lab Ry Nair MD PATHOLOGY/CYTOLOGY ORDERABLE S Performing Organization Address City/[facility]/[place] [address] documented in this encounter Visit Diagnoses Diagnosis Basal cell carcinoma, forehead Basal cell carcinoma of scalp Basal cell carcinoma of scalp and skin o f neck documented in this encounter Care Teams Nicker And Breaker Relationship Specialty Start Date End Date Erik Carrasquillo MD PCP - General 02/22/[address] [place] [id number] documented as of this encounter
--- OUTSIDE RECORDS SUMMARY | 2021-09-23 12:54 | XMS_ITS | Encounter Summary ---
:1940 Author Organization [facility] [place] [address] Care Team Providers Name Role Phone Erik Carrasquillo MD Primary Care Provider Encounter Details Date Type Department Care Team Description 05/19/2011 Office Visit Gastroenterology at [facility] [place] [address] GASTRO[address]Y DEPT. [place], [place] [address] (Wo rk) Social History Tobacco Use Types Packs/Day Years Used Date Former Smoker Cigarettes Quit: 03/15/19 66 Sex Assigned at Date Recorded Not on file documented as of this encounter Plan of Treatment Not on filedocumented as of this encounter Visit Diagnoses Not on filedocumented in this encounter Care Teams Wax Room Supervisor Relationship Specialty Start Date End Date Erik Carrasquillo MD PCP - General 02/22/10 [address] [place] [address] documented as of this encounter
--- OUTSIDE RECORDS SUMMARY | 2021-09-23 12:54 | XMS_ITS | Encounter Summary ---
:1940 Author Organization [facility] [place] [address] Care Team Providers Name Role Phone Erik Carrasquillo MD Primary Care Provider Reason for Visit Reason Comments Follow-up Encounter Details Date Type Department Care Team Description 05/07/2012 [place] [facility] [place] Neumann MD Pneumonitis [facility] D ton [facility] [place] [address] CRITICAL CARE-PULMONARY [phone] [place], [place] [address] (Wo rk) Social History Tobacco [...] Sign Reading Time Taken Comments Blood Pressure 152/95 05/07/2012 3:38 PM EST Pulse 111 05/07/2012 3:38 PM EST Temperature - - Respiratory Rate 20 05/07/2012 3:38 PM EST Oxygen Saturation 92% 05/07/2012 3:38 PM EST Inhaled Oxygen Concentration - - Weight 83.9 kg (185 lb) 05/07/2012 3:38 PM EST Height 170.2 cm (5' 7) 05/07/2012 3:38 PM EST Body Mass Index 28.98 05/07/2012 3:38 PM EST documented in this encounter Progress Notes Shaji Valderrama Jr., MD - 05/08/2012 4:37 PM EST Pulmonary Attending I did not directly interact with Mr. Camacho during his 05/07/2012 clinic appointment. I reviewed Dr. Neumann's clinic documentation, and think that the medical plan is reasonable based upon the data provided. --Nata Valderrama MD Trevor Neumann MD - 05/07/2012 8:58 AM EST OUTPATIENT PULMONARY FOLLOW-UP HISTORY OF PRESENT ILLNESS: Patient is a 71-year-old male who returns for follow-up of probable adult-onset asthma and pneumonitis. I last evaluated him in 05/2011. At that time, CT of the thorax demonstrated bilateral basilar opacities that appear most consistent with pneumonitis. I offered him the fol lowing options: swallow study, bronchoscopy, or a course of prednisone and amoxicillin-clavulanate. He chose the third. He felt better with this intervention but not back to his prior baseline. Since our last visit, he has been evaluated by ENT in 09/2011 and was noted to have bilateral nasal polyposis, left greater than right, with obstruction on the left. He was started on prednisone and underwent resection of maxillary sinus tissue bilaterally with polypectomy and total ethmoidectomy in 10/2011, which improved his symptoms somewhat. He continues to use mometasone after several failed inhaled steroids including nebulized budesonide and fluticasone. He does not think that the mometasone is actuallyall that helpful, but he is using is only in the mornings. He continues to experience the sensation of mucous in his airways that causes a wheeze, which he notices only in the evenings. It bothers him 'personally' that this occurs and that he must cough to clear these secretions. He states that about six months ago, he noted that his sputum changed in color from clear-white to yellow. He denies any reflux disease, but given the results of his pH and Impedence studies, he is taking omeprazole 20 mg once daily (I had recommended twice daily). He denies fevers, chills, or sweats. He denies hemoptysis.He denies any other concerning symptoms. Pulmonary function testing today has normalized in all parameters with the exception of a room air saturation of 92%, which increased to 93% after a walk, possibly suggestive of improved aeration of atelectatic segments with exercise. PAST MEDICAL HISTORY: # COPD vs. adult-onset asthma -PFTs 12/2010: FEV1 2.73(89%); FVC 4.14(107%); FEV1/FVC 66(<85%); no change with BD; TLC 7.39(108%); RV 3.42(>132%); RV/TLC 43(120%); DLCO 35.63(115%) -PFTs 04/2012: FEV1 2.45(87%); FVC 3.67(95%); FEV/FVC 67(91%); DLCO 25.48(106%); room air saturation 92%, increased to 93% on room air after walk. -Echocardiogram 04/2008: LVEF65%, no wall motion abnormalities. Mild AR, mild TR. No valve disease. PASP 28 mm Hg. -CXR 05/2011: Lung volumes are lower, particularly [...] Appendectomy 1959 # s/p Lipoma excision 1973 REVIEW OF SYSTEMS: GENERAL: Denies fevers, chills, sweats, fatigue, anorexia, weight loss. SKIN: Denies itching, rashes, sores, lumps, changing moles. HEENT: Denies trauma, headache, visual changes, tearing, tinnitus, earache, sneezing, allergies, epistaxis, bleeding gums, hoarseness, sore throat, neck swelling. Positive for rhinorrhea, post-nasal drip. RESPIRATORY: Denies dyspnea, orthopnea, paroxysmal nocturnal dyspnea, hemoptysis, tuberculosis exposure. Positive for wheeze, cough, sputum production. CARDIOVASCULAR: Denies chest pain, chest pressure, palpitations, edema, claudication. GASTROINTESTINAL: Denies abdominal pain, nausea, vomiting, constipation, diarrhea, reflux, dysphagia, odynophagia, hematemesis, hematochezia, melena. GENITOURINARY: Denies frequency, urgency, dysuria, polyuria, nocturia, incontinence, discharge, sores. MUSCULOSKELETAL: Denies weakness, joint stiffness, joint instability, redness, swelling, arthralgias, myalgias. NEUROLOGIC: Denies numbness, tingling, tremors, weakness, paralysis, loss of consciousness, memory loss, seizures, incoordination. ENDOCRINE: Denies heat intolerance, cold intolerance, excessive sweating, polyuria, polydipsia, polyphagia. PSYCHIATRIC: Denies depressed mood, anxiety. PHYSICAL EXAMINATION: HR-111 BP-152/95 RR-14 SpO2-92% ZRO-Ygad-kfemjgtad, no NAD. HEENT-NCAT, EOMI. OP clear without erythema or exudate. Nares patent without erythema bilaterally. Neck-Supple, trachea midline, no thyromegaly. Lymph-No supraclavicular, submandibular, or cervical NONI. CV-Reg reg rhythm nl S1 S2 no m/r/g. No carotid bruits. RESP-Scattered right basilar rhonchi that essentially cleared after a cough. ABD-Soft nt nd +BS no HSM. EXTR-No c/c/e, DP 2+ b/l. Skin-Warm, dry, no rashes noted. NEURO-AAO x 3, CNII-XII intact. MEDICATIONS: Outpatient Prescriptions Marked as Taking for the 05/07/12 encounter (Follow-Up) with Trevor Neumann MD Medication Sig Dispense Refill ??? Dutasteride-Tamsulosin 0.5-0.4 mg CM24 Take by mouth. ??? omeprazole (PRILOSEC) 20 mg capsule Take 20 mg by mouth daily. ??? DISCONTD: albuterol (PROVENTIL HFA;VENTOLIN HFA) 90 mcg/actuation inhaler Inhale 2 puffs into the lungs every 4 hours as needed. Use with spacer ??? Mometasone (ASMANEX TWISTHALER) 220 mcg (120 doses) AePB Inhale 1 puff into the lungs 2 times daily. 3 Device 11 ??? PHYTONADIONE (VITAMIN K ORAL) Take 45 mcg by mouth daily. ??? OMEGA-3 FATTY ACIDS (FISH OIL CONCENTRATE ORAL) Take by mouth. ??? GLUCOSAMINE HCL/CHONDR CLAROS A NA (GLUCOSAMINE-CHONDROITIN) 750-600 mg Tab ??? multivitamin (THERAGRAN) tablet DIAGNOSTICS: I personally viewed a chest radiograph dated today as described above. LABS: None to review. IMPRESSION: 70-year-old male with mild obstructive defect and symptoms that are consistent with adult-onset asthma with some bibasilar opacities suggestive of pneumonitis. Patient is quite concerned about his sputum production and cough, despite the improvement of the latter. I suggested that we startwith a repeat CT of the chest; although I think the basilar changes are likely secondary to microaspiration given his asymptomatic reflux, I cannot rule out a chronic infection (i.e. MAC). He is amenable to having this scheduled at [facility]. After I review the scan, we can decide whether we should pursue bronchoscopy. Pulmonary function testing today has normalized in all parameters with the exception of a room air saturation of 92%, which increased to 93% after a walk, possibly suggestive of improved aeration of atelectatic segments with exercise. If the CT is unrevealing, we might also pursue cardiopulmonary exercise testing. I suggested that he increase his omeprazole to twice daily. RECOMMENDATIONS: -Continue mometasone 220 mcg inhaled twice daily. -Keep albuterol inhaler for emergencies, or to use prior to heavy exertion. -Increase omeprazole to 20 mg twice daily. -Influenza vaccination yearly. -CT at [facility] -- we will schedule. -Follow-up pending these tests. Trevor Neumann MD Fellow, Pulmonary & Critical Care Medicine documented in this encounter Plan of Treatment Not on filedocumented as of this encounter Visit Diagnoses Diagnosis Pneumonitis Pneumonia, organism unspecified documented in this encounter Care Teams Inventory Associate Relationship Specialty Start Date End Date Erik Carrasquillo MD PCP - General 02/22/[address] [place] [id number] documented as of this encounter
--- OUTSIDE RECORDS SUMMARY | 2021-09-23 12:54 | XMS_ITS | Encounter Summary ---
:1940 Author Organization [facility] [place] [address] Care Team Providers Name Role Phone Erik Carrasquillo MD Primary Care Provider Encounter Details Date Type Department Care Team Description 04/13/2011 Orders Only Pulmonology at [facility] Carolyne Polo, Asthma (Primary Dx) [facility] [place] [address] [address] [phone] CRITICAL CARE-PULMONARY [place], [place] [address] (Wo rk) Social History Tobacco Use Types Packs/Day Years Used Date Former Smoker Cigarettes Quit: 03/15/19 66 Sex Assigned at Date Recorded Not on file documented as of this encounter Progress Notes Carolyne Polo MD - 04/13/2011 12:05 PM EST Addended by: CAROLYNE POLO on: 04/13/2011 Modules accepted: Orders documented in this encounter Plan of Treatment Not on filedocumented as of this encounter Visit Diagnoses Diagnosis Asthma - Primary Unspecified asthma documented in this encounter Care Teams Director It Project Relationship Specialty Start Date End Date Erik Carrasquillo MD PCP - General 02/22/10 [address] [place], [place] [address] documented as of this encounter
--- OUTSIDE RECORDS SUMMARY | 2021-09-23 12:54 | XMS_ITS | Encounter Summary ---
:1940 Author Organization [facility] [place] [address] Care Team Providers Name Role Phone Bernardo Carrasquillo MD Primary Care Provider Encounter Details Date Type Department Care Team Description 05/01/2011 Procedure visit Gastroenterology at [facility], DR GAGE [facility] [place] ([place] [address] reflux disease) [phone] (Primary Dx) Social History Tobacco Use Types Packs/Day Years Used Date Former Smoker Cigarettes Quit: 03/15/19 66 Sex Assigned at Date Recorded Not on file documented as of this encounter Progress Notes Pa Valdez MD - 05/10/2011 6:48 PM EST ESOPHAGEAL MANOMETRY Geoff Camacho Male, 70 yrs, 1940 PCP: BERNARDO CARRASQUILLO STUDY DATE: 05/01/11 PROVIDER: Pa Valdez, [place] ([id number]) INDICATION Chronic cough thought secondary to acid reflux. Need to accurately place a wireless pH capsule. METHODS Stationary esophageal manometry was performed with the [employer] esophageal motility system utilizing the [employer] software with a 4-channel solid-state motility probe. The transducers are spaced 5 cm apart, and the distal transducer is circumferential, while the proximal three transducers are placed radially above it. Station pull-through technique is utilized to define the lower esophageal sphincter, whose resting tone is determined by the circumferential transducer. Wet swallows are performed in the body of the esophagus with the distal transducer placed 3 and 8 cm above the lower esophageal sphincter zone. The up per esophageal sphincter zone is discerned by station pull-through technique and measured using the circumferential transducer. LES (lower esophageal sphincter) Lower Border: 48 cm Upper Border: 45 cm Mid-Inspiratory Resting Pressure: normal at 17.4 mmHg using the distal circumferential transducer (normal=13.5-34.5 mmHg). Water Swallows On 7 of 7 swallows the LES relaxed appropriately to gastric baseline. Mean residual LES resting pressure was normal at 5 mmHg (normal less than or equal to 8 mmHg). BODY OF ESOPHAGUS Water Swallows: 10 Peristaltic: 10 Not Transmitted: Simultaneous: * Poorly Propagated: * Mean Amplitude of Contraction At 3 cm above the mid portion of the LES: normal at 103 mmHg (normal = 30 mmHg and above) At 8 cm above the mid portion the LES: normal at 78 mmHg (normal = 30 mmHg and above) UES (upper esophageal sphincter) Identified at 22 cm and extended to 19 cm. UES resting pressure normal at 30 mmHg (normal=30-150 mmHg); relaxation complete. IMPRESSION 1. Normal LES resting pressure. 2. Normal LES relaxation. 3. Normal UES resting pressure. 4. Normal UES relaxation. 5. Normal motility in the body of the esophagus. Pa Valdez, PhD, MD network control operator Section of Gastroenterology and Hepatology [facility] [place] [address] V: [phone] F: [phone] BEL/amari CC/EC: Bernardo Carrasquillo MD [id number] WIRELESS pH CAPSULE PLACED IN MOTILITY LAB Geoff Camacho Male, 70 yrs, 1940 PCP: BERNARDO CARRASQUILLO STUDY DATES: 05/01/11 to 05/03/11 INTERPRETATION DATE: 05/05/11 PROVIDER: Pa Val[place] ([id number]) INDICATION Chronic cough thought secondary to acid reflux. NOTE: This study was performed off of medications used to treat acid reflux. METHODS After landmarks were visualized and measured, in a supervised setting, and after informed consent, aBravo pH telemetry capsule was deployed orally and attached to the esophageal wall at 5 cm above theupper border of the LES. No complications were noted during this procedure. FINDINGS Visual inspection of the study shows fluctuations in pH values throughout the study consistent with a technically adequate study. DAY ONE Total Number of Reflux Episodes: 110 Upright Position: 98 Supine Position: 12 Reflux Episodes Longer than Five Minutes: 10 Upright: 10 Supine: 0 Duration of Longest Episode: 17 minutes, upright position Total Distal Esophageal Acid Exposure Time: 178 minutes. Percent of Total Recording Time: 12.3% Percent of Upright Recording Time: 17.7% Percent of Supine Recording Time: 2.4% DAY TWO Total Number of Reflux Episodes: 81 Upright Position: 71 Supine Position: 10 Reflux Episodes Longer than Five Minutes: 3 Upright: 2 Supine: 1 Duration of Longest Episode: 7 minutes, upright position Total Distal Esophageal Acid Exposure Time: 94 minutes. Percent of Total Recording Time: 6.5% Percent of Upright Recording Time: 8.8% Percent of Supine Recording Time: 2.6% Qnuim-Htlbi-Gubn (Total) Fraction of Time with pH Less Than 4%: 9.4% Calculated DeMeester Score (normal values are up to 14.72) Day One Calculated DeMeester Score: 38.6 Day Two Calculated DeMeester Score: 21.1 Ijbgq-Ajgjb-Zsvk DeMeester Score (Total): 30.5 During this recording period, the patient did not report any symptoms. IMPRESSION During this recording period, while the patient was not on medications for acid reflux, there was evidence of moderate pathologic acid reflux into the distal esophagus on day one, and mild pathologic acid reflux into the distal esophagus on day two. NORMAL VALUES FOR WIRELESS pH CAPSULE STUDY 1. Total number of reflux episodes = less than 50. 2. Number of episodes longer than 5 minutes = less than 3. 3. Acid exposure time Total = less than 5.3% Upright = less than 6.3% Supine = less than 1.2%. ADDENDUM SAP expresses the likelihood that a specific symptom, i.e., heartburn, regurgitation, chest pain, isassociated with acid reflux. By convention, SAP values greater than 95% are positive. Pa Valdez MD, PhD network control operator Section of Gastroenterology [place] [address] V: [phone] F: [phone] ANA/luigi EC/CC: Dr. Carrasquillo Kristina Dalton, RN - 05/01/2011 2:30 PM EST Esophageal manometry performed without difficulty and was well tolerated. Ivan teaching done. Study is being done OFF acid suppression--states he has never Taken these--study was ordered to be done on meds by referring physician. Ivan capsule deployed at 38 cm below incisors with the assistance of Dr. Cho. Initial pH is 6.6. Will mail back state editor and diary in view of distance involved. Discharged from lab without voiced concerns. documented in this encounter Plan of Treatment Not on filedocumented as of this encounter Visit Diagnoses Diagnosis GERD (gastroesophageal reflux disease) - Primary Esophageal reflux documented in this encounter Care Teams Well Reactivator Operator Relationship Specialty Start Date End Date Bernarod Carrasquillo MD PCP - General 02/22/[address] [place] [id number] documented as of this encounter
--- OUTSIDE RECORDS SUMMARY | 2021-09-23 12:54 | XMS_ITS | Encounter Summary ---
:1940 Author Organization [facility] [place] [address] Care Team Providers Name Role Phone Erik Carrasquillo MD Primary Care Provider Encounter Details Date Type Department Care Team Description 12/25/2010 Orders Only Pulmonology at [facility] Trevor Neumann MD [facility] [place] [address] CRITICAL CARE-PULMONARY [phone] [place], [place] [address] (Wo rk) Social History Tobacco Use Types Packs/Day Years Used Date Never Assessed Sex Assigned at Date Recorded Not on file documented as of this encounter Plan of Treatment Not on filedocumented as of this encounter Procedures Procedure Name Priority Date/Time Associated Diagnosis Comme nts FILM LIBRARY Routine 12/25/2010 10:51 AM Results for this STORAGE ONLY DX EDT procedure ar e in CHEST the results section. documented in this encounter Results FILM LIBRARY- STORAGE ONLY DX CHEST (12/25/2010 10:51 AM EDT) Specimen (Source) Anatomical Collection Method Collection Time Re ceived Time Location / / Volume Laterality 12/25/2010 10:51 AM EDT Narrative [facility] - 08/26/2013 11:37 AM EDT This is a non-reportable exam. Procedure Note Gokul Oscar - 08/26/2013Formatting of t his note might be different from the original. This is a non-reportable exam. Trevor Neumann MD [facility] [place]M LIBRARY ORDERABLES Performing Organization Address City/State/ZIP Code Phon e Number RAD RAD [address] [facility] [place] [address] documented in this encounter Visit Diagnoses Not on filedocumented in this encounter Care Teams Statistics Tutor Relationship Specialty Start Date End Date Erik Carrasquillo MD PCP - General 02/22/[address] [place] [id number] documented as of this encounter
--- OUTSIDE RECORDS SUMMARY | 2021-09-23 12:54 | XMS_ITS | Encounter Summary ---
:1940 Author Organization [facility] [place] [address] Care Team Providers Name Role Phone Erik Carrasquillo MD Primary Care Provider Reason for Visit Reason Comments Follow-up Encounter Details Date Type Department Care Team Description 11/21/2011 Follow-Up Otolaryngology at [facility] Robbie, Sinusitis, chronic [facility] Livan Prescott MD (Primary Dx) [place] [address] [facility] [phone] OTOLARYNGOLOGY DEPT. [place], [place] [address] Social History Tobacco Use Types Packs/Day Years Used Date Current Some Day Smoker Cigars, Cigarettes 1 11 Quit: 03/15/1967 Smokeless Tobacco: Never Used Comments: pt reports [...] Sign Reading Time Taken Comments Blood Pressure 136/76 11/21/2011 10:43 AM EDT Pulse 72 11/21/2011 10:43 AM EDT Temperature - - Respiratory Rate - - Oxygen Saturation - - Inhaled Oxygen Concentration - - Weight 77.1 kg (170 lb) 11/21/2011 10:43 AM EDT Height 175.3 cm (5' 9) 11/21/2011 10:43 AM EDT Body Mass Index 25.1 11/21/2011 10:43 AM EDT documented in this encounter Progress Notes Kurtis Guzman MD - 11/21/2011 11:08 AM EDT Patient was seen today in follow up for chronic sinusitis and Patient is post sinus surgery. New issues to report:none - doing well Interim history:unchanged DOS: 10/11 Past Surgical History Procedure Date ??? Nasal scopy, rmv tiss maxill sinus 10/02/2011 NASAL, SINUS ENDOSCOPY, REMOVE TISSUE MAXILLARY SINUS, MARGARET performed by KURTIS GUZMAN at [facility] MAIN OR ??? Nasal scope, bx/rmv polyp/debrid 10/02/2011 NASAL, SINUS ENDOSCOPY, WITH BX, POLYPECTOMY performed by KURTIS GUZMAN at [facility] MAIN OR ??? Nasal scopy, remv totl ethmoid 10/02/2011 NASAL, SINUS ENDOSCOPY, TOTAL ETHMOIDECTOMY-MARGARET performed by KURTIS GUZMAN at [facility] MAIN OR ??? Stereotactic cptr asstd px cranial, extradural 10/02/2011 STEREOTACTIC COMPUTER-ASSTD NAVIGATIONAL CRANIAL EXTRADURAL performed by KURTIS GUZMAN at [facility] MAIN OR Patient Active Problem List Diagnoses Date Noted ??? Asthma [493.90AE] 10/02/2011 ??? Hospital-Sinusitis, chronic [473.9AG] 10/02/2011 ??? GERD (gastroesophageal reflux disease) [530.81S] 10/02/2011 ??? Actinic keratosis [702.0] 06/01/2011 Medications: Outpatient encounter prescriptions as of 11/21/2011 Medication Sig Dispense Refill ??? metoprolol succinate (TOPROL-XL) 25 mg 24 hr tablet Take 25 mg by mouth daily. ??? MOMETASONE FUROATE (ASMANEX TWISTHALER INHL) Inhale into the lungs. ??? PHYTONADIONE (VITAMIN K ORAL) Take 45 mcg by mouth daily. ??? budesonide (PULMICORT) 0.5 mg/2 mL nebulizer solution Take 8 mLs by nebulization 2 times daily. 500 mL 12 ??? OMEGA-3 FATTY ACIDS (FISH OIL CONCENTRATE ORAL) Take by mouth. ??? PYGEUM AFRICANUM ORAL Take by mouth. ??? albuterol (PROVENTIL HFA;VENTOLIN HFA) 90 mcg/Actuation inhaler Inhale 2 puffs into the lungs every 4 hours as needed. Use with spacer ??? Triamcinolone Acetonide (NASACORT-AQ) 50 mcg [place] 2 sprays by Nasal route 2 times daily. ??? GLUCOSAMINE HCL/CHONDR CLAROS A NA (GLUCOSAMINE-CHONDROITIN) 750-600 mg Tab ??? CALCIUM ORAL ??? Saw [place] 160 mg capsule ??? multivitamin (THERAGRAN) tablet ??? fluticasone (FLONASE) 50 mcg/actuation nasal spray 2 sprays by Each Nare route daily for 30 days. 16 g prn ??? DISCONTD: predniSONE (DELTASONE) 20 mg tablet Take 1 tablet by mouth. 3 tablets for 4 days, 2 tablets for 4 days, 1 tablet for 4 days, 0.5 tablets for 4 days 26 tablet 0 ??? DISCONTD: omeprazole (PRILOSEC) 10 mg capsule Take 10 mg by mouth 2 times daily (with meals). Allergies Allergies as of 11/21/2011 ??? (No Known Allergies) E: TMs pearly newman and mobile. EAC normal N: See endoscopy OC/OP: mucosa clear. No masses seen Neck: Normal. No adenopathy. FROM Procedure Note: Nasal endoscopy was repeated: Endoscopic Findings: Nasal Endoscopy performed Findings OMC/Lateral Nasal Wall: Edema: 2+, Crusting: none, Drainage: normal, Polyps: none Nasal floor: normal Assessment: Chronic sinusitis Plan: Start Flonase F/U 6 months documented in this encounter Miscellaneous Notes Communication Body - Kurtis Guzman MD - 11/21/2011 11:09 AM EDT Patient was seen today in follow up for chronic sinusitis and Patient is post sinus surgery. New issues to report:none - doing well Interim history:unchanged DOS: 10/11 Past Surgical History Procedure Date ??? Nasal scopy, rmv tiss maxill sinus 10/02/2011 NASAL, SINUS ENDOSCOPY, REMOVE TISSUE MAXILLARY SINUS, MARGARET performed by KURTIS GUZMAN at [facility] MAIN OR ??? Nasal scope, bx/rmv polyp/debrid 10/02/2011 NASAL, SINUS ENDOSCOPY, WITH BX, POLYPECTOMY performed by KURTIS GUZMAN at [facility] MAIN OR ??? Nasal scopy, remv totl ethmoid 10/02/2011 NASAL, SINUS ENDOSCOPY, TOTAL ETHMOIDECTOMY-MARGARET performed by KURTIS GUZMAN at [facility] MAIN OR ??? Stereotactic cptr asstd px cranial, extradural 10/02/2011 STEREOTACTIC COMPUTER-ASSTD NAVIGATIONAL CRANIAL EXTRADURAL performed by KURTIS GUZMAN at [facility] MAIN OR Patient Active Problem List Diagnoses Date Noted ??? Asthma [493.90AE] 10/02/2011 ??? Hospital-Sinusitis, chronic [473.9AG] 10/02/2011 ??? GERD (gastroesophageal reflux disease) [530.81S] 10/02/2011 ??? Actinic keratosis [702.0] 06/01/2011 Medications: Outpatient encounter prescriptions as of 11/21/2011 Medication Sig Dispense Refill ??? metoprolol succinate (TOPROL-XL) 25 mg 24 hr tablet Take 25 mg by mouth daily. ??? MOMETASONE FUROATE (ASMANEX TWISTHALER INHL) Inhale into the lungs. ??? PHYTONADIONE (VITAMIN K ORAL) Take 45 mcg by mouth daily. ??? budesonide (PULMICORT) 0.5 mg/2 mL nebulizer solution Take 8 mLs by nebulization 2 times daily. 500 mL 12 ??? OMEGA-3 FATTY ACIDS (FISH OIL CONCENTRATE ORAL) Take by mouth. ??? PYGEUM AFRICANUM ORAL Take by mouth. ??? albuterol (PROVENTIL HFA;VENTOLIN HFA) 90 mcg/Actuation inhaler Inhale 2 puffs into the lungs every 4 hours as needed. Use with spacer ??? Triamcinolone Acetonide (NASACORT-AQ) 50 mcg [place] 2 sprays by Nasal route 2 times daily. ??? GLUCOSAMINE HCL/CHONDR CLAROS A NA (GLUCOSAMINE-CHONDROITIN) 750-600 mg Tab ??? CALCIUM ORAL ??? Saw [place] 160 mg capsule ??? multivitamin (THERAGRAN) tablet ??? fluticasone (FLONASE) 50 mcg/actuation nasal spray 2 sprays by Each Nare route daily for 30 days. 16 g prn ??? DISCONTD: predniSONE (DELTASONE) 20 mg tablet Take 1 tablet by mouth. 3 tablets for 4 days, 2 tablets for 4 days, 1 tablet for 4 days, 0.5 tablets for 4 days 26 tablet 0 ??? DISCONTD: omeprazole (PRILOSEC) 10 mg capsule Take 10 mg by mouth 2 times daily (with meals). Allergies Allergies as of 11/21/2011 ??? (No Known Allergies) E: TMs pearly newman and mobile. EAC normal N: See endoscopy OC/OP: mucosa clear. No masses seen Neck: Normal. No adenopathy. FROM Procedure Note: Nasal endoscopy was repeated: Endoscopic Findings: Nasal Endoscopy performed Findings OMC/Lateral Nasal Wall: Edema: 2+, Crusting: none, Drainage: normal, Polyps: none Nasal floor: normal Assessment: Chronic sinusitis Plan: Start Flonase F/U 6 months documented in this encounter Plan of Treatment Not on filedocumented as of this encounter Visit Diagnoses Diagnosis Sinusitis, chronic - Primary Unspecified sinusitis (chronic) documented in this encounter Care Teams Collections Officer Relationship Specialty Start Date End Date Erik Carrasquillo MD PCP - General 02/22/[address] [place] [phone] documented as of this encounter
--- OUTSIDE RECORDS SUMMARY | 2021-09-23 12:54 | XMS_ITS | Encounter Summary ---
:1940 Author Organization [facility] [place] [address] Care Team Providers Name Role Phone Erik Carrasquillo MD Primary Care Provider Encounter Details Date Type Department Care Team Description 10/02/[address] Scan at [facility], DR ALMONTE [facility] Kenyon Avalos MD [facility] [place] [address] [place] [address] Social History Tobacco Use Types Packs/Day Years [...] inhaler hours as needed. Use with spacer amoxicillin-clavulanate Take 1 tablet by mouth 42 tablet 0 10/02/2011 10/23/2011 (AUGMENTIN) 875-125 mg 2 times daily for 21 per tablet days. OXYcodone-acetaminophen Take 1-2 tablets by 40 tablet 0 05/201110/16/2011 (PERCOCET) 5-325 mg per mouth every 4 hours as tablet needed for Pain. predniSONE (DELTASONE) Take 1 tablet by mouth. 3 tablets for 4 d ays, 26 tablet 0 10/02/2011 11/21/2011 20 mg tablet 2 tablets for 4 days, 1 tablet for 4 days, 0.5 tablets for 4 days metoprolol succinate Take 25 mg by mouth 0 08/29/2012 (TOPROL-XL) 25 mg 24 hr daily. tablet MOMETASONE FUROATE Inhale into the lungs. 0 02/27/2012 (ASMANEX TWISTHALER INHL) omeprazole (PRILOSEC) Take 10 mg by mouth 2 0 11/21/2011 10 mg capsule times daily (with meals). PHYTONADIONE (VITAMIN K Take 45 mcg by mouth 0 08/29/2012 ORAL) daily. amoxicillin-clavulanate Take 1 tablet by mouth 20 tablet 0 05/29/2011 10/23/2011 (AUGMENTIN) 875-125 mg 2 times daily. per tablet budesonide (PULMICORT) Take 8 mLs by 500 mL 12 05/15/2011 05/07/2012 0.5 mg/2 mL nebulizer nebulization 2 times solution daily. OMEGA-3 FATTY ACIDS Take 1,000 mg by mouth 0 08/30/2016 (FISH OIL CONCENTRATE daily. ORAL) PYGEUM AFRICANUM ORAL Take by mouth. 0 08/29/2012 Triamcinolone Acetonide 2 sprays by Nasal 0 12/23/2012 (NASACORT-AQ) 50 mcg route 2 times daily. Sharon GLUCOSAMINE HCL/CHONDR 0 08/28/2008 CLAROS A NA (GLUCOSAMINE-CHONDROITI N) 750-600 mg Tab CALCIUM ORAL 0 08/28/2008 08/29/2012 Saw [place] 160 mg 0 08/28/200808/29 capsule multivitamin 0 08/28/2008 08/29/2012 (THERAGRAN) tablet documented as of this encounter Plan of Treatment Not on filedocumented as of this encounter Procedures Procedure Name Priority Date/Time Associated Diagnosis Comme nts CT SINUS W CONTRAST Routine 10/02/2011 10:29 AM R esults for this EDT procedure are i n the results section. documented in this encounter Results CT SINUS WO CONTRAST (10/02/2011 10:29 AM EDT) Anatomical Region Laterality Modality Head Computed Tomography Specimen (Source) Anatomical Collection Method Collection Time Re ceived Time Location / / Volume Laterality 10/02/2011 10:29 AM EDT Narrative 10/02/2011 10:[address] Sinuses Without Contrast Clinical History chronic congestion Evaluate for sinus disease Image guidance protocol Comparison None Technique CT of the sinuses performed without the use of intravenous contrast. Findings There is complete opacification of the r ight maxillary sinus with thickening of the wall and some medial bowing of the m edial wall of the sinus. ??Mucosal thickening is also present in the left m axillary sinus, bilateral ethmoid sinuses, and in the frontal sinuses. ??S ome of the areas of opacification of a polypoid appearance. ??There is no aggre ssive appearing osseous destruction. Impression Complete opacification of the right maxi llary sinus, with mucosal thickening in the left maxillary, ethmoid, and frontal sinuses. Several of the lesions have a polypoid appearance. Procedure Note Delio Maher MD - 10/02/2011Format ting of this note might be different from the original. Examination CT Sinuses Without Contrast Clinical History chronic congestion Evaluate for sinus disease Image guidance protocol Comparison None Technique CT of the sinuses performed without the use of intravenous contrast. Findings There is complete opacification of the r ight maxillary sinus with thickening of the wall and some medial bowing of the m edial wall of the sinus. Mucosal thickening is also present in the left m axillary sinus, bilateral ethmoid sinuses, and in the frontal sinuses. Corey e of the areas of opacification of a polypoid appearance. There is no aggress marcos appearing osseous destruction. Impression Complete opacification of the right maxi llary sinus, with mucosal thickening in the left maxillary, ethmoid, and frontal sinuses. Several of the lesions have a polypoid appearance. Kenyon Avalos MD IMG CT ORDERABLES documented in this encounter Visit Diagnoses Not on filedocumented in this encounter Care Teams Electrical Assembly Technician Relationship Specialty Start Date End Date Erik Carrasquillo MD PCP - General 02/22/[address] [place] [id number] documented as of this encounter
--- OUTSIDE RECORDS SUMMARY | 2021-09-23 12:54 | XMS_ITS | Encounter Summary ---
:1940 Author Organization [facility] [place] [address] Care Team Providers Name Role Phone Erik Carrasquillo MD Primary Care Provider Reason for Visit Reason Comments Dyspnea On Exertion Encounter Details Date Type Department Care Team Description 03/15/2011 Office Visit Pulmonology at [facility] Carolyne Polo, Asthma (Primary Dx) [facility] [place] [address] [facility]PULMONARY [place], [place] [address] Social History Tobacco Use Types Packs/Day Years Used Date Former Smoker Cigarettes Quit: 03/15/19 Sex Assigned at Date Recorded Not on file documented as of this encounter Last Filed Vital Signs Vital Sign Reading Time Taken Comments Blood Pressure 149/95 03/15/2011 1:01 PM EST Pulse 88 03/15/2011 1:01 PM EST Temperature - - Respiratory Rate 14 03/15/2011 1:01 PM EST Oxygen Saturation 95% 03/15/2011 1:01 PM EST Inhaled Oxygen Concentration - - Weight 80.7 kg (178 lb) 03/15/2011 1:01 PM EST Height 175.3 cm (5' 9) 03/15/2011 1:01 PM EST Body Mass Index 26.29 03/15/2011 1:01 PM EST documented in this encounter Progress Notes Shaji Valderrama Jr., MD - 03/20/2011 3:24 PM EST I personally interviewed and examined Mr. Camacho on 03/15/2011. I discussed my findings with Dr. Polo, reviewed the consult note, and agree with the assessment and plan. Carolyne Polo MD - 03/17/2011 12:38 PM EST Addended by: CAROLYNE POLO on: 03/17/2011 Modules accepted: Level of Service Carolyne Polo MD - 03/15/2011 1:46 PM EST OUTPATIENT PULMONARY CONSULTATION HISTORY OF PRESENT ILLNESS: Patient is a very nice 70-year-old male who states that for seventy years, he had perfect lungs, but in 10/2010, he noted dyspnea when powerwalking. This was accompanied by acough productive of white sputum. He was still able to walk two miles without dyspnea, but he had towalk a bit slower (normally, two miles in 35-minutes). He denies rhinorrhea at that time, but this followed several months later. He denies hoarseness and sore throat, but acknowledged intermittent post-nasal drip and nasal congestion. He was prescribed albuterol, which he thinks did not help (although it was better than nothing) and intranasal triamcinoline, the latter of which was helpful. The cou gh persisted. He feels he coughs constantly, but at night the cough is improved. He still produces white sputum every day. Humidity appears to trigger the cough. Cold air has not made the cough worse. Perfumes and other smells do not worsen the cough. He does not think that he has environmental allergies. He denies wheezing. He denies any reflux disease, and does not lay supine just after dinner. He denies fevers, chills, or sweats, although he thinks he had the flu a few weeks ago -- his cough did not worsen at that time, although the sputum expectorated became more yellow. He denies hemoptysis,ever. He denies any other concerning symptoms. He reports that a chest radiograph was performed in 12/2010 which showed a small degree of left lower lobe pneumonitis. PAST MEDICAL HISTORY: # COPD, mild -PFTs 12/2010: FEV1 2.73(89%); FVC 4.14(107%); FEV1/FVC 66(<85%); no change with BD; TLC 7.39(108%); RV 3.42(>132%); RV/TLC 43(120%); DLCO 35.63(115%) -Echocardiogram 04/2008: LVEF65%, no wall motion abnormalities. Mild AR, mild TR. No valve disease. PASP 28 mm Hg. -CXR 12/2010: ?Left lower lobe infilrate / pneumonitis. # Hx angina, with negative workup # [...] Positive for rhinorrhea, post-nasal drip. RESPIRATORY: Denies dyspnea at rest, orthopnea, paroxysmal nocturnal dyspnea, wheeze, hemoptysis, tuberculosis exposure. Positive for slight dyspnea on exertion, cough, sputum production. CARDIOVASCULAR: Denies chest pain, [...] polydipsia, polyphagia. PSYCHIATRIC: Denies depressed mood, anxiety. FAMILY HISTORY: Father at age 70, aplastic anemia, had asthma. Mother at age 87, old age. Sister at age 34, throat cancer. Two sisters and a brother alive, age range 62-75, healthy; brother has COPD, was a smoker. Five children, age range 38-51, healthy; daughter and son have asthma. SOCIAL HISTORY: Retired from [employer]; lives in [place] currently, but also lived in [place], [place]. 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 Served in the [employer] in the . Quit smoking 1966, smoked 10-11 years, one pack daily. Drinks one glass wine daily. Denies illicits. Denies exposures to asbestos, silica, coal, radon; did have exposure to spray varnish and stains at [facility]. Carpets and pellet stove at home; also has a dog. PHYSICAL EXAMINATION: HR-88 BP-149/95 RR-13 SpO2-95%RA EVO-Zylx-rtgvegfqi, no NAD. HEENT-NCAT, EOMI. OP clear without erythema or exudate. TMs translucent bilaterally. Nares patent without erythema bilaterally. Neck-Supple, trachea midline, no thyromegaly. Lymph-No supraclavicular, submandibular, or cervical NONI. CV-Reg reg rhythm nl S1 S2 no m/r/g. No carotid bruits. RESP-Clear bilaterally. ABD-Soft nt nd +BS no HSM. EXTR-No c/c/e, DP 2+ b/l. Skin-Warm, dry, no rashes noted. NEURO-AAO x 3, CNII-XII intact. MEDICATIONS: Outpatient prescriptions marked as taking for the 03/15/11 encounter (Office Visit) with CAROLYNE POLO Medication Sig Dispense Refill ??? OMEGA-3 FATTY ACIDS (FISH OIL CONCENTRATE ORAL) Take by mouth. ??? PYGEUM AFRICANUM ORAL Take by mouth. ??? albuterol (PROVENTIL HFA;VENTOLIN HFA) 90 mcg/Actuation inhaler Inhale 2 puffs into the lungs every 4 hours as needed. Use with spacer ??? Triamcinolone Acetonide (NASACORT-AQ) 50 mcg [place] 2 sprays by Nasal route 2 times daily. ??? CIS Free Text Med - Ginkoba ??? GLUCOSAMINE HCL/CHONDR CLAROS A NA (GLUCOSAMINE-CHONDROITIN) 750-600 mg Tab ??? ERGOCALCIFEROL, VITAMIN D2, (VITAMIN D ORAL) ??? multivitamin (THERAGRAN) tablet DIAGNOSTICS: None to review. LABS: None to review. IMPRESSION: 70-year-old male with mild obstructive defect and symptoms that are consistent with adult-onset asthma. The absence of symptoms while asleep in the supine position suggests that post-nasal drip and allergens at home are both not significantly contributory to his symptoms. Reflux disease also appears to non- contributory at present. I elected to initiate mometasone twice daily as maintenance therapy at present. Should he fail to obtain significant relief, additional testing, including methacholine bronchoprovocation, can be arranged to prove this diagnosis, with additional explorations ifneeded. I do not currently have access to his chest radiography but will review them once loaded into our medical record. RECOMMENDATIONS: -Initiate mometasone 220 mcg inhaled BID. -Keep albuterol inhaler for emergencies, or to use prior to heavy exertion. -Pneumovax and influenza vaccination today. Thank you for this interesting consultation. Carolyne Polo MD Fellow, Pulmonary & Critical Care Medicine documented in this encounter Plan of Treatment Not on filedocumented as of this encounter Visit Diagnoses Diagnosis Asthma - Primary Unspecified asthma documented in this encounter Care Teams Salesperson Men'S Hats Relationship Specialty Start Date End Date Erik Carrasquillo MD PCP - General 02/22/[address] [place] [id number] documented as of this encounter
--- OUTSIDE RECORDS SUMMARY | 2021-09-23 12:54 | XMS_ITS | Encounter Summary ---
:1939 Author Organization [place] [address] Care Team Providers Name Role Phone Bernardo Carrasquillo MD Primary Care Provider Reason for Visit Reason Comments Nasal Polyps Encounter Details Date Type Department Care Team Description 09/04/2011 Office Visit Otolaryngology at [facility] Robbie, Multiple nasal [facility] Livan Prescott MD polyps (Primary Dx) [place] [address] [facility] [phone] CENTER OTOLARYNGOLOGY DEPT. [place], [place] [address] Social History Tobacco Use Types Packs/Day Years Used Date Current Some Day Smoker Cigars Quit : 03/15/1967 Alcohol Use Standard Drinks/Week Comments Yes 0 [...] Sign Reading Time Taken Comments Blood Pressure 152/91 09/04/2011 11:13 AM EDT Pulse 76 09/04/2011 11:13 AM EDT Temperature - - Respiratory Rate - - Oxygen Saturation - - Inhaled Oxygen Concentration - - Weight 77.1 kg (170 lb) 09/04/2011 11:13 AM EDT Height 175.3 cm (5' 9) 09/04/2011 11:13 AM EDT Body Mass Index 25.1 09/04/2011 11:13 AM EDT documented in this encounter Progress Notes Kenyon Avalos MD - 09/04/2011 11:53 AM EDT Subjective: Patient ID: Geoff Camacho is a 70 y.o. male. HPI [facility] OT[facility] HEAD AND NECK SURGERY NEW PATIENT EVALUATION Patient was seen today for evaluation of Patient sinus problems PCP: BERNARDO CARRASQUILLO MD Symptoms during acute phase: congestion, acute obstruction of nasal breathing Chronic symptoms: as above - notes some ongoing postnasal drip as well Pattern of antibiotic usage no Steroid usage one dose for the polyps History of asthma: no History of allergy: possible Prior sinus surgery: no Interventions: OTC-none, prescriptions-prednisone; abx once before for pneuomonia Smoking or passive smoke exposure: no Sx. Started about six months ago. No ongoing hx of allergy or other sinusitis Patient Active Problem List Diagnoses Date Noted ??? Actinic keratosis [702.0] 06/01/2011 Filed Vitals: 09/04/11 1113 BP: 152/91 Pulse: 76 Height: 175.3 cm (5' 9) Weight: 77.111 kg (170 lb) Medications: Outpatient encounter prescriptions as of 09/04/2011 Medication Sig Dispense Refill ??? MOMETASONE FUROATE (ASMANEX TWISTHALER INHL) Inhale into the lungs. ??? omeprazole (PRILOSEC) 10 mg capsule Take 10 mg by mouth 2 times daily (with meals). ??? OMEGA-3 FATTY ACIDS (FISH OIL CONCENTRATE ORAL) Take by mouth. ??? albuterol (PROVENTIL HFA;VENTOLIN HFA) 90 mcg/Actuation inhaler Inhale 2 puffs into the lungs every 4 hours as needed. Use with spacer ??? CIS Free Text Med - Ginkoba ??? GLUCOSAMINE HCL/CHONDR CLAROS A NA (GLUCOSAMINE-CHONDROITIN) 750-600 mg Tab ??? ERGOCALCIFEROL, VITAMIN D2, (VITAMIN D ORAL) ??? Vitamin E 400 unit Tab ??? Saw [place] 160 mg capsule ??? multivitamin (THERAGRAN) tablet ??? predniSONE (DELTASONE) 20 mg tablet Take by mouth daily for 16 days. 3 tablets for 4 days 2 tablets for 4 days 1 tablet for 4 days 0.5 tablets for 4 days 26 tablet 0 ??? amoxicillin-clavulanate (AUGMENTIN) 875-125 mg per tablet Take 1 tablet by mouth 2 times daily. 20 tablet 0 ??? DISCONTD: predniSONE (DELTASONE) 10 mg tablet Take by mouth. Take 6 tablets daily for 3 days, then 4 tablets for 3 days, then 2 tablets for 3 days, then 1 tablet for 3 days. 39 tablet 0 ??? omeprazole (PRILOSEC) 20 mg capsule Take 1 capsule by mouth 2 times daily. 180 capsule 12 ??? budesonide (PULMICORT) 0.5 mg/2 mL nebulizer solution Take 8 mLs by nebulization 2 times daily. 500 mL 12 ??? fluticasone-salmeterol (ADVAIR DISKUS) 500-50 mcg/dose diskus inhaler Inhale 1 puff into the lungs every 12 hours. 1 Inhaler 12 ??? PYGEUM AFRICANUM ORAL Take by mouth. ??? Triamcinolone Acetonide (NASACORT-AQ) 50 mcg [place] 2 sprays by Nasal route 2 times daily. ??? CIS Free Text Med - Relafen 500 MG = 1 Tablet(s), PO, PRN ??? CALCIUM ORAL Allergies: Allergies as of 09/04/2011 ??? (No Known Allergies) Past Medical History: No past medical history on file. Past Surgical History: No past surgical history on file. Family History: Family History Problem Relation Age of Onset ??? Hearing Loss Sister ??? Cancer Sister lung ??? Migraines Review of Systems Constitutional: Negative. HENT: Positive for congestion and postnasal drip. Eyes: Negative. Respiratory: Negative. Cardiovascular: Negative. Gastrointestinal: Negative. Genitourinary: Negative. Musculoskeletal: Negative. Skin: Negative. Neurological: Negative. Hematological: Negative. Psychiatric/Behavioral: Negative. Objective: Physical Exam Constitutional: He is oriented to person, place, and time. He appears well- developed and well-nourished. HENT: Head: Normocephalic and atraumatic. Right Ear: Tympanic membrane, external ear and ear canal normal. Left Ear: Tympanic membrane, external ear and ear canal normal. Nose: Nose normal. Mouth/Throat: Uvula is midline, oropharynx is clear and moist and mucous membranes are normal. Nasal Endoscopy performed after verbal consent was obtained and topical anesthesia was used Findings Septum: deviated with bowing to the left Nasopharynx: Torus normal. Adenoids non OMC/Lateral Nasal Wall: Edema: 3+, Crusting: none, Drainage: normal, Polyps: bilateral L>>R. Left has obstructive polyposis Olfactory Cleft: normal Inferior turbinate: hypertrophic Eyes: Conjunctivae are normal. Pupils are equal, round, and reactive to light. Neck: Normal range of motion. Neck supple. Pulmonary/Chest: Effort normal and breath sounds normal. Musculoskeletal: Normal range of motion. Neurological: He is alert and oriented to person, place, and time. Skin: Skin is warm and dry. Psychiatric: He has a normal mood and affect. His behavior is normal. Judgment and thought content normal. Assessment and Plan: Chronic sinusitis w/ polyps Strongly recommended follow through on allergy eval today. Given his polyp burden, I have re-started his steroids but feel that FESS would be needed given the lack of response to prior steroid use. Regardless for some sx relief I have given him another burst Consent for FESS obtained today. Will also get a CT of the sinuses No problem-specific visit notes found for this encounter. documented in this encounter Miscellaneous Notes Communication Body - Kenyon Avalos MD - 09/04/2011 11:53 AM EDT Subjective: Patient ID: Geoff Camacho is a 70 y.o. male. [facility] OTOLARYNGOLOGY HEAD AND NECK SURGERY NEW PATIENT EVALUATION Patient was seen today for evaluation of Patient sinus problems PCP: BERNARDO CARRASQUILLO MD Symptoms during acute phase: congestion, acute obstruction of nasal breathing Chronic symptoms: as above - notes some ongoing postnasal drip as well Pattern of antibiotic usage no Steroid usage one dose for the polyps History of asthma: no History of allergy: possible Prior sinus surgery: no Interventions: OTC-none, prescriptions-prednisone; abx once before for pneuomonia Smoking or passive smoke exposure: no Sx. Started about six months ago. No ongoing hx of allergy or other sinusitis Patient Active Problem List Diagnoses Date Noted ??? Actinic keratosis [702.0] 06/01/2011 Filed Vitals: 09/04/11 1113 BP: 152/91 Pulse: 76 Height: 175.3 cm (5' 9) Weight: 77.111 kg (170 lb) Medications: Outpatient encounter prescriptions as of 09/04/2011 Medication Sig Dispense Refill ??? MOMETASONE FUROATE (ASMANEX TWISTHALER INHL) Inhale into the lungs. ??? omeprazole (PRILOSEC) 10 mg capsule Take 10 mg by mouth 2 times daily (with meals). ??? OMEGA-3 FATTY ACIDS (FISH OIL CONCENTRATE ORAL) Take by mouth. ??? albuterol (PROVENTIL HFA;VENTOLIN HFA) 90 mcg/Actuation inhaler Inhale 2 puffs into the lungs every 4 hours as needed. Use with spacer ??? CIS Free Text Med - Ginkoba ??? GLUCOSAMINE HCL/CHONDR CLAROS A NA (GLUCOSAMINE-CHONDROITIN) 750-600 mg Tab ??? ERGOCALCIFEROL, VITAMIN D2, (VITAMIN D ORAL) ??? Vitamin E 400 unit Tab ??? [place] 160 mg capsule ??? multivitamin (THERAGRAN) tablet ??? predniSONE (DELTASONE) 20 mg tablet Take by mouth daily for 16 days. 3 tablets for 4 days 2 tablets for 4 days 1 tablet for 4 days 0.5 tablets for 4 days 26 tablet 0 ??? amoxicillin-clavulanate (AUGMENTIN) 875-125 mg per tablet Take 1 tablet by mouth 2 times daily. 20 tablet 0 ??? DISCONTD: predniSONE (DELTASONE) 10 mg tablet Take by mouth. Take 6 tablets daily for 3 days, then 4 tablets for 3 days, then 2 tablets for 3 days, then 1 tablet for 3 days. 39 tablet 0 ??? omeprazole (PRILOSEC) 20 mg capsule Take 1 capsule by mouth 2 times daily. 180 capsule 12 ??? budesonide (PULMICORT) 0.5 mg/2 mL nebulizer solution Take 8 mLs by nebulization 2 times daily. 500 mL 12 ??? fluticasone-salmeterol (ADVAIR DISKUS) 500-50 mcg/dose diskus inhaler Inhale 1 puff into the lungs every 12 hours. 1 Inhaler 12 ??? PYGEUM AFRICANUM ORAL Take by mouth. ??? Triamcinolone Acetonide (NASACORT-AQ) 50 mcg [place] 2 sprays by Nasal route 2 times daily. ??? CIS Free Text Med - Relafen 500 MG = 1 Tablet(s), PO, PRN ??? CALCIUM ORAL Allergies: Allergies as of 09/04/2011 ??? (No Known Allergies) Past Medical History: No past medical history on file. Past Surgical History: No past surgical history on file. Family History: Family History Problem Relation Age of Onset ??? Hearing Loss Sister ??? Cancer Sister lung ??? Migraines Review of Systems Constitutional: Negative. HENT: Positive for congestion and postnasal drip. Eyes: Negative. Respiratory: Negative. Cardiovascular: Negative. Gastrointestinal: Negative. Genitourinary: Negative. Musculoskeletal: Negative. Skin: Negative. Neurological: Negative. Hematological: Negative. Psychiatric/Behavioral: Negative. Objective: Physical Exam Constitutional: He is oriented to person, place, and time. He appears well- developed and well-nourished. HENT: Head: Normocephalic and atraumatic. Right Ear: Tympanic membrane, external ear and ear canal normal. Left Ear: Tympanic membrane, external ear and ear canal normal. Nose: Nose normal. Mouth/Throat: Uvula is midline, oropharynx is clear and moist and mucous membranes are normal. Nasal Endoscopy performed after verbal consent was obtained and topical anesthesia was used Findings Septum: deviated with bowing to the left Nasopharynx: Torus normal. Adenoids non OMC/Lateral Nasal Wall: Edema: 3+, Crusting: none, Drainage: normal, Polyps: bilateral L>>R. Left has obstructive polyposis Olfactory Cleft: normal Inferior turbinate: hypertrophic Eyes: Conjunctivae are normal. Pupils are equal, round, and reactive to light. Neck: Normal range of motion. Neck supple. Pulmonary/Chest: Effort normal and breath sounds normal. Musculoskeletal: Normal range of motion. Neurological: He is alert and oriented to person, place, and time. Skin: Skin is warm and dry. Psychiatric: He has a normal mood and affect. His behavior is normal. Judgment and thought content normal. Assessment and Plan: Chronic sinusitis w/ polyps Strongly recommended follow through on allergy eval today. Given his polyp burden, I have re-started his steroids but feel that FESS would be needed given the lack of response to prior steroid use. Regardless for some sx relief I have given him another burst Consent for FESS obtained today. Will also get a CT of the sinuses No problem-specific visit notes found for this encounter. documented in this encounter Plan of Treatment Not on filedocumented as of this encounter Procedures Procedure Name Priority Date/Time Associated Diagnosis Comme nts NASAL, SINUS ENDOSCOPY, Routine 09/04/2011 11:45 AM Multiple n vance polyps REMOVE TISSUE MAXILLARY EDT SINUS, MARGARET NASAL, SINUS ENDOSCOPY, Routine 09/04/2011 11:45 AM Multiple n vance polyps W ETHMOIDECTOMY, TOTAL, EDT MARGARET NASAL, SINUS ENDOSCOPY, Routine 09/04/2011 11:45 AM Multiple n vance polyps W BX, POLYPECTOMY EDT documented in this encounter Visit Diagnoses Diagnosis Multiple nasal polyps - Primary Unspecified nasal polyp documented in this encounter Care Teams Pecan Cleaner Relationship Specialty Start Date End Date Bernardo Carrasquillo MD PCP - General 02/22/[address] [place] [id number] documented as of this encounter
--- OUTSIDE RECORDS SUMMARY | 2021-09-23 12:54 | XMS_ITS | Encounter Summary ---
:1939 Author Organization [facility] [place] [address] Care Team Providers Name Role Phone Erik Carrasquillo MD Primary Care Provider Encounter Details Date Type Department Care Team Description 05/07/2012 Hospital Encounter Pulmonology at [facility] PFT ROOM 1 Asthma (Primary Dx) [facility] Antonia Narayanan MD [facility] [place] [address] [place] [id number] Social History Tobacco Use Types Packs/Day Years [...] inhaler hours as needed. Use with spacer Dutasteride-Tamsulosin Take by mouth. 0 08/29/2012 0.5-0.4 [...] by Nasal 0 12/23/2012 (NASACORT-AQ) 50 mcg [place] route 2 times daily. GLUCOSAMINE HCL/CHONDR CLAROS 0 08/28/2008 08/29/2012 A NA (GLUCOSAMINE-CHONDROITIN) 750-600 mg Tab CALCIUM ORAL 0 08/28/2008 08/29/2012 [place] 160 mg 0 08/28/200808/29 capsule multivitamin (THERAGRAN) 0 08/28/2008 08/29/2012 tablet documented as of this encounter Procedure Notes Trevor Neumann MD - 05/07/2012 4:33 PM ESTAssociated Order(s): PFT SCREEN (DLCO,OXIMETRY,SPIROMETRY) Pulmonary Function Test Interpretation (pertinent boxes checked) FEV1 is normal. FVC is normal. The FEV1/FVC ratio is normal. Uncorrected single-breath diffusion capacity for CO was [x] normal [] reduced. Resting oxyhemoglobin saturation on air was [x] normal [] reduced Impression: Normal pulmonary function testing. documented in this encounter Plan of Treatment Not on filedocumented as of this encounter Procedures Procedure Name Priority Date/Time Associated Diagnosis Comme nts PFT SCREEN Routine 05/07/2012 5:07 PM Asthma Results f or this (DLCO,OXIMETRY,SPIR EST procedur e are in OMETRY) the results section. documented in this encounter Results PFT Screen (DLCO,oximetry,spirometry) (05/07/2012 5:07 PM EST) P athologist Signature FEV1 liters FVC liters FEV1/FVC % TLC liters DLCO ml/mmHg sec Narrative Andrea Ferreira MD - 05/07/2012 5:07 PM EST Trevor Neumann MD ? 05/07/2012 ??4:33 PM Pulmonary Function Test Interpretation ( pertinent boxes checked) FEV1 is normal. ??FVC is normal. ??The F EV1/FVC ratio is normal. Uncorrected single-breath diffusion [place] for CO was [x] normal [] reduced. Resting oxyhemoglobin saturation on air was [x] normal [] reduced Impression: Normal pulmonary function te sting. Procedure Note Trevor Neumann MD - 05/07/2012 4:33 P M EST Pulmonary Function Test Interpretation ( pertinent boxes checked) FEV1 is normal. FVC is normal. The FEV1/ FVC ratio is normal. Uncorrected single-breath diffusion [place] for CO was [x] normal [] reduced. Resting oxyhemoglobin saturation on air was [x] normal [] reduced Impression: Normal pulmonary function te sting. Herminio Catherine MD PROCEDURE/MINOR SURGICAL ORD ERABLES documented in this encounter Visit Diagnoses Diagnosis Asthma - Primary Unspecified asthma documented in this encounter Care Teams Traffic Police Officer Relationship Specialty Start Date End Date Erik Carrasquillo MD PCP - General 02/22/[address] [place] [id number] documented as of this encounter
--- OUTSIDE RECORDS SUMMARY | 2021-09-23 12:54 | XMS_ITS | Encounter Summary ---
:1939 Author Organization [facility] [place] [address] Care Team Providers Name Role Phone Erik Carrasquillo MD Primary Care Provider Reason for Visit Reason Comments Follow-up Encounter Details Date Type Department Care Team Description 10/16/2011 Office Visit Otolaryngology at [facility] Robbie, Sinusitis, chronic [facility] Livan Prescott MD (Primary Dx) [place] [address] [place] [address] CENTER OTOLARYNGOLOGY DEPT. [place], [place] [address] Social History Tobacco Use Types [...] Sign Reading Time Taken Comments Blood Pressure 128/72 10/16/2011 1:10 PM EDT Pulse 79 10/16/2011 1:10 PM EDT Temperature - - Respiratory Rate - - Oxygen Saturation - - Inhaled Oxygen Concentration - - Weight 77.1 kg (170 lb) 10/16/2011 1:10 PM EDT Height 175.3 cm (5' 9) 10/16/2011 1:10 PM EDT Body Mass Index 25.1 10/16/2011 1:10 PM EDT documented in this encounter Progress Notes Kurtis Guzman MD - 10/16/2011 1:24 PM EDT Patient was seen today in follow up for chronic sinusitis and Patient is post sinus surgery. New issues to report:none - doing well Interim history:unchanged DOS: 10/02/11 Past Surgical History Procedure Date ??? Nasal scopy, rmv tiss maxill sinus 10/02/2011 NASAL, SINUS ENDOSCOPY, REMOVE TISSUE MAXILLARY SINUS, MARGARET performed by KURTIS GUZMAN at [facility] MAIN OR ??? Nasal scope, bx/rmv polyp/debrid 10/02/2011 NASAL, SINUS ENDOSCOPY, WITH BX, POLYPECTOMY performed by KURTIS GUZMAN at [facility] MAIN OR ??? Nasal scopy, remv totl ethmoid 10/02/2011 NASAL, SINUS ENDOSCOPY, TOTAL ETHMOIDECTOMY-MARGARET performed by KURTIS GUZMAN at [facility] MAIN OR ??? Stereotactic cptr asstd px cranial, extradural 10/02/2011 STEREOTACTIC COMPUTER-ASSTD NAVIGATIONAL CRANIAL EXTRADURAL performed by KURTIS GUZMAN at [facility] MAIN OR Patient Active Problem List Diagnoses Date Noted ??? Asthma [493.90AE] 10/02/2011 ??? Hospital-Sinusitis, chronic [473.9AG] 10/02/2011 ??? GERD (gastroesophageal reflux disease) [530.81S] 10/02/2011 ??? Actinic keratosis [702.0] 06/01/2011 Medications: Outpatient encounter prescriptions as of 10/16/2011 Medication Sig Dispense Refill ??? amoxicillin-clavulanate (AUGMENTIN) 875-125 mg per tablet Take 1 tablet by mouth 2 times daily for 21 days. 42 tablet 0 ??? predniSONE (DELTASONE) 20 mg tablet Take 1 tablet by mouth. 3 tablets for 4 days, 2 tablets for 4 days, 1 tablet for 4 days, 0.5 tablets for 4 days 26 tablet 0 ??? metoprolol succinate (TOPROL-XL) 25 mg 24 hr tablet Take 25 mg by mouth daily. ??? MOMETASONE FUROATE (ASMANEX TWISTHALER INHL) Inhale into the lungs. ??? omeprazole (PRILOSEC) 10 mg capsule Take 10 mg by mouth 2 times daily (with meals). ??? PHYTONADIONE (VITAMIN K ORAL) Take 45 mcg by mouth daily. ??? amoxicillin-clavulanate (AUGMENTIN) 875-125 mg per tablet Take 1 tablet by mouth 2 times daily. 20 tablet 0 ??? budesonide (PULMICORT) 0.5 mg/2 mL nebulizer [...] spacer ??? Triamcinolone Acetonide (NASACORT-AQ) 50 mcg [place] 2 sprays by Nasal route 2 times daily. ??? GLUCOSAMINE HCL/CHONDR CLAROS A NA (GLUCOSAMINE-CHONDROITIN) 750-600 mg Tab ??? CALCIUM ORAL ??? [place] 160 mg capsule ??? multivitamin (THERAGRAN) tablet ??? DISCONTD: OXYcodone-acetaminophen (PERCOCET) 5-325 mg per tablet Take 1-2 tablets by mouth every4 hours as needed for Pain. 40 tablet 0 Allergies Allergies as of 10/16/2011 ??? (No Known Allergies) E: TMs pearly newman and mobile. EAC normal N: See endoscopy OC/OP: mucosa clear. No masses seen Neck: Normal. No adenopathy. FROM Procedure Note: Nasal endoscopy was repeated: Endoscopic Findings: Nasal Endoscopy performed Findings OMC/Lateral Nasal Wall: Edema: 2+, Crusting: moderate - removed partly, Drainage: thick but clear, Polyps: none Nasal floor: normal Assessment: Chronic sinusitis Plan: extend A BX for 3 more weeks for H. Flu F/u in 1 month documented in this encounter Plan of Treatment Not on filedocumented as of this encounter Visit Diagnoses Diagnosis Sinusitis, chronic - Primary Unspecified sinusitis (chronic) documented in this encounter Care Teams Staff Certified Nurse Midwife Relationship Specialty Start Date End Date Erik Carrasquillo MD PCP - General 02/22/[address] [address] documented as of this encounter
--- OUTSIDE RECORDS SUMMARY | 2021-09-23 12:54 | XMS_ITS | Encounter Summary ---
:1940 [place] [address] Care Team Providers Name Role Phone Erik Carrasquillo MD Primary Care Provider Encounter Details Date Type Department Care Team Description 10/02/2011 Anesthesia Event Main Operating Room Yohanens Preston MD [facility] [place] [address] [facility] Yohannes Peterson MD [facility] [place] [address] [place] [address] Anesthesia Record Procedure Summary Procedure Name Responsible Anesthesia Start Anesthesia Stop Time Anesthesiologist Time NASAL, SINUS Yohannes Barbour MD 10/02/11 1202 10/02/11 140 1 ENDOSCOPY, REMOVE TISSUE MAXILLARY SINUS, MARGARET (WRVU 5.45) (Bilateral Nose) Events Date Time Event Comment 10/02/2011 1149 1202 Start 1401 Stop No medications on file. Agents No agents on file. Blood No blood administrations on file. Lines, Drains, and Airways Type Details Placement Removal Incision 10/02/11; nostril 10/02/11 0000 by Elayne (bilateral sinus) Destiney Blount RN PIV 10/02/11; 1128; 10/02/11; 10/02/11 1128 by Kanwal ling, 10/02/11 1540 by Lai, 1540 Marzena Birch RN Nelly Munoz RN documented in this encounter Social History [...] encounter OR Notes Anesthesia Postprocedure Evaluation - Yohannes Barbour MD - 10/02/2011 4:00 PM EDT Patient: Geoff Camacho Procedure(s) Performed: Procedure(s): NASAL, SINUS ENDOSCOPY, REMOVE TISSUE MAXILLARY SINUS, MARGARET NASAL, SINUS ENDOSCOPY, WITH BX, POLYPECTOMY NASAL, SINUS ENDOSCOPY, TOTAL ETHMOIDECTOMY-MARGARET STEREOTACTIC COMPUTER-ASSTD NAVIGATIONAL CRANIAL EXTRADURAL MODIFIER [employer] Patient location: PACU Post-op pain: Adequate analgesia Post-op nausea: no nausea or vomiting Last Vitals: Filed Vitals: 10/02/11 1455 BP: 156/84 Pulse: 93 Temp: Resp: 16 Post-op cardiovascular and respiratory status: is stable Level of consciousness: awake and alert Complications: no apparent complications Fluid Status: normal Anesthesia Preprocedure Evaluation - Yohannes Barbour MD - 10/02/2011 11:25 AM EDT Anesthesia Evaluation Patient summary reviewed and Nursing notes reviewed Airway Mallampati: III TM distance: >3 FB Neck ROM: full Dental - normal exam Pulmonary (+) asthma (Mild, well controlled.), Cardiovascular Exercise tolerance: good (-) past CT, dysrhythmias and angina ROS comment: Placed on metoprolol periop by PCP. Neuro/Psych GI/Hepatic/Renal (+) GERD well controlled, Endo/Other (-) Type II DM Comments: Recurrent sinusitis. Abdominal Anesthesia Plan ASA 2 General with intravenous induction Std monitors. Plan discussed with PHLEBOTOMY INSTRUCTOR. documented in this encounter Miscellaneous Notes Addendum Note - Kathy Moura - 10/03/2011 11:19 AM EDT Addendum created 10/03/11 1119 by Kathy Moura Modules edited:Anesthesia Events, Anesthesia Responsible Staff documented in this encounter Plan of Treatment Not on filedocumented as of this encounter Visit Diagnoses Not on filedocumented in this encounter Care Teams Commercial Appraiser Relationship Specialty Start Date End Date Erik Carrasquillo MD PCP - General 02/22/[address] [place] [phone] documented as of this encounter
--- OUTSIDE RECORDS SUMMARY | 2021-09-23 12:54 | XMS_ITS | Encounter Summary ---
:1939 Author Organization [facility] [place] [address] Care Team Providers Name Role Phone Erik Carrasquillo MD Primary Care Provider Encounter Details Date Type Department Care Team Description 02/27/2012 Orders Only Pul[place]ology at [facility] Trevor Neumann MD Asthma [facility] D rive [facility] [place] [address] CRITICAL CARE-PULMONARY [phone] [place], [place] [address] (Wo rk) Social History Tobacco [...] filedocumented as of this encounter Results XR chest routine PA & lateral (05/07/2012 2:36 PM EST) Anatomical Region Laterality Modality Chest N/A Radiographic Imaging Specimen (Source) Anatomical Collection Method Collection Time Re ceived Time Location / / Volume Laterality 05/07/2012 2:36 PM EST Narrative 05/07/2012 2:46 PM EST Examination CHEST ROUTINE 2 VIEWS Clinical History F/u basilar opacities Comparison 12/25/2010 radiographs from an outside i nstitution. Technique PA and lateral views of the chest. ?? Findings Lung volumes are lower, particularly on the lateral view, consistent with a shallower inspiration. Similar appearanc e of atelectasis versus scarring at the lung bases. Compared to 05/26/2011 CT, I cannot appreciate any patchy or consolidative type opacities. A sub cm n odular opacity projecting partially over the anterolateral left 7th rib like ly corresponds to a left lower lobe nodule seen on the CT. Above the bases, the lungs are clear. ??The cardiomediastinal silhouette, king, and vasculature appear within normal limits and unchanged. No pleural effusion is pr esent. No interval osseous findings is seen. Impression Similar appearance of the lung bases com pared to prior. No new or progressive findings. Procedure Note Kelsey Mistry MD - 05/07/2012Formatt ing of this note might be different from the original. Examination CHEST ROUTINE 2 VIEWS Clinical History F/u basilar opacities Comparison 12/25/2010 radiographs from an outside i nstitution. Technique PA and lateral views of the chest. Findings Lung volumes are lower, particularly on the lateral view, consistent with a shallower inspiration. Similar appearanc e of atelectasis versus scarring at the lung bases. Compared to 05/26/2011 CT, I cannot appreciate any patchy or consolidative type opacities. A sub cm n odular opacity projecting partially over the anterolateral left 7th rib like ly corresponds to a left lower lobe nodule seen on the CT. Above the bases, the lungs are clear. The cardiomediastinal silhouette, king, and vasculature appear within normal limits and unchanged. No pleural effusion is pr esent. No interval osseous findings is seen. Impression Similar appearance of the lung bases com pared to prior. No new or progressive findings. Antonia Narayanan MD IMG DX ORDERABLES documented in this encounter Visit Diagnoses Diagnosis Asthma Unspecified asthma Asthma Unspecified asthma documented in this encounter Care Teams High [address] Justice Relationship Specialty Start Date End Date Erik Carrasquillo MD PCP - General 02/22/[address] [place] [id number] documented as of this encounter
--- OUTSIDE RECORDS SUMMARY | 2021-09-23 12:54 | XMS_ITS | Encounter Summary ---
:1939 Author Organization [facility] [place] [address] Care Team Providers Name Role Phone Erik Carrasquillo MD Primary Care Provider Reason for Visit Reason Comments Follow-up Encounter Details Date Type Department Care Team Description 06/26/2011 Office Visit Dermatology Onofre Jacome, Actinic keratosis [address] [facility] (Primary Dx) [address] [place], [place] DERMATOLOGY [address] [place] [address] [phone] (Wo rk) Social History Tobacco Use Types Packs/Day Years Used Date Former Smoker Cigarettes Quit: 03/15/19 66 Sex Assigned at Date Recorded Not on file documented as of this encounter Progress Notes Onofre Jacome MD - 06/26/2011 10:29 AM EDT Problem: Followup actinic keratoses status post two weeks of 5FU applications. Ming follows up and chose just to spot treat his actinics, not the entire face, with the 5FU. Also he found that he had a fairly minimal reaction initially and so did not use the triamcinolone until things became more inflamed. Physical examination reveals actinics highlighted on the left cheek and the left postauricular scalp where he did treat but really minimal reaction elsewhere. Assessment and Plan: 1. Actinic keratoses/actinic facial damage. A. Discontinue 5FU. B. Resume triamcinolone cream to treat areas until the erythema and the scabbing resolves. C. Then recommend restarting Efudex cream more diffusely to the untreated areas, again for two weeks. Use triamcinolone cream to erythematous areas when Efudex reaction begins. D. After two weeks discontinue Efudex and return to clinic here for repeat check in six months. 2. Fingernail changes. A. After researching the patient's current medications, I found none that would explain the distal yellowish discoloration and transverse ridging. I do suspect this is related to his pulmonary disease. They do appear now to be growing out normally. Reassured patient. Copy: Erik Carrasquillo M.D. documented in this encounter Plan of Treatment Not on filedocumented as of this encounter Visit Diagnoses Diagnosis Actinic keratosis - Primary documented in this encounter Care Teams Visual Display Associate Relationship Specialty Start Date End Date Erik Carrasquillo MD PCP - General 02/22/[address] [place] [phone] documented as of this encounter
--- OUTSIDE RECORDS SUMMARY | 2021-09-23 12:54 | XMS_ITS | Encounter Summary ---
:1939 Author Organization [facility] [place] [address] Care Team Providers Name Role Phone Erik Carrasquillo MD Primary Care Provider Encounter Details Date Type Department Care Team Description 05/15/2011 Orders Only Pulmonology at [facility] Trevor Neumann, Cough (Primary Dx) [facility] [place] [address] [facility] [phone] CRITICAL CARE-PULMONARY [place], [place] [address] (Wo rk) Social History Tobacco Use Types Packs/Day Years Used Date Former Smoker Cigarettes Quit: 03/15/19 66 Sex Assigned at Date Recorded Not on file documented as of this encounter Plan of Treatment Not on filedocumented as of this encounter Results CT chest with contrast (05/26/2011 2:45 PM EST) Anatomical Region Laterality Modality Chest Computed Tomography Specimen (Source) Anatomical Collection Method Collection Time Re ceived Time Location / / Volume Laterality 05/26/2011 2:45 PM EST Impressions 06/02/2011 9:26 AM EST IMPRESSION: ?? 1. Bilateral lower lobe airspace opaciti es are a non-specific finding and can be consistent with aspiration, indolent pneumonia, cryptogenic organizing pneumonia, or less likely bronchial alve olar carcinoma. ? Film and interpretation reviewed by the attending Narrative 06/02/2011 9:[address] CHEST, 05/26/11: HISTORY: ??Chronic cough/previous smoker . Question mediastinal lymphadenopathy. ?? TECHNIQUE: ??Helical CT of the chest wit h intravenous contrast was acquired during the portal venous phase. Multipla guillermo reformatted images were also created and reviewed. ?? CONTRAST: ??Omnipaque-350, 60 cc. ?? COMPARISON: ??None. ?? FINDINGS: ??Focal airspace opacities in the lower lung zones bilaterally. A 3 mm subpleural pulmonary nodule is present i n the left lower lobe and consistent with an intrapulmonary lymph node. Lastl y, is the wedge-shaped opacity within the left upper lobe lingula consistent w ith atelectasis. ?? There is no axillary, mediastinal, or hi lar lymphadenopathy. The heart, aorta, and its branch vessels are normal in crystal earance. ?? Limited views of the upper abdomen demon strate normal portions of liver, spleen, and adrenals. ?? No acute osseous abnormalities are prese nt. There is mild facet hypertrophy in the lower thoracic spine. ?? There is no pleural or pericardial effus ion present. ?? Procedure Note Boni Fu MD - 06/02/2011Formatt ing of this note might be different from the original. CT CHEST, 05/26/11: HISTORY: Chronic cough/previous smoker. Question mediastinal lymphadenopathy. TECHNIQUE: Helical CT of the chest with intravenous contrast was acquired during the portal venous phase. Multipla guillermo reformatted images were also created and reviewed. CONTRAST: Omnipaque-350, 60 cc. COMPARISON: None. FINDINGS: Focal airspace opacities in th e lower lung zones bilaterally. A 3 mm subpleural pulmonary nodule is present i n the left lower lobe and consistent with an intrapulmonary lymph node. Lastl y, is the wedge-shaped opacity within the left upper lobe lingula consistent w ith atelectasis. There is no axillary, mediastinal, or hi lar lymphadenopathy. The heart, aorta, and its branch vessels are normal in crystal earance. Limited views of the upper abdomen demon strate normal portions of liver, spleen, and adrenals. No acute osseous abnormalities are prese nt. There is mild facet hypertrophy in the lower thoracic spine. There is no pleural or pericardial effus ion present. IMPRESSION IMPRESSION: 1. Bilateral lower lobe airspace opaciti es are a non-specific finding and can be consistent with aspiration, indolent pneumonia, cryptogenic organizing pneumonia, or less likely bronchial alve olar carcinoma. Film and interpretation reviewed by the attending Shaji Valderrama Jr., MD IMG CT ORDERABLES documented in this encounter Visit Diagnoses Diagnosis Cough - Primary Cough documented in this encounter Care Teams Research Center Director Relationship Specialty Start Date End Date Erik Carrasquillo MD PCP - General 02/22/[address] [place] [id number] documented as of this encounter
--- OUTSIDE RECORDS SUMMARY | 2021-09-23 12:54 | XMS_ITS | Encounter Summary ---
:1939 Author Organization [facility] [place] [address] Care Team Providers Name Role Phone Erik Carrasquillo MD Primary Care Provider Encounter Details Date Type Department Care Team Description 02/10/2008 Orders Only Pulmonology at [facility] Trevor Neumann MD [facility] [place] [address] CRITICAL CARE-PULMONARY [phone] [place], [place] [address] (Wo rk) Social History Tobacco Use Types Packs/Day Years Used Date Never Assessed Sex Assigned at Date Recorded Not on file documented as of this encounter Plan of Treatment Not on filedocumented as of this encounter Procedures Procedure Name Priority Date/Time Associated Diagnosis Comme nts FILM LIBRARY Routine 02/10/2008 5:27 AM Results f or this STORAGE ONLY DX EST procedure ar e in CHEST the results section. documented in this encounter Results FILM LIBRARY- STORAGE ONLY DX CHEST (02/10/2008 5:27 AM EST) Specimen (Source) Anatomical Collection Method Collection Time Re ceived Time Location / / Volume Laterality 02/10/2008 5:27 AM EST Narrative RAD - 08/26/2013 11:37 AM EDT This is a non-reportable exam. Procedure Note Gokul Oscar - 08/26/2013Formatting of t his note might be different from the original. This is a non-reportable exam. Trevor Neumann MD G FILM LIBRARY ORDERABLES Performing Organization Address City/State/ZIP Code Phon e Number [facility] [address] [facility] [place] [address] documented in this encounter Visit Diagnoses Not on filedocumented in this encounter Care Teams Clinical Services Consultant Relationship Specialty Start Date End Date Erik Carrasquillo MD PCP - General 02/22/[address] [place] [phone] documented as of this encounter
--- OUTSIDE RECORDS SUMMARY | 2021-09-23 12:54 | XMS_ITS | Encounter Summary ---
:1939 Author Organization [place] [address] Care Team Providers Name Role Phone Erki Carrasquillo MD Primary Care Provider Encounter Details Date Type Department Care Team Description 10/23/2011 Orders Only Otolaryngology at [facility] Nelly Gann, [facility] [place] [address] [place] [phone] Social History Tobacco Use Types Packs/Day Years [...] documented as of this encounter Progress Notes Nelly Gann RN - 10/23/2011 7:54 AM EDT Patient calling because he thought Dr. Avalos was going to extend his antibiotics. Nothing has been sent to his pharmacy. Per Dr. Avalos's note on 10/15, I called in 3 more weeks of augmentin. documented in this encounter Plan of Treatment Not on filedocumented as of this encounter Visit Diagnoses Not on filedocumented in this encounter Care Teams Material Handler Loader Relationship Specialty Start Date End Date Erik Carrasquillo MD PCP - General 02/22/[address] [place] [address] documented as of this encounter
--- OUTSIDE RECORDS SUMMARY | 2021-09-23 12:54 | XMS_ITS | Encounter Summary ---
:1939 Author Organization [facility] [place] [address] Care Team Providers Name Role Phone Erik Carrasquillo MD Primary Care Provider Encounter Details Date Type Department Care Team Description 05/07/2012 Hospital En[place] [facility] [place] [address] [place] [address] [place] [address] Social History Tobacco Use Types Packs/Day [...] inhaler hours as needed. Use with spacer metoprolol succinate Take 25 mg by mouth 0 08/29/2012 (TOPROL-XL) 25 mg 24 hr daily. tablet PHYTONADIONE (VITAMIN K Take 45 mcg by 0 08/29/2012 ORAL) mouth daily. OMEGA-3 FATTY ACIDS (FISH Take 1,000 mg by 0 08/30/2016 OIL CONCENTRATE ORAL) mouth daily. PYGEUM AFRICANUM ORAL Take by mouth. 0 08/29/2012 Triamcinolone Acetonide 2 sprays by Nasal 0 12/23/2012 (NASACORT-AQ) 50 mcg [place] route 2 times daily. GLUCOSAMINE HCL/CHONDR CLAROS 0 08/28/2008 08/29/2012 A NA (GLUCOSAMINE-CHONDROITIN) 750-600 mg Tab CALCIUM ORAL 0 08/28/2008 08/29/2012 Saw [place] 160 mg 0 08/28/200808/29 capsule multivitamin (THERAGRAN) 0 08/28/2008 08/29/2012 tablet documented as of this encounter Plan of Treatment Not on filedocumented as of this encounter Procedures Procedure Name Priority Date/Time Associated Diagnosis Comme nts XR CHEST PA AND Routine 05/07/2012 2:36 PM Asthma Result s for this LATERAL EST procedure are i n the results section. documented in this encounter Results XR chest routine PA [...] encounter Visit Diagnoses Diagnosis Asthma Unspecified asthma documented in this encounter Care Teams Filter Press Tender Head Relationship Specialty Start Date End Date Erik Carrasquillo MD PCP - General 02/22/[address] [place] [phone] documented as of this encounter
--- OUTSIDE RECORDS SUMMARY | 2021-09-23 12:54 | XMS_ITS | Encounter Summary ---
:1939 Author Organization [facility] [place] [address] Care Team Providers Name Role Phone Erik Carrasquillo MD Primary Care Provider Encounter Details Date Type Department Care Team Description 03/03/2012 Orders Only Pulmonology at [facility] Trevor Neumann MD Asthma [facility] D rive [facility] [place] [address] CRITICAL CARE-PULMONARY [phone] [place], [place] [address] (Wo rk) Social History Tobacco [...] on filedocumented as of this encounter Results PFT Screen (DLCO,oximetry,spirometry) (05/07/2012 5:07 PM EST) athologist Signature FEV1 liters FVC liters FEV1/FVC [...] Visit Diagnoses Diagnosis Asthma Unspecified asthma Asthma - Primary Unspecified asthma documented in this encounter Care Teams Internal Grinding Machine Operator Relationship Specialty Start Date End Date Erik Carrasquillo MD PCP - General 02/22/[address] [place] [id number] documented as of this encounter
--- OUTSIDE RECORDS SUMMARY | 2021-09-23 12:54 | XMS_ITS | Encounter Summary ---
:1940 Author Organization [facility] [place] [address] Care Team Providers Name Role Phone Erik Carrasquillo MD Primary Care Provider Encounter Details Date Type Department Care Team Description 05/29/2011 Orders Only Pulmonology at [facility] Trevor Neumann MD [facility] [address] [place] [address] CRITICAL CARE-PULMONARY [phone] [place], [place] [address] (Wo rk) Social History Tobacco Use Types Packs/Day Years Used Date Former Smoker Cigarettes Quit: 03/15/19 66 Sex Assigned at Date Recorded Not on file documented as of this encounter Progress Notes Trevor Neumann MD - 05/29/2011 8:54 AM EST SURGICAL PRODUCT SALES CONSULTANT TELEPHONE NOTE Called patient with results of CT -- bilateral basilar opacities that appear most consistent with pneumonitis. I offered him the following options: (1) Swallow study (2) Bronchoscopy (3) Prednisone and augmentin He chose the third. He also wants to increase his omeprazole because he feels better with it and I think that is fine -- he will go to 40 mg PO BID. He reports more coughing post-prandially thus I think that silent aspiration is the most likely diagnosis, although I cannot rule out HEATER ENGINEER HELPER. He will keep in touch via email as we have been. Trevor Neumann MD Pulmonary & Critical Care Fellow documented in this encounter Plan of Treatment Not on filedocumented as of this encounter Visit Diagnoses Not on filedocumented in this encounter Care Teams Production Sanitizer Relationship Specialty Start Date End Date Erik Carrasquillo MD PCP - General 02/22/[address] [place] [id number] documented as of this encounter
--- OUTSIDE RECORDS SUMMARY | 2021-09-23 12:54 | XMS_ITS | Encounter Summary ---
:1940 [place] [address] Care Team Providers Name Role Phone Erik Carrasquillo MD Primary Care Provider Encounter Details Date Type Department Care Team Description 10/02/2011 Hospital Encounter [facility] Beryl Prescott MD [facility] [address] OTOLARYNGOLOGY [place], [place] DEPT. [address] [place], [place] [phone] Social History Tobacco Use Types Packs/Day Years [...] Sign Reading Time Taken Comments Blood Pressure 156/84 10/02/2011 2:55 PM EDT Pulse 93 10/02/2011 2:55 PM EDT Temperature 36.1 ??C (97 ??F) 10/02/2011 1:55 PM EDT Respiratory Rate 16 10/02/2011 2:55 PM EDT Oxygen Saturation 94% 10/02/2011 3:41 PM EDT Inhaled Oxygen Concentration - - Weight 77.1 kg (170 lb) 10/02/2011 11:04 AM EDT Height 175.3 cm (5' 9) 10/02/2011 11:04 AM EDT Body Mass Index 25.1 10/02/2011 11:04 AM EDT documented in this encounter Discharge Instructions Discharge InstructionsNelly Hoyt RN - 10/02/2011 2:13 PM EDT POST ANESTHESIA INSTRUCTIONS Go home, [...] which usually goes away in 12-24 hours. Patient InstructionsCarlos Alvarado MD - 10/02/2011 1:44 PM EDT Endoscopic Sinus Surgery/Septoplasty - Postoperative Discharge Instructions You are being discharged to home after having undergone endoscopic sinus surgery. This procedure is designed to better manage your sinus symptoms. What we as a team (physicians, nurses and the patient)do in the immediate postoperative period will impact your long-term results and outcome. Instructions: 1. Avoid strenuous activity for the first 48 hours, and slowly increase activity. Avoid lifting (formost adults) objects heavier than 20 lbs for the first five days. 2. Keep a drip pad (gauze) under your nose for comfort, if you would like. 3. Avoid straining significantly to have bowel movements. Use fqah-btf-zrpoznq stool softeners if needed. 4. Sneeze with your mouth open. 5. Your nose may feel very congested post surgery (like a sinus infection). This is normal. You may use Afrin nasal spray as needed for the first 48 hours after surgery. 6. Start using nasal saline rinses twice a day on the day after surgery. Buy a TeamPatent sinus rinse kit. You will notice blood-stained discharge initially which progressively clears. 7. Unless specifically told otherwise, start blowing your nose after saline rinses on postoperative day #5 8. Start using the antibiotics and prednisone on the day after surgery. Finish the entire prescription as given to you. 9. Follow up with your surgeon as scheduled. 10. DO NOT USE ASPIRIN, MOTRIN, OR SIMILAR NSAIDS FOR PAIN 10 a. If you are on Baby or regular Asprin therapy, you may resume it therapy three days after your surgery. If you are on Plavix, please wait for one week and confirm at your first post op check When to Call: 1. Fever greater than 101.5 degrees. 2. Unrelenting pain (especially on one side) not responsive to two or three doses of pain medicines and saline rinses 3. Bleeding. A good way to measure significant bleeding from normal ???postoperative?? oozing is totape a drip pad under your nose. If you are changing this more than once an hour, you need to be evaluated. 4. Nausea or vomiting. 5. Blurry vision Contact Information MD Tonia Sethi, REJECTOR doctor technical services consultant [phone] (after hours) Endoscopic Sinus Surgery/Septoplasty - Postoperative Discharge Instructions You are being discharged to home after having undergone endoscopic sinus surgery. This procedure is designed to better manage your sinus symptoms. What we as a team (physicians, nurses and the patient)do in the immediate postoperative period will impact your long-term results and outcome. Instructions: 1. Avoid strenuous activity for the first 48 hours, and slowly increase activity. Avoid lifting (formost adults) objects heavier than 20 lbs for the first five days. 2. Keep a drip pad (gauze) under your nose for comfort, if you would like. 3. Avoid straining significantly to have bowel movements. Use aetp-ldg-xedknhg stool softeners if needed. 4. Sneeze with your mouth open. 5. Your nose may feel very congested post surgery (like a sinus infection). This is normal. You may use Afrin nasal spray as needed for the first 48 hours after surgery. 6. Start using nasal saline rinses twice a day on the day after surgery. Buy a [employer] sinus rinse kit. You will notice blood-stained discharge initially which progressively clears. 6a. If you have nasal packing, you will be told to start once the packing is removed. 7. Unless specifically told otherwise, start blowing your nose after saline rinses on postoperative day #5 8. Start using the antibiotics and prednisone on the day after surgery. Finish the entire prescription as given to you. 9. Follow up with your surgeon as scheduled. 10. DO NOT USE ASPIRIN, MOTRIN, OR SIMILAR NSAIDS FOR PAIN 10 a. If you are on Baby or regular Asprin therapy, you may resume it therapy three days after your surgery. If you are on Plavix, please wait for one week and confirm at your first post op check When to Call: 1. Fever greater than 101.5 degrees. 2. Unrelenting pain (especially on one side) not responsive to two or three doses of pain medicines and saline rinses 3. Bleeding. A good way to measure significant bleeding from normal ???postoperative?? oozing is totape a drip pad under your nose. If you are changing this more than once an hour, you need to be evaluated. 4. Nausea or vomiting. 5. Blurry vision Contact Information MD Nelly Sethi, REJECTOR doctor technical services consultant [phone] (after hours) documented in this encounter Medications at Time [...] (NASACORT-AQ) 50 mcg route 2 times daily. [place] GLUCOSAMINE HCL/CHONDR 0 08/28/2008 [place] A NA (GLUCOSAMINE-CHONDROITI N) 750-600 mg Tab CALCIUM ORAL 0 08/28/2008 08/29/2012 [place] 160 mg 0 08/28/200808/29 capsule multivitamin 0 08/28/2008 08/29/2012 (THERAGRAN) tablet documented as of this encounter Progress Notes Nelly Hoyt RN - 10/02/2011 3:41 PM EDT D/C instructions given to pt and family. Pt out of bed to bathroom without difficulty. Void without difficulty. IV/d/c'd. documented in this encounter H&P Notes Carlos Alvarado MD - 10/02/2011 11:41 AM EDT 24-Hour Pre-Operative H&P Update Patient seen and examined in the Pre-Operative Area today. I have reviewed, and agree with, the clinical history, physical examination findings, impression, and plan, as detailed in the original H&P Note. No new clinically-significant changes to the patient's health. Patient is ready to proceed with the planned surgical procedure. CARLOS ALVARADO MD 10/02/2011 documented in this encounter Miscellaneous Notes Miscellaneous - Provider, Scanning - 10/03/2011 5:28 AM EDT Op Note - Carlos Alvarado MD - 10/02/2011 1:44 PM EDT Operative Note Patient Name: Erich Camacho Date: 10/02/2011 Procedure(s): NASAL, SINUS ENDOSCOPY, REMOVE TISSUE MAXILLARY SINUS, MARGARET NASAL, SINUS ENDOSCOPY, WITH BX, POLYPECTOMY NASAL, SINUS ENDOSCOPY, TOTAL ETHMOIDECTOMY-MARGARET STEREOTACTIC COMPUTER-ASSTD NAVIGATIONAL CRANIAL EXTRADURAL MODIFIER MEDTRONIC Surgeon(s) and Role: * KURTIS GUZMAN MD - Primary * CARLOS ALVARADO MD - Resident-Surgeon Sd Preoperative diagnosis: Chronic sinusitis Postoperative diagnosis: same Anesthesia: General EBL: 60ml Disposition: awakened from anesthesia, extubated and taken to the recovery room in a stable condition, having suffered no apparent untoward event. Condition: doing well without problems HPI: 71 y.o. male with chronic sinusitis with polyposis. He presents for endoscopic sinus surgery with image guidance after discussion and understanding of the risks and benefits. Procedure in detail: After administration of general anesthesia, and a timeout procedure, the table was rotated 180 degrees. The patient was draped in the usual fashion. Vasoconstriction was achieved using cocaine and afrin soaked pledgets. The procedure was performed intranasally using a 4 mm nasal endoscope. Points on the face and skull were used to register the patient and the [employer] system was readied for navigation. Real-time navigation was employed by attaching the IG- readers to the microdebrider. The procedure was started on the patient???s left. The lateral nasal wall was infiltrated with Lidocaine and Epinephrine. Nasal endoscopy was performed and the uncinate process was identified and removed with a microdebrider. The ostium was easily identified and a significant amount of thick mucoid material was removed and the ostium was widened. There were significant polypoid changes noted throughout the ethmoid cavity which were removed primarily with a microdebrider and with through-cutting forceps. The posterior ethmoid cells were opened and the skull base was identified. The residual ethmoid cells were opened by following the skull base to the frontal recess area. The procedure was stopped when the frontal sinus ostium was identified and cannulated with a frontal sinus seeker. Attention was turned to the patient's right and a similar procedure was performed. After an uncinectomy and maxillary antrostomy with tissue removal from the sinus and ostium, a complete ethmoidectomy was performed. The skull base was identified posteriorly and the dissection was carried forward untilthe frontal ostium was identifed and confirmed. Vasoconstriction was achieved using epinephrine soaked pledgets. Merogel sponge was placed in the ethmoid cavity and inflated with epinephrine. The patient was awakened and taken to the SDP room in good condition. All pledget counts were correct at the end of the case Findings: -Extensive polypoid change lateral to bilateral middle turbinates, R>L -Inspissated mucous suctioned from all opened sinuses and culture sent from right maxillary sinus. Brief Op Note - Carlos Alvarado MD - 10/02/2011 1:40 PM EDT Brief Operative Note Patient Name: Erich Camacho : [id number] MR#: [id number] Case Date: 10/02/2011 Surgeon: Surgeon(s) and Role: * KURTIS GUZMAN MD - Primary * CARLOS ALVARADO MD - Resident-Surgeon Sd Preoperative diagnosis: Chronic sinusitis Postoperative diagnosis: Chronic sinusitis Procedure(s): NASAL, SINUS ENDOSCOPY, REMOVE TISSUE MAXILLARY SINUS, MARGARET NASAL, SINUS ENDOSCOPY, WITH BX, POLYPECTOMY NASAL, SINUS ENDOSCOPY, TOTAL ETHMOIDECTOMY-MARGARET STEREOTACTIC COMPUTER-ASSTD NAVIGATIONAL CRANIAL EXTRADURAL MODIFIER MEDTRONIC Anesthesia: General Findings: -Extensive polypoid change lateral to bilateral middle turbinates, R>L -Inspissated mucous suctioned from all opened sinuses and culture sent from right maxillary sinus. Complications: None Estimated Blood Loss: 60ml Drains: none Disposition: awakened from anesthesia, extubated and taken to the recovery room in a stable condition, having suffered no apparent untoward event. Condition: doing well without problems (Please see the Surgical Encounter Summary for any Implant and Specimen details pertinent to this patient.) OR Attestation - Kurtis Guzman MD - 10/02/2011 1:34 PM EDT Attestation: Case Date: 10/02/2011 I was present and I participated during the entire procedure (does not need to include opening and closing). KURTIS GUZMAN MD 10/02/2011 Miscellaneous - Provider, Scanning - 10/02/2011 12:24 PM EDT documented in this encounter Plan of Treatment Not on filedocumented as of this encounter Procedures Procedure Name Priority Date/Time Associated Comments Diagnosis STEREOTACTIC Routine 10/09/2011 11:36 Multiple nasal COMPUTER-ASSTD AM EDT polyps NAVIGATIONAL CRANIAL EXTRADURAL ABSCESS/WOUND Routine 10/02/2011 2:14 PM Results for this ASPIRATE CULTURE EDT procedure a re in the results section. FUNGUS CULTURE Routine 10/02/2011 2:14 PM Results for this EDT procedure are i n the results section. MODIFIER MEDTRONIC 10/02/2011 11:54 Multiple nasal AM EDT polyps STEREOTACTIC 10/02/2011 11:54 Multiple nasal COMPUTER-ASSTD AM EDT polyps NAVIGATIONAL CRANIAL EXTRADURAL (WRVU 3.18) NASAL, SINUS 10/02/2011 11:54 Multiple nasal ENDOSCOPY, TOTAL AM EDT polyps ETHMOIDECTOMY-MARGARET (WRVU 6.95) NASAL, SINUS 10/02/2011 11:54 Multiple nasal ENDOSCOPY, WITH BX, AM EDT polyps POLYPECTOMY (WRVU 2.6) NASAL, SINUS 10/02/2011 11:54 Multiple nasal ENDOSCOPY, REMOVE AM EDT polyps TISSUE MAXILLARY SINUS, MARGARET (WRVU 5.45) documented in this encounter Results Fungus culture Nasal Sinus Aspirate (10/02/2011 2:14 PM EDT) [facility] Method Time Signature Fungus CERNER Culture ? Patient Name: ERICH CAMACHO ?Ordered By: KURTIS GUZMAN [facility] ? MR#: [id number] ?LOC: ??SDP ? /Sex: ??1940 (71 years), ? Male ? PROCEDURE: Fungus Culture ?SOURCE: Sinus Asp ? COLLECTED: 10/02/2011 14:14 ?FREE TEXT SOURCE: Right maxillary sinus content ? STARTED: 10/02/2011 14:14 ? FINAL REPORT ? Final Report ? Verified:11/01/2011 07:26 ? No Fungus isolated ? PRELIMINARY REPORT ? Preliminary Report ? Verified:10/03/2011 09:52 ? No Fungus isolated to date ? Specimen (Source) Anatomical Collection Method Collection Time Re ceived Time Location / / Volume Laterality Collection of 10/02/2011 2:14 10/02/2011 2:14 nasal pharyngeal PM EDT PM EDT aspirate (procedure) Comment: RIGHT MAXILLARY SINUS CONTENT Resulting Agency Comment Spec In Lab Kurtis Guzman MD MICROBIOLOGY - GENERAL ORDER ALE Performing Organization Address City/State/[place] [address] CERNER MILLENNIUM Wound Aspirate/Abscess Culture Fluid; Other (10/02/2011 2:14 PM EDT) Component Value Ref Test Analysis Performed At [facility] Range Method Time Signature Abscess/Wound CERNER Aspirate ? Patient Name: ERICH CAMACHO ?Ordered By: KURTIS GUZMAN Culture ? MR#: [id number] ?LOC: ??SDP ? /Sex: ??1940 (71 years), ? Male ? PROCEDURE: Wound Aspirate/Abscess Culture ?SOURCE: Fluid ? COLLECTED: 10/02/2011 14:14 ? BODY SITE: Other ? STARTED: 10/02/2011 14:14 ?FREE TEXT SOURCE: Right maxillary sinus content ? STAINS / PREPARATIONS ? Gram Stain Report ? Verified:10/02/2011 14:54 ? Many White Blood Cells seen ? Rare Gram Positive Cocci seen ? FINAL REPORT ? Final Report ? Verified:10/05/2011 08:06 ? Moderate Haemophilus influenzae ? Beta-lactamase result indicates organism is likely resistant to ampicillin ? and penicillin. ? PRELIMINARY REPORT ? Preliminary Report ? Verified:10/04/2011 11:06 ? Moderate Haemophilus species ? Identification to follow. ? Specimen Anatomical Collection Method Collection Time Receive d Time (Source) Location / / Volume Laterality Fluid sample TOPOGRAPHY UNKNOWN 10/02/2011 2:14 PM 05/2011 2:14 (specimen) / Unknown EDT PM EDT Comment: RIGHT MAXILLARY SINUS CONTENT Resulting Agency Comment Spec In Lab Kurtis Guzman MD MICROBIOLOGY - GENERAL ORDER ALE Performing Organization Address City/State/[place] [address] [address] [facility] documented in this encounter Visit Diagnoses Diagnosis Multiple nasal polyps Unspecified nasal polyp documented in this encounter Administered Medications Inactive Administered Medications - up to 3 most recent administrations Medication Order MAR Action Action Date Dose Rate Site ceFAZolin (ANCEF) 1g in Given 10/02/2011 12:03 PM 1,000 mg 100 mL/hr dextrose 5% 50mL EDT 1,000 mg (1 g), Intravenous, 60 MIN PRE-OP, 1 dose, On Sun10/03/11 at 0000, Administer over 30 Minutes, Day of Surgery (Day of Procedure), Indication for (Active or Suspected): Prophylaxis documented in this encounter Active and Recently Administered Medications Times are shown in EDT. Scheduled Medication Order 09/30/2011 10/01/2011 10/02/2011 ceFAZolin (ANCEF) 1g in dextrose 5% 50mL (COMPLETED) 1203 (Given - Provider: Higinio Lopez, HEEL SHAPER) 1 g = 1,000 mg, Intravenous, 60 MIN PRE- OP, 1 dose, 10/03/11 at 0000, for 30 Minutes, Day of Surgery (Day of Procedure) cocaine 4 % external solution (COMPLETED) 1245 (Given - Provider: Carlos Alvarado MD - Comment: mixed with Afrin 30ml.)1315 (Due) Topical, ONCE, 10/02/11 at 1315, For 1 dose, Intra-Operative (Intra-Procedure) PRN Medication Order 09/30/2011 10/01/2011 10/02/2011 lidocaine-epiNEPHrine 1 %-1:200,000 injection (CANCELED) 1245 (Given - Provider: Carlos Alvarado MD)1312 (Given - Provider: Carlos Alvarado MD) ONCE PRN, Starting 10/02/11 at 1245, U ntil 10/02/11 at 2006, Intra-Operative (Intra-Procedure), Routine oxymetazoline (AFRIN) 0.05 % nasal spray (CANCELED) 1240 (Given - Provider: Carlos Alvarado MD - Comment: mixed with 4% Cocaine 4ml.) ONCE PRN, Starting 10/02/11 at 1240, U ntil 10/02/11 at 2006, Congestion, [employer] recommended duration is 3 days., Intra-Operative (Intra-Procedure), Routine documented in this encounter Care Teams Funeral Home Location Manager Relationship Specialty Start Date End Date Erik Carrasquillo MD PCP - General 02/22/[address] [place] [phone] documented as of this encounter
--- OUTSIDE RECORDS SUMMARY | 2021-09-23 12:54 | XMS_ITS | Encounter Summary ---
:1940 Author Organization [facility] [place] [address] Care Team Providers Name Role Phone Erik Carrasquillo MD Primary Care Provider Encounter Details Date Type Department Care Team Description 10/02/2011 Surgery Main Operating Room Robbie, NASAL, S INUS ENDOSCOPY, [facility] MD Kurtis REMOVE TISSUE [facility] SIN[facility], MARGARET (WRVU 5.45) [facility] [address] [place]enton [place] [address] [place] [address] [phone] (Wo rk) Social History Tobacco Use Types [...] straining significantly to have bowel movements. Use lhgu-vea-nrgpenv stool softeners if needed. 4. Sneeze with your mouth open. 5. Your nose may feel very congested post surgery (like a sinus infection). This is normal. You may use Afrin nasal spray as needed for the first 48 hours after surgery. 6. Start using nasal saline rinses twice a day on the day after surgery. Buy a [employer] sinus rinse kit. You will notice blood-stained [...] Blurry vision Contact Information MD Tonia Sethi, DOGMAN/WOMAN doctor director mobile media [employer] [phone] (after hours) Endoscopic Sinus Surgery/Septoplasty - Postoperative [...] straining significantly to have bowel movements. Use arix-rtv-vfcuopu stool softeners if needed. 4. Sneeze with your mouth open. 5. Your nose may feel very congested post surgery (like a sinus infection). This is normal. You may use Afrin nasal spray as needed for the first 48 hours after surgery. 6. Start using nasal saline rinses twice a day on the day after surgery. Buy a [employer] sinus rinse kit. You will notice blood-stained [...] Blurry vision Contact Information MD Nelly Sethi, DOGMAN/WOMAN doctor director mobile media [employer] [phone] (after hours) documented in this encounter Medications [...] (NASACORT-AQ) 50 mcg route 2 times daily. [place] GLUCOSAMINE HCL/CHONDR 0 08/28/2008 CLAROS A NA (GLUCOSAMINE-CHONDROITI N) 750-600 mg Tab CALCIUM ORAL 0 08/28/2008 08/29/2012 Saw Noble 160 mg 0 08/28/200808/29 capsule multivitamin 0 [...] used to register the patient and the Eyebrid Blaze system was readied for navigation. Real-time navigation [...] Operative Note Patient Name: Erich Camacho : [id number] MR#: [id number] Case Date: 10/02/2011 Surgeon: Surgeon(s) and Role: [...] Nasal Sinus Aspirate (10/02/2011 2:14 PM EDT) [facility] Method Time Signature Fungus CERNER Culture ? Patient Name: ERICH CAMACHO ?Ordered By: KURTIS GUZMAN [facility] ? MR#: [id number] ?LOC: ??SDP ? /Sex: ??1940 (71 years), [...] Organization Address City/State/[place] [address] CERNER MILLENNIUM Wound Aspirate/Abscess Culture Fluid; Other (10/02/2011 2:14 PM EDT) Component Value Ref Test Analysis Performed At [facility] Range Method Time Signature Abscess/Wound CERNER Aspirate ? Patient Name: ERICH CAMACHO ?Ordered By: KURTIS GUZMAN Culture ? MR#: [id number] ?LOC: ??SDP ? /Sex: ??1940 (71 years), [...] Organization Address City/State/ZIP Code Phon e Number [place] [id number] [facility] documented in this encounter Visit Diagnoses Diagnosis Multiple nasal polyps Unspecified nasal polyp Multiple nasal polyps Unspecified nasal polyp documented [...] Procedure), Indication for (Active or Suspected): Prophylaxis cocaine 4 % external solution Given 10/02/2011 12:45 PM 4 mLs 19- Surg ical Site Topical, ONCE, On Sun10/02/11 at EDT 1315, 1 dose, Intra-Operative (Intra-Procedure) lidocaine-epiNEPHrine 1 Given 10/02/2011 1:12 PM 9 mLs 19- Surgical Site %-1:200,000 injection EDT ONCE PRN, Starting on Sun10/02/11 at 1245, Until Sun10/02/11 at 2006, Intra-Operative (Intra-Procedure), Routine Given 10/02/2011 12:45 PM EDT 6 mLs 19- Surgical Site oxymetazoline (AFRIN) 0.05 % Given 10/02/2011 12:40 PM 3 sprays 19- Surgical Site nasal spray EDT ONCE PRN, Starting on Sun10/02/11 at 1240, Until Sun10/02/11 at 2005, Congestion, Medical Examiner recommended duration is 3 days., Intra-Operative (Intra-Procedure), Routine documented in this encounter Active and Recently Administered Medications Times are shown in EDT. Scheduled Medication Order 09/30/2011 10/01/2011 10/02/2011 ceFAZolin (ANCEF) 1g in dextrose 5% 50mL (COMPLETED) 1203 (Given - Provider: Higinio Lopez, [facility]) 1 g = 1,000 mg, Intravenous, 60 MIN PRE- OP, 1 dose, 10/03/11 at 0000, for 30 Minutes, Day of Surgery (Day of Procedure) cocaine 4 % external solution (COMPLETED) 1245 (Given - Provider: Carlos Alvarado MD - Comment: mixed with Afrin 30ml.)1315 (Due) Topical, ONCE, Sun10/02/11 at 1315, For 1 dose, Intra-Operative (Intra-Procedure) PRN Medication Order 09/30/2011 10/01/2011 10/02/2011 lidocaine-epiNEPHrine 1 %-1:200,000 injection (CANCELED) 1245 (Given - Provider: Carlos Alvarado MD)1312 (Given - Provider: Carlos Alvarado MD) ONCE PRN, Starting Sun10/02/11 at 1245, U ntil Sun10/02/11 at 2006, Intra-Operative (Intra-Procedure), Routine oxymetazoline (AFRIN) 0.05 % nasal spray (CANCELED) 1240 (Given - Provider: Carlos Alvarado MD - Comment: mixed with 4% Cocaine 4ml.) ONCE PRN, Starting Sun10/02/11 at 1240, U ntil 10/02/11 at 2006, Congestion, Medical Examiner recommended duration is 3 days., Intra-Operative (Intra-Procedure), Routine documented in this encounter Care Teams Safe Expert Relationship Specialty Start Date End Date Erik Carrasquillo MD PCP - General 02/22/[address] [place] [phone] documented as of this encounter
--- OUTSIDE RECORDS SUMMARY | 2021-09-23 12:54 | XMS_ITS | Encounter Summary ---
:1940 Author Organization [facility] [place] [address] Care Team Providers Name Role Phone Erik Carrasquillo MD Primary Care Provider Encounter Details Date Type Department Care Team Description 10/17/2011 Telephone Otolaryngology at [facility] [place] [place] [address] Social History Tobacco Use Types Packs/Day [...] this encounter Miscellaneous Notes Telephone Encounter - Vicky Cox - 10/17/2011 3:24 PM EDT Called patient and requested a call back to set up an appointment with Dr Avalos for a 1 month follow up documented in this encounter Plan of Treatment Not on filedocumented as of this encounter Visit Diagnoses Not on filedocumented in this encounter Care Teams Embroidery Assistant Relationship Specialty Start Date End Date Erik Carrasquillo MD PCP - General 02/22/[address] [place] [id number] documented as of this encounter
--- OUTSIDE RECORDS SUMMARY | 2021-09-23 12:54 | XMS_ITS | Encounter Summary ---
:1940 Author Organization [facility] [place] [address] Care Team Providers Name Role Phone Erik Carrasquillo MD Primary Care Provider Reason for Visit Reason Comments Skin Lesion Nail Problem Encounter Details Date Type Department Care Team Description 06/01/2011 Office Visit Dermatology Onofre Jacome, Actinic keratosis [address] [facility] (Primary Dx) [address] [place], [place] DERMATOLOGY [address] [place] [address] [phone] (Wo rk) Social History Tobacco Use Types Packs/Day Years Used Date Former Smoker Cigarettes Quit: 03/15/19 66 Sex Assigned at Date Recorded Not on file documented as of this encounter Progress Notes Onofre Jacome MD - 06/01/2011 2:43 PM EST Problem: Skin lesions of concern. Geoff follows up and is concerned about some lesions on his cheek and fingernail changes. Physical examination reveals actinics present across his cheeks, a little bit on the temples and some ridging along the cuticles where there was disruption of nail plate growth and then restarted again. This is present in fact on almost all of his ten nails. There have been no particular changes in his medications although he did when this started a month or two ago about the same time started taking Asmanex and Advair. 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 Assessment & Plan: Actinic keratoses/actinic damage facial. a. Recommended we begin Efudex 5% Cream applying BID to post-auricular scalp, ears, cheeks, forehead, temples, nose for two weeks then discontinue and return to clinic, 30gm dispensed with no refills. b. Follow Efudex applications 30-minutes later with application of Triamcinolone 0.1% Cream also being applied BID, 45gm dispensed with no refills. c. RTC in two weeks for repeat check. Fingernail changes. a. Will research his current medications but I reassured him that this is not tinea unguium nor is he about to loose all ten of his nails. Suspect related to his pulmonary disease. documented in this encounter Plan of Treatment Not on filedocumented as of this encounter Visit Diagnoses Diagnosis Actinic keratosis - Primary documented in this encounter Care Teams Intake Manager Relationship Specialty Start Date End Date Erik Carrasquillo MD PCP - General 02/22/[address] [place] [phone] documented as of this encounter
--- OUTSIDE RECORDS SUMMARY | 2021-09-23 12:54 | XMS_ITS | Encounter Summary ---
:1940 Author Organization [place] [address] Care Team Providers Name Role Phone Erik Carrasquillo MD Primary Care Provider Encounter Details Date Type Department Care Team Description 03/30/2011 Orders Only Pulmonology at [facility] Trevor Neumann MD [facility] [place] [address] CRITICAL CARE-PULMONARY [phone] [place], [place] [address] (Wo rk) Social History Tobacco Use Types Packs/Day Years Used Date Former Smoker Cigarettes Quit: 03/15/19 66 Sex Assigned at Date Recorded Not on file documented as of this encounter Plan of Treatment Not on filedocumented as of this encounter Visit Diagnoses Not on filedocumented in this encounter Care Teams Trackmobile Operator Relationship Specialty Start Date End Date Erik Carrasquillo MD PCP - General 02/22/10 [address] [place] [address] documented as of this encounter
--- OUTSIDE RECORDS SUMMARY | 2021-09-23 12:54 | XMS_ITS | Encounter Summary ---
:1940 Author Organization [facility] Address [facility] [place] [address] Care Team Providers Name Role Phone Erik Carrasquillo MD Primary Care Provider Reason for Visit Reason Comments Allergic Reaction Encounter Details Date Type Department Care Team Description 09/04/2011 Office Visit All[facility] at [facility] Carla Copeland MD Chronic sinusitis; [facility] Reinaldo al polyposis; Drive DR Asthma; [place] [address] ALLERGY AND Reflux [phone] IMMUNOLOGY [place] [address] (Wo rk) Social History Tobacco Use Types [...] Sign Reading Time Taken Comments Blood Pressure 126/76 09/04/2011 2:19 PM EDT Pulse 88 09/04/2011 2:19 PM EDT Temperature - - Respiratory Rate 21 09/04/2011 2:19 PM EDT Oxygen Saturation 97% 09/04/2011 2:19 PM EDT Inhaled Oxygen Concentration - - Weight 77.1 kg (170 lb) 09/04/2011 2:19 PM EDT Height 176.5 cm (5' 9.5) 09/04/2011 2:19 PM EDT Body Mass Index 24.74 09/04/2011 2:19 PM EDT documented in this encounter Progress Notes Carla Copeland MD - 09/04/2011 2:32 PM EDT Subjective: Patient ID: Geoff Camacho is a 70 y.o. male. HPI Chief Complaint Patient presents with ??? Allergic Reaction The patient is a pleasant 71 y.o. year old male whose consultation was requested by . The reason for consultation is evaluation and management of SOB. He is accompanied by his . He has a chronic cough with nasal congestion that is worse on the left. He has associated clear rhinorrhea. He has ocular pruritus occasaionall that does not have a seasonal pattern. He has reduced sense of smell. He has no sinus pressure. He was diagnosed with silent aspiration that improved with amoxicillin course and prednisone course.He has started on Asmanex twice daily for asthma. His cough has resolved, but he continues to have wheezing at night. He feels that the wheezing has improved since starting the Asmanex. He uses the albuterol inhaler less than once monthly. He has no nighttime awakenings. He can go up a flight of stairs without any respiratory symptoms. He has never had allergy testing. Mr. Camacho was evaluated by Dr. Avalos today. 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 He was started on a course of prednisone and FESS was scheduled. 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 He has tried Flonase which helped his nasal congestion initially, but after about four months his nasal congestion recurred. He tried NetiPot and saline nasal spray with no benefit to his nasal congestion. He has tried Claritin and zyrtec with no benefit to his nasal congestion and rhinorrhea. His last dose of antihistamine was over one week ago. He has no history of reaction to aspirin. He takes aspirin and ibuprofen without any reactions. He has a history of GERD with a positive pH/impedance study. He takes daily omeprazole. He does not have heartburn or reflux. He had a CxR within the last year which was negative per the patient. Social and Environmental History: Pets- Dog that does not enter the bedroom. Smoker- Ex- smoker. Quit cigarette smoking in 1966. He smokes a cigar about one per month during thesu. Second-hand smoke exposure- None Bedroom is located on the first floor withwall to wall carpet Vacuums- Four times per month Washes bed linens- Four times per month not using hot water ( uses warm water) Woodstove or Fireplace- Pellet stove that is used daily during the winter No visible mold. Family History: Dad has asthma. Mom had seasonal allergies. Summary of outside records: Pt followed by Dr. Carrasquillo for wheezing and SOB. Work up for anemia, heart failure and respiratory cause for his wheezing and SOB. PFTs on 01/03/11 showed mild obstructive dzwithout reversibility; air trapping was seen. Treated for acute bronchitis with zithromax and phenergan with codeine. Review of Systems HENT: Positive for congestion, rhinorrhea, sneezing and sinus pressure. Eyes: Positive for itching. Respiratory: Positive for cough, shortness of breath and wheezing. All other systems reviewed and are negative. Objective: Physical Exam Vital signs reviewed. Normal Except General: - No apparent distress Eyes: - Conjunctivae without injection; - No eyelid swelling ENT: - No erythema of the tympanic membranes - Normal external ear canals - Oropharynx well hydrated without lesions or exudates; - Face & sinuses non-tender to palpation/percussion Edematous nasal mucosa bilaterally with nasal polyps in the posterior nasal passages b/l Neck: - Symmetrical, no masses, trachea midline; Resp: - Unlabored breathing with symmetrical and equal bilateral expansion; - CTA w/o wheezes, rales, or rhonchi; CV: - Regular rate and rhythm - No pedal swelling GI: - Abdomen soft - Bowel sounds present - No hepatosplenomegaly Lymph: - No significant cervical, supraclavicular or infraclavicular lymphadenopathy Musculoskeletal: - Nl gait and station Extremities: - No clubbing, cyanosis, or edema Skin: - No rashes Neuro/Psych: - Nl and age appropriate mood and affect - Judgement and insight intact Assessment and Plan: 09-04-11 Skin test results: mm wheal/flare Histamine 6/30 Saline 0/0 Common Allergens Additional Hollins Allergens Birch 0/0 Medeiros's Quarter 0/0 Cat 0/0 Pigweed 0/0 Dog 0/0 Cocklebur 0/0 DF mite 0/0 DP mite 0/0 Adán grass 0/0 Additional Tree allergens Giant Ragweed 0/0 Benedicta 0/0 Hollins mix 0/0 Beech 0/0 Grass mix 0/0 [place] 0/0 Tree mix 0/0 [place] 0/0 Aspergillus mix 0/0 Alternaria 0/0 Chang 0/0 Feathers 0/0 Maple 0/0 Additional Mold Allergens Penicillium 0/0 Cladosporium 0/0 Helminthosporium 0/0 Curvularia 0/0 Epicoccum 0/0 Fusarium 0/0 Mucor 0/0 Total skin tests: 31 Interpretation: Appropriate histamine reaction. Negative skin tests to aeroallergens. #1 Chronic rhinitis --Continue Nasacort --reviewed skin test results with patient --F/u with ENT for rhinitis and h/o nasal polyposis #2 Asthma --Continue management as recommended by Pulmonary #3 Reflux --Continue PPI --F/u with PCP RTC as needed Outside records were reviewed. Written instructions were reviewed and provided to the patient. No learning barriers were identified. The patient understood and agreed with what was discussed. Allquestions were answered. documented in this encounter Plan of Treatment Not on filedocumented as of this encounter Visit Diagnoses Diagnosis Chronic sinusitis Unspecified sinusitis (chronic) Nasal polyposis Unspecified nasal polyp Asthma Unspecified asthma Reflux Esophageal reflux documented in this encounter Care Teams Oim Consultant Relationship Specialty Start Date End Date Erik Carrasquillo MD PCP - General 02/22/[address] [place] [id number] documented as of this encounter
--- OUTSIDE RECORDS SUMMARY | 2021-09-23 12:57 | XMS_ITS ---
:1940 Author Care Team Providers Name Role Phone BERNARDO WILSON MD Primary Care Provider [phone] Allergies Code Code System Name Reaction Severity Status Onset NKDA ? Medications Name Status Start Date Stop Date ? ? albuterol sulfate HFA 90 mcg/actuation aerosol inhaler Active ? Not available INHALE 2 PUFFS BY MOUTH EVERY 4 HOURS NEEDED amoxicillin 500 mg capsule Active ? Not a vailable Asmanex Twisthaler 220 mcg/actuation(60 doses) breath Active ? Not available activated inhalr clindamycin HCl 300 mg capsule Active ? N ot available diltiazem CD 240 mg capsule,extended release 24 hr Active ? Not available dutasteride 0.5 mg-tamsulosin ER 0.4 mg capsule ext.release Acti ve ? Not available 24hr mphas omeprazole 20 mg capsule,delayed release Active ? Not available TAKE 1 CAPSULE BY MOUTH ONCE DAILY pravastatin 20 mg tablet Active ? Not wayne ilable TAKE 1 TABLET BY MOUTH AT BEDTIME Pulmicort Flexhaler 180 mcg/actuation breath activated Active ? Not available Problems None recorded. Procedures Date Name Performed by ? 04/02/1969 Excision of Lipoma Information not avai lable 04/02/1959 Appendectomy Information not avai lable 04/02/1955 Removal of Testis Information not avai lable Results Lab Results Date Name Specimen Result Interpretation Description Value Range Status Address ? ? Urinalysis, Dipstick ? Protein Negative ? ? In-House Results: For Internal U se Only, Do Not Delete /merge ? ? ? Ph 5.0 ? ? In-House R esults: For Internal U se Only, Do Not Delete /merge ? ? ? Glucose Negative ? ? In-Veronica se Results: For Internal U se Only, Do Not Delete /merge ? ? ? Appearance Clear ? ? In-Ho use Results: For Internal U se Only, Do Not Delete /merge ? ? ? Color Yellow ? ? 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 Social History Tobacco Smoking Status Never Smoker Vaccine List Notes: Childhood immunizations up to d ate. Plan of Care Patient Goals Hydrocele - Treatment aimed at reducing scrotal swelling and pain through the most conservative means possible. Surgical therapy must spare testicular blood supply to prevent atrophy and preserve ferti lity and hormone production to the great est degree possible. ERECTILE DYSFUNCTION - WITH TREATMENT AI MED AT ADEQUATE ERECTILE QUALITY USING THE LEAST INVASIVE MECHANISM POSSIBLE IN A CONTINUUM FROM PDE-5 INHIBITOR THERAPY TO VACUUM ERECTION DEVICE TO PENILE INJEC TIONS OR INTRAURETHRAL THERAPY TO PENILE PROSTHESIS PLACEMENT. THE PATIENT'S AGE AND BASELINE SEXUAL ACTIVITY NEED TO BE CONSIDERED IN DECIDING UPON THE MOST APPROPRIATE THERAPY. WE MUST ALSO CONSIDER P OTENTIAL DRUG INTERACTIONS (IE: NITRATE THERAPY). CONTROL OF OBSTRUCTIVE AND IRRITATIVE VO IDING SYMPTOMS RELATED TO BPH USING ALPHA BLOCKADE WITH THE ABSENCE OF ALPHA JULIA RELATED SIDE EFFECTS SUCH NASAL STUFFINESS, CONSTIPATION, ASTHENIA AND PARTICULARLY ORTHOSTASIS. Patient Instructions The patient kvng return for a testicular ultrasound. This will be to evaluate the hydrocele and the testis. It appears abigail t this hydrocelelcould potentially be followed in lieu of agressive management . Options were discussed but depend to some degree on ultrasonography. Medical manag ement of ED and BPH should continue. Reminders Provider Appointments None recorded. ? ? Lab None recorded. ? ? Referral None recorded. ? ? Procedures None recorded. ? ? Surgeries None recorded. ? ? Imaging None recorded. ? ? Vitals Height Weight BMI Blood Pressure 5 ft 9 in 184 lbs 27.2 kg/m2 142/84 mm[Hg]
--- NOTE | 2021-09-23 13:45 | DI.RAD_ITS ---
Exam(s) XR ELBOW LT COMPLETE EXAM: XR ELBOW LT COMPLETE CLINICAL HISTORY: Fall/trauma. TECHNIQUE: 2D digital imaging was performed of the left elbow. Three images were obtained. AP, lat eral and oblique views were obtained. COMPARISON: No exams were available for comparison FINDINGS: BONES: No acute fracture is present. No bony destructive lesion is seen. JOINTS: The elbow is normally aligned. No joint effusion is seen. SOFT TISSUE: Normal. IMPRESSION: Unremarkable radiographs of the left elbow. DATA REPOSITORY: RADIATION DOSE DELIVERED:
--- NOTE | 2021-09-23 15:02 | ED.GENADUL_ITS ---
Discharge Plan Disposition Patient Disposition: Eloped Condition: Stable Discharge Details Chief Complaint: Orthopedic Clinical Impression: Contusion of elbow, left Primary Care Provider: Erik Carrasquillo ED Provider: Angel Luis Castaneda Home Meds and New Rx's Prescriptions: No Action dutasteride-tamsulosin [Marian] 1 EACH capsule, ER multiphase 24 hr 1 ea PO DAILY Qty: 90 multivitamin [Daily Multi-Vitamin] 1 EACH tablet 1 ea PO DAILY pravastatin 20 MG tablet 20 mg PO HS Qty: 90 omeprazole 20 MG capsule,delayed release(DR/EC) 40 mg PO DAILY Label Comments: 10/23/16 PT. STATES 20 MG DAILY. albuterol sulfate [ProAir HFA] 1 PUFF HFA aerosol inhaler 2 puff Inhalation Q4H PRN PRN (Reason: Wheezing) diltiazem HCl [Cardizem] 120 MG tablet 240 mg PO DAILY aspirin [Aspir-81] 81 mg Tablet,Delayed Release (Dr/Ec) 81 mg PO DAILY Discharge Instructions Instructions: Contusion in Adults (ED) Additional Instructions: Please continue to use [id number] pain medication as approved by your primary care provider for discomfort and apply ice to help with swelling. If you have any new or worsening symptoms please follow-up to the emergency department for reassessment. Referrals: Erik Carrasquillo [Primary Care Provider] - (If not improving follow-up with you r primary care provider) Discharge Data Discharge Date/Time-TO BE ENTERED AT DEPARTURE: 09/23/21 15:09 Medical Decision Making Patient presenting to the emergency department for chief complaint of left elbow injury. He states minor fall today with no other associated trauma except for slight hip discomfort but is mostly concerned about his elbow. Denies loss of consciousness, chest pain, belly pain, and is fully ambulatory and weightbearing. Physical exam shows ecchymosis to the left elbow but does have appropriate range of motion. Given patient's age and level of ecchymosis we will plan on performing radiological imaging to rule out acute fracture otherwise high suspicious for contusion. Review of radiological imaging and radiologist capitation shows no acute signs of fracture. Before patient was able to be discharged he had eloped and voicemail was left for patient to call to receive instructions for contusion c are. This documentation was generated using [employer] system, please disregard any oddities of phrase or misspellings. Imaging Data Radiologic Study: Imaging: X-Ray Radiologist's impression: FINDINGS: BONES: No acute fracture is present. No bony destructive lesion is seen. JOINTS: The elbow is normally aligned. No joint effusion is seen. SOFT TISSUE: Normal. IMPRESSION: Unremarkable radiographs of the left elbow. HPI General Mode of arrival: ambulatory . Date/Time Provider Initiated Documentation: 09/23/21 13:44 . Limitations to Documentation: no limitations . Information obtained by: patient and family . History of Present Illness 81 year old M presents to the emergency department with the chief complaint of Fall with Left elbow injury, Quality is described as other (denies pain), and is localized to the left and upper extremity. Patient reports no radiation. Patient started experiencing this hour(s) (4) and it has been constant. No relieving factors improve symptom(s), No exacerbating factors reported . Patient notes no other symptoms.. Patient did receive the following treatments prior to arrival, none Related Data Home Medications Medication Instructions Recorded Confirmed albuterol sulfate 90 mcg/actuation 2 puff inhalation Q4H PRN PRN 07/01/12 09/23/21 aerosol inhaler (ProAir HFA) Wheezing omeprazole 20 mg capsule,delayed 40 mg PO DAILY 07/01/12 09/23/21 release diltiazem HCl 120 mg tablet 240 mg PO DAILY 07/06/13 09/23/21 (Cardizem) dutasteride 0.5 mg-tamsulosin ER 1 ea PO DAILY #90 caps 12/26/13 09/23/21 0.4 mg capsule ext.release 24hr mphas (Marian) multivitamin (Daily Multi-Vitamin 1 ea PO DAILY 10/23/16 09/23/21 tablet) pravastatin 20 mg tablet 20 mg PO HS #90 tab-caps 10/23/16 09/23/21 aspirin 81 mg tablet,delayed 81 mg PO DAILY 10/20/19 09/23/21 release (Aspir-) Allergies Allergy/AdvReac Type Severity Reaction Status Date / Time No Known Allergies Allergy Unverified 09/23/21 12:56 General Stated Complaint: Orthopedic JOSH: 4 Review of Systems Constitutional Constitutional: Denies frequent falls, Denies headache(s) and Denies malaise Eyes Eyes: Denies change in vision ENT Ears, Nose, Mouth, and Throat: Denies headache(s) and Denies neck pain Cardiovascular Cardiovascular: Denies chest pain and Denies dyspnea Respiratory Respiratory: Denies dyspnea Gastrointestinal Gastrointestinal: Denies abdominal pain Musculoskeletal Musculoskeletal: Reports as per HPI, Denies back pain, Denies muscle weakness and Denies neck pain Integumentary/Breasts Skin/Breast: Reports unusual bruising and Denies wounds Neurologic Neurologic: Denies frequent falls, Denies headache(s) and Denies paresthesias PFSH All Active Problems Contusion of elbow, left (Acute) Osteoarthritis of left knee (Acute) Oral mucosal lesion (Acute) Jaw pain (Acute) Abnormal auditory perception (Acute) Cerumen impaction (Acute) Dislocation of right shoulder joint (Acute 09/24/18) with fracture greater tuberosity 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 joint disease of left hand (Chronic) Medical History COPD (chronic obstructive pulmonary disease) Social History Smoking/Tobacco Use Status: Never Smoking risk assessment performed?: Yes Alcohol Intake: current Alcohol Intake frequency: holidays/special occasions only Drug use: Never Substance use type: does not use Current gender identity: male Do you feel safe at home: Yes Do you feel safe in your relationship?: Yes Exam Const General: cooperative, no acute distress and not ill appearing Orientation: alert, awake and oriented x3 Resp Effort & Inspection: normal respiratory effort, able to speak in complete sentences and no respiratory distress Cardio Rate: regular rate Rhythm: regular rhythm Skin General skin exam: no rashes or lesions noted Neuro General: patient alert, patient awake, patient oriented x3, moves all extremities and no focal motor deficits Sensory Exam: no sensory deficits noted Extrem General: capillary refill normal and normal exam except as noted Left upper extremity: elbow/forearm Details: normal ROM, abrasion and ecchymosis elbow Details: multiple; no tenderness and no swelling Course Vital Signs Vital signs: Vital Signs Temperature 36.5 C 09/23/21 12:49 Pulse 84 09/23/21 12:49 Respiratory Rate 16 09/23/21 12:49 Blood Pressure 133/69 09/23/21 12:49 Pulse Oximetry 96 09/23/21 12:49 Temperature 36.5 C 09/23/21 12:49 Temperature Source Temporal Artery Scan 09/23/21 12:49 Pulse 84 09/23/21 12:49 Respiratory Rate 16 09/23/21 12:49 Respiratory Effort Non-Labored 09/23/21 12:54 Blood Pressure 133/69 09/23/21 12:49 Blood Pressure Position Sitting 09/23/21 12:49 Pulse Oximetry 96 09/23/21 12:49 Oxygen Delivery Method Room Air 09/23/21 12:49 Oxygen Flow Rate 0 09/23/21 12:49 Pain Level 0 09/23/21 13:00 PAWSS Have you Been Recently Intoxicated or Drunk Within the Last 30 days?: No Have you Ever Experienced Previous Episodes of Alcohol Withdrawal?: No Have you ever Experienced Withdrawal Seizures?: No Have you ever Experienced Delirium Tremens(DT)s?: No Have you ever undergone Alcohol Rehabilitation Treatment (i.e, inpt ot outpatient treatment programs)?: No Have you ever Experienced Blackouts?: No Have you ever Combined Alcohol with other Downers within the last 90 days?: No Have you ever Combined Alcohol with any other Substance of Abuse during the last 90 days?: No Result: 0
== END 2021-09-23 15:09 ==
PROVIDERS: Emergency Provider Nurse Practitioner Family; PCP Internal Medicine
DX: S50.02XA Contusion of left elbow, initial encounter (principal); J44.9 Chronic obstructive pulmonary disease, unspecified; Z53.20 Procedure and treatment not carried out because of patient's decision for unspecified reasons; W19.XXXA Unspecified fall, initial encounter
CPT/HCPCS: 99283; 73080; 99282

== ENCOUNTER 2022-01-09 16:11 | Outpatient (REF) | payer MEDICARE, BC, SELFPAY ==
[2022-01-09 19:00] LABS: HCT 43.7 % (40.0-50.0); HGB 14.5 g/dL (13.5-17.5); MCH 32.3 pg (27.0-33.0); MCHC 33.2 % (32.0-36.0); MCV 97 fL (80-95); MPV 10.7 fL (8.0-11.0); Platelet Count 209 10^3/uL (130-400); RBC 4.49 10^6/uL (4.36-5.78); RDW 13.4 % (11.8-14.1); RDW-SD 48.3 fL; WBC 4.62 10^3/uL (4.4-10.8)
[2022-01-09 20:23] LABS: ALT 25 U/L (16-63); BUN 12 mg/dL (7-18); Calcium 9.5 mg/dL (8.5-10.1); Calculated LDL 97 mg/dL (<100); Chloride 104 mmol/L (98-107); Cholesterol 168 mg/dL (<200); Estimated GFR 75.14 (mL/min/1.73m2); Glucose 100 mg/dL (74-106); HDL Cholesterol 54 mg/dL (40-60); Potassium 4.6 mmol/L (3.5-5.1); Sodium 142 mmol/L (136-145); Triglyceride 89 mg/dL (<150)
== END 2022-01-09 16:12 | disposition home or self-care (01) ==
LOC: NCHCN 16:11
PROVIDERS: PCP Internal Medicine; Visit Provider Internal Medicine
DX: E78.5 Hyperlipidemia, unspecified (principal); I10 Essential (primary) hypertension
CPT/HCPCS: 80048; 80061; 85027; 84460

== ENCOUNTER → 2022-01-20 00:48 | Outpatient (CLI) | payer MEDICARE, BC, SELFPAY ==
--- NOTE | 2022-01-20 08:58 | DI.CT_ITS ---
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 TECHNIQUE: Imaging Protocol: CT angiography of the chest was performed using pulmonary embolus patric col. Multi planar reconstructions were performed. CONTRAST MATERIAL: Intravenous: Omnipaque 350 Contrast volume: 100 cc COMPARISON: CT CT ANGIOGRAM CHEST (NON-CORONARY)W CONTRAST from 02/17/2019 FINDINGS: CHEST: AORTA: The diameter of the ascending thoracic aorta is 3.9 cm, mildly prominent. The diameter of the mid aortic arch is upper normal-2.5 cm. Diameter of the proximal descending thoracic aorta is also 2.5 cm and there is no significant dilatation of the descending thoracic aorta. The visualized upper most abdominal aorta to just above the renal artery levels is within normal limits diameter and ther e is no significant stenosis at the origin of the celiac and superior mesenteric arteries. There is no evidence of aortic dissection. PULMONARY ARTERIES: No intraluminal filling defects seen within the visualized pulmonary arteries whi ch are opacified to 3rd order level. LUNGS: No infiltrates nor pleural effusions.. No ominous pulmonary nodules. MEDIASTINUM: There is no hilar nor mediastinal adenopathy. Visualized thyroid unremarkable. CARDIAC: Heart size upper normal. There is a small amount of pericardial effusion anteroinferiorly w ith a maximum thickness of 6 millimeters. No shift of the interventricular septum. PARTIALLY VISUALIZED UPPERMOST ABDOMEN: No adrenal masses. No splenomegaly. OSSEOUS: No significant osseous lesions.No acute fractures.. IMPRESSION: 1. Mild prominence of the ascending thoracic aorta with measurements 3.9 cm. No dissection. No enla rgement of the aortic arch and descending thoracic aorta nor of the partially visualized upper abdomi nal aorta.. 2. No pulmonary findings, pleural effusions, nor intrathoracic adenopathy. RADIATION DOSE DELIVERED: 613.42mGy.cm Total DLP DATA REPOSITORY: All CT scans at this facility are submitted to the National Radiology Data Registry (NRDR) Dose Index Registry (DIR) with the [employer] (ACR). RADIATION OPTIMIZATION: All CT scans at this facility use at least one of these dose optimization te chniques: automated exposure control; mA and/or kV adjustment per patient size (includes targeted exa ms where dose is matched to clinical indication); or iterative reconstruction.
[2022-01-20] MEDS: Omnipaque 350 MG/ML 500 ML BTL-Imaging package 100 ML IJ (09:06)
== END ==
PROVIDERS: PCP Internal Medicine; Visit Provider Internal Medicine
DX: I77.810 Thoracic aortic ectasia (principal)
CPT/HCPCS: 71275

== ENCOUNTER 2022-07-13 17:37 | Outpatient (REF) | payer MEDICARE, BC, SELFPAY ==
[2022-07-13 19:37] LABS: HCT 38.3 % (40.0-50.0); HGB 12.9 g/dL (13.5-17.5); MCHC 33.7 % (32.0-36.0); MCV 95 fL (80-95); Platelet Count 222 10^3/uL (130-400); RBC 4.03 10^6/uL (4.36-5.78); RDW 13.9 % (11.8-14.1); RDW-SD 48.5 fL; WBC 3.63 10^3/uL (4.4-10.8)
[2022-07-13 19:42] LABS: ESR 28 mm/hr (0-20)
[2022-07-13 19:45] LABS: Anion Gap 4.3 mmol/L (3-11); BUN 17 mg/dL (7-18); C-Reactive Protein 1.47 mg/dL (0.0-0.3); CO2 26.7 mmol/L (21.0-32.0); CREATININE 0.9 mg/dL (0.70-1.30); Calcium 8.9 mg/dL (8.5-10.1); Chloride 107 mmol/L (98-107); Estimated GFR 85.27 (mL/min/1.73m2); Glucose 167 mg/dL (74-106); Potassium 4.1 mmol/L (3.5-5.1); Sodium 138 mmol/L (136-145)
[2022-07-13 20:06] LABS: Creatine Kinase 74 U/L (39-308); TSH 2.88 uIU/mL (0.36-3.74)
[2022-07-14 18:36] LABS: Rheumatoid Factor <8.6 IU/mL (<12.0)
[2022-07-17 08:25] LABS: Cyclic Citrullinated Peptide <2.5 U/mL (<5.0)
== END 2022-07-13 17:38 | disposition home or self-care (01) ==
LOC: NCHCN 17:37
PROVIDERS: PCP Internal Medicine; Visit Provider Internal Medicine
DX: R53.83 Other fatigue (principal); E78.5 Hyperlipidemia, unspecified; R60.0 Localized edema; M17.12 Unilateral primary osteoarthritis, left knee; I10 Essential (primary) hypertension; R70.0 Elevated erythrocyte sedimentation rate; R79.82 Elevated C-reactive protein (CRP)
CPT/HCPCS: 80048; 82550; 85027; 85652; 86200; 84443; 86140; 86431